=== PATIENT | male | born 1975 | race Caucasian/White ===

== ENCOUNTER 2016-09-16 08:24 | Inpatient (IN) | payer OTHER ==
[~2016-09-16] VITALS: Ht 177.8 cm; Wt 80.2 kg
[~2016-09-16 08:24] MED LIST: CIPR-9 PO; NAPR220T95 PO
[2016-09-16 08:34] VITALS: BP 118/75; PULSE 85; RESP 16; TEMP 98.1; O2SAT 100
[2016-09-16] MEDS ORDERED: SODIUM CHLOR 0.9% 1000 ML INJ 1,000 ML IV ONE ×2 (08:41→14:30)
[2016-09-16 09:00] VITALS: O2SAT 99
--- NOTE | 2016-09-16 09:16 | PD ---
HPI Chief Complaint: Pain: Acute or Chronic Time Seen by Provider: 08:40 Travel History International Travel<30 days: No Contact w/Intl Traveler<30days: No Traveled to known affect area: No History of Present Illness HPI 41-year-old male who presents with low back pain and feeling of fever with chills since last night. He states that initially he has not been using IV drugs but when I said it was important even if he is only used once he states that a couple of days or so ago he used because of the pain. He confirms that he had surgery at [facility] in his back recently. He denies any trauma. He denies other concurrent complaints. Quality pain is sharp. Severity is severe per patient. Pain is worse with movement. He denies other modifying factors. He denies other concurrent complaints other than occasional diarrhea. PFSH Past Medical History Hx Anticoagulant Therapy: No Arthritis: No Asthma: No Blood Disorders: No Anxiety: Yes Depression: No Heart Rhythm Problems: No Cancer: No Cardiovascular Problems: No High Cholesterol: No Chemotherapy: No Chest Pain: No Congestive Heart Failure: No COPD: No Cerebrovascular Accident: No Diabetes: No Diminished Hearing: No Endocrine: No Genitourinary: No Headaches: No Hypertension: No Immune Disorder: No Musculoskeletal: No Neurologic: No Psychiatric: No Reproductive: No Respiratory: No Immunizations Current: Yes Migraines: No Myocardial Infarction: No Radiation Therapy: No Seizures: No Sickle Cell Disease: No Sleep Apnea: No Thyroid Disease: No Past Surgical History Abdominal Surgery: No AICD: No Arteriovenous Shunt: No Cardiac Surgery: No Ear Surgery: No Endocrine Surgery: No Eye Surgery: No Genitourinary Surgery: No Insulin Pump: No Joint Replacement: No Oral Surgery: No Pacemaker: No Thoracic Surgery: Yes (CHEST TUBE RIGHT LUNG 1995) Other Surgery: Yes (LUNG COLLAPSED) Social History Alcohol Use: No (PT DENIES) Tobacco Use: Yes (/2 PPD) Substance Use: Yes (IV DRUG USE) Allergies-Medications (Allergen,Severity, Reaction): Coded Allergies: Penicillin (Verified Allergy, Mild, UNKNOWN, 09/16/16) Reported Meds & Prescriptions Reported Meds & Active Scripts Active No Active Prescriptions or Reported Medications Review of Systems Except as stated in HPI: all other systems reviewed are Neg Physical Exam Narrative GENERAL: Well-nourished, well-developed patient. SKIN: Warm and dry. track ye noted to left arm without abscess HEAD: Normocephalic and atraumatic. EYES: No injection or drainage. ENT: No nasal drainage noted. NECK: Supple, trachea midline. CARDIOVASCULAR: Regular rate and rhythm RESPIRATORY: No increased effort. No accessory muscle use. GASTROINTESTINAL: Abdomen soft, non-tender, nondistended. BACK: Tender over lumbar area near her surgical scar without overt signs of infection noted to skin and scar is well healing from June NEUROLOGICAL: Awake and alert. Motor and sensory grossly within normal limits. Normal speech. Data Data Last Documented VS Vital Signs Date Time Temp Pulse Resp B/P Pulse Ox O2 Delivery O2 Flow Rate FiO2 09/16/16 13:53 98.1 59 14 116/62 99 Room Air Orders Electrocardiogram (09/16/16 08:41) Complete Blood Count With Diff (09/16/16 08:41) Comprehensive Metabolic Panel (09/16/16 08:41) Prothrombin Time / Inr (Pt) (09/16/16 08:41) Act Partial Throm Time (Ptt) (09/16/16 08:41) Lactic Acid Sepsis Protocol (09/16/16 08:41) Phosphorus (Po4) (09/16/16 08:41) Urinalysis - C+S If Indicated (09/16/16 08:41) Blood Culture (09/16/16 08:41) Chest, Single Ap (09/16/16 08:41) Ecg Monitoring (09/16/16 08:41) Iv Access Insert/Monitor (09/16/16 08:41) Oximetry (09/16/16 08:41) Sodium Chlor 0.9% 1000 Ml Inj (Ns 1000 M (09/16/16 08:41) Mri L Spine W&W/O Contrast (09/16/16 ) Ketorolac Inj (Toradol Inj) (09/16/16 09:45) Alprazolam (Xanax) (09/16/16 10:45) Morphine Inj (Morphine Inj) (09/16/16 11:45) Mri T Spine W/O Contrast (09/16/16 ) Gadodiamide Pf Inj (Omniscan Pf Inj) (09/16/16 13:25) Vancomycin Inj (Vancomycin Inj) (09/16/16 13:28) Aztreonam Inj (Azactam Inj) (09/16/16 13:28) Admit Order (Ed Use Only) (09/16/16 14:14) Labs Laboratory Tests Test 09/16/16 09/16/16 09:10 09:15 White Blood Count 7.9 TH/MM3 Red Blood Count 4.02 MIL/MM3 Hemoglobin 10.8 GM/DL Hematocrit 33.5 % Mean Corpuscular Volume 83.4 FL Mean Corpuscular Hemoglobin 27.0 PG Mean Corpuscular Hemoglobin 32.3 % Concent Red Cell Distribution Width 15.1 % Platelet Count 399 TH/MM3 Mean Platelet Volume 7.9 FL Neutrophils (%) (Auto) 69.0 % Lymphocytes (%) (Auto) 18.4 % Monocytes (%) (Auto) 11.3 % Eosinophils (%) (Auto) 1.0 % Basophils (%) (Auto) 0.3 % Neutrophils # (Auto) 5.4 TH/MM3 Lymphocytes # (Auto) 1.5 TH/MM3 Monocytes # (Auto) 0.9 TH/MM3 Eosinophils # (Auto) 0.1 TH/MM3 Basophils # (Auto) 0.0 TH/MM3 CBC Comment DIFF FINAL Differential Comment Prothrombin Time 12.0 SEC Prothromb Time International 1.1 RATIO Ratio Activated Partial 34.5 SEC Thromboplast Time Sodium Level 138 MEQ/L Potassium Level 3.9 MEQ/L Chloride Level 103 MEQ/L Carbon Dioxide Level 28.7 MEQ/L Anion Gap 6 MEQ/L Blood Urea Nitrogen 11 MG/DL Creatinine 0.78 MG/DL Estimat Glomerular Filtration 109 ML/MIN Rate Random Glucose 103 MG/DL Calcium Level 9.1 MG/DL Phosphorus Level 2.1 MG/DL Total Bilirubin 0.2 MG/DL Aspartate Amino Transf 18 U/L (AST/SGOT) Alanine Aminotransferase 17 U/L (ALT/SGPT) Alkaline Phosphatase 91 U/L Total Protein 8.4 GM/DL Albumin 2.6 GM/DL Lactic Acid Level 0.8 mmol/L MDM Medical Decision Making Medical Screen Exam Complete: Yes Emergency Medical Condition: Yes Medical Record Reviewed: Yes (past history confirm, recent or note reviewed) Interpretation(s) EKG shows NSR, no ST elevation or depression, and no arrhythmias. No significant T-wave inversions. V2 limited with wandering baseline CBC & BMP Diagram 09/16/16 09:10 Last 24 hours Impressions Chest X-Ray 09/16/16 0841 Signed Impressions: Service Date/Time: September 09:25 - CONCLUSION: No acute cardiopulmonary abnormality is identified. Fabian Arthur MD Thoracic Spine MRI 09/16/16 0000 Signed Impressions: Service Date/Time: September 11:22 - CONCLUSION: The exam is limited secondary to motion artifact which limits the interpretation. Small central protrusion at T7-T8 without stenosis. Mike Haile MD Lumbar Spine MRI 09/16/16 0000 Signed Impressions: Service Date/Time: September 11:22 - CONCLUSION: 1. Continued extensive inflammatory change at L4-L5 surrounding the thecal sac as well as posteriorly characteristic of infection without abscess. The inflammatory process significantly compromises the exiting left L4 nerve root. The findings are similar to the prior exam. Mike Haile MD Differential Diagnosis Epidural abscess, UTI, right sided endocarditis, pneumonia.... Narrative Course Will check blood work, UA, chest x-ray, MRI spine and discuss with his neurosurgeon MRI shows inflammation characteristic of infection without abscess. We'll admit to the hospital for ID consult and antibiotic therapy. Neurosurgeon updated patient and patient agrees to admission. Physician Communication Physician Communication dr luis states to check MRI entire spine and if negative to admit to medicine for further infectious disease workup. If positive call him back dr luis updated about mri states can stay in [place] as not surgical with antibiotics and ID consult, agrees to vancomycin and aztreonam to start which were given dr wilson agrees to admit Diagnosis Primary Impression: Back pain Qualified Code: M54.5 - Acute midline low back pain without sciatica Additional Impression: IVDU (intravenous drug user) Admitting Information Admitting Physician Requests: Admit Scripts No Active Prescriptions or Reported Meds Sonya Cardoza MD Sep 16, 2016 09:16
[2016-09-16 09:27] LABS: AUTOMATED NEUTROPHIL # 5.4 TH/MM3 (1.8-7.7); BASOPHIL % 0.3 % (0.0-2.0); EOSINOPHIL # 0.1 TH/MM3 (0-0.4); HEMATOCRIT 33.5 % (39.0-51.0); HEMO FLAGS DIFF FINAL; LYMPH % 18.4 % (9.0-44.0); LYMPHOCYTE # 1.5 TH/MM3 (1.0-4.8); MEAN CELL VOLUME 83.4 FL (80.0-100.0); MEAN CORPUSCULAR HGB CONC 32.3 % (32.0-36.0); MONO % 11.3 % (0.0-8.0); PLATELET COUNT 399 TH/MM3 (150-450); RED BLOOD COUNT 4.02 MIL/MM3 (4.50-5.90); RED CELL DISTRIBUTION WIDTH 15.1 % (11.6-17.2); WHITE BLOOD COUNT 7.9 TH/MM3 (4.0-11.0)
[2016-09-16] MEDS ORDERED: KETOROLAC TROMETHAMINE 30 MG/ML (IVP) VIAL IV PUSH ONE (09:45)
[2016-09-16 09:57] LABS: APTT (PATIENT) 34.5 SEC (24.3-30.1); INTERNATIONAL NORMALIZED RATIO 1.1 RATIO
--- NOTE | 2016-09-16 09:57 | RADHPO ---
EXAM DATE/TIME: 09/16/2016 09:25 [facility] COMPARISON: No previous studies available for comparison. INDICATIONS : Back pain & fever. MEDICAL HISTORY : None. SURGICAL HISTORY : Lumbar laminectomy. Right chest tube. ENCOUNTER: Initial ACUITY: 1 day PAIN SCORE: 10/10 LOCATION: chest FINDINGS: 2 AP views of the chest demonstrate a normal-sized cardiac silhouette. No effusion, consolidation, or pneumothorax is identified. There is a staple line in the right lung apex. The bones and soft tissue s demonstrate no acute finding. CONCLUSION: No acute cardiopulmonary abnormality is identified. Fabian Arthur MD on September 16, 2016 at 9:54 Board Certified Radiologist. This report was verified electronically.
[2016-09-16 09:58] LABS: ANION GAP 6 MEQ/L (5-15); BICARBONATE 28.7 MEQ/L (21.0-32.0); CHLORIDE 103 MEQ/L (98-107); POTASSIUM 3.9 MEQ/L (3.5-5.1); SODIUM (NA) 138 MEQ/L (136-145)
[2016-09-16 10:00] LABS: GLOMERULAR FILTRATION RATE 109 ML/MIN (>89)
[2016-09-16 10:01] LABS: ALT (GPT) 17 U/L (12-78); TOTAL BILIRUBIN ADULT 0.2 MG/DL (0.2-1.0)
[2016-09-16 10:02] LABS: ALKALINE PHOSPHATASE 91 U/L (45-117)
[2016-09-16 10:05] LABS: AST (GOT) 18 U/L (15-37); BLOOD UREA NITROGEN 11 MG/DL (7-18)
[2016-09-16] MEDS ORDERED: ALPRAZolam 0.5 MG TAB PO ONE (10:45)
[2016-09-16] MEDS ORDERED: MORPHINE SULFATE 4 MG/ML INJ IV PUSH ONE (11:45)
--- NOTE | 2016-09-16 13:05 | RADHPO ---
EXAM DATE/TIME: 09/16/2016 11:22 [facility] COMPARISON: MRI LUMBAR SPINE W & W/O CONTRAST, August 16, 2016, 11:14. INDICATIONS : Abscess. Severe low back pain. CONTRAST: 14 cc Omniscan (gadodiamide) IV MEDICAL HISTORY : Prior spine abcess. SURGICAL HISTORY : Discectomy, lumbar. Evacuation of abcess. ENCOUNTER: Subsequent ACUITY: 3 months PAIN SCORE: 8/10 LOCATION: low back. TECHNIQUE: Multiplanar multisequence MRI of the lumbar spine was performed with and without contrast. FINDINGS: Sagittal images demonstrate normal vertebral body alignment and curvature. There is marrow edema invo lving the L4 and L5 vertebral body similar to the prior study with prominent enhancement of the disc space as well as enhancement in the paraspinal soft tissues posteriorly characteristic of infection. Comment 4 The conus terminates normally. Axial images were performed from T12-L1 through L5-S1. T12-L1: No significant abnormalities identified. L1-L2: No significant abnormalities identified. L2-L3: There is mild diffuse annular bulge of the disc. The neural foramina are clear bilaterally. There is no significant spinal canal stenosis. L3-L4: There is mild annular bulge of the disc. There is mild facet arthritis and ligamentum flavum hypertro phy bilaterally. The neural foramina are clear bilaterally. L4-L5: There continues to be abnormal epidural soft tissue mass surrounding the thecal sac slightly asymmetr ic to left and, to the exiting left L4 nerve root similar to the prior study. There is moderate neura l foraminal narrowing on the left. Laminectomy defect is present on the left. The findings are simila r to the prior exam. L5-S1: No significant abnormalities identified. CONCLUSION: 1. Continued extensive inflammatory change at L4-L5 surrounding the thecal sac as well as posteriorly characteristic of infection without abscess. The inflammatory process significantly compromises the exiting left L4 nerve root. The findings are similar to the prior exam. Mike Haile MD on September 16, 2016 at 12:59 Board Certified Radiologist. This report was verified electronically.
--- NOTE | 2016-09-16 13:14 | RADHPO ---
EXAM DATE/TIME: 09/16/2016 11:22 [facility] COMPARISON: No previous studies available for comparison. INDICATIONS : Pain. MEDICAL HISTORY : Lumbar abcess. SURGICAL HISTORY : Discectomy, lumbar. Evacuation of abcess lumbar spine. ENCOUNTER: Subsequent ACUITY: 3 months PAIN SCORE: 8/10 LOCATION: back TECHNIQUE: Multiplanar multisequence MRI of the thoracic spine was performed. FINDINGS: Sagittal images demonstrate normal vertebral body alignment and curvature. No focal area of marrow re placement are identified. The cord itself is normal in caliber and signal intensity. The conus termin ates normally. Axial images were performed from T1-T2 through T12-L1. T1-T2: No significant abnormalities identified. T2-T3: No significant abnormalities identified. T3-T4: No significant abnormalities identified. T4-T5: No significant abnormalities identified. T5-T6: No significant abnormalities identified. T6-T7: No significant abnormalities identified. T7-T8: A small central protrusion is present impinging on the thecal sac but not significantly defor tracey the cord. There is no significant spinal canal stenosis. T8-T9: No significant abnormalities identified. T9-T10: No significant abnormalities identified. T10-T11: No significant abnormalities identified. T11-T12: No significant abnormalities identified. T12-L1: No significant abnormalities identified. CONCLUSION: The exam is limited secondary to motion artifact which limits the interpretation . Small central protrusion at T7-T8 without stenosis. Mike Haile MD on September 16, 2016 at 13:10 Board Certified Radiologist. This report was verified electronically.
[2016-09-16] MEDS ORDERED: GADODIAMIDE PF 287 MG/ML 5 ML VIAL (for RAD MRI) IV ONE (13:25)
[2016-09-16] MEDS ORDERED: VANCOMYCIN INJ 1,000 MG in SODIUM CHLOR 0.9% 250 ML INJ 250 ML IV STA (13:28)
[2016-09-16] MEDS ORDERED: AZTREONAM INJ 2,000 MG in SODIUM CHLORIDE 0.9% INJ 100 ML IV STA (13:28)
[2016-09-16 13:53] VITALS: BP 116/62; PULSE 59; RESP 14; TEMP 98.1; O2SAT 99
[2016-09-16] MEDS ORDERED: BISACODYL 10 MG SUPP PR PRN (14:15)
[2016-09-16] MEDS ORDERED: Vancomycin Consult Pharmacy 1 EA OTHER SCH (14:15)
[2016-09-16] MEDS ORDERED: ONDANSETRON HCL 4 MG/2 ML VIAL IVP PRN (14:15)
[2016-09-16] MEDS ORDERED: MAGNESIUM HYDROXIDE SUSP 30 ML CUP PO PRN (14:15)
[2016-09-16] MEDS ORDERED: NALOXONE HCL 0.4 MG/ML AMP IV PRN (14:15)
[2016-09-16] MEDS: SODIUM CHLOR 0.9% 1000 ML INJ 1,000 ML IV SCH (15:49)
[2016-09-16] MEDS: ENOXAPARIN SODIUM 40 MG/0.4 ML SYRINGE SQ SCH (15:52)
[2016-09-16] MEDS ORDERED: KETOROLAC TROMETHAMINE 30 MG/ML (IVP) VIAL IVP PRN (16:00)
[2016-09-16 16:20] VITALS: BP 145/77; PULSE 67; RESP 16; TEMP 98.8; O2SAT 98
--- NOTE | 2016-09-16 16:26 | HHI.HP ---
[facility] No Primary Care Physician Admission Diagnosis IVDA, back pain Diagnoses: (1) Back pain Diagnosis: Principal (2) Hip pain Diagnosis: Principal (3) IVDU (intravenous drug user) Diagnosis: Principal Chief Complaint: back and hip pain Travel History International Travel<30 Days: No Contact w/Intl Traveler <30 Da: No Traveled to Known Affected Are: No History of Present Illness 41-year-old male with long-term hospitalization for epidural abscess in June of this year with surgery by Dr. Alcantar discharged with po antibiotics on 08-04-16 returns with complaint of severe back pain and right hip pain. 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 He states he came to the ED a few weeks ago but states he was "dismissed". Records indicate that he came to the ED on August 16 with back pain and a repeat MRI was performed which had shown improvement of the fluid collection and the patient had no leukocytosis or fever at that time. He returned on September 06 with complaint of fevers and myalgias but according to ED physician's note patient attributed back pain to work and stated it did not feel like his prior epidural abscess. Patient states he has had pain the whole time since being discharged, but he was compliant with his antibiotics. He he states he did follow up with Dr. Santillan. He states he can't walk and is limping "horribly". He states he can't take care of himself. He states he lost his job because of the pain. He does state the back pain is not as bad as the first time he was hospitalized. He admits to fevers and chills stating his record was shivering last night. He admits to getting a pulling sensation of the left thigh sometimes but denies any numbness or tingling in the legs, bladder or bowel incontinence. She denies any chest pain, shortness of breath, abdominal pain, vomiting. States he got nauseous once due to the pain. He last injected Dilaudid on Tuesday of this week. Denies use of any other illicit drugs. Patient denies ever having any HIV testing performed. Review of Systems Constitutional: COMPLAINS OF: Fever, Chills Respiratory: DENIES: Shortness of breath Cardiovascular: DENIES: Chest pain Gastrointestinal: COMPLAINS OF: Nausea, DENIES: Abdominal pain, Vomiting Genitourinary: DENIES: Urinary incontinence Musculoskeletal: COMPLAINS OF: Joint pain, Back pain Neurologic: DENIES: Paresthesias Other INTEGUMENTARY: Insect bites ROS x 10 negative unless otherwise stated above Past Family Social History Past Medical History Epidural abscess Pneumothorax Past Surgical History 06/09/16: L4-5 laminectomy, debridement of abscess, microsurgical resection of the disk, foraminotomy Chest tube placement right lung 1995 Reported Medications No Active Prescriptions or Reported Medications Allergies: Coded Allergies: Penicillin (Verified Allergy, Mild, UNKNOWN, 09/16/16) Family History No significant family history per patient. Social History IVDU, Dilaudid. Patient admits to smoking cigarettes. Denies alcohol use. Physical Exam Vital Signs Vital Signs Date Time Temp Pulse Resp B/P Pulse Ox O2 Delivery O2 Flow Rate FiO2 09/16/16 16:20 98.8 67 16 145/77 98 09/16/16 13:53 98.1 59 14 116/62 99 Room Air 09/16/16 09:00 99 Room Air 09/16/16 08:34 98.1 85 16 118/75 100 Physical Exam GENERAL: This is a well-nourished, well-developed patient, in no apparent distress. SKIN: Several ~2-3 mm sized scabbed lesions over extensor surface of R elbow. Same lesions appear over tibial surfaces of both legs. No involvement of chest, waistline, volar aspects of the wrists, or webspaces of the hands. No surrounding erythema or edema. Black grease on both hands. HEAD: Atraumatic. Normocephalic. EYES: No scleral icterus. No injection or drainage. CARDIOVASCULAR: Regular rate and rhythm without murmurs. RESPIRATORY: Clear to auscultation. Breath sounds equal bilaterally. No wheezes , rales, or rhonchi. GASTROINTESTINAL: Abdomen soft, non-tender, nondistended. MUSCULOSKELETAL/BACK: No reproducible spinal tenderness. No lower extremity edema bilaterally. NEUROLOGICAL: Awake and alert. Motor grossly within normal limits. Normal speech. Laboratory Laboratory Tests Test 09/16/16 09/16/16 09:10 09:15 White Blood Count 7.9 Red Blood Count 4.02 Hemoglobin 10.8 Hematocrit 33.5 Mean Corpuscular Volume 83.4 Mean Corpuscular Hemoglobin 27.0 Mean Corpuscular Hemoglobin 32.3 Concent Red Cell Distribution Width 15.1 Platelet Count 399 Mean Platelet Volume 7.9 Neutrophils (%) (Auto) 69.0 Lymphocytes (%) (Auto) 18.4 Monocytes (%) (Auto) 11.3 Eosinophils (%) (Auto) 1.0 Basophils (%) (Auto) 0.3 Neutrophils # (Auto) 5.4 Lymphocytes # (Auto) 1.5 Monocytes # (Auto) 0.9 Eosinophils # (Auto) 0.1 Basophils # (Auto) 0.0 CBC Comment DIFF FINAL Differential Comment Prothrombin Time 12.0 Prothromb Time International 1.1 Ratio Activated Partial 34.5 Thromboplast Time Sodium Level 138 Potassium Level 3.9 Chloride Level 103 Carbon Dioxide Level 28.7 Anion Gap 6 Blood Urea Nitrogen 11 Creatinine 0.78 Estimat Glomerular Filtration 109 Rate Random Glucose 103 Calcium Level 9.1 Phosphorus Level 2.1 Total Bilirubin 0.2 Aspartate Amino Transf 18 (AST/SGOT) Alanine Aminotransferase 17 (ALT/SGPT) Alkaline Phosphatase 91 Total Protein 8.4 Albumin 2.6 Lactic Acid Level 0.8 Date/Time Procedure Status Source Growth 09/16/16 09:15 Aerobic Blood Culture Received Blood Peripheral Pending 09/16/16 09:15 Anaerobic Blood Culture Received Blood Peripheral Pending Result Diagram: 09/16/16 0910 09/16/16 0910 Imaging Last Impressions Chest X-Ray 09/16/16 0841 Signed Impressions: Service Date/Time: September 09:25 - CONCLUSION: No acute cardiopulmonary abnormality is identified. Fabian Arthur MD Thoracic Spine MRI 09/16/16 0000 Signed Impressions: Service Date/Time: September 11:22 - CONCLUSION: The exam is limited secondary to motion artifact which limits the interpretation. Small central protrusion at T7-T8 without stenosis. Mike Haile MD Lumbar Spine MRI 09/16/16 0000 Signed Impressions: Service Date/Time: Thursday, September 16, 2016 11:22 - CONCLUSION: 1. Continued extensive inflammatory change at L4-L5 surrounding the thecal sac as well as posteriorly characteristic of infection without abscess. The inflammatory process significantly compromises the exiting left L4 nerve root. The findings are similar to the prior exam. Mike Haile MD Assessment and Plan Assessment and Plan 41-year-old male with: Back pain, right hip pain: Recent history of epidural abscess hospitalized in June and discharged early August of this year. Repeat MRI of the lumbar spine shows extensive inflammatory changes L4-L5 surrounding the thecal sac as well as posteriorly indicating infection, but no abscess. The inflammation significantly compromises exiting left L4 nerve root. Radiologist indicates the findings are similar to prior exam which was performed on 08/16/16. At that time there was only an 8 millimeter fluid collection which remained and the changes at L4-L5 with extension to the epidural space and paraspinal soft tissues consistent with discitis had no significant change from MRI on . Indeterminate whether there is actually new infection or just persistent inflammation. White blood cell count is normal at 7.9. Afebrile. Heart rate normal. -Patient was given dose of Aztreonam and Vancomycin in the ED. -Continue vancomycin with pharmacy consult. BC positive for staph aureus in June. -New BC x 2 pending -ESR 62 on 08/02. Repeat ESR level. -Tylenol, Toradol for pain as directed -Zofran prn nausea -Consult infectious disease -Physical therapy IVDU: Dilaudid use. -HIV testing -Vistaril for anxiety GI prophylaxis: Protonix 40 po daily. DVT prevention: Lovenox Written by Vashti Jose PA-C acting as scribe for Dr. Ascencio on 09/16/16 at ~ 1620. The documentation accurately reflects the work and decisions performed face-to- face by ca Dr. Ascencio on 09/16/16 at 1620. Discussed Condition With ED physician, patient Physician Certification 2 Midnight Certification Type: Admission for Inpatient Services Order for Inpatient Services The services are ordered in accordance with Medicare regulations or non- Medicare payer requirements, as applicable. In the case of services not specified as inpatient-only, they are appropriately provided as inpatient services in accordance with the 2-midnight benchmark. Estimated LOS (days): 2 days is the estimated time the patient will need to remain in the hospital, assuming treatment plan goals are met and no additional complications. Post-Hospital Plan: Home Problem Qualifiers (1) Back pain: Qualified Code: M54.5 - Acute midline low back pain without sciatica (2) Hip pain: Qualified Code: M25.551 - Pain of right hip joint Vashti Jose Sep 16, 2016 4:26 pm Miguel Ascencio DO Sep 16, 2016 6:40 pm
[2016-09-16] MEDS: KETOROLAC TROMETHAMINE 30 MG/ML (IVP) VIAL IVP PRN ×2 (16:48→22:38)
[2016-09-16] MEDS ORDERED: DOCUSATE SODIUM 100 MG CAP PO PRN (17:30)
[2016-09-16] MEDS ORDERED: ALUMINUM/MAGNESIUM/SIMETH 30 ML CUP PO PRN (17:30)
[2016-09-16] MEDS: PANTOPRAZOLE SOD 40 MG DELAYED RELEASE TAB PO SCH (17:51)
--- NOTE | 2016-09-16 18:53 | PD.CONS ---
History of Present Illness Service Infectious disease Consult Requested By Dr Ascencio Reason for Consult L spine infection Primary Care Physician No Primary Care Physician Diagnoses: (1) Discitis of lumbar region (2) Back pain History of Present Illness Patient known to ID service- patient has a h/o IVDA - was in hospital over 6 weeks with a MSSA bacteremia and en epidural abscess- was discharged on PO Cipro which patient says he was taking However he had worsening backpain and so has mutiple ER visits and recently he has had some fever with chills and so admitted. Patient does admit to recent IVDU. Review of Systems Constitutional: COMPLAINS OF: Diaphoretic episodes, Fever Endocrine: DENIES: Polydipsia, Polyuria Eyes: DENIES: Blurred vision, Diplopia, Eye inflammation Ears, nose, mouth, throat: DENIES: Hearing loss, Nasal discharge Respiratory: DENIES: Cough, Wheezing, Shortness of breath Cardiovascular: DENIES: Chest pain, Palpitations Gastrointestinal: DENIES: Abdominal pain, Diarrhea, Vomiting Genitourinary: DENIES: Urinary frequency, Urinary incontinence Musculoskeletal: COMPLAINS OF: Back pain, DENIES: Joint pain Hematologic/lymphatic: DENIES: Lymphadenopathy Neurologic: DENIES: Headache, Paresthesias Psychiatric: DENIES: Anxiety, Confusion Past Family Social History Allergies: Coded Allergies: Penicillin (Verified Allergy, Mild, UNKNOWN, 09/16/16) Past Medical History Epidural abscess Pneumothorax Past Surgical History 06/09/16: L4-5 laminectomy, debridement of abscess, microsurgical resection of the disk, foraminotomy Chest tube placement right lung 1995 Reported Medications No Active Prescriptions or Reported Medications Allergies: Coded Allergies: Penicillin (Verified Allergy, Mild, UNKNOWN, 09/16/16) Family History No significant family history per patient. Social History IVDU, Dilaudid. Patient admits to smoking cigarettes. Denies alcohol use. Physical Exam Vital Signs Vital Signs Date Time Temp Pulse Resp B/P Pulse Ox O2 Delivery O2 Flow Rate FiO2 09/16/16 16:20 98.8 67 16 145/77 98 09/16/16 13:53 98.1 59 14 116/62 99 Room Air 09/16/16 09:00 99 Room Air 09/16/16 08:34 98.1 85 16 118/75 100 Physical Exam GENERAL: This is a acutely ill patient c/o backpain SKIN: No rashes, ecchymoses or lesions. Cool and dry. HEAD: Atraumatic. Normocephalic. No temporal or scalp tenderness. EYES: Pupils equal round and reactive. Extraocular motions intact. No scleral icterus. No injection or drainage. ENT: Nose without bleeding, purulent drainage or septal hematoma. Throat without erythema, tonsillar hypertrophy or exudate. Uvula midline. Airway patent. NECK: Trachea midline. No JVD or lymphadenopathy. Supple, nontender, no meningeal signs. CARDIOVASCULAR: Regular rate and rhythm without murmurs, gallops, or rubs. RESPIRATORY: Clear to auscultation. Breath sounds equal bilaterally. No wheezes , rales, or rhonchi. GASTROINTESTINAL: Abdomen soft, non-tender, nondistended. No hepato-splenomegaly , or palpable masses. No guarding. MUSCULOSKELETAL: Extremities without clubbing, cyanosis, or edema. No joint tenderness, effusion, or edema noted. No calf tenderness. Negative Homans sign bilaterally. NEUROLOGICAL: Awake and alert. Cranial nerves II through XII intact. Motor and sensory grossly within normal limits. Five out of 5 muscle strength in all muscle groups. Normal speech. Laboratory Laboratory Tests Test 09/16/16 09/16/16 09:10 09:15 White Blood Count 7.9 Red Blood Count 4.02 Hemoglobin 10.8 Hematocrit 33.5 Mean Corpuscular Volume 83.4 Mean Corpuscular Hemoglobin 27.0 Mean Corpuscular Hemoglobin 32.3 Concent Red Cell Distribution Width 15.1 Platelet Count 399 Mean Platelet Volume 7.9 Neutrophils (%) (Auto) 69.0 Lymphocytes (%) (Auto) 18.4 Monocytes (%) (Auto) 11.3 Eosinophils (%) (Auto) 1.0 Basophils (%) (Auto) 0.3 Neutrophils # (Auto) 5.4 Lymphocytes # (Auto) 1.5 Monocytes # (Auto) 0.9 Eosinophils # (Auto) 0.1 Basophils # (Auto) 0.0 CBC Comment DIFF FINAL Differential Comment Prothrombin Time 12.0 Prothromb Time International 1.1 Ratio Activated Partial 34.5 Thromboplast Time Sodium Level 138 Potassium Level 3.9 Chloride Level 103 Carbon Dioxide Level 28.7 Anion Gap 6 Blood Urea Nitrogen 11 Creatinine 0.78 Estimat Glomerular Filtration 109 Rate Random Glucose 103 Calcium Level 9.1 Phosphorus Level 2.1 Total Bilirubin 0.2 Aspartate Amino Transf 18 (AST/SGOT) Alanine Aminotransferase 17 (ALT/SGPT) Alkaline Phosphatase 91 Total Protein 8.4 Albumin 2.6 Erythrocyte Sedimentation Rate 101 Lactic Acid Level 0.8 Date/Time Procedure Status Source Growth 09/16/16 09:15 Aerobic Blood Culture Received Blood Peripheral Pending 09/16/16 09:15 Anaerobic Blood Culture Received Blood Peripheral Pending Result Diagram: 09/16/16 0910 09/16/16 0910 Assessment and Plan Problem List: (1) Discitis of lumbar region Status: Acute Plan: Check Blood cultures Check CRP and Sed rate Check HIV test Continue IV Vancomycin Add IV Cefazolin (2) Back pain Status: Acute (3) IVDU (intravenous drug user) Status: Acute Problem Qualifiers (1) Back pain: Qualified Code: M54.5 - Acute midline low back pain without sciatica Moon Mitchell MD Sep 16, 2016 18:53
[2016-09-16 19:50] VITALS: PULSE 65
[2016-09-16 20:00] VITALS: BP 133/80; PULSE 72; RESP 20; TEMP 98.6; O2SAT 99
[2016-09-16] MEDS: ceFAZolin 2 GM PREMIX 50 ML IV SCH (20:54)
[2016-09-16] MEDS: SODIUM CHLORIDE 0.9% FLUSH 5 ML FLUSH FLUSH SCH (20:54)
[2016-09-16] MEDS: VANCOMYCIN INJ 1,500 MG in SODIUM CHLORID 0.9% 500 ML INJ 500 ML IV SCH (23:59)
[2016-09-17] VITALS: BP 130/70; PULSE 68; RESP 20; TEMP 98.4; O2SAT 98
[2016-09-17 04:00] VITALS: BP 138/82; PULSE 72; RESP 20; TEMP 98.6; O2SAT 99
[2016-09-17] MEDS: ceFAZolin 2 GM PREMIX 50 ML IV SCH ×3 (04:48→19:39)
[2016-09-17] MEDS: KETOROLAC TROMETHAMINE 30 MG/ML (IVP) VIAL IVP PRN ×3 (04:48→16:21)
[2016-09-17] MEDS: SODIUM CHLOR 0.9% 1000 ML INJ 1,000 ML IV SCH ×3 (04:48→19:41)
[2016-09-17 05:01] LABS: BLOOD, URINE TRACE (NEG); GLUCOSE,URINE NEG (NEG); KETONE, URINE NEG (NEG); NITRITE,URINE NEG (NEG)
[2016-09-17 05:03] LABS: URINE COLOR YELLOW (YELLW/STRAW)
[2016-09-17 05:05] LABS: COMMENT (UR) CULT NOT INDICATED; CULTURE IF INDICATED CULT NOT INDICATED; RBC, URINE 0-3 /hpf (0-3); SQUAMOUS EPITHELIAL CELL URINE 0-5 /hpf (0-5); WBC, URINE 0-2 /hpf (0-5)
[2016-09-17 05:35] LABS: AUTOMATED NEUTROPHIL # 6.1 TH/MM3 (1.8-7.7); BASOPHIL % 0.4 % (0.0-2.0); EOSINOPHIL # 0.1 TH/MM3 (0-0.4); EOSINOPHIL % 1.5 % (0.0-4.0); HEMATOCRIT 29.8 % (39.0-51.0); HEMO FLAGS DIFF FINAL; LYMPH % 16.2 % (9.0-44.0); LYMPHOCYTE # 1.4 TH/MM3 (1.0-4.8); MEAN CELL VOLUME 83.5 FL (80.0-100.0); MEAN CORPUSCULAR HEMOGLOBIN 27.5 PG (27.0-34.0); MEAN CORPUSCULAR HGB CONC 32.9 % (32.0-36.0); MONO % 10.1 % (0.0-8.0); NEUT % 71.8 % (16.0-70.0); PLATELET COUNT 374 TH/MM3 (150-450); RED BLOOD COUNT 3.57 MIL/MM3 (4.50-5.90); RED CELL DISTRIBUTION WIDTH 14.9 % (11.6-17.2); WHITE BLOOD COUNT 8.4 TH/MM3 (4.0-11.0)
[2016-09-17 05:53] LABS: BICARBONATE 25.9 MEQ/L (21.0-32.0)
[2016-09-17 08:00] VITALS: BP 120/72; PULSE 63; PULSE 68; RESP 18; TEMP 97.4; O2SAT 100
--- NOTE | 2016-09-17 08:37 | HHI.IDPN ---
Subjective Subjective Remarks ID DR. MITCHELL PT AWAKE NO FEVER C/O BACK PAIN Antibiotics ANCEF VANCOMYCIN (Erin Conley) Remarks Reviewed (Moon Mitchell MD) Allergies: Coded Allergies: Penicillin (Verified Allergy, Mild, UNKNOWN, 09/16/16) Review of Systems Constitutional Constitutional: Weakness (Erin Conley) Psychiatric Psychiatric: Depression (Erin Conley) Objective . Vital Signs Date Time Temp Pulse Resp B/P Pulse Ox O2 Delivery O2 Flow Rate FiO2 09/17/16 04:00 98.6 72 20 138/82 99 09/17/16 00:00 98.4 68 20 130/70 98 09/16/16 20:00 98.6 72 20 133/80 99 09/16/16 19:50 65 09/16/16 16:20 98.8 67 16 145/77 98 09/16/16 13:53 98.1 59 14 116/62 99 Room Air 09/16/16 09:00 99 Room Air 09/16/16 08:34 98.1 85 16 118/75 100 09/16/16 09/16/16 09/17/16 15:00 23:00 07:00 Intake Total 1666 ml Output Total 250 ml Balance 1416 ml Intake Oral 80 ml IV Total 1586 ml Output Urine Total 250 ml # Bowel Movements 1 . Laboratory Tests Test 09/16/16 09/16/16 09/17/16 09:10 09:15 04:56 White Blood Count 7.9 TH/MM3 8.4 TH/MM3 Red Blood Count 4.02 MIL/MM3 3.57 MIL/MM3 Hemoglobin 10.8 GM/DL 9.8 GM/DL Hematocrit 33.5 % 29.8 % Mean Corpuscular Volume 83.4 FL 83.5 FL Mean Corpuscular Hemoglobin 27.0 PG 27.5 PG Mean Corpuscular Hemoglobin 32.3 % 32.9 % Concent Red Cell Distribution Width 15.1 % 14.9 % Platelet Count 399 TH/MM3 374 TH/MM3 Mean Platelet Volume 7.9 FL 8.5 FL Neutrophils (%) (Auto) 69.0 % 71.8 % Lymphocytes (%) (Auto) 18.4 % 16.2 % Monocytes (%) (Auto) 11.3 % 10.1 % Eosinophils (%) (Auto) 1.0 % 1.5 % Basophils (%) (Auto) 0.3 % 0.4 % Neutrophils # (Auto) 5.4 TH/MM3 6.1 TH/MM3 Lymphocytes # (Auto) 1.5 TH/MM3 1.4 TH/MM3 Monocytes # (Auto) 0.9 TH/MM3 0.9 TH/MM3 Eosinophils # (Auto) 0.1 TH/MM3 0.1 TH/MM3 Basophils # (Auto) 0.0 TH/MM3 0.0 TH/MM3 CBC Comment DIFF FINAL DIFF FINAL Differential Comment Erythrocyte Sedimentation Rate 101 mm/hr Laboratory Tests Test 09/16/16 09/16/16 09/17/16 09:10 09:15 04:56 Sodium Level 138 MEQ/L 142 MEQ/L Potassium Level 3.9 MEQ/L 4.0 MEQ/L Chloride Level 103 MEQ/L 108 MEQ/L Carbon Dioxide Level 28.7 MEQ/L 25.9 MEQ/L Anion Gap 6 MEQ/L 8 MEQ/L Blood Urea Nitrogen 11 MG/DL 11 MG/DL Creatinine 0.78 MG/DL 0.65 MG/DL Estimat Glomerular Filtration 109 ML/MIN 135 ML/MIN Rate Random Glucose 103 MG/DL 112 MG/DL Calcium Level 9.1 MG/DL 8.1 MG/DL Phosphorus Level 2.1 MG/DL Total Bilirubin 0.2 MG/DL Aspartate Amino Transf 18 U/L (AST/SGOT) Alanine Aminotransferase 17 U/L (ALT/SGPT) Alkaline Phosphatase 91 U/L Total Protein 8.4 GM/DL Albumin 2.6 GM/DL C-Reactive Protein 12.90 MG/DL Lactic Acid Level 0.8 mmol/L Microbiology Date/Time Procedure Status Source Growth 09/16/16 09:10 Aerobic Blood Culture Received Blood Peripheral Pending 09/16/16 09:10 Anaerobic Blood Culture Received Blood Peripheral Pending 09/16/16 09:15 Aerobic Blood Culture Received Blood Peripheral Pending 09/16/16 09:15 Anaerobic Blood Culture Received Blood Peripheral Pending Imaging REVIEWED Physical Exam GENERAL: DISHELVED AWAKE NAD HEENT; PERRL CHEST: DIMINISHED CLEAR CARDIAC: S1 S2 RRR ABD: SOFT / + BS EXT: NO EDEMA BACK: NO WOUNDS/ TENDER/ NO EDEMA (Erin Conley) Physical Exam Reviewed (Moon Mitchell MD) Assessment & Plan Diagnosis: (1) Methicillin susceptible Staphylococcus aureus septicemia (2) Discitis of lumbar region (3) Back pain Remarks FOLLOW CULTURES PENDING CONTINUE ANCEF/VANCO FOLLOW TROUGH (Erin Conley) Diagnosis: (1) Methicillin susceptible Staphylococcus aureus septicemia Plan: Follow cultures Continue IV Vancomycin and Cefazolin (2) Discitis of lumbar region (3) Back pain (Moon Mitchell MD) Problem Qualifiers (1) Back pain: Qualified Code: M54.5 - Acute midline low back pain without sciatica Erin Conley Sep 17, 2016 08:37 Moon Mitchell MD Sep 17, 2016 20:30
[2016-09-17] MEDS: SODIUM CHLORIDE 0.9% FLUSH 5 ML FLUSH FLUSH SCH ×2 (09:00→19:42)
[2016-09-17] MEDS: PANTOPRAZOLE SOD 40 MG DELAYED RELEASE TAB PO SCH (09:59)
[2016-09-17 12:00] VITALS: BP 124/74; PULSE 67; RESP 18; TEMP 97.4; O2SAT 100
[2016-09-17] MEDS: VANCOMYCIN INJ 1,500 MG in SODIUM CHLORID 0.9% 500 ML INJ 500 ML IV SCH (12:19)
[2016-09-17] MEDS: ENOXAPARIN SODIUM 40 MG/0.4 ML SYRINGE SQ SCH (14:26)
[2016-09-17] MEDS: oxyCODONE/ACETAMINOPHEN 7.5 MG/325 MG TAB PO PRN ×2 (14:26→21:22)
[2016-09-17 16:00] VITALS: BP 121/79; PULSE 72; RESP 18; TEMP 99; O2SAT 100
--- NOTE | 2016-09-17 17:34 | EKG ---
Date Performed: 09/16/2016 Time Performed: 09:00:58 PTAGE: 41 years EKG: Sinus rhythm Septal T wave changes are nonspecific Normal ECG NO PREVIOUS TRACING DOCTOR: Matt Taylor Interpretating Date/Time 09/17/2016 17:33:17
--- NOTE | 2016-09-17 17:42 | HHI.PR ---
Subjective Remarks Follow up for discitis of lumbar region, IVDU. Mr. Delong is doing well. He complains of pain in the lower back. Denies any fever, chills. Requests pain medications. Objective Vitals Vital Signs Date Time Temp Pulse Resp B/P Pulse Ox O2 Delivery O2 Flow Rate FiO2 09/17/16 12:00 97.4 67 18 124/74 100 09/17/16 08:00 63 09/17/16 08:00 97.4 68 18 120/72 100 09/17/16 04:00 98.6 72 20 138/82 99 09/17/16 00:00 98.4 68 20 130/70 98 09/16/16 20:00 98.6 72 20 133/80 99 09/16/16 19:50 65 I/O 09/16/16 09/16/16 09/16/16 09/17/16 09/17/16 09/17/16 06:59 14:59 22:59 06:59 14:59 22:59 Intake Total 1666 ml 950 ml Output Total 250 ml Balance 1416 ml 950 ml Intake Oral 80 ml 950 ml IV Total 1586 ml Output Urine Total 250 ml # Voids 3 # Bowel Movements 1 Result Diagram: 09/17/16 0456 09/17/16 0456 Imaging Last Impressions Chest X-Ray 09/16/16 0841 Signed Impressions: Service Date/Time: September 09:25 - CONCLUSION: No acute cardiopulmonary abnormality is identified. Fabian Arthur MD Thoracic Spine MRI 09/16/16 0000 Signed Impressions: Service Date/Time: September 11:22 - CONCLUSION: The exam is limited secondary to motion artifact which limits the interpretation. Small central protrusion at T7-T8 without stenosis. Mike Haile MD Lumbar Spine MRI 09/16/16 0000 Signed Impressions: Service Date/Time: September 11:22 - CONCLUSION: 1. Continued extensive inflammatory change at L4-L5 surrounding the thecal sac as well as posteriorly characteristic of infection without abscess. The inflammatory process significantly compromises the exiting left L4 nerve root. The findings are similar to the prior exam. Mike Haile MD Objective Remarks GENERAL: AOX3, NAD. SKIN: Warm and dry. HEAD: Normocephalic. EYES: No scleral icterus. No injection or drainage. NECK: Supple, trachea midline. No JVD or lymphadenopathy. CARDIOVASCULAR: Regular rate and rhythm without murmurs, gallops, or rubs. RESPIRATORY: Breath sounds equal bilaterally. No accessory muscle use. GASTROINTESTINAL: Abdomen soft, non-tender, nondistended. MUSCULOSKELETAL: No cyanosis, or edema. BACK: Nontender without obvious deformity. No CVA tenderness. Procedures None. A/P Problem List: (1) Discitis of lumbar region ICD Code: M46.46 Status: Acute (2) IVDU (intravenous drug user) ICD Code: F19.90 Status: Acute Assessment and Plan Ms. Delong is a pleasant 41 year old with a recent history of epidural abscess discharged in early Aug 2016 returned to the hospital due to increasing amount of lower back pain. Imaging studies reveal extensive inflammatory changes in L4- L5 area, infectious process but no abscess. Neurosurgery was contacted and since there is no abscess to drain, medical management was recommended. ID has been following patient. - Back pain, right hip pain - likely due to lumbar region discitis. - Lumbar region discitis. - Continue Cefazolin 2g Q8hrs and Vancomycin per pharmacy. - ESR elevated to 101 compared to previous admission. - CRP 12.9. - Acetaminophen for pain 1-4 and Percocet 7.5-325mg Q6hrs for pain 5-10. - IVDU including recent use. - HIV negative. Full code. Lovenox. Protonix. Miguel Ascencio DO Sep 17, 2016 17:42
[2016-09-17 20:00] VITALS: BP 113/64; PULSE 69; RESP 16; TEMP 96; O2SAT 99
[2016-09-18] VITALS: BP 117/75; PULSE 60; RESP 20; TEMP 96.5; O2SAT 98
[2016-09-18] MEDS: VANCOMYCIN INJ 1,500 MG in SODIUM CHLORID 0.9% 500 ML INJ 500 ML IV SCH ×2 (00:56→13:16)
[2016-09-18] MEDS: KETOROLAC TROMETHAMINE 30 MG/ML (IVP) VIAL IVP PRN ×4 (01:00→23:04)
[2016-09-18] MEDS: ceFAZolin 2 GM PREMIX 50 ML IV SCH ×3 (05:56→20:13)
[2016-09-18] MEDS: oxyCODONE/ACETAMINOPHEN 7.5 MG/325 MG TAB PO PRN ×3 (05:57→20:12)
[2016-09-18 08:47] VITALS: BP 134/75; PULSE 63; RESP 20; TEMP 97.4; O2SAT 100
[2016-09-18] MEDS: PANTOPRAZOLE SOD 40 MG DELAYED RELEASE TAB PO SCH (09:21)
[2016-09-18] MEDS: SODIUM CHLORIDE 0.9% FLUSH 5 ML FLUSH FLUSH SCH ×2 (09:21→20:12)
[2016-09-18] MEDS ORDERED: PHARMACY ORDERED LAB XX ONE (11:45)
[2016-09-18 12:16] VITALS: BP 144/79; PULSE 64; RESP 20; TEMP 97.9; O2SAT 100
[2016-09-18] MEDS: ENOXAPARIN SODIUM 40 MG/0.4 ML SYRINGE SQ SCH (15:19)
--- NOTE | 2016-09-18 15:23 | HHI.PR ---
Subjective Remarks Follow up for discitis. Patient is doing well. He has pain when he ambulates. At rest, his pain is well controlled. Denies any fever, chills. Objective Vitals Vital Signs Date Time Temp Pulse Resp B/P Pulse Ox O2 Delivery O2 Flow Rate FiO2 09/18/16 12:16 97.9 64 20 144/79 100 09/18/16 08:47 97.4 63 20 134/75 100 09/18/16 00:00 96.5 60 20 117/75 98 09/17/16 20:00 96.0 69 16 113/64 99 09/17/16 16:00 99.0 72 18 121/79 100 I/O 09/17/16 09/17/16 09/17/16 09/18/16 09/18/16 09/18/16 07:00 15:00 23:00 07:00 15:00 23:00 Intake Total 1666 ml 950 ml Output Total 250 ml 150 ml 520 ml Balance 1416 ml 950 ml -150 ml -520 ml Intake Oral 80 ml 950 ml IV Total 1586 ml Output Urine Total 250 ml 150 ml 520 ml # Voids 3 2 # Bowel Movements 1 Result Diagram: 09/17/16 0456 09/17/16 0456 Imaging Last Impressions Chest X-Ray 09/16/16 0841 Signed Impressions: Service Date/Time: September 09:25 - CONCLUSION: No acute cardiopulmonary abnormality is identified. Fabian Arthur MD Thoracic Spine MRI 09/16/16 0000 Signed Impressions: Service Date/Time: September 11:22 - CONCLUSION: The exam is limited secondary to motion artifact which limits the interpretation. Small central protrusion at T7-T8 without stenosis. Mike Haile MD Lumbar Spine MRI 09/16/16 0000 Signed Impressions: Service Date/Time: September 11:22 - CONCLUSION: 1. Continued extensive inflammatory change at L4-L5 surrounding the thecal sac as well as posteriorly characteristic of infection without abscess. The inflammatory process significantly compromises the exiting left L4 nerve root. The findings are similar to the prior exam. Mike Haile MD Objective Remarks GENERAL: AOX3, NAD. SKIN: Warm and dry. HEAD: Normocephalic. EYES: No scleral icterus. No injection or drainage. NECK: Supple, trachea midline. No JVD or lymphadenopathy. CARDIOVASCULAR: Regular rate and rhythm without murmurs, gallops, or rubs. RESPIRATORY: Breath sounds equal bilaterally. No accessory muscle use. GASTROINTESTINAL: Abdomen soft, non-tender, nondistended. MUSCULOSKELETAL: No cyanosis, or edema. BACK: Nontender without obvious deformity. No CVA tenderness. Procedures None. A/P Problem List: (1) Discitis of lumbar region ICD Code: M46.46 Status: Acute (2) IVDU (intravenous drug user) ICD Code: F19.90 Status: Acute Assessment and Plan Ms. Delong is a pleasant 41 year old with a recent history of epidural abscess discharged in early Aug 2016 returned to the hospital due to increasing amount of lower back pain. Imaging studies reveal extensive inflammatory changes in L4- L5 area, infectious process but no abscess. Neurosurgery was contacted and since there is no abscess to drain, medical management was recommended. ID has been following patient. - Back pain, right hip pain - likely due to lumbar region discitis. - Lumbar region discitis. - Continue Cefazolin 2g Q8hrs and Vancomycin per pharmacy. - ESR elevated to 101 compared to previous admission. - CRP 12.9. - Acetaminophen for pain 1-4 and Percocet 7.5-325mg Q6hrs for pain 5-10. - IVDU including recent use. - HIV negative. Full code. Lovenox. Protonix. 09/18/2016: No change in management. Continue supportive care, abx, pain medications. Increase ambulation. Miguel Ascencio DO Sep 18, 2016 3:23 pm
[2016-09-18 16:15] VITALS: BP 148/85; PULSE 62; RESP 18; TEMP 97.5; O2SAT 99
[2016-09-18 20:00] VITALS: BP 136/87; PULSE 58; RESP 18; TEMP 97.7; O2SAT 99
[2016-09-18] MEDS: SODIUM CHLORIDE 0.9% FLUSH 5 ML FLUSH FLUSH PRN (23:05)
[2016-09-19] VITALS: BP 130/66; PULSE 55; RESP 18; TEMP 98; O2SAT 98
[2016-09-19] MEDS: VANCOMYCIN INJ 1,500 MG in SODIUM CHLORID 0.9% 500 ML INJ 500 ML IV SCH ×2 (00:57→13:35)
[2016-09-19] MEDS: SODIUM CHLORIDE 0.9% FLUSH 5 ML FLUSH FLUSH PRN ×2 (04:22→05:47)
[2016-09-19] MEDS: ceFAZolin 2 GM PREMIX 50 ML IV SCH ×3 (04:22→19:40)
[2016-09-19] MEDS: KETOROLAC TROMETHAMINE 30 MG/ML (IVP) VIAL IVP PRN ×3 (05:47→18:31)
[2016-09-19] MEDS: oxyCODONE/ACETAMINOPHEN 7.5 MG/325 MG TAB PO PRN ×3 (06:48→19:39)
[2016-09-19 08:00] VITALS: BP 141/85; PULSE 65; RESP 18; TEMP 97.1; O2SAT 99
[2016-09-19] MEDS: SODIUM CHLORIDE 0.9% FLUSH 5 ML FLUSH FLUSH SCH ×2 (08:40→19:39)
[2016-09-19] MEDS: PANTOPRAZOLE SOD 40 MG DELAYED RELEASE TAB PO SCH (08:41)
--- NOTE | 2016-09-19 10:10 | HHI.PR ---
Subjective Remarks Follow up for Discitis, IVDU. Mr. Malhotra is doing well. Ambulating with his walker. Denies any fever chills. Tolerating diet well. He complains of pain when he walks. Objective Vitals Vital Signs Date Time Temp Pulse Resp B/P Pulse Ox O2 Delivery O2 Flow Rate FiO2 09/19/16 08:00 97.1 65 18 141/85 99 09/19/16 00:00 98.0 55 18 130/66 98 09/18/16 20:00 97.7 58 18 136/87 99 09/18/16 16:15 97.5 62 18 148/85 99 09/18/16 12:16 97.9 64 20 144/79 100 I/O 09/18/16 09/18/16 09/18/16 09/19/16 09/19/16 09/19/16 07:00 15:00 23:00 07:00 15:00 23:00 Intake Total 1598 ml 632 ml Output Total 150 ml 520 ml 500 ml 375 ml Balance -150 ml -520 ml 1098 ml 257 ml IV Total 1598 ml 632 ml Output Urine Total 150 ml 520 ml 500 ml 375 ml # Voids 2 Result Diagram: 09/17/16 0456 09/19/16 0615 Imaging Last Impressions Chest X-Ray 09/16/16 0841 Signed Impressions: Service Date/Time: September 09:25 - CONCLUSION: No acute cardiopulmonary abnormality is identified. Fabian Arthur MD Thoracic Spine MRI 09/16/16 0000 Signed Impressions: Service Date/Time: September 11:22 - CONCLUSION: The exam is limited secondary to motion artifact which limits the interpretation. Small central protrusion at T7-T8 without stenosis. Mike Haile MD Lumbar Spine MRI 09/16/16 0000 Signed Impressions: Service Date/Time: September 11:22 - CONCLUSION: 1. Continued extensive inflammatory change at L4-L5 surrounding the thecal sac as well as posteriorly characteristic of infection without abscess. The inflammatory process significantly compromises the exiting left L4 nerve root. The findings are similar to the prior exam. Mike Haile MD Objective Remarks GENERAL: AOX3, NAD. SKIN: Warm and dry. HEAD: Normocephalic. EYES: No scleral icterus. No injection or drainage. NECK: Supple, trachea midline. No JVD or lymphadenopathy. CARDIOVASCULAR: Regular rate and rhythm without murmurs, gallops, or rubs. RESPIRATORY: Breath sounds equal bilaterally. No accessory muscle use. GASTROINTESTINAL: Abdomen soft, non-tender, nondistended. MUSCULOSKELETAL: No cyanosis, or edema. BACK: Nontender without obvious deformity. No CVA tenderness. Procedures None. A/P Problem List: (1) Discitis of lumbar region ICD Code: M46.46 Status: Acute (2) IVDU (intravenous drug user) ICD Code: F19.90 Status: Acute Assessment and Plan Ms. Delong is a pleasant 41 year old with a recent history of epidural abscess discharged in early Aug 2016 returned to the hospital due to increasing amount of lower back pain. Imaging studies reveal extensive inflammatory changes in L4- L5 area, infectious process but no abscess. Neurosurgery was contacted and since there is no abscess to drain, medical management was recommended. ID has been following patient. - Back pain, right hip pain - likely due to lumbar region discitis. - Lumbar region discitis. - Continue Cefazolin 2g Q8hrs and Vancomycin per pharmacy. - ESR elevated to 101 compared to previous admission. - CRP 12.9. - Acetaminophen for pain 1-4 and Percocet 7.5-325mg Q6hrs for pain 5-10. - Will repeat CBC, BMP, ESR, CRP on 09/23/2016. - IVDU including recent use. - HIV negative. Full code. Lovenox. Protonix. 09/19/2016: No change in management. Continue supportive care, abx, pain medications. Miguel Ascencio DO Sep 19, 2016 10:10 am
[2016-09-19 12:00] VITALS: BP 132/77; PULSE 54; RESP 19; TEMP 97.2; O2SAT 100
[2016-09-19] MEDS: ENOXAPARIN SODIUM 40 MG/0.4 ML SYRINGE SQ SCH (13:36)
[2016-09-19 16:00] VITALS: BP 133/81; PULSE 63; RESP 18; TEMP 98.6; O2SAT 100
[2016-09-19 20:00] VITALS: BP 130/74; PULSE 59; RESP 16; TEMP 97.7; O2SAT 100
[2016-09-20] VITALS: BP 127/81; PULSE 56; RESP 18; TEMP 97.5; O2SAT 100
[2016-09-20] MEDS: SODIUM CHLORIDE 0.9% FLUSH 5 ML FLUSH FLUSH PRN (01:01)
[2016-09-20] MEDS: VANCOMYCIN INJ 1,500 MG in SODIUM CHLORID 0.9% 500 ML INJ 500 ML IV SCH ×2 (01:01→13:00)
[2016-09-20] MEDS: KETOROLAC TROMETHAMINE 30 MG/ML (IVP) VIAL IVP PRN ×2 (01:40→10:41)
[2016-09-20] MEDS: ceFAZolin 2 GM PREMIX 50 ML IV SCH ×3 (03:34→19:53)
[2016-09-20 08:00] VITALS: BP 143/84; PULSE 50; RESP 20; TEMP 97.7; O2SAT 100
--- NOTE | 2016-09-20 08:42 | HHI.PR ---
Subjective Remarks Follow up for discitis in a patient with a history of IVDU. Mr. Delong is doing well. He has persistent lower back pain on ambulation with walker. Denies any chest pain, fever, chills. Long abx course anticipated. Objective Vitals Vital Signs Date Time Temp Pulse Resp B/P Pulse Ox O2 Delivery O2 Flow Rate FiO2 09/20/16 00:00 97.5 56 18 127/81 100 09/19/16 20:00 97.7 59 16 130/74 100 09/19/16 16:00 98.6 63 18 133/81 100 09/19/16 12:00 97.2 54 19 132/77 100 I/O 09/19/16 09/19/16 09/19/16 09/20/16 09/20/16 09/20/16 07:00 15:00 23:00 07:00 15:00 23:00 Intake Total 632 ml 2307 ml 1293 ml Output Total 375 ml 575 ml 450 ml Balance 257 ml 1732 ml 843 ml Intake Oral 1000 ml 620 ml IV Total 632 ml 1307 ml 673 ml Output Urine Total 375 ml 575 ml 450 ml # Voids 5 # Bowel Movements 1 0 Result Diagram: 09/17/16 0456 09/19/16 0615 Imaging Last Impressions Chest X-Ray 09/20/16 0000 Signed Impressions: Service Date/Time: Tuesday, September 20, 2016 14:50 - CONCLUSION: PICC line in good position. Serge Parmar Jr., MD Thoracic Spine MRI 09/16/16 0000 Signed Impressions: Service Date/Time: September 11:22 - CONCLUSION: The exam is limited secondary to motion artifact which limits the interpretation. Small central protrusion at T7-T8 without stenosis. Mike Haile MD Lumbar Spine MRI 09/16/16 0000 Signed Impressions: Service Date/Time: September 11:22 - CONCLUSION: 1. Continued extensive inflammatory change at L4-L5 surrounding the thecal sac as well as posteriorly characteristic of infection without abscess. The inflammatory process significantly compromises the exiting left L4 nerve root. The findings are similar to the prior exam. Mike Haile MD Objective Remarks GENERAL: AOX3, NAD. SKIN: Warm and dry. HEAD: Normocephalic. EYES: No scleral icterus. No injection or drainage. NECK: Supple, trachea midline. No JVD or lymphadenopathy. CARDIOVASCULAR: Regular rate and rhythm without murmurs, gallops, or rubs. RESPIRATORY: Breath sounds equal bilaterally. No accessory muscle use. GASTROINTESTINAL: Abdomen soft, non-tender, nondistended. MUSCULOSKELETAL: No cyanosis, or edema. BACK: Nontender without obvious deformity. No CVA tenderness. Procedures None. A/P Problem List: (1) Discitis of lumbar region ICD Code: M46.46 Status: Acute (2) IVDU (intravenous drug user) ICD Code: F19.90 Status: Acute Assessment and Plan Ms. Delong is a pleasant 41 year old with a recent history of epidural abscess discharged in early Aug 2016 returned to the hospital due to increasing amount of lower back pain. Imaging studies reveal extensive inflammatory changes in L4- L5 area, infectious process but no abscess. Neurosurgery was contacted and since there is no abscess to drain, medical management was recommended. ID has been following patient. - Back pain, right hip pain - likely due to lumbar region discitis. - Lumbar region discitis. - Continue Cefazolin 2g Q8hrs and Vancomycin per pharmacy. - ESR elevated to 101 compared to previous admission. - CRP 12.9. - Acetaminophen for pain 1-4 and Percocet 7.5-325mg Q6hrs for pain 5-10. - Will repeat CBC, BMP, ESR, CRP on 09/23/2016. - Vascular access team consult for PICC line placement. Patient will likely need long term care phlebotomist abx. ID following. - IVDU including recent use. - HIV negative. - Counselled extensively on admission. Full code. Lovenox. Protonix. Miguel Ascencio DO Sep 20, 2016 08:41
[2016-09-20] MEDS: SODIUM CHLORIDE 0.9% FLUSH 5 ML FLUSH FLUSH SCH ×2 (08:54→19:58)
[2016-09-20] MEDS: PANTOPRAZOLE SOD 40 MG DELAYED RELEASE TAB PO SCH (08:54)
[2016-09-20] MEDS: oxyCODONE/ACETAMINOPHEN 7.5 MG/325 MG TAB PO PRN ×3 (08:55→20:56)
--- NOTE | 2016-09-20 13:55 | HHI.IDPN ---
Subjective Subjective Remarks C/o backpain - mid area Pain worse when he walks No fever Antibiotics ANCEF VANCOMYCIN Lines Peripheral IV line Past Medical History H/o IVDU Epidural abscess with MSSA Allergies: Coded Allergies: Penicillin (Verified Allergy, Mild, UNKNOWN, 09/16/16) Review of Systems Constitutional Constitutional Remarks No fever, chills Objective . Vital Signs Date Time Temp Pulse Resp B/P Pulse Ox O2 Delivery O2 Flow Rate FiO2 09/20/16 08:00 97.7 50 20 143/84 100 09/20/16 00:00 97.5 56 18 127/81 100 09/19/16 20:00 97.7 59 16 130/74 100 09/19/16 16:00 98.6 63 18 133/81 100 09/19/16 09/19/16 09/20/16 15:00 23:00 07:00 Intake Total 2307 ml 1293 ml Output Total 575 ml 450 ml Balance 1732 ml 843 ml Intake Oral 1000 ml 620 ml IV Total 1307 ml 673 ml Output Urine Total 575 ml 450 ml # Voids 5 # Bowel Movements 1 0 . Laboratory Tests Test 09/19/16 06:15 Creatinine 0.65 MG/DL Estimat Glomerular Filtration 135 ML/MIN Rate Imaging REVIEWED Physical Exam GENERAL: This is a chronically ill patient, c/o backpain HEAD: Atraumatic. Normocephalic. No temporal or scalp tenderness. EYES: Pupils equal round and reactive. Extraocular motions intact. No scleral icterus. No injection or drainage. ENT: Nose without bleeding, purulent drainage or septal hematoma. Throat without erythema, tonsillar hypertrophy or exudate. Uvula midline. Airway patent. NECK: Trachea midline. No JVD or lymphadenopathy. Supple, nontender, no meningeal signs. CARDIOVASCULAR: Regular rate and rhythm without murmurs, gallops, or rubs. RESPIRATORY: Clear to auscultation. Breath sounds equal bilaterally. No wheezes , rales, or rhonchi. GASTROINTESTINAL: Abdomen soft, non-tender, nondistended. No hepato-splenomegaly , or palpable masses. No guarding. MUSCULOSKELETAL: Extremities without clubbing, cyanosis, or edema. No joint tenderness, effusion, or edema noted. No calf tenderness. Negative Homans sign bilaterally. NEUROLOGICAL: Awake and alert. Cranial nerves II through XII intact. Motor and sensory grossly within normal limits. Five out of 5 muscle strength in all muscle groups. Normal speech. Assessment & Plan Diagnosis: (1) Discitis of lumbar region Plan: Follow cultures- blood cultures so far negative Continue IV Vancomycin and Cefazolin Monitor Sed rate and CRP (2) Back pain Problem Qualifiers (1) Back pain: Qualified Code: M54.5 - Acute midline low back pain without sciatica Moon Mitchell MD Sep 20, 2016 13:55
[2016-09-20] MEDS: ENOXAPARIN SODIUM 40 MG/0.4 ML SYRINGE SQ SCH (15:00)
--- NOTE | 2016-09-20 15:04 | RADHPO ---
EXAM DATE/TIME: 09/20/2016 14:50 [facility] COMPARISON: CHEST SINGLE AP, September 16, 2016, 9:25. INDICATIONS : PICC line placement MEDICAL HISTORY : None. SURGICAL HISTORY : None. ENCOUNTER: Initial ACUITY: 1 day PAIN SCORE: 110 LOCATION: Bilateral chest FINDINGS: A single view of the chest demonstrates the lungs to be symmetrically aerated without evidence of mas s, infiltrate or effusion. The cardiomediastinal contours are unremarkable. Osseous structures are intact. A right-sided PICC line is seen with the tip in the SVC approaching the right atrium. CONCLUSION: PICC line in good position. Serge Pramar Jr., MD Board Certified Radiologist. This report was verified electronically.
[2016-09-20] MEDS: KETOROLAC TROMETHAMINE 10 MG TAB PO PRN (18:02)
[2016-09-20 20:00] VITALS: BP 140/83; PULSE 56; RESP 20; TEMP 97.3; O2SAT 100
[2016-09-21] MEDS: KETOROLAC TROMETHAMINE 10 MG TAB PO PRN ×3 (00:18→19:51)
[2016-09-21] MEDS: VANCOMYCIN INJ 1,500 MG in SODIUM CHLORID 0.9% 500 ML INJ 500 ML IV SCH ×2 (00:18→12:53)
[2016-09-21] MEDS: ceFAZolin 2 GM PREMIX 50 ML IV SCH ×3 (04:22→20:10)
[2016-09-21] MEDS: oxyCODONE/ACETAMINOPHEN 7.5 MG/325 MG TAB PO PRN ×4 (05:22→23:37)
[2016-09-21 08:00] VITALS: BP 129/85; PULSE 58; RESP 18; TEMP 96.8; O2SAT 99
[2016-09-21] MEDS: PANTOPRAZOLE SOD 40 MG DELAYED RELEASE TAB PO SCH (08:43)
[2016-09-21] MEDS: SODIUM CHLORIDE 0.9% FLUSH 5 ML FLUSH FLUSH SCH ×2 (09:00→23:37)
--- NOTE | 2016-09-21 15:24 | HHI.PR ---
Subjective Remarks Patient seen and examined today. Patient remains afebrile, no leukocytosis. Patient's only complaint is back pain. Objective Vitals Vital Signs Date Time Temp Pulse Resp B/P Pulse Ox O2 Delivery O2 Flow Rate FiO2 09/21/16 14:18 18 09/21/16 08:00 96.8 58 18 129/85 99 09/20/16 20:00 97.3 56 20 140/83 100 I/O 09/20/16 09/20/16 09/20/16 09/21/16 09/21/16 09/21/16 07:00 15:00 23:00 07:00 15:00 23:00 Intake Total 1293 ml 480 ml 240 ml Output Total 450 ml Balance 843 ml 480 ml 240 ml Intake Oral 620 ml 480 ml 240 ml IV Total 673 ml Output Urine Total 450 ml # Voids 1 2 # Bowel Movements 0 0 0 Result Diagram: 09/17/16 0456 09/21/16 0630 Objective Remarks GENERAL: Well-developed, well-nourished, in no acute distress. alert and orientated HEENT: Head is normocephalic without any lesions or masses noted. Facial features are symmetric. Eyes: Pupils equal round reactive to light. Extraocular muscles are intact. Conjunctivae were clear. NECK: Supple without any masses. Trachea midline no deviation. No JVD, CARDIAC: Regular rhythm, regular rate. S1/S2 are heard. No murmurs gallops or rubs. LUNGS: Clear to auscultation bilaterally. No wheeze, rhonchi or rales. No use of accessory muscles on inspiration or expiration. ABDOMEN: Soft, nontender. Nondistended. Bowel sounds heard in all 4 quadrants. No organomegaly or masses. Negative rebound, negative guarding EXTREMITIES: No edema, pulses are equal bilaterally. No cyanosis or clubbing NEUROLOGY: Mood and affect appear appropriate. Cranial nerves II through XII grossly intact. Moving all extremities, speech is clear Procedures None. Urinary Catheter: No Vascular Central Line Catheter: No A/P Assessment and Plan Lumbar discitis, recurrent Infectious disease consulted who is monitoring patient. Await further recommendations from infectious disease MRI does indicate continued extensive inflammatory change at L4-L5 surrounding thecal sac as well posteriorly characteristic of infection without abscess Patient continued on vancomycin IV, cefazolin IV without any end date thus far Vascular access team was consulted for PICC line placement Continue monitor sedimentation rate, C-reactive protein Back pain, chronic: Could be exacerbated by lumbar discitis Continue pain control Toradol when necessary pain Percocet 7.5 every 6 hours when necessary pain 510 IV drug user with recent use HIV negative Patient counseled on discontinuation DVT prevention Lovenox Discharge Planning Discharge planning depends on recommendations from infectious disease, patient requires inpatient IV antibiotics until completion or patient can be on by mouth medications and can be treated outpatient Hernando Truong Sep 21, 2016 15:24
[2016-09-21] MEDS: ENOXAPARIN SODIUM 40 MG/0.4 ML SYRINGE SQ SCH (16:27)
[2016-09-21 20:30] VITALS: BP 144/84; PULSE 62; RESP 18; TEMP 99.3; O2SAT 99
[2016-09-22] MEDS: VANCOMYCIN INJ 1,500 MG in SODIUM CHLORID 0.9% 500 ML INJ 500 ML IV SCH ×2 (01:16→12:18)
[2016-09-22] MEDS: KETOROLAC TROMETHAMINE 10 MG TAB PO PRN ×3 (03:56→19:44)
[2016-09-22] MEDS: ceFAZolin 2 GM PREMIX 50 ML IV SCH ×3 (03:57→19:44)
[2016-09-22 08:00] VITALS: BP 140/80; PULSE 54; RESP 20; TEMP 96.6; O2SAT 100
[2016-09-22] MEDS: SODIUM CHLORIDE 0.9% FLUSH 5 ML FLUSH FLUSH SCH ×2 (09:00→21:00)
[2016-09-22] MEDS: oxyCODONE/ACETAMINOPHEN 7.5 MG/325 MG TAB PO PRN ×3 (09:20→22:22)
[2016-09-22] MEDS: PANTOPRAZOLE SOD 40 MG DELAYED RELEASE TAB PO SCH (09:20)
--- NOTE | 2016-09-22 12:16 | HHI.PR ---
Subjective Remarks Patient seen and examined today. Patient denies any new complaints. Patient still with the same complaints of back pain. States that the pain is so bad that he cannot walk. Objective Vitals Vital Signs Date Time Temp Pulse Resp B/P Pulse Ox O2 Delivery O2 Flow Rate FiO2 09/22/16 10:20 14 09/22/16 08:00 96.6 54 20 140/80 100 09/22/16 04:56 16 09/21/16 20:30 99.3 62 18 144/84 99 I/O 09/21/16 09/21/16 09/21/16 09/22/16 09/22/16 09/22/16 07:00 15:00 23:00 07:00 15:00 23:00 Intake Total 240 ml 650 ml Output Total 1200 ml 400 ml Balance 240 ml -550 ml -400 ml Intake Oral 240 ml 650 ml Output Urine Total 1200 ml 400 ml # Voids 2 2 1 # Bowel Movements 0 Result Diagram: 09/21/16 0630 Objective Remarks GENERAL: Well-developed, well-nourished, in no acute distress. alert and orientated HEENT: Head is normocephalic without any lesions or masses noted. Facial features are symmetric. Eyes: Pupils equal round reactive to light. Extraocular muscles are intact. Conjunctivae were clear. NECK: Supple without any masses. Trachea midline no deviation. No JVD, CARDIAC: Regular rhythm, regular rate. S1/S2 are heard. No murmurs gallops or rubs. LUNGS: Clear to auscultation bilaterally. No wheeze, rhonchi or rales. No use of accessory muscles on inspiration or expiration. ABDOMEN: Soft, nontender. Nondistended. Bowel sounds heard in all 4 quadrants. No organomegaly or masses. Negative rebound, negative guarding EXTREMITIES: No edema, pulses are equal bilaterally. No cyanosis or clubbing NEUROLOGY: Mood and affect appear appropriate. Cranial nerves II through XII grossly intact. Moving all extremities, speech is clear Procedures None. Urinary Catheter: No Vascular Central Line Catheter: Yes Assessment to: Continue Line: PICC A/P Assessment and Plan Lumbar discitis, recurrent Infectious disease consulted who is monitoring patient. Await further recommendations from infectious disease MRI does indicate continued extensive inflammatory change at L4-L5 surrounding thecal sac as well posteriorly characteristic of infection without abscess Patient continued on vancomycin IV, cefazolin IV without any end date thus far Vascular access team was consulted for PICC line placement Continue monitor sedimentation rate, C-reactive protein Back pain, chronic: Could be exacerbated by lumbar discitis Continue pain control Toradol when necessary pain Percocet 7.5 every 6 hours when necessary pain 510 IV drug user with recent use HIV negative Patient counseled on discontinuation DVT prevention Lovenox Discharge Planning Discharge planning depends on recommendations from infectious disease, patient requires inpatient IV antibiotics until completion or patient can be on by mouth medications and can be treated outpatient Hernando Truong Sep 22, 2016 12:16
[2016-09-22] MEDS: ENOXAPARIN SODIUM 40 MG/0.4 ML SYRINGE SQ SCH ×2 (13:22→13:27)
[2016-09-22 19:15] VITALS: BP 125/79; PULSE 63; RESP 18; TEMP 97.6; O2SAT 99
[2016-09-22] MEDS: ONDANSETRON HCL 4 MG/2 ML VIAL IV PRN (20:52)
[2016-09-23] MEDS: VANCOMYCIN INJ 1,500 MG in SODIUM CHLORID 0.9% 500 ML INJ 500 ML IV SCH ×2 (01:48→12:47)
[2016-09-23] MEDS: KETOROLAC TROMETHAMINE 10 MG TAB PO PRN ×4 (03:24→23:00)
[2016-09-23] MEDS: ceFAZolin 2 GM PREMIX 50 ML IV SCH ×3 (04:42→20:59)
[2016-09-23 06:22] LABS: BASOPHIL % 0.4 % (0.0-2.0); EOSINOPHIL # 0.7 TH/MM3 (0-0.4); EOSINOPHIL % 7.7 % (0.0-4.0); HEMATOCRIT 26.2 % (39.0-51.0); HEMO FLAGS DIFF FINAL; LYMPH % 24.8 % (9.0-44.0); LYMPHOCYTE # 2.1 TH/MM3 (1.0-4.8); MEAN CORPUSCULAR HEMOGLOBIN 27.3 PG (27.0-34.0); NEUT % 58.1 % (16.0-70.0); PLATELET COUNT 363 TH/MM3 (150-450); RED BLOOD COUNT 3.15 MIL/MM3 (4.50-5.90); RED CELL DISTRIBUTION WIDTH 15.6 % (11.6-17.2); WHITE BLOOD COUNT 8.6 TH/MM3 (4.0-11.0)
[2016-09-23 06:29] LABS: POTASSIUM 3.6 MEQ/L (3.5-5.1)
[2016-09-23 06:32] LABS: BICARBONATE 29.9 MEQ/L (21.0-32.0)
[2016-09-23 07:07] LABS: WESTERGREN SEDIMENTATION RATE 81 mm/hr (0-15)
[2016-09-23] MEDS: PANTOPRAZOLE SOD 40 MG DELAYED RELEASE TAB PO SCH (07:47)
[2016-09-23] MEDS: oxyCODONE/ACETAMINOPHEN 7.5 MG/325 MG TAB PO PRN ×3 (07:48→21:00)
[2016-09-23] MEDS: SODIUM CHLORIDE 0.9% FLUSH 5 ML FLUSH FLUSH SCH (07:48)
[2016-09-23 08:00] VITALS: BP 128/77; PULSE 59; RESP 18; TEMP 98; O2SAT 99
--- NOTE | 2016-09-23 09:02 | HHI.PR ---
Subjective Remarks Patient sees examined today. Patient states that he still having significant amount of pain. Medications are wearing off before pain comes back. I counseled patient extensively on anti-inflammatories versus pain medication. Notified him that follow-up laboratory studies indicate medical improvement of his inflammation/infection. Objective Vitals Vital Signs Date Time Temp Pulse Resp B/P Pulse Ox O2 Delivery O2 Flow Rate FiO2 09/23/16 08:48 18 09/22/16 19:15 97.6 63 18 125/79 99 09/22/16 13:10 12 I/O 09/22/16 09/22/16 09/22/16 09/23/16 09/23/16 09/23/16 06:59 14:59 22:59 06:59 14:59 22:59 Intake Total 960 ml 360 ml 1327 ml Output Total 400 ml Balance -400 ml 960 ml 360 ml 1327 ml Intake Oral 960 ml 360 ml 720 ml IV Total 607 ml Output Urine Total 400 ml # Voids 1 5 2 2 # Bowel Movements 1 Result Diagram: 09/23/1660409/23/16604 Objective Remarks GENERAL: Well-developed, well-nourished, in no acute distress. alert and orientated HEENT: Head is normocephalic without any lesions or masses noted. Facial features are symmetric. Eyes: Pupils equal round reactive to light. Extraocular muscles are intact. Conjunctivae were clear. NECK: Supple without any masses. Trachea midline no deviation. No JVD, CARDIAC: Regular rhythm, regular rate. S1/S2 are heard. No murmurs gallops or rubs. LUNGS: Clear to auscultation bilaterally. No wheeze, rhonchi or rales. No use of accessory muscles on inspiration or expiration. ABDOMEN: Soft, nontender. Nondistended. Bowel sounds heard in all 4 quadrants. No organomegaly or masses. Negative rebound, negative guarding EXTREMITIES: No edema, pulses are equal bilaterally. No cyanosis or clubbing NEUROLOGY: Mood and affect appear appropriate. Cranial nerves II through XII grossly intact. Moving all extremities, speech is clear Procedures None. Urinary Catheter: No Vascular Central Line Catheter: Yes Assessment to: Continue Line: PICC A/P Assessment and Plan Lumbar discitis, recurrent Infectious disease consulted who is monitoring patient. Await further recommendations from infectious disease MRI does indicate continued extensive inflammatory change at L4-L5 surrounding thecal sac as well posteriorly characteristic of infection without abscess Patient continued on vancomycin IV, cefazolin IV without any end date thus far Vascular access team was consulted for PICC line placement Sedimentation rate improving nicely, C-reactive protein significant improvement Back pain, chronic: Could be exacerbated by lumbar discitis Continue pain control Toradol when necessary pain Percocet 7.5 every 6 hours when necessary pain 510 IV drug user with recent use HIV negative Patient counseled on discontinuation DVT prevention Lovenox Discharge Planning Discharge planning depends on recommendations from infectious disease, patient requires inpatient IV antibiotics until completion or patient can be on by mouth medications and can be treated outpatient Hernando Truong Sep 23, 2016 09:02
[2016-09-23] MEDS: ENOXAPARIN SODIUM 40 MG/0.4 ML SYRINGE SQ SCH (14:53)
[2016-09-23 19:15] VITALS: BP 125/66; PULSE 64; RESP 18; TEMP 97.1; O2SAT 98
[2016-09-23] MEDS: ONDANSETRON HCL 4 MG/2 ML VIAL IV PRN (23:00)
[2016-09-24] MEDS: VANCOMYCIN INJ 1,500 MG in SODIUM CHLORID 0.9% 500 ML INJ 500 ML IV SCH ×2 (02:42→13:26)
[2016-09-24] MEDS: SODIUM CHLORIDE 0.9% FLUSH 5 ML FLUSH FLUSH SCH ×3 (02:42→21:00)
[2016-09-24] MEDS: ceFAZolin 2 GM PREMIX 50 ML IV SCH ×3 (03:51→20:12)
[2016-09-24] MEDS: oxyCODONE/ACETAMINOPHEN 7.5 MG/325 MG TAB PO PRN ×3 (03:51→16:36)
[2016-09-24 08:00] VITALS: BP 134/84; PULSE 53; RESP 18; TEMP 96.5; O2SAT 96
[2016-09-24] MEDS: PANTOPRAZOLE SOD 40 MG DELAYED RELEASE TAB PO SCH (08:00)
[2016-09-24] MEDS: KETOROLAC TROMETHAMINE 10 MG TAB PO PRN ×2 (09:08→17:29)
[2016-09-24] MEDS: GABAPENTIN 100 MG CAP PO SCH ×3 (12:35→20:43)
--- NOTE | 2016-09-24 14:43 | HHI.PR ---
Subjective Remarks Patient seen and examined today. Patient states he started developing a new pain yesterday with a deep searing pain in his right but I asked going into his leg. He states that it feels like his femur is hurting. I discussed with him that most likely that is neuropathic pain. He describes the pain is following L5/S1 dermatome Objective Vitals Vital Signs Date Time Temp Pulse Resp B/P Pulse Ox O2 Delivery O2 Flow Rate FiO2 09/24/16 09:01 18 09/24/16 08:00 96.5 53 18 134/84 96 09/23/16 19:15 97.1 64 18 125/66 98 09/23/16 17:23 18 I/O 09/23/16 09/23/16 09/23/16 09/24/16 09/24/16 09/24/16 07:00 15:00 23:00 07:00 15:00 23:00 Intake Total 1327 ml 960 ml 720 ml 1320 ml Balance 1327 ml 960 ml 720 ml 1320 ml Intake Oral 720 ml 960 ml 720 ml 1320 ml IV Total 607 ml # Voids 2 5 2 6 Result Diagram: 09/23/1660409/23/16604 Objective Remarks GENERAL: Well-developed, well-nourished, in no acute distress. alert and orientated HEENT: Head is normocephalic without any lesions or masses noted. Facial features are symmetric. Eyes: Pupils equal round reactive to light. Extraocular muscles are intact. Conjunctivae were clear. NECK: Supple without any masses. Trachea midline no deviation. No JVD, CARDIAC: Regular rhythm, regular rate. S1/S2 are heard. No murmurs gallops or rubs. LUNGS: Clear to auscultation bilaterally. No wheeze, rhonchi or rales. No use of accessory muscles on inspiration or expiration. ABDOMEN: Soft, nontender. Nondistended. Bowel sounds heard in all 4 quadrants. No organomegaly or masses. Negative rebound, negative guarding EXTREMITIES: No edema, pulses are equal bilaterally. No cyanosis or clubbing NEUROLOGY: Mood and affect appear appropriate. Cranial nerves II through XII grossly intact. Moving all extremities, speech is clear Procedures None. Urinary Catheter: No Vascular Central Line Catheter: No Line: PICC A/P Assessment and Plan Lumbar discitis, recurrent Infectious disease consulted who is monitoring patient. Await further recommendations from infectious disease MRI does indicate continued extensive inflammatory change at L4-L5 surrounding thecal sac as well posteriorly characteristic of infection without abscess Patient continued on vancomycin IV, cefazolin IV without any end date thus far Vascular access team was consulted for PICC line placement Sedimentation rate improving nicely, C-reactive protein significant improvement Back pain, chronic: Could be exacerbated by lumbar discitis Continue pain control Toradol when necessary pain Percocet 7.5 every 6 hours when necessary pain 510 Start Neurontin 100 mg 3 times daily IV drug user with recent use HIV negative Patient counseled on discontinuation DVT prevention Lovenox Discharge Planning Discharge planning depends on recommendations from infectious disease, patient requires inpatient IV antibiotics until completion or patient can be on by mouth medications and can be treated outpatient Hernando Truong Sep 24, 2016 14:43
[2016-09-24] MEDS: ENOXAPARIN SODIUM 40 MG/0.4 ML SYRINGE SQ SCH (15:08)
[2016-09-24] MEDS: LIDOCAINE HCL 5% PATCH TD SCH (18:30)
[2016-09-24 20:00] VITALS: BP 122/71; PULSE 66; RESP 20; TEMP 96.1; O2SAT 97
[2016-09-24] MEDS: REMOVE OLD PATCH TD SCH (21:00)
[2016-09-25] MEDS: oxyCODONE/ACETAMINOPHEN 7.5 MG/325 MG TAB PO PRN ×4 (00:57→19:57)
[2016-09-25] MEDS: VANCOMYCIN INJ 1,500 MG in SODIUM CHLORID 0.9% 500 ML INJ 500 ML IV SCH ×2 (00:58→12:40)
[2016-09-25] MEDS: KETOROLAC TROMETHAMINE 10 MG TAB PO PRN ×2 (01:10→10:18)
[2016-09-25] MEDS: GABAPENTIN 100 MG CAP PO SCH ×4 (01:14→16:43)
[2016-09-25] MEDS: ceFAZolin 2 GM PREMIX 50 ML IV SCH ×3 (03:59→19:59)
[2016-09-25] MEDS: REMOVE OLD PATCH TD SCH ×2 (06:45→21:00)
[2016-09-25 08:00] VITALS: BP 139/89; PULSE 59; RESP 16; TEMP 98.2; O2SAT 96
[2016-09-25] MEDS: PANTOPRAZOLE SOD 40 MG DELAYED RELEASE TAB PO SCH (08:48)
[2016-09-25] MEDS: SODIUM CHLORIDE 0.9% FLUSH 5 ML FLUSH FLUSH SCH ×2 (09:00→21:00)
--- NOTE | 2016-09-25 10:08 | HHI.PR ---
Subjective Remarks Patient seen and examined today. Patient states that that pain is radiating down his right leg has resolved with the use of Neurontin. Objective Vitals Vital Signs Date Time Temp Pulse Resp B/P Pulse Ox O2 Delivery O2 Flow Rate FiO2 09/25/16 08:00 98.2 59 16 139/89 96 09/25/16 02:05 16 09/25/16 01:57 16 09/24/16 20:00 96.1 66 20 122/71 97 I/O 09/24/16 09/24/16 09/24/16 09/25/16 09/25/16 09/25/16 07:00 15:00 23:00 07:00 15:00 23:00 Intake Total 720 ml 1320 ml 1170 ml 240 ml Output Total 600 ml Balance 720 ml 1320 ml 1170 ml -360 ml Intake Oral 720 ml 1320 ml 160 ml 240 ml IV Total 1010 ml Output Urine Total 600 ml # Voids 2 6 1 # Bowel Movements 0 Result Diagram: 09/23/16 0605 09/25/16 0540 Objective Remarks GENERAL: Well-developed, well-nourished, in no acute distress. alert and orientated HEENT: Head is normocephalic without any lesions or masses noted. Facial features are symmetric. Eyes: Pupils equal round reactive to light. Extraocular muscles are intact. Conjunctivae were clear. NECK: Supple without any masses. Trachea midline no deviation. No JVD, CARDIAC: Regular rhythm, regular rate. S1/S2 are heard. No murmurs gallops or rubs. LUNGS: Clear to auscultation bilaterally. No wheeze, rhonchi or rales. No use of accessory muscles on inspiration or expiration. ABDOMEN: Soft, nontender. Nondistended. Bowel sounds heard in all 4 quadrants. No organomegaly or masses. Negative rebound, negative guarding EXTREMITIES: No edema, pulses are equal bilaterally. No cyanosis or clubbing NEUROLOGY: Mood and affect appear appropriate. Cranial nerves II through XII grossly intact. Moving all extremities, speech is clear Procedures None. Urinary Catheter: No Vascular Central Line Catheter: No Line: PICC A/P Assessment and Plan Lumbar discitis, recurrent Infectious disease consulted who is monitoring patient. Await further recommendations from infectious disease MRI does indicate continued extensive inflammatory change at L4-L5 surrounding thecal sac as well posteriorly characteristic of infection without abscess Patient continued on vancomycin IV, cefazolin IV without any end date thus far Vascular access team was consulted for PICC line placement Sedimentation rate improving nicely, C-reactive protein significant improvement Back pain, chronic: Could be exacerbated by lumbar discitis Continue pain control Toradol when necessary pain Percocet 7.5 every 6 hours when necessary pain 510 Neurontin 100 mg 3 times daily IV drug user with recent use HIV negative Patient counseled on discontinuation DVT prevention Lovenox Discharge Planning Discharge planning depends on recommendations from infectious disease, patient requires inpatient IV antibiotics until completion or patient can be on by mouth medications and can be treated outpatient 09/23/16 1012 PATIENT WITH NEED FOR IV ANTIBIOTIC TX. ID NOTE HAS NOT GIVEN DURATION OF IV ANTIBIOTIC NEED OR IF CAN BE CONVERTED TO PO AT SOME POINT. PATIENT IS IVDU. AND THIS CAUSES A CONCERN TO D/C WITH PICC IN PLACE. WILL FOLLOW UP FOR TIME LINE OF NEEDED MEDS AND PO SWITCH KAIT MARIE LPN/CM/CHARGE Hernando Truong Sep 25, 2016 10:08
[2016-09-25] MEDS: LIDOCAINE HCL 5% PATCH TD SCH (10:18)
[2016-09-25] MEDS ORDERED: PHARMACY ORDERED LAB XX ONE (12:45)
[2016-09-25] MEDS: IBUPROFEN 800 MG TAB PO SCH ×2 (14:06→21:40)
[2016-09-25] MEDS: ENOXAPARIN SODIUM 40 MG/0.4 ML SYRINGE SQ SCH (15:11)
[2016-09-25 19:15] VITALS: BP 140/78; PULSE 65; RESP 18; TEMP 96; O2SAT 95
[2016-09-25] MEDS ORDERED: CYCLOBENZAPRINE HCL 10 MG TAB PO ONE (21:15)
[2016-09-26] MEDS: VANCOMYCIN INJ 1,500 MG in SODIUM CHLORID 0.9% 500 ML INJ 500 ML IV SCH ×2 (01:20→12:31)
[2016-09-26] MEDS: oxyCODONE/ACETAMINOPHEN 7.5 MG/325 MG TAB PO PRN ×4 (02:01→21:14)
[2016-09-26] MEDS: ceFAZolin 2 GM PREMIX 50 ML IV SCH ×3 (04:05→19:59)
[2016-09-26] MEDS: IBUPROFEN 800 MG TAB PO SCH ×3 (05:32→21:47)
[2016-09-26 08:00] VITALS: BP 126/72; PULSE 58; RESP 20; TEMP 96.7; O2SAT 99
[2016-09-26] MEDS: LIDOCAINE HCL 5% PATCH TD SCH (08:56)
[2016-09-26] MEDS: PANTOPRAZOLE SOD 40 MG DELAYED RELEASE TAB PO SCH (08:57)
[2016-09-26] MEDS: GABAPENTIN 100 MG CAP PO SCH ×3 (08:57→17:20)
[2016-09-26] MEDS: SODIUM CHLORIDE 0.9% FLUSH 5 ML FLUSH FLUSH SCH ×2 (08:58→21:00)
--- NOTE | 2016-09-26 09:33 | HHI.PR ---
Subjective Remarks Patient lying in bed complaining of back pain. Patient states that he came on again last night where he cannot ambulate. I notify the patient the other day that nowadays developing radicular symptoms down his right leg, as well now with the back pain so severe that he can ambulate we'll need to repeat MRI for further evaluation. Objective Vitals Vital Signs Date Time Temp Pulse Resp B/P Pulse Ox O2 Delivery O2 Flow Rate FiO2 09/26/16 08:47 18 09/26/16 08:00 96.7 58 20 126/72 99 09/26/16 03:11 16 09/25/16 19:15 96.0 65 18 140/78 95 I/O 09/25/16 09/25/16 09/25/16 09/26/16 09/26/16 09/26/16 07:00 15:00 23:00 07:00 15:00 23:00 Intake Total 240 ml 600 ml 260 ml Output Total 600 ml 400 ml 500 ml Balance -360 ml 200 ml -240 ml Intake Oral 240 ml 600 ml 260 ml Output Urine Total 600 ml 400 ml 500 ml # Voids 2 # Bowel Movements 0 1 1 0 Result Diagram: 09/23/16 0605 09/25/16 0540 Objective Remarks GENERAL: Well-developed, well-nourished, in no acute distress. alert and orientated HEENT: Head is normocephalic without any lesions or masses noted. Facial features are symmetric. Eyes: Pupils equal round reactive to light. Extraocular muscles are intact. Conjunctivae were clear. NECK: Supple without any masses. Trachea midline no deviation. No JVD, CARDIAC: Regular rhythm, regular rate. S1/S2 are heard. No murmurs gallops or rubs. LUNGS: Clear to auscultation bilaterally. No wheeze, rhonchi or rales. No use of accessory muscles on inspiration or expiration. ABDOMEN: Soft, nontender. Nondistended. Bowel sounds heard in all 4 quadrants. No organomegaly or masses. Negative rebound, negative guarding EXTREMITIES: No edema, pulses are equal bilaterally. No cyanosis or clubbing NEUROLOGY: Mood and affect appear appropriate. Cranial nerves II through XII grossly intact. Moving all extremities, speech is clear Procedures None. Urinary Catheter: No Vascular Central Line Catheter: No Line: PICC A/P Assessment and Plan Lumbar discitis, recurrent Infectious disease consulted who is monitoring patient. Await further recommendations from infectious disease MRI does indicate continued extensive inflammatory change at L4-L5 surrounding thecal sac as well posteriorly characteristic of infection without abscess Patient continued on vancomycin IV, cefazolin IV without any end date thus far Vascular access team was consulted for PICC line placement Sedimentation rate improving nicely, C-reactive protein significant improvement Repeat MRI of the lumbar spine due to patient have been worsened back pain, worsening ambulation, radicular symptoms Back pain, chronic: Could be exacerbated by lumbar discitis Continue pain control Toradol when necessary pain Percocet 7.5 every 6 hours when necessary pain 510 Neurontin 100 mg 3 times daily IV drug user with recent use HIV negative Patient counseled on discontinuation DVT prevention Lovenox Discharge Planning Discharge planning depends on recommendations from infectious disease, patient requires inpatient IV antibiotics until completion or patient can be on by mouth medications and can be treated outpatient 09/23/16 1012 PATIENT WITH NEED FOR IV ANTIBIOTIC TX. ID NOTE HAS NOT GIVEN DURATION OF IV ANTIBIOTIC NEED OR IF CAN BE CONVERTED TO PO AT SOME POINT. PATIENT IS IVDU. AND THIS CAUSES A CONCERN TO D/C WITH PICC IN PLACE. WILL FOLLOW UP FOR TIME LINE OF NEEDED MEDS AND PO SWITCH KAIT MARIE [employer] T[employer] TENDER/CM/CHARGE Hernando Truong Sep 26, 2016 09:33
[2016-09-26] MEDS: ACETAMINOPHEN 325 MG TAB PO PRN (12:30)
[2016-09-26] MEDS: ENOXAPARIN SODIUM 40 MG/0.4 ML SYRINGE SQ SCH (15:00)
[2016-09-26 20:00] VITALS: BP 134/75; PULSE 63; RESP 20; TEMP 98.3; O2SAT 97
[2016-09-26] MEDS: REMOVE OLD PATCH TD SCH (21:00)
[2016-09-26] MEDS: ONDANSETRON HCL 4 MG/2 ML VIAL IV PRN (22:31)
[2016-09-27] MEDS: VANCOMYCIN INJ 1,500 MG in SODIUM CHLORID 0.9% 500 ML INJ 500 ML IV SCH ×2 (01:29→14:09)
[2016-09-27] MEDS: oxyCODONE/ACETAMINOPHEN 7.5 MG/325 MG TAB PO PRN ×5 (04:00→23:00)
[2016-09-27] MEDS: ceFAZolin 2 GM PREMIX 50 ML IV SCH ×3 (04:06→19:32)
[2016-09-27] MEDS: IBUPROFEN 800 MG TAB PO SCH ×3 (05:31→21:54)
[2016-09-27 08:00] VITALS: BP 147/88; PULSE 58; RESP 16; TEMP 97.7; O2SAT 98
[2016-09-27] MEDS: PANTOPRAZOLE SOD 40 MG DELAYED RELEASE TAB PO SCH (08:09)
[2016-09-27] MEDS: LIDOCAINE HCL 5% PATCH TD SCH (08:09)
[2016-09-27] MEDS: GABAPENTIN 100 MG CAP PO SCH ×2 (08:09→13:33)
[2016-09-27] MEDS: SODIUM CHLORIDE 0.9% FLUSH 5 ML FLUSH FLUSH SCH ×2 (08:12→19:33)
[2016-09-27] MEDS ORDERED: LORazepam 2 MG/ML VIAL IV PUSH ONE (11:30)
[2016-09-27 12:00] VITALS: BP 157/88; PULSE 74; RESP 18; TEMP 98.3; O2SAT 97
[2016-09-27] MEDS ORDERED: GADODIAMIDE PF 287 MG/ML 20 ML VIAL (for RAD MRI) IV ONE (13:37)
--- NOTE | 2016-09-27 13:52 | RADHPO ---
EXAM DATE/TIME: 09/27/2016 13:00 [facility] COMPARISON: No previous studies available for comparison. INDICATIONS : Abscess. Back and right hip pain. CONTRAST: 16 cc Omniscan (gadodiamide) IV MEDICAL HISTORY : None. SURGICAL HISTORY : Fusion, lumbar. ENCOUNTER: Subsequent ACUITY: 1 week PAIN SCORE: 8/10 LOCATION: back TECHNIQUE: Multiplanar multisequence MRI of the lumbar spine was performed with and without contrast. FINDINGS: The most caudal appearing lumbar vertebra is numbered as L5. VERTEBRAE: Homogeneous signal, with the exception of edema within L4 and L5 vertebral bodies slightly less promi nent on current study.. Normal alignment. CONUS: Normal level and configuration. POST CONTRAST: There is enhancement at L4-5 level again noted. T12-L1: The thecal sac has a normal diameter. No evidence of disc bulge or protrusion. The neural foramina are patent bilaterally. L1-L2: The thecal sac has a normal diameter. No evidence of disc bulge or protrusion. The neural foramina are patent bilaterally. L2-L3: The thecal sac has a normal diameter. No evidence of disc bulge or protrusion. The neural foramina are patent bilaterally. L3-L4: Mild annular disc bulge abuts the ventral thecal sac. No evidence of disc bulge or protrusion. Mild facet arthropathy and ligamentum flavum hypertrophy. The neural foramina are patent bilaterally. L4-L5: Abnormal soft tissue epidural prominence and enhancement as seen on previous study. This extends into the the left L4 nerve root unchanged. Moderate neuroforaminal narrowing on the left. Laminectomy def ect on the left. L5-S1: The thecal sac has a normal diameter. No evidence of disc bulge or protrusion. The neural foramina are patent bilaterally. CONCLUSION: 1. Continued soft tissue prominence/inflammatory change at L4-5 level extending into the region of th e L4 nerve root on the left. Left-sided defect. The overall appearance has not significantly changed. Gage Rodriguez MD on September 27, 2016 at 13:45 Board Certified Radiologist. This report was verified electronically.
[2016-09-27] MEDS: ENOXAPARIN SODIUM 40 MG/0.4 ML SYRINGE SQ SCH (14:12)
--- NOTE | 2016-09-27 14:48 | HHI.PR ---
Subjective Remarks Patient seen and examined today with Dr. Brown, patient states that his back pain is significantly worse today. Patient has had 3 days of worsening pain, radicular symptoms. Initially started on Neurontin 100 mg 3 times daily with improvement of his radicular pain. However yesterday started complaining of new and acute back pain. Did order MRI however that was not performed yesterday. We'll have performed today. Further plans depending on those results. As indicated by nursing staff that the patient is up and walking to the nursing station to notify them that he is falling in the room. However he states that that he cannot get out of bed or walk. Objective Vitals Vital Signs Date Time Temp Pulse Resp B/P Pulse Ox O2 Delivery O2 Flow Rate FiO2 09/27/16 12:00 98.3 74 18 157/88 97 09/27/16 08:00 97.7 58 16 147/88 98 09/27/16 05:00 16 09/26/16 22:47 16 09/26/16 20:00 98.3 63 20 134/75 97 I/O 09/26/16 09/26/16 09/26/16 09/27/16 09/27/16 09/27/16 07:00 15:00 23:00 07:00 15:00 23:00 Intake Total 690 ml 480 ml 120 ml Output Total 1400 ml Balance 690 ml 480 ml -1280 ml Intake Oral 690 ml 480 ml 120 ml Output Urine Total 1400 ml # Voids 2 4 2 2 # Bowel Movements 0 0 Result Diagram: 09/23/16 0605 09/27/16 0435 Objective Remarks GENERAL: Well-developed, well-nourished, in no acute distress. alert and orientated HEENT: Head is normocephalic without any lesions or masses noted. Facial features are symmetric. Eyes: Pupils equal round reactive to light. Extraocular muscles are intact. Conjunctivae were clear. NECK: Supple without any masses. Trachea midline no deviation. No JVD, CARDIAC: Regular rhythm, regular rate. S1/S2 are heard. No murmurs gallops or rubs. LUNGS: Clear to auscultation bilaterally. No wheeze, rhonchi or rales. No use of accessory muscles on inspiration or expiration. ABDOMEN: Soft, nontender. Nondistended. Bowel sounds heard in all 4 quadrants. No organomegaly or masses. Negative rebound, negative guarding EXTREMITIES: No edema, pulses are equal bilaterally. No cyanosis or clubbing NEUROLOGY: Mood and affect appear appropriate. Cranial nerves II through XII grossly intact. Moving all extremities, speech is clear Procedures None. Urinary Catheter: No Vascular Central Line Catheter: No Line: PICC A/P Assessment and Plan Lumbar discitis, recurrent Infectious disease consulted who is monitoring patient. Await further recommendations from infectious disease MRI does indicate continued extensive inflammatory change at L4-L5 surrounding thecal sac as well posteriorly characteristic of infection without abscess Patient continued on vancomycin IV, cefazolin IV without any end date thus far Vascular access team was consulted for PICC line placement Sedimentation rate improving nicely, C-reactive protein significant improvement Repeat MRI of the lumbar spine indicating continued soft tissue prominence/ inflammatory change at L4-L5 extending into the region of the L4 nerve root on the left. The overall appearance is not significantly changed Back pain, chronic: Could be exacerbated by lumbar discitis Continue pain control Toradol when necessary pain Percocet 7.5 every 6 hours when necessary pain 510 Neurontin 300 mg 3 times daily IV drug user with recent use HIV negative Patient counseled on discontinuation DVT prevention Lovenox Written by Hernando Truong PA-C, acting as scribe for Dr. Brown on at 1030. The documentation accurately reflects the work and decisions performed face-to- face by Dr. Brown on 09/27/16 at 1030. Discharge Planning Discharge planning depends on recommendations from infectious disease, patient requires inpatient IV antibiotics until completion or patient can be on by mouth medications and can be treated outpatient 09/23/16 1012 PATIENT WITH NEED FOR IV ANTIBIOTIC TX. ID NOTE HAS NOT GIVEN DURATION OF IV ANTIBIOTIC NEED OR IF CAN BE CONVERTED TO PO AT SOME POINT. PATIENT IS IVDU. AND THIS CAUSES A CONCERN TO D/C WITH PICC IN PLACE. WILL FOLLOW UP FOR TIME LINE OF NEEDED MEDS AND PO SWITCH KAIT CYNTHIA WRAPPER HAND/CM/CHARGE Hernando Truong Sep 27, 2016 14:48
[2016-09-27] MEDS: GABAPENTIN 300 MG CAP PO SCH (17:05)
[2016-09-27] MEDS: ACETAMINOPHEN 325 MG TAB PO PRN (19:35)
[2016-09-27 20:00] VITALS: BP 144/79; PULSE 67; RESP 20; TEMP 97.8; O2SAT 96
[2016-09-27] MEDS: REMOVE OLD PATCH TD SCH (21:00)
[2016-09-27] MEDS: SODIUM CHLORIDE 0.9% FLUSH 5 ML FLUSH FLUSH PRN (21:08)
[2016-09-28] VITALS: BP 136/80; PULSE 67; RESP 20; TEMP 98.7; O2SAT 97
[2016-09-28] MEDS: VANCOMYCIN INJ 1,500 MG in SODIUM CHLORID 0.9% 500 ML INJ 500 ML IV SCH ×2 (01:17→13:46)
[2016-09-28] MEDS: SODIUM CHLORIDE 0.9% FLUSH 5 ML FLUSH FLUSH PRN ×4 (01:17→20:23)
[2016-09-28] MEDS: ceFAZolin 2 GM PREMIX 50 ML IV SCH ×3 (03:45→20:21)
[2016-09-28] MEDS: oxyCODONE/ACETAMINOPHEN 7.5 MG/325 MG TAB PO PRN ×4 (05:00→22:52)
[2016-09-28] MEDS: IBUPROFEN 800 MG TAB PO SCH ×3 (05:33→22:51)
[2016-09-28 08:00] VITALS: BP 133/77; PULSE 61; RESP 16; TEMP 98.1; O2SAT 97
[2016-09-28] MEDS: LIDOCAINE HCL 5% PATCH TD SCH (08:57)
[2016-09-28] MEDS: SODIUM CHLORIDE 0.9% FLUSH 5 ML FLUSH FLUSH SCH ×2 (08:58→20:21)
[2016-09-28] MEDS: GABAPENTIN 300 MG CAP PO SCH ×3 (08:58→17:03)
[2016-09-28] MEDS: PANTOPRAZOLE SOD 40 MG DELAYED RELEASE TAB PO SCH (08:58)
--- NOTE | 2016-09-28 10:35 | HHI.PR ---
Subjective Remarks Follow-up for lumbar discitis. Patient again complains of continued back pain. Denies relief with lidocaine patches. He states the pain is not bad now, but it will get to an 8/10 at night and last for hours. Requests breakthrough medication. According to progress note from yesterday, patient had been complaining of significant pain and walked up to nurses station to notify them that he had fallen in his room. Objective Vitals Vital Signs Date Time Temp Pulse Resp B/P Pulse Ox O2 Delivery O2 Flow Rate FiO2 09/28/16 08:00 98.1 61 16 133/77 97 09/28/16 00:00 98.7 67 20 136/80 97 09/27/16 20:00 97.8 67 20 144/79 96 09/27/16 12:00 98.3 74 18 157/88 97 I/O 09/27/16 09/27/16 09/27/16 09/28/16 09/28/16 09/28/16 06:59 14:59 22:59 06:59 14:59 22:59 Intake Total 360 ml 1020 ml 688 ml Output Total 1800 ml 700 ml 1580 ml Balance -1440 ml 320 ml -892 ml Intake Oral 360 ml 350 ml IV Total 670 ml 688 ml Output Urine Total 1800 ml 700 ml 1580 ml # Voids 2 2 # Bowel Movements 1 Result Diagram: 09/27/16 0435 Imaging Last Impressions Lumbar Spine MRI 09/27/16 0000 Signed Impressions: Service Date/Time: Tuesday, September 27, 2016 13:00 - CONCLUSION: 1. Continued soft tissue prominence/inflammatory change at L4-5 level extending into the region of the L4 nerve root on the left. Left-sided defect. The overall appearance has not significantly changed. Gage Rodriguez MD Chest X-Ray 09/20/16 0000 Signed Impressions: Service Date/Time: Tuesday, September 20, 2016 14:50 - CONCLUSION: PICC line in good position. Serge Parmar Jr., MD Thoracic Spine MRI 09/16/16 0000 Signed Impressions: Service Date/Time: September 11:22 - CONCLUSION: The exam is limited secondary to motion artifact which limits the interpretation. Small central protrusion at T7-T8 without stenosis. Mike Haile MD Objective Remarks GENERAL: Well-nourished, well-developed male lying on his left side. CARDIOVASCULAR: Regular rate and rhythm. RESPIRATORY: No accessory muscle use. Clear to auscultation. Breath sounds equal bilaterally. GASTROINTESTINAL: Abdomen soft, non-tender, nondistended. NEUROLOGICAL: Awake and alert. Normal speech. PSYCHIATRIC: Appropriate mood and affect; insight and judgment normal. Procedures None. Urinary Catheter: No Vascular Central Line Catheter: Yes Assessment to: Continue Line: PICC Side: Right A/P Problem List: (1) Discitis of lumbar region ICD Code: M46.46 Status: Acute (2) IVDU (intravenous drug user) ICD Code: F19.90 Status: Acute Assessment and Plan Lumbar discitis, recurrent Infectious disease consulted who is monitoring patient. Await further recommendations from infectious disease MRI does indicate continued extensive inflammatory change at L4-L5 surrounding thecal sac as well posteriorly characteristic of infection without abscess Patient continued on vancomycin IV, cefazolin IV without any end date thus far. Blood cultures NGTD. Vascular access team was consulted for PICC line placement Sedimentation rate improving; C-reactive protein with significant improvement Due to continued pain, repeat MRI of the lumbar spine was performed on 09/27 indicating continued soft tissue prominence/inflammatory change at L4-L5 extending into the region of the L4 nerve root on the left. Overall appearance is not significantly changed per radiologist. Back pain, chronic: Could be exacerbated by lumbar discitis. Continues to complain of pain. Continue pain control S/p treatment with Toradol Percocet 7.5 every 6 hours prn pain 510 Neurontin 300 mg 3 times daily Lidocaine patch daily Will add Ofirmev 650 mg IV q 8 hours prn breakthrough pain. LFTs normal. IV drug user with recent use HIV negative Patient counseled on discontinuation DVT prevention Lovenox RN called me at 1525 informing me the patient is on "all fours" in pain and cannot receive IV Tylenol as he is currently receiving vancomycin. Patient will be given an additional one time Percocet 5/325 dose now as his next dose is not due until 1700 hrs. RN instructed patient can receive IV Tylenol once antibiotics have finished. Discharge Planning No end date on antibiotics thus far. Vashti Jose Sep 28, 2016 10:35
[2016-09-28] MEDS ORDERED: ACETAMINOPHEN 1000 MG/100 ML VIAL IV PRN (10:45)
[2016-09-28] MEDS ORDERED: oxyCODONE/ACETAMINOPHEN 5 MG/325 MG TAB PO ONE (15:30)
[2016-09-28] MEDS: ENOXAPARIN SODIUM 40 MG/0.4 ML SYRINGE SQ SCH (15:45)
[2016-09-28 20:00] VITALS: BP 143/77; PULSE 67; RESP 20; TEMP 98.8; O2SAT 97
[2016-09-28] MEDS: REMOVE OLD PATCH TD SCH (20:21)
[2016-09-29] MEDS: VANCOMYCIN INJ 1,500 MG in SODIUM CHLORID 0.9% 500 ML INJ 500 ML IV SCH ×2 (00:41→12:52)
[2016-09-29] MEDS: SODIUM CHLORIDE 0.9% FLUSH 5 ML FLUSH FLUSH PRN ×2 (00:41→04:02)
[2016-09-29] MEDS: ceFAZolin 2 GM PREMIX 50 ML IV SCH ×3 (04:02→20:24)
[2016-09-29] MEDS: IBUPROFEN 800 MG TAB PO SCH ×3 (05:04→22:20)
[2016-09-29] MEDS: oxyCODONE/ACETAMINOPHEN 7.5 MG/325 MG TAB PO PRN ×4 (05:04→23:33)
[2016-09-29 08:00] VITALS: BP 134/80; PULSE 82; RESP 18; TEMP 98.1; O2SAT 97
[2016-09-29] MEDS: PANTOPRAZOLE SOD 40 MG DELAYED RELEASE TAB PO SCH (09:09)
[2016-09-29] MEDS: LIDOCAINE HCL 5% PATCH TD SCH (09:10)
[2016-09-29] MEDS: GABAPENTIN 300 MG CAP PO SCH ×3 (09:10→17:01)
[2016-09-29] MEDS: SODIUM CHLORIDE 0.9% FLUSH 5 ML FLUSH FLUSH SCH ×2 (09:11→20:25)
--- NOTE | 2016-09-29 11:52 | HHI.PR ---
Subjective Remarks Follow-up for back pain, discitis. Patient again complains of pain over the right side of his back. Denies relief with Ofirmev injection; states ibuprofen works better. He gets pain in the right leg. He admits to intermittent numbness and tingling but states that it comes with the pain. He denies any bladder or bowel incontinence. Objective Vitals Vital Signs Date Time Temp Pulse Resp B/P Pulse Ox O2 Delivery O2 Flow Rate FiO2 09/29/16 08:00 98.1 82 18 134/80 97 09/28/16 20:00 98.8 67 20 143/77 97 09/28/16 11:55 18 I/O 09/28/16 09/28/16 09/28/16 09/29/16 09/29/16 09/29/16 07:00 15:00 23:00 07:00 15:00 23:00 Intake Total 688 ml 960 ml 1030 ml 750 ml Output Total 1580 ml 1300 ml 675 ml 1175 ml 300 ml Balance -892 ml -340 ml 355 ml -425 ml -300 ml Intake Oral 960 ml 480 ml 120 ml IV Total 688 ml 550 ml 630 ml Output Urine Total 1580 ml 1300 ml 675 ml 1175 ml 300 ml # Voids 2 3 # Bowel Movements 1 0 0 Result Diagram: 09/29/16 0640 Imaging Last Impressions Lumbar Spine MRI 09/27/16 0000 Signed Impressions: Service Date/Time: Tuesday, September 27, 2016 13:00 - CONCLUSION: 1. Continued soft tissue prominence/inflammatory change at L4-5 level extending into the region of the L4 nerve root on the left. Left-sided defect. The overall appearance has not significantly changed. Gage Rodriguez MD Chest X-Ray 09/20/16 0000 Signed Impressions: Service Date/Time: Tuesday, September 20, 2016 14:50 - CONCLUSION: PICC line in good position. Serge Parmar Jr., MD Thoracic Spine MRI 09/16/16 0000 Signed Impressions: Service Date/Time: September 11:22 - CONCLUSION: The exam is limited secondary to motion artifact which limits the interpretation. Small central protrusion at T7-T8 without stenosis. Mike Haile MD Objective Remarks GENERAL: Well-nourished, well-developed male in no apparent distress. CARDIOVASCULAR: Regular rate and rhythm. RESPIRATORY: RR normal. MUSCULOSKELETAL: 2+ DP pulses bilaterally. NEUROLOGICAL: Awake and alert. 4+/5 strength in the right lower extremity likely limited due to pain. 5/5 strength in the left lower extremity. Normal speech. PSYCHIATRIC: Appropriate mood and affect; insight and judgment normal. Procedures None. Urinary Catheter: No Vascular Central Line Catheter: Yes Assessment to: Continue Line: PICC Side: Right Reason for Continuation antibiotics retirement A/P Problem List: (1) Discitis of lumbar region ICD Code: M46.46 Status: Acute (2) IVDU (intravenous drug user) ICD Code: F19.90 Status: Acute Assessment and Plan Lumbar discitis, recurrent Infectious disease consulted who is monitoring patient. Await further recommendations from infectious disease MRI does indicate continued extensive inflammatory change at L4-L5 surrounding thecal sac as well posteriorly characteristic of infection without abscess Patient continued on vancomycin IV, cefazolin IV without any end date thus far. Blood cultures NGTD. Vascular access team was consulted for PICC line placement Sedimentation rate improving; C-reactive protein with significant improvement Due to continued pain, repeat MRI of the lumbar spine was performed on 09/27 indicating continued soft tissue prominence/inflammatory change at L4-L5 extending into the region of the L4 nerve root on the left. Overall appearance is not significantly changed per radiologist. Back pain, chronic: Could be exacerbated by lumbar discitis. Worsening pain over the past few days. No red flag symptoms. Continue pain control S/p treatment with Toradol Percocet 7.5 every 6 hours prn pain 510 Neurontin 300 mg 3 times daily Lidocaine patch daily D/c [facility] Patient requests heat. K Thermia ordered. IV drug user with recent use HIV negative Patient counseled on discontinuation DVT prevention Lovenox RN called me at ~1600 hours informing me the patient is on "all fours" writhing in pain, now complaining of a musculoskeletal twisting sensation over the left chest. A different RN called me with same description of patient in pain (but not in chest) around the same time yesterday. Additional dose of Percocet was ordered yesterday. I will order patient one time dose of Norflex 60 mg IV. No additional narcotics will be ordered. Discharge Planning No end date on antibiotics thus far. Vashti Jose Sep 29, 2016 11:52
[2016-09-29] MEDS ORDERED: VANCOMYCIN TROUGH XX ONE (12:45)
[2016-09-29] MEDS ORDERED: ACETAMINOPHEN 325 MG TAB PO PRN (13:00)
[2016-09-29] MEDS: ENOXAPARIN SODIUM 40 MG/0.4 ML SYRINGE SQ SCH (14:59)
[2016-09-29] MEDS ORDERED: ORPHENADRINE INJ 60 MG/2 ML AMP IV ONE (16:00)
[2016-09-29 20:00] VITALS: BP 134/74; PULSE 59; RESP 18; TEMP 98.5; O2SAT 96
[2016-09-29] MEDS: REMOVE OLD PATCH TD SCH (20:25)
[2016-09-30] MEDS: VANCOMYCIN INJ 1,500 MG in SODIUM CHLORID 0.9% 500 ML INJ 500 ML IV SCH ×2 (01:02→14:00)
[2016-09-30] MEDS: SODIUM CHLORIDE 0.9% FLUSH 5 ML FLUSH FLUSH PRN ×2 (01:02→03:42)
[2016-09-30] MEDS: ceFAZolin 2 GM PREMIX 50 ML IV SCH ×3 (03:42→20:08)
[2016-09-30 05:07] LABS: AUTOMATED NEUTROPHIL # 3.5 TH/MM3 (1.8-7.7); BASOPHIL # 0.1 TH/MM3 (0-0.2); BASOPHIL % 0.8 % (0.0-2.0); EOSINOPHIL # 0.5 TH/MM3 (0-0.4); EOSINOPHIL % 7.6 % (0.0-4.0); HEMATOCRIT 28.6 % (39.0-51.0); HEMO FLAGS DIFF FINAL; LYMPH % 27.5 % (9.0-44.0); LYMPHOCYTE # 1.7 TH/MM3 (1.0-4.8); MEAN CELL VOLUME 83.6 FL (80.0-100.0); MEAN CORPUSCULAR HEMOGLOBIN 26.8 PG (27.0-34.0); MONO % 8.7 % (0.0-8.0); NEUT % 55.4 % (16.0-70.0); PLATELET COUNT 334 TH/MM3 (150-450); RED BLOOD COUNT 3.42 MIL/MM3 (4.50-5.90); RED CELL DISTRIBUTION WIDTH 16.7 % (11.6-17.2); WHITE BLOOD COUNT 6.3 TH/MM3 (4.0-11.0)
[2016-09-30 05:20] LABS: POTASSIUM 4.2 MEQ/L (3.5-5.1)
[2016-09-30 05:24] LABS: BICARBONATE 31.1 MEQ/L (21.0-32.0)
[2016-09-30] MEDS: IBUPROFEN 800 MG TAB PO SCH ×3 (05:45→21:48)
[2016-09-30] MEDS: oxyCODONE/ACETAMINOPHEN 7.5 MG/325 MG TAB PO PRN ×3 (05:45→18:10)
[2016-09-30 05:46] LABS: WESTERGREN SEDIMENTATION RATE 83 mm/hr (0-15)
[2016-09-30 08:00] VITALS: BP 140/91; PULSE 53; RESP 20; TEMP 97.9; O2SAT 97
[2016-09-30] MEDS: SODIUM CHLORIDE 0.9% FLUSH 5 ML FLUSH FLUSH SCH ×2 (08:25→21:48)
[2016-09-30] MEDS: PANTOPRAZOLE SOD 40 MG DELAYED RELEASE TAB PO SCH (08:26)
[2016-09-30] MEDS: GABAPENTIN 300 MG CAP PO SCH ×3 (08:26→17:10)
[2016-09-30] MEDS: LIDOCAINE HCL 5% PATCH TD SCH (08:27)
--- NOTE | 2016-09-30 11:19 | HHI.PR ---
Subjective Remarks Follow-up for discitis, back pain. Patient continues to have pain in the back. He currently rates it a 7/10 in his back and buttocks, worse with movement. Patient was given Norflex IV yesterday, but he denies relief with this. Objective Vitals Vital Signs Date Time Temp Pulse Resp B/P Pulse Ox O2 Delivery O2 Flow Rate FiO2 09/30/16 08:00 97.9 53 20 140/91 97 09/30/16 06:45 18 09/30/16 06:45 18 09/29/16 20:00 98.5 59 18 134/74 96 I/O 09/29/16 09/29/16 09/29/16 09/30/16 09/30/16 09/30/16 06:59 14:59 22:59 06:59 14:59 22:59 Intake Total 750 ml 360 ml 480 ml 781 ml Output Total 1175 ml 750 ml 400 ml 950 ml Balance -425 ml -390 ml 80 ml -169 ml Intake Oral 120 ml 360 ml 480 ml IV Total 630 ml 781 ml Output Urine Total 1175 ml 750 ml 400 ml 950 ml # Voids 3 1 2 # Bowel Movements 0 Result Diagram: 09/30/16 0447 09/30/16 0447 Imaging Last Impressions Lumbar Spine MRI 09/27/16 0000 Signed Impressions: Service Date/Time: Tuesday, September 27, 2016 13:00 - CONCLUSION: 1. Continued soft tissue prominence/inflammatory change at L4-5 level extending into the region of the L4 nerve root on the left. Left-sided defect. The overall appearance has not significantly changed. Gage Rodriguez MD Chest X-Ray 09/20/16 0000 Signed Impressions: Service Date/Time: Tuesday, September 20, 2016 14:50 - CONCLUSION: PICC line in good position. Serge Parmar Jr., MD Thoracic Spine MRI 09/16/16 0000 Signed Impressions: Service Date/Time: September 11:22 - CONCLUSION: The exam is limited secondary to motion artifact which limits the interpretation. Small central protrusion at T7-T8 without stenosis. Mike Haile MD Objective Remarks GENERAL: Well-nourished, well-developed male in no apparent distress lying on his R side with knees bent. SKIN: Lidocaine patch over the R lumbar region. CARDIOVASCULAR: Regular rate and rhythm. RESPIRATORY: RR normal. CTAB. NEUROLOGICAL: Awake and alert. Normal speech. PSYCHIATRIC: Depressed mood and affect; insight and judgment normal. Procedures None. Urinary Catheter: No Vascular Central Line Catheter: Yes Assessment to: Continue Line: PICC Side: Right A/P Problem List: (1) Discitis of lumbar region ICD Code: M46.46 Status: Acute (2) IVDU (intravenous drug user) ICD Code: F19.90 Status: Acute Assessment and Plan Lumbar discitis, recurrent Infectious disease consulted who is monitoring patient. Await further recommendations from infectious disease MRI does indicate continued extensive inflammatory change at L4-L5 surrounding thecal sac as well posteriorly characteristic of infection without abscess Patient continued on vancomycin IV, cefazolin IV. Blood cultures NGTD. Vascular access team was consulted for PICC line placement Due to continued pain, repeat MRI of the lumbar spine was performed on 09/27 indicating continued soft tissue prominence/inflammatory change at L4-L5 extending into the region of the L4 nerve root on the left. Overall appearance is not significantly changed per radiologist. New labs today reviewed. White blood cell count is normal at 6.3. ESR is stable at 83 (81 on 09/23). CRP is 3.5 mildly elevated from 2.3 on 09/23 but in general very much improved from initial 12.9. Patient remains afebrile. I do believe patient is having legitimate pain, but there is not an objective reason as to why patient's back pain is worsening recently. ID reconsulted due to continued pain. There is no stop date on antibiotics thus far. Back pain, chronic: Exacerbated by lumbar discitis. Worsened recently. No red flag symptoms. Continue pain control S/p treatment with Toradol Percocet 7.5 every 6 hours prn pain 510 Neurontin 300 mg 3 times daily Lidocaine patch daily Ofirmev discontinued, no relief Norflex no relief Patient requested heat so K Thermia was ordered on 09/29. Avoid Dilaudid use due to IVDA. IV drug user with recent use HIV negative Patient counseled on discontinuation DVT prevention Lovenox Patient discussed with Dr. Brown, attending. Discharge Planning No end date on antibiotics thus far. Attending Statement Patient seen and examined. Agree with above. Patient still reporting significant pain in the right low back, hip, leg. Heating pad helping. Reconsult infectious disease. Vashti Jose Sep 30, 2016 11:19 Hernando Brown MD Sep 30, 2016 16:53
[2016-09-30] MEDS: ENOXAPARIN SODIUM 40 MG/0.4 ML SYRINGE SQ SCH (15:39)
[2016-09-30 20:00] VITALS: BP 138/78; PULSE 64; RESP 18; TEMP 98.3; O2SAT 100
[2016-09-30] MEDS: REMOVE OLD PATCH TD SCH (21:00)
[2016-10-01] MEDS: VANCOMYCIN INJ 1,500 MG in SODIUM CHLORID 0.9% 500 ML INJ 500 ML IV SCH ×2 (00:17→13:03)
[2016-10-01] MEDS: oxyCODONE/ACETAMINOPHEN 7.5 MG/325 MG TAB PO PRN ×4 (00:17→18:06)
[2016-10-01] MEDS: ceFAZolin 2 GM PREMIX 50 ML IV SCH ×3 (03:26→20:09)
[2016-10-01] MEDS: IBUPROFEN 800 MG TAB PO SCH ×3 (05:49→22:03)
[2016-10-01 08:00] VITALS: BP 137/77; PULSE 60; RESP 18; TEMP 98.4; O2SAT 99
[2016-10-01] MEDS: PANTOPRAZOLE SOD 40 MG DELAYED RELEASE TAB PO SCH (08:40)
[2016-10-01] MEDS: GABAPENTIN 300 MG CAP PO SCH ×4 (08:40→20:10)
[2016-10-01] MEDS: LIDOCAINE HCL 5% PATCH TD SCH (08:43)
[2016-10-01] MEDS: SODIUM CHLORIDE 0.9% FLUSH 5 ML FLUSH FLUSH SCH ×2 (09:00→21:00)
[2016-10-01] MEDS: ENOXAPARIN SODIUM 40 MG/0.4 ML SYRINGE SQ SCH (14:23)
--- NOTE | 2016-10-01 16:31 | HHI.IDPN ---
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 Vital Signs Date Time Temp Pulse Resp B/P Pulse Ox O2 Delivery O2 Flow Rate FiO2 10/01/16 14:14 16 10/01/16 13:10 16 10/01/16 08:00 98.4 60 18 137/77 99 09/30/16 20:00 98.3 64 18 138/78 100 09/30/16 09/30/16 10/01/16 15:00 23:00 07:00 Intake Total 690 ml 600 ml 1460 ml Output Total 850 ml 1200 ml Balance 690 ml -250 ml 260 ml Intake Oral 690 ml 600 ml 860 ml IV Total 600 ml Output Urine Total 850 ml 1200 ml # Voids 3 1 2 # Bowel Movements 0 0 . Laboratory Tests Test 09/30/16 04:47 White Blood Count 6.3 TH/MM3 Red Blood Count 3.42 MIL/MM3 Hemoglobin 9.1 GM/DL Hematocrit 28.6 % Mean Corpuscular Volume 83.6 FL Mean Corpuscular Hemoglobin 26.8 PG Mean Corpuscular Hemoglobin 32.0 % Concent Red Cell Distribution Width 16.7 % Platelet Count 334 TH/MM3 Mean Platelet Volume 7.8 FL Neutrophils (%) (Auto) 55.4 % Lymphocytes (%) (Auto) 27.5 % Monocytes (%) (Auto) 8.7 % Eosinophils (%) (Auto) 7.6 % Basophils (%) (Auto) 0.8 % Neutrophils # (Auto) 3.5 TH/MM3 Lymphocytes # (Auto) 1.7 TH/MM3 Monocytes # (Auto) 0.5 TH/MM3 Eosinophils # (Auto) 0.5 TH/MM3 Basophils # (Auto) 0.1 TH/MM3 CBC Comment DIFF FINAL Differential Comment Erythrocyte Sedimentation Rate 83 mm/hr Laboratory Tests Test 09/30/16 04:47 Sodium Level 142 MEQ/L Potassium Level 4.2 MEQ/L Chloride Level 105 MEQ/L Carbon Dioxide Level 31.1 MEQ/L Anion Gap 6 MEQ/L Blood Urea Nitrogen 11 MG/DL Creatinine 0.81 MG/DL Estimat Glomerular Filtration 105 ML/MIN Rate Random Glucose 80 MG/DL Calcium Level 8.4 MG/DL C-Reactive Protein 3.50 MG/DL Imaging Last Impressions Lumbar Spine MRI 09/27/16 0000 Signed Impressions: Service Date/Time: Tuesday, September 27, 2016 13:00 - CONCLUSION: 1. Continued soft tissue prominence/inflammatory change at L4-5 level extending into the region of the L4 nerve root on the left. Left-sided defect. The overall appearance has not significantly changed. Gage Rodriguez MD Chest X-Ray 09/20/16 0000 Signed Impressions: Service Date/Time: Tuesday, September 20, 2016 14:50 - CONCLUSION: PICC line in good position. Serge Parmar Jr., MD Thoracic Spine MRI 09/16/16 0000 Signed Impressions: Service Date/Time: September 11:22 - CONCLUSION: The exam is limited secondary to motion artifact which limits the interpretation. Small central protrusion at T7-T8 without stenosis. Mike Haile MD Physical Exam GENERAL: This is a chronically ill patient, NAD HEAD: Atraumatic. Normocephalic. No temporal or scalp tenderness. EYES: Pupils equal round and reactive. Extraocular motions intact. No scleral icterus. No injection or drainage. ENT:Oral mucosae without erythema, or exudate. Poor dentition . No thrush NECK: Trachea midline. No JVD or lymphadenopathy. Supple, nontender, no meningeal signs. CARDIOVASCULAR: Regular rate and rhythm without murmurs, gallops, or rubs. RESPIRATORY: Clear to auscultation. Breath sounds equal bilaterally. No wheezes , rales, or rhonchi. GASTROINTESTINAL: Abdomen soft, non-tender, nondistended. No hepato-splenomegaly , or palpable masses. No guarding. MUSCULOSKELETAL: Extremities without clubbing, cyanosis, or edema. No joint tenderness, effusion, or edema noted. No calf tenderness. Negative Homans sign bilaterally. NEUROLOGICAL: Awake and alert. Cranial nerves II through XII intact. Motor and sensory grossly within normal limits. Five out of 5 muscle strength in all muscle groups. Normal speech. BACK: well healed surgical scar + mild tender to palpation lower back and R buttock area Assessment & Plan Remarks (1) Discitis of lumbar region Plan: Follow cultures- blood cultures so far negative on IV Vancomycin and Cefazolin since 09/16 - abx were started emprirically - h/o MSSA diskitis 3 mos ago sp surgery and abx - per cllx did not have MRSA Monitor Sed rate and CRP (2) Back pain, chronic cont current IV abx If no improvement and /or persistently high ESR will need repeat bx for clx will need to dw Dr Sweet once she is back in [facility] Munira Goldsmith MD Oct 01, 2016 16:31
--- NOTE | 2016-10-01 18:09 | HHI.PR ---
Subjective Remarks Follow-up for discitis, back pain. Patient states his pain is mildly improved from yesterday. He denies any fevers or chills. He requests gabapentin dose at night stating that his last dose is at 6 PM and states he does not get it again until 9:00 in the morning; states it does provide relief. Objective Vitals Vital Signs Date Time Temp Pulse Resp B/P Pulse Ox O2 Delivery O2 Flow Rate FiO2 10/01/16 14:14 16 10/01/16 13:10 16 10/01/16 08:00 98.4 60 18 137/77 99 09/30/16 20:00 98.3 64 18 138/78 100 I/O 09/30/16 09/30/16 09/30/16 10/01/16 10/01/16 10/01/16 07:00 15:00 23:00 07:00 15:00 23:00 Intake Total 781 ml 690 ml 600 ml 1460 ml Output Total 950 ml 850 ml 1200 ml 1500 ml Balance -169 ml 690 ml -250 ml 260 ml -1500 ml Intake Oral 690 ml 600 ml 860 ml IV Total 781 ml 600 ml Output Urine Total 950 ml 850 ml 1200 ml 1500 ml # Voids 2 3 1 2 # Bowel Movements 0 0 Result Diagram: 09/30/16 0447 09/30/16 0447 Imaging Last Impressions Lumbar Spine MRI 09/27/16 0000 Signed Impressions: Service Date/Time: Tuesday, September 27, 2016 13:00 - CONCLUSION: 1. Continued soft tissue prominence/inflammatory change at L4-5 level extending into the region of the L4 nerve root on the left. Left-sided defect. The overall appearance has not significantly changed. Gage Rodriguez MD Chest X-Ray 09/20/16 0000 Signed Impressions: Service Date/Time: Tuesday, September 20, 2016 14:50 - CONCLUSION: PICC line in good position. Serge Parmar Jr., MD Thoracic Spine MRI 09/16/16 0000 Signed Impressions: Service Date/Time: September 11:22 - CONCLUSION: The exam is limited secondary to motion artifact which limits the interpretation. Small central protrusion at T7-T8 without stenosis. Mike Haile MD Objective Remarks GENERAL: Well-nourished, well-developed male in no apparent distress lying supine. CARDIOVASCULAR: Regular rate and rhythm. RESPIRATORY: RR normal. CTAB. GASTROINTESTINAL: Abdomen soft, nontender, nondistended. MUSCULOSKELETAL: Patient experiences pain when he actively lifts his legs. He was witnessed to be ambulating with a walker down the garcia slightly stooped forward but appears stable and does not appear in significant pain. NEUROLOGICAL: Awake and alert. Normal speech. Procedures None. Urinary Catheter: No Vascular Central Line Catheter: Yes Assessment to: Continue Line: PICC Side: Right A/P Problem List: (1) Discitis of lumbar region ICD Code: M46.46 Status: Acute (2) IVDU (intravenous drug user) ICD Code: F19.90 Status: Acute Assessment and Plan Lumbar discitis, recurrent Infectious disease consulted who is monitoring patient. Await further recommendations from infectious disease MRI does indicate continued extensive inflammatory change at L4-L5 surrounding thecal sac as well posteriorly characteristic of infection without abscess Patient continued on vancomycin IV, cefazolin IV. Blood cultures NGTD. Vascular access team was consulted for PICC line placement Due to continued pain, repeat MRI of the lumbar spine was performed on 09/27 indicating continued soft tissue prominence/inflammatory change at L4-L5 extending into the region of the L4 nerve root on the left. Overall appearance is not significantly changed per radiologist. WBC remains normal. Patient remains afebrile. ESR is stable at 83 (81 on 09/23) . CRP is 3.5 mildly elevated from 2.3 on 09/23 but in general very much improved from initial 12.9. ID was reconsulted, note appreciated. ID advises monitoring sedimentation rate and CRP and if no improvement and/or persistently high ESR will need repeat biopsy for culture. Dr. Goldsmith will discuss with Dr. Mitchell when she is back in [facility]. Back pain, chronic: Exacerbated by lumbar discitis. Worsened recently. No red flag symptoms. Continue pain control S/p treatment with Toradol Percocet 7.5 every 6 hours prn pain 510 Gabapentin 300 mg 3 times daily. Will increase to 300 mg qid for better coverage. Lidocaine patch daily Ofirmev discontinued, no relief Norflex no relief Patient requested heat so K Thermia was ordered on 09/29. Avoid Dilaudid use due to IVDA. IV drug user with recent use HIV negative Patient counseled on discontinuation DVT prevention Lovenox Patient discussed with Dr. Stoverink, attending. Discharge Planning No end date on antibiotics thus far. Attending Statement Patient states that his pain is somewhat better today. Still having nerve pain. Adjust gabapentin. Vashti Jose Oct 01, 2016 18:09 Hernando Brown MD Oct 02, 2016 07:02
[2016-10-01 20:21] VITALS: BP 135/77; PULSE 66; RESP 16; TEMP 97.4; O2SAT 99
[2016-10-01] MEDS: REMOVE OLD PATCH TD SCH (21:00)
[2016-10-02] MEDS: oxyCODONE/ACETAMINOPHEN 7.5 MG/325 MG TAB PO PRN ×4 (00:12→18:12)
[2016-10-02] MEDS: VANCOMYCIN INJ 1,500 MG in SODIUM CHLORID 0.9% 500 ML INJ 500 ML IV SCH ×2 (00:13→12:30)
[2016-10-02] MEDS: ceFAZolin 2 GM PREMIX 50 ML IV SCH ×3 (04:04→20:03)
[2016-10-02] MEDS: IBUPROFEN 800 MG TAB PO SCH ×3 (05:57→22:24)
[2016-10-02 08:00] VITALS: BP 140/79; PULSE 55; RESP 20; TEMP 98.7; O2SAT 96
[2016-10-02] MEDS: GABAPENTIN 300 MG CAP PO SCH ×4 (08:26→20:03)
[2016-10-02] MEDS: PANTOPRAZOLE SOD 40 MG DELAYED RELEASE TAB PO SCH (08:27)
[2016-10-02] MEDS: LIDOCAINE HCL 5% PATCH TD SCH (08:27)
[2016-10-02] MEDS: SODIUM CHLORIDE 0.9% FLUSH 5 ML FLUSH FLUSH SCH ×2 (09:00→21:00)
[2016-10-02] MEDS: ENOXAPARIN SODIUM 40 MG/0.4 ML SYRINGE SQ SCH (14:51)
--- NOTE | 2016-10-02 16:15 | HHI.PR ---
Subjective Remarks Follow-up for discitis, back pain. Patient states he cannot sleep at night. States Vistaril does not work. He states he was receiving Restoril at the other (main) hospital. His gabapentin was increased yesterday so he could have a nighttime dose. He he does not indicate that the pain is keeping him awake. He states he could not sleep during the day today either. Objective Vitals Vital Signs Date Time Temp Pulse Resp B/P Pulse Ox O2 Delivery O2 Flow Rate FiO2 10/02/16 15:00 16 10/02/16 12:56 16 10/02/16 08:00 98.7 55 20 140/79 96 10/01/16 20:21 97.4 66 16 135/77 99 I/O 10/01/16 10/01/16 10/01/16 10/02/16 10/02/16 10/02/16 07:00 15:00 23:00 07:00 15:00 23:00 Intake Total 1460 ml 150 ml 700 ml 720 ml Output Total 1200 ml 1500 ml 400 ml 120 ml 1400 ml Balance 260 ml -1500 ml -250 ml 580 ml -680 ml Intake Oral 860 ml 150 ml 100 ml 720 ml IV Total 600 ml 600 ml Output Urine Total 1200 ml 1500 ml 400 ml 120 ml 1400 ml # Voids 2 # Bowel Movements 0 Result Diagram: 09/30/167 09/30/16446 Imaging Last Impressions Lumbar Spine MRI 09/27/16 0000 Signed Impressions: Service Date/Time: Tuesday, September 27, 2016 13:00 - CONCLUSION: 1. Continued soft tissue prominence/inflammatory change at L4-5 level extending into the region of the L4 nerve root on the left. Left-sided defect. The overall appearance has not significantly changed. Gage Rodriguez MD Chest X-Ray 09/20/16 0000 Signed Impressions: Service Date/Time: Tuesday, September 20, 2016 14:50 - CONCLUSION: PICC line in good position. Serge Parmar Jr., MD Thoracic Spine MRI 09/16/16 0000 Signed Impressions: Service Date/Time: September 11:22 - CONCLUSION: The exam is limited secondary to motion artifact which limits the interpretation. Small central protrusion at T7-T8 without stenosis. Mike Haile MD Objective Remarks GENERAL: Well-nourished, well-developed male in no apparent distress. CARDIOVASCULAR: Regular rate and rhythm. RESPIRATORY: RR normal. CTAB. GASTROINTESTINAL: Abdomen soft, nontender, nondistended. NEUROLOGICAL: Awake and alert. Normal speech. Procedures None. Urinary Catheter: No Vascular Central Line Catheter: Yes Assessment to: Continue Line: PICC Side: Right A/P Problem List: (1) Discitis of lumbar region ICD Code: M46.46 Status: Acute (2) IVDU (intravenous drug user) ICD Code: F19.90 Status: Acute Assessment and Plan Lumbar discitis, recurrent Infectious disease consulted who is monitoring patient. Await further recommendations from infectious disease MRI does indicate continued extensive inflammatory change at L4-L5 surrounding thecal sac as well posteriorly characteristic of infection without abscess Patient continued on vancomycin IV, cefazolin IV. Blood cultures NGTD. Vascular access team was consulted for PICC line placement Due to continued pain, repeat MRI of the lumbar spine was performed on 09/27 indicating continued soft tissue prominence/inflammatory change at L4-L5 extending into the region of the L4 nerve root on the left. Overall appearance is not significantly changed per radiologist. WBC remains normal. Patient remains afebrile. ESR is stable at 83 (81 on 09/23) . CRP is 3.5 mildly elevated from 2.3 on 09/23 but in general very much improved from initial 12.9. ID was reconsulted, note appreciated. Advises monitoring sedimentation rate and CRP and if no improvement and/or persistently high ESR will need repeat biopsy for culture. Dr. Goldsmith will discuss with Dr. Mitchell when she is back in town. Back pain, chronic: Exacerbated by lumbar discitis. Worsened recently. No red flag symptoms. Continue pain control S/p treatment with Toradol Percocet 7.5 every 6 hours prn pain 510 Gabapentin 300 mg 4 times daily. Lidocaine patch daily Ofirmev discontinued, no relief Norflex no relief Patient requested heat so K Thermia was ordered on 09/29. Avoid Dilaudid use due to IVDA. 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 -I will not be starting the patient on benzodiazepines as he is already on gabapentin, percocet, and Vistaril. Will try melatonin for now. DVT prevention Lovenox Discharge Planning No end date on antibiotics thus far. Vashti Jose Oct 02, 2016 16:15
[2016-10-02] MEDS ORDERED: MELATONIN 5 MG TAB PO PRN (17:00)
[2016-10-02 20:00] VITALS: BP 128/70; PULSE 62; RESP 18; TEMP 97.7; O2SAT 98
[2016-10-02] MEDS: REMOVE OLD PATCH TD SCH (21:00)
[2016-10-03] MEDS: oxyCODONE/ACETAMINOPHEN 7.5 MG/325 MG TAB PO PRN ×4 (00:43→18:35)
[2016-10-03] MEDS: VANCOMYCIN INJ 1,500 MG in SODIUM CHLORID 0.9% 500 ML INJ 500 ML IV SCH ×2 (00:44→12:32)
[2016-10-03] MEDS: ceFAZolin 2 GM PREMIX 50 ML IV SCH ×3 (03:31→19:59)
[2016-10-03] MEDS: IBUPROFEN 800 MG TAB PO SCH ×3 (05:50→21:30)
[2016-10-03 08:00] VITALS: BP 142/91; PULSE 59; RESP 18; TEMP 98.2; O2SAT 97
[2016-10-03] MEDS: GABAPENTIN 300 MG CAP PO SCH ×4 (08:56→20:00)
[2016-10-03] MEDS: PANTOPRAZOLE SOD 40 MG DELAYED RELEASE TAB PO SCH (08:56)
[2016-10-03] MEDS: LIDOCAINE HCL 5% PATCH TD SCH (09:00)
[2016-10-03] MEDS: SODIUM CHLORIDE 0.9% FLUSH 5 ML FLUSH FLUSH SCH ×2 (09:00→20:00)
--- NOTE | 2016-10-03 11:24 | HHI.PR ---
Subjective Remarks Follow-up for discitis, back pain. Patient states he still can't sleep at night and states he never received melatonin last night. Objective Vitals Vital Signs Date Time Temp Pulse Resp B/P Pulse Ox O2 Delivery O2 Flow Rate FiO2 10/03/16 08:00 98.2 59 18 142/91 97 10/03/16 06:50 16 10/03/16 01:43 16 10/02/16 20:00 97.7 62 18 128/70 98 I/O 10/02/16 10/02/16 10/02/16 10/03/16 10/03/16 10/03/16 07:00 15:00 23:00 07:00 15:00 23:00 Intake Total 700 ml 720 ml 900 ml Output Total 120 ml 1400 ml 200 ml Balance 580 ml -680 ml 900 ml -200 ml Intake Oral 100 ml 720 ml 400 ml IV Total 600 ml 500 ml Output Urine Total 120 ml 1400 ml 200 ml # Voids 3 Result Diagram: 09/30/16 0447 10/03/16 0515 Objective Remarks GENERAL: Well-nourished, well-developed male in no apparent distress lying on his left side. SKIN: Surgical scar over the lumbar spine. No surrounding erythema. CARDIOVASCULAR: Regular rate and rhythm. RESPIRATORY: RR normal. CTAB. BACK: No reproducible tenderness over the lumbar spine, right paraspinal muscles , or right sciatic region. Patient states the pain is "inside". NEUROLOGICAL: Awake and alert. Normal speech. Procedures None. Urinary Catheter: No Vascular Central Line Catheter: Yes Assessment to: Continue Line: PICC Side: Right A/P Problem List: (1) Discitis of lumbar region ICD Code: M46.46 Status: Acute (2) IVDU (intravenous drug user) ICD Code: F19.90 Status: Acute Assessment and Plan Lumbar discitis, recurrent Infectious disease consulted who is monitoring patient. Await further recommendations from infectious disease MRI does indicate continued extensive inflammatory change at L4-L5 surrounding thecal sac as well posteriorly characteristic of infection without abscess Patient continued on vancomycin IV, cefazolin IV. Blood cultures NGTD. Vascular access team was consulted for PICC line placement Due to continued pain, repeat MRI of the lumbar spine was performed on 09/27 indicating continued soft tissue prominence/inflammatory change at L4-L5 extending into the region of the L4 nerve root on the left. Overall appearance is not significantly changed per radiologist. WBC remains normal. Patient remains afebrile. ESR is stable at 83 (81 on 09/23) . CRP is 3.5 mildly elevated from 2.3 on 09/23 but in general very much improved from initial 12.9. ID was reconsulted, note appreciated. Advises monitoring sedimentation rate and CRP and if no improvement and/or persistently high ESR will need repeat biopsy for culture. Dr. Goldsmith will discuss with Dr. Mitchell when she is back in town. Back pain, chronic: Exacerbated by lumbar discitis. Worsened recently. No red flag symptoms. Continue pain control S/p treatment with Toradol Percocet 7.5 every 6 hours prn pain 5-10 Gabapentin 300 mg 4 times daily. Lidocaine patch daily Patient requested heat so K Thermia was ordered on 09/29. Ofirmev discontinued, no relief Norflex no relief Avoid Dilaudid use due to IVDA. 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 -I will not be starting the patient on benzodiazepines as he is already on gabapentin, percocet, and Vistaril. Patient never received prn melatonin last night. Will schedule melatonin. DVT prevention Lovenox Discharge Planning No end date on antibiotics thus far. Vashti Jose Oct 03, 2016 11:24
[2016-10-03] MEDS: ENOXAPARIN SODIUM 40 MG/0.4 ML SYRINGE SQ SCH (13:12)
[2016-10-03] MEDS: MELATONIN 5 MG TAB PO SCH (19:59)
[2016-10-03 20:00] VITALS: BP 142/83; PULSE 66; RESP 16; TEMP 97; O2SAT 98
[2016-10-03] MEDS: REMOVE OLD PATCH TD SCH (20:01)
[2016-10-04] MEDS: VANCOMYCIN INJ 1,500 MG in SODIUM CHLORID 0.9% 500 ML INJ 500 ML IV SCH ×2 (00:45→12:51)
[2016-10-04] MEDS: SODIUM CHLORIDE 0.9% FLUSH 5 ML FLUSH FLUSH PRN ×2 (00:45→04:21)
[2016-10-04] MEDS: oxyCODONE/ACETAMINOPHEN 7.5 MG/325 MG TAB PO PRN ×4 (00:46→19:44)
[2016-10-04] MEDS: ceFAZolin 2 GM PREMIX 50 ML IV SCH ×3 (04:21→19:29)
[2016-10-04] MEDS: IBUPROFEN 800 MG TAB PO SCH ×3 (06:13→21:29)
[2016-10-04 08:00] VITALS: BP 129/82; PULSE 60; RESP 16; TEMP 98.5; O2SAT 97
--- NOTE | 2016-10-04 08:40 | HHI.PR ---
Subjective Remarks Follow-up for discitis, back pain, insomnia. Patient received melatonin last night, but is not sure if it worked. He did sleep this morning. Objective Vitals Vital Signs Date Time Temp Pulse Resp B/P Pulse Ox O2 Delivery O2 Flow Rate FiO2 10/04/16 08:00 98.5 60 16 129/82 97 10/04/16 07:33 12 10/04/16 07:33 12 10/03/16 20:00 97.0 66 16 142/83 98 I/O 10/03/16 10/03/16 10/03/16 10/04/16 10/04/16 10/04/16 07:00 15:00 23:00 07:00 15:00 23:00 Intake Total 798 ml 698 ml Output Total 200 ml 200 ml 1400 ml Balance -200 ml 598 ml -702 ml Intake Oral 720 ml IV Total 78 ml 698 ml Output Urine Total 200 ml 200 ml 1400 ml # Voids 3 3 3 # Bowel Movements 0 Result Diagram: 09/30/16 0447 10/03/16 0515 Objective Remarks GENERAL: Well-nourished, well-developed male in no apparent distress lying supine. Does not appear in pain. CARDIOVASCULAR: Regular rate and rhythm. RESPIRATORY: RR normal. CTAB. GASTROINTESTINAL: Abdomen soft, non-tender, non-distended. NEUROLOGICAL: Awake and alert. Normal speech. Procedures None. Urinary Catheter: No Vascular Central Line Catheter: Yes Assessment to: Continue Line: PICC Side: Right Reason for Continuation [facility] antibiotics A/P Problem List: (1) Discitis of lumbar region ICD Code: M46.46 Status: Acute (2) IVDU (intravenous drug user) ICD Code: F19.90 Status: Acute Assessment and Plan Lumbar discitis, recurrent Infectious disease consulted who is monitoring patient. Await further recommendations from infectious disease MRI does indicate continued extensive inflammatory change at L4-L5 surrounding thecal sac as well posteriorly characteristic of infection without abscess Patient continued on vancomycin IV, cefazolin IV. Blood cultures NGTD. Vascular access team was consulted for PICC line placement Due to continued pain, repeat MRI of the lumbar spine was performed on 09/27 indicating continued soft tissue prominence/inflammatory change at L4-L5 extending into the region of the L4 nerve root on the left. Overall appearance is not significantly changed per radiologist. WBC remains normal. Patient remains afebrile. ESR is stable at 83 (81 on 09/23) . CRP is 3.5 mildly elevated from 2.3 on 09/23 but in general very much improved from initial 12.9. ID was reconsulted, note appreciated. Advises monitoring sedimentation rate and CRP and if no improvement and/or persistently high ESR will need repeat biopsy for culture. Dr. Goldsmith will discuss with Dr. Mitchell when she is back in town. Back pain, chronic: Exacerbated by lumbar discitis. Worsened recently. No red flag symptoms. Continue pain control S/p treatment with Toradol Percocet 7.5 every 6 hours prn pain 5-10 Gabapentin 300 mg 4 times daily. Lidocaine patch daily Patient requested heat so K Thermia was ordered on 09/29. Ofirmev discontinued, no relief Norflex no relief Avoid Dilaudid use due to IVDA. 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 -I will not be starting the patient on benzodiazepines as he is already on gabapentin, percocet, and Vistaril and has h/o drug abuse. First dose of melatonin last night. Will monitor for improvement. DVT prevention Lovenox Discharge Planning No end date on antibiotics thus far. Vashti Jose Oct 04, 2016 08:40
[2016-10-04] MEDS: LIDOCAINE HCL 5% PATCH TD SCH (09:38)
[2016-10-04] MEDS: PANTOPRAZOLE SOD 40 MG DELAYED RELEASE TAB PO SCH (09:38)
[2016-10-04] MEDS: GABAPENTIN 300 MG CAP PO SCH ×4 (09:38→20:49)
[2016-10-04] MEDS: SODIUM CHLORIDE 0.9% FLUSH 5 ML FLUSH FLUSH SCH ×2 (12:09→19:29)
[2016-10-04] MEDS: ENOXAPARIN SODIUM 40 MG/0.4 ML SYRINGE SQ SCH (15:38)
[2016-10-04 20:00] VITALS: BP 143/83; PULSE 61; RESP 18; TEMP 96; O2SAT 98
[2016-10-04] MEDS: MELATONIN 5 MG TAB PO SCH (20:49)
[2016-10-04] MEDS: REMOVE OLD PATCH TD SCH (21:00)
[2016-10-05] MEDS: SODIUM CHLORIDE 0.9% FLUSH 5 ML FLUSH FLUSH PRN ×2 (00:48→03:36)
[2016-10-05] MEDS: VANCOMYCIN INJ 1,500 MG in SODIUM CHLORID 0.9% 500 ML INJ 500 ML IV SCH ×2 (00:48→13:01)
[2016-10-05] MEDS: ceFAZolin 2 GM PREMIX 50 ML IV SCH ×3 (03:36→20:57)
[2016-10-05] MEDS: oxyCODONE/ACETAMINOPHEN 7.5 MG/325 MG TAB PO PRN ×4 (04:57→23:15)
[2016-10-05] MEDS: IBUPROFEN 800 MG TAB PO SCH ×3 (06:04→22:09)
[2016-10-05 08:00] VITALS: BP 135/77; PULSE 61; RESP 16; TEMP 96.5; O2SAT 98
--- NOTE | 2016-10-05 08:46 | HHI.PR ---
Subjective Remarks Patient seen and examined today. Patient states that he did get up one morning. States that he still having persistent pain in his back. Objective Vitals Vital Signs Date Time Temp Pulse Resp B/P Pulse Ox O2 Delivery O2 Flow Rate FiO2 10/05/16 08:00 96.5 61 16 135/77 98 10/05/16 07:04 16 10/04/16 20:00 96.0 61 18 143/83 98 10/04/16 13:49 14 I/O 10/04/16 10/04/16 10/04/16 10/05/16 10/05/16 10/05/16 07:00 15:00 23:00 07:00 15:00 23:00 Intake Total 698 ml 480 ml 133 ml 628 ml Output Total 1400 ml 400 ml 1300 ml 1300 ml Balance -702 ml 80 ml -1167 ml -672 ml Intake Oral 480 ml IV Total 698 ml 133 ml 628 ml Output Urine Total 1400 ml 400 ml 1300 ml 1300 ml # Voids 3 4 3 # Bowel Movements 1 Result Diagram: 10/05/16 0500 Objective Remarks GENERAL: Well-developed, well-nourished, in no acute distress. alert and orientated HEENT: Head is normocephalic without any lesions or masses noted. Facial features are symmetric. Eyes: Extraocular muscles are intact. Conjunctivae were clear. NECK: Trachea midline no deviation. No JVD, CARDIAC: Regular rhythm, regular rate. S1/S2 are heard. No murmurs gallops or rubs. LUNGS: Clear to auscultation bilaterally. No wheeze, rhonchi or rales. No use of accessory muscles on inspiration or expiration. ABDOMEN: Soft, nontender. Nondistended. Bowel sounds heard in all 4 quadrants. No organomegaly or masses. Negative rebound, negative guarding EXTREMITIES: No edema, pulses are equal bilaterally. No cyanosis or clubbing NEUROLOGY: Mood and affect appear appropriate. Cranial nerves II through XII grossly intact. Moving all extremities, speech is clear Procedures None. Urinary Catheter: No Vascular Central Line Catheter: No Line: PICC Side: Right A/P Assessment and Plan Lumbar discitis, recurrent Infectious disease consulted who is monitoring patient. Await antibiotic recommendations from infectious disease. Infectious disease indicate that his sedimentation rate and C-reactive protein do not improve, may need to have biopsy performed MRI does indicate continued extensive inflammatory change at L4-L5 surrounding thecal sac as well posteriorly characteristic of infection without abscess Patient continued on vancomycin IV, cefazolin IV without any end date thus far Continue monitor sedimentation rate and C-reactive protein Repeat MRI of the lumbar spine indicating continued soft tissue prominence/ inflammatory change at L4-L5 extending into the region of the L4 nerve root on the left. The overall appearance is not significantly changed Back pain, chronic: Could be exacerbated by lumbar discitis Continue pain control Percocet 7.5 every 6 hours when necessary pain 510 Neurontin 300 mg 4 times daily Lidoderm patch daily K thermia as needed IV Tylenol and Norflex without any relief, and these were discontinued Avoid Dilaudid due to IV drug use IV drug user with recent use HIV negative Patient counseled on discontinuation DVT prevention Lovenox Discharge Planning Discharge planning depends on recommendations from infectious disease, patient requires inpatient IV antibiotics until completion or patient can be on by mouth medications and can be treated outpatient 10/04/16 1443 CONT TO FOLLOW FOR ID DIRECTION WITH ANTIBIOTIC NEEDS, PATIENT IVDU. NEED TO BE ON PO FOR D/C WILL RETURN TO PREVIOUS LIVING ARRANGEMENTS [facility] LPN/CM/CHARGE Hernando Truong Oct 05, 2016 08:46
[2016-10-05] MEDS: GABAPENTIN 300 MG CAP PO SCH ×4 (08:55→20:57)
[2016-10-05] MEDS: PANTOPRAZOLE SOD 40 MG DELAYED RELEASE TAB PO SCH (08:55)
[2016-10-05] MEDS: SODIUM CHLORIDE 0.9% FLUSH 5 ML FLUSH FLUSH SCH ×2 (08:55→21:00)
[2016-10-05] MEDS: LIDOCAINE HCL 5% PATCH TD SCH (08:56)
[2016-10-05] MEDS: ENOXAPARIN SODIUM 40 MG/0.4 ML SYRINGE SQ SCH (14:44)
[2016-10-05 20:00] VITALS: BP 128/77; PULSE 63; RESP 18; TEMP 98.5; O2SAT 99
[2016-10-05] MEDS: MELATONIN 5 MG TAB PO SCH (20:57)
[2016-10-05] MEDS: REMOVE OLD PATCH TD SCH (21:00)
[2016-10-06] MEDS: VANCOMYCIN INJ 1,500 MG in SODIUM CHLORID 0.9% 500 ML INJ 500 ML IV SCH ×2 (01:29→12:21)
[2016-10-06] MEDS: ceFAZolin 2 GM PREMIX 50 ML IV SCH ×3 (03:45→20:16)
[2016-10-06] MEDS: IBUPROFEN 800 MG TAB PO SCH ×3 (06:01→20:26)
[2016-10-06 08:00] VITALS: BP 152/89; PULSE 59; RESP 18; TEMP 97.2; O2SAT 98
[2016-10-06] MEDS: PANTOPRAZOLE SOD 40 MG DELAYED RELEASE TAB PO SCH (08:15)
[2016-10-06] MEDS: GABAPENTIN 300 MG CAP PO SCH ×4 (08:16→20:18)
[2016-10-06] MEDS: oxyCODONE/ACETAMINOPHEN 7.5 MG/325 MG TAB PO PRN ×3 (08:16→20:19)
[2016-10-06] MEDS: LIDOCAINE HCL 5% PATCH TD SCH (08:17)
[2016-10-06] MEDS: SODIUM CHLORIDE 0.9% FLUSH 5 ML FLUSH FLUSH SCH ×2 (08:17→20:16)
--- NOTE | 2016-10-06 10:00 | HHI.PR ---
Subjective Remarks Patient seen and examined today. Patient still complaining of back pain without any improvement. He states that very difficult to walk. Objective Vitals Vital Signs Date Time Temp Pulse Resp B/P Pulse Ox O2 Delivery O2 Flow Rate FiO2 10/06/16 09:16 18 10/06/16 08:00 97.2 59 18 152/89 98 10/06/16 07:01 16 10/05/16 20:00 98.5 63 18 128/77 99 I/O 10/05/16 10/05/16 10/05/16 10/06/16 10/06/16 10/06/16 07:00 15:00 23:00 07:00 15:00 23:00 Intake Total 628 ml 1200 ml 480 ml 360 ml Output Total 1300 ml 1800 ml 1000 ml 1000 ml Balance -672 ml -600 ml -520 ml -640 ml Intake Oral 1200 ml 480 ml 360 ml IV Total 628 ml Output Urine Total 1300 ml 1800 ml 1000 ml 1000 ml # Voids 3 # Bowel Movements 1 1 0 Result Diagram: 10/05/16 0500 Objective Remarks GENERAL: Well-developed, well-nourished, in no acute distress. alert and orientated HEENT: Head is normocephalic without any lesions or masses noted. Facial features are symmetric. Eyes: Extraocular muscles are intact. Conjunctivae were clear. NECK: Trachea midline no deviation. No JVD, CARDIAC: Regular rhythm, regular rate. S1/S2 are heard. No murmurs gallops or rubs. LUNGS: Clear to auscultation bilaterally. No wheeze, rhonchi or rales. No use of accessory muscles on inspiration or expiration. ABDOMEN: Soft, nontender. Nondistended. Bowel sounds heard in all 4 quadrants. No organomegaly or masses. Negative rebound, negative guarding EXTREMITIES: No edema, pulses are equal bilaterally. No cyanosis or clubbing NEUROLOGY: Mood and affect appear appropriate. Cranial nerves II through XII grossly intact. Moving all extremities, speech is clear Procedures None. Urinary Catheter: No Vascular Central Line Catheter: Yes Assessment to: Continue Line: PICC Side: Right A/P Assessment and Plan Lumbar discitis, recurrent Infectious disease consulted who is monitoring patient. Await antibiotic recommendations from infectious disease. Infectious disease indicate that his sedimentation rate and C-reactive protein do not improve, may need to have biopsy performed MRI does indicate continued extensive inflammatory change at L4-L5 surrounding thecal sac as well posteriorly characteristic of infection without abscess Patient continued on vancomycin IV, cefazolin IV without any end date thus far Continue monitor sedimentation rate and C-reactive protein Repeat MRI of the lumbar spine indicating continued soft tissue prominence/ inflammatory change at L4-L5 extending into the region of the L4 nerve root on the left. The overall appearance is not significantly changed Back pain, chronic: Could be exacerbated by lumbar discitis Continue pain control Percocet 7.5 every 6 hours when necessary pain 510 Neurontin 300 mg 4 times daily Lidoderm patch daily K thermia as needed IV Tylenol and Norflex without any relief, and these were discontinued Avoid Dilaudid due to IV drug use IV drug user with recent use HIV negative Patient counseled on discontinuation DVT prevention Lovenox Discharge Planning Discharge planning depends on recommendations from infectious disease, patient requires inpatient IV antibiotics until completion or patient can be on by mouth medications and can be treated outpatient 10/04/16 1443 CONT TO FOLLOW FOR ID DIRECTION WITH ANTIBIOTIC NEEDS, PATIENT IVDU. NEED TO BE ON PO FOR D/C WILL RETURN TO PREVIOUS LIVING ARRANGEMENTS [facility] MARIE LPN/CM/CHARGE Hernando Truong Oct 06, 2016 10:00
[2016-10-06] MEDS: ENOXAPARIN SODIUM 40 MG/0.4 ML SYRINGE SQ SCH (14:15)
--- NOTE | 2016-10-06 18:31 | HHI.IDPN ---
Subjective Subjective Remarks Pt known to me from previous admission in June M with IVDA L spine epidural abscess, MSSA sp L4-5 laminectomy, abscess debridement HIgh grade MSSA bacteremia, BLAYNE negative readmitted after completing rn long term care IV abx; was taking Cipro at home presented with pain Patient says last 2-3 days his back has felt better and able to walk better and walk straight. No more sciatica like nerve pain Antibiotics ANCEF VANCOMYCIN Lines Peripheral IV line Past Medical History H/o IVDU Epidural abscess with MSSA Allergies: Coded Allergies: Penicillin (Verified Allergy, Mild, UNKNOWN, 09/16/16) Review of Systems Constitutional Constitutional Remarks No fever, chills Objective . Vital Signs Date Time Temp Pulse Resp B/P Pulse Ox O2 Delivery O2 Flow Rate FiO2 10/06/16 15:16 18 10/06/16 15:16 18 10/06/16 08:00 97.2 59 18 152/89 98 10/05/16 20:00 98.5 63 18 128/77 99 10/05/16 10/05/16 10/06/16 15:00 23:00 07:00 Intake Total 1200 ml 480 ml 360 ml Output Total 1800 ml 1000 ml 1000 ml Balance -600 ml -520 ml -640 ml Intake Oral 1200 ml 480 ml 360 ml Output Urine Total 1800 ml 1000 ml 1000 ml # Bowel Movements 1 1 0 . Laboratory Tests Test 10/05/16 05:00 Creatinine 0.80 MG/DL Estimat Glomerular Filtration 106 ML/MIN Rate Imaging Last Impressions Lumbar Spine MRI 09/27/16 0000 Signed Impressions: Service Date/Time: Tuesday, September 27, 2016 13:00 - CONCLUSION: 1. Continued soft tissue prominence/inflammatory change at L4-5 level extending into the region of the L4 nerve root on the left. Left-sided defect. The overall appearance has not significantly changed. Gage Rodriguez MD Chest X-Ray 09/20/16 0000 Signed Impressions: Service Date/Time: Tuesday, September 20, 2016 14:50 - CONCLUSION: PICC line in good position. Serge Parmar Jr., MD Thoracic Spine MRI 09/16/16 0000 Signed Impressions: Service Date/Time: September 11:22 - CONCLUSION: The exam is limited secondary to motion artifact which limits the interpretation. Small central protrusion at T7-T8 without stenosis. Mike Haile MD Physical Exam GENERAL: This is a chronically ill patient, NAD HEAD: Atraumatic. Normocephalic. No temporal or scalp tenderness. EYES: Pupils equal round and reactive. Extraocular motions intact. No scleral icterus. No injection or drainage. ENT:Oral mucosae without erythema, or exudate. Poor dentition . No thrush NECK: Trachea midline. No JVD or lymphadenopathy. Supple, nontender, no meningeal signs. CARDIOVASCULAR: Regular rate and rhythm without murmurs, gallops, or rubs. RESPIRATORY: Clear to auscultation. Breath sounds equal bilaterally. No wheezes , rales, or rhonchi. GASTROINTESTINAL: Abdomen soft, non-tender, nondistended. No hepato-splenomegaly , or palpable masses. No guarding. MUSCULOSKELETAL: Extremities without clubbing, cyanosis, or edema. No joint tenderness, effusion, or edema noted. No calf tenderness. Negative Homans sign bilaterally. NEUROLOGICAL: Awake and alert. Cranial nerves II through XII intact. Motor and sensory grossly within normal limits. Five out of 5 muscle strength in all muscle groups. Normal speech. BACK: well healed surgical scar + mild tender to palpation lower back and R buttock area Fullness on Rt side in lower back Assessment & Plan Diagnosis: (1) Discitis of lumbar region Plan: Continue IV Vancomycin and Cefazolin Monitor Sed rate and CRP Patient is clinically improving Will check Sed rate and CRP tomorrow. Anticipate another 2 weeks of IV antibiotics (2) Back pain Problem Qualifiers (1) Back pain: Qualified Code: M54.5 - Acute midline low back pain without sciatica Moon Mitchell MD Oct 06, 2016 18:31
[2016-10-06 20:00] VITALS: BP 140/81; PULSE 65; RESP 16; TEMP 98.1; O2SAT 100
[2016-10-06] MEDS: MELATONIN 5 MG TAB PO SCH (20:18)
[2016-10-06] MEDS: REMOVE OLD PATCH TD SCH (20:20)
[2016-10-07] MEDS: VANCOMYCIN INJ 1,500 MG in SODIUM CHLORID 0.9% 500 ML INJ 500 ML IV SCH ×2 (01:29→13:00)
[2016-10-07] MEDS: oxyCODONE/ACETAMINOPHEN 7.5 MG/325 MG TAB PO PRN ×4 (02:11→22:06)
[2016-10-07] MEDS: ceFAZolin 2 GM PREMIX 50 ML IV SCH ×3 (03:46→21:07)
[2016-10-07] MEDS: IBUPROFEN 800 MG TAB PO SCH ×3 (04:31→21:06)
[2016-10-07] MEDS: SODIUM CHLORIDE 0.9% FLUSH 5 ML FLUSH FLUSH SCH ×2 (07:48→21:05)
[2016-10-07] MEDS: GABAPENTIN 300 MG CAP PO SCH ×4 (07:49→21:02)
[2016-10-07] MEDS: PANTOPRAZOLE SOD 40 MG DELAYED RELEASE TAB PO SCH (07:49)
[2016-10-07] MEDS: LIDOCAINE HCL 5% PATCH TD SCH (07:50)
[2016-10-07 08:00] VITALS: BP 136/76; PULSE 59; RESP 18; TEMP 97.9; O2SAT 98
[2016-10-07] MEDS ORDERED: PHARMACY ORDERED LAB XX ONE (08:30)
--- NOTE | 2016-10-07 10:12 | HHI.PR ---
Subjective Remarks Patient seen and examined today. Patient denies any new complaints. No change in clinical status. Patient states that his back pain is improving Objective Vitals Vital Signs Date Time Temp Pulse Resp B/P Pulse Ox O2 Delivery O2 Flow Rate FiO2 10/07/16 08:00 97.9 59 18 136/76 98 10/06/16 20:00 98.1 65 16 140/81 100 10/06/16 15:16 18 10/06/16 15:16 18 I/O 10/06/16 10/06/16 10/06/16 10/07/16 10/07/16 10/07/16 07:00 15:00 23:00 07:00 15:00 23:00 Intake Total 360 ml 480 ml 640 ml 785 ml Output Total 1000 ml 1200 ml 900 ml Balance -640 ml -720 ml 640 ml -115 ml Intake Oral 360 ml 480 ml 640 ml 160 ml IV Total 625 ml Output Urine Total 1000 ml 1200 ml 900 ml # Voids 2 0 # Bowel Movements 0 0 0 0 Result Diagram: 10/07/16 0410 Objective Remarks GENERAL: Well-developed, well-nourished, in no acute distress. alert and orientated HEENT: Head is normocephalic without any lesions or masses noted. Facial features are symmetric. Eyes: Extraocular muscles are intact. Conjunctivae were clear. NECK: Trachea midline no deviation. No JVD, CARDIAC: Regular rhythm, regular rate. S1/S2 are heard. No murmurs gallops or rubs. LUNGS: Clear to auscultation bilaterally. No wheeze, rhonchi or rales. No use of accessory muscles on inspiration or expiration. ABDOMEN: Soft, nontender. Nondistended. Bowel sounds heard in all 4 quadrants. No organomegaly or masses. Negative rebound, negative guarding EXTREMITIES: No edema, pulses are equal bilaterally. No cyanosis or clubbing NEUROLOGY: Mood and affect appear appropriate. Cranial nerves II through XII grossly intact. Moving all extremities, speech is clear Procedures None. Urinary Catheter: No Vascular Central Line Catheter: No Line: PICC Side: Right A/P Assessment and Plan Lumbar discitis, recurrent Infectious disease consulted who is monitoring patient. Recommending antibiotics for at least 2 more weeks. Infectious disease indicate that his sedimentation rate and C-reactive protein do not improve, may need to have biopsy performed MRI does indicate continued extensive inflammatory change at L4-L5 surrounding thecal sac as well posteriorly characteristic of infection without abscess Patient continued on vancomycin IV, cefazolin IV without any end date thus far Continue monitor sedimentation rate and C-reactive protein which are improving Repeat MRI of the lumbar spine indicating continued soft tissue prominence/ inflammatory change at L4-L5 extending into the region of the L4 nerve root on the left. The overall appearance is not significantly changed Back pain, chronic: Could be exacerbated by lumbar discitis Continue pain control Percocet 7.5 every 6 hours when necessary pain 510 Neurontin 300 mg 4 times daily Lidoderm patch daily K thermia as needed IV Tylenol and Norflex without any relief, and these were discontinued Avoid Dilaudid due to IV drug use IV drug user with recent use HIV negative Patient counseled on discontinuation DVT prevention Lovenox Discharge Planning Discharge planning depends on recommendations from infectious disease, patient requires inpatient IV antibiotics until completion or patient can be on by mouth medications and can be treated outpatient 10/04/16 1443 CONT TO FOLLOW FOR ID DIRECTION WITH ANTIBIOTIC NEEDS, PATIENT IVDU. NEED TO BE ON PO FOR D/C WILL RETURN TO PREVIOUS LIVING ARRANGEMENTS KAIT MARIE LPN/CM/CHARGE Hernando Truong Oct 07, 2016 10:12
[2016-10-07] MEDS: ENOXAPARIN SODIUM 40 MG/0.4 ML SYRINGE SQ SCH (15:32)
[2016-10-07 20:00] VITALS: BP 128/74; PULSE 68; RESP 18; TEMP 98; O2SAT 98
[2016-10-07] MEDS: REMOVE OLD PATCH TD SCH (21:00)
[2016-10-07] MEDS: MELATONIN 5 MG TAB PO SCH (21:03)
[2016-10-08] MEDS: VANCOMYCIN INJ 1,500 MG in SODIUM CHLORID 0.9% 500 ML INJ 500 ML IV SCH ×2 (01:01→13:26)
[2016-10-08] MEDS: SODIUM CHLORIDE 0.9% FLUSH 5 ML FLUSH FLUSH PRN ×2 (01:03→03:16)
[2016-10-08] MEDS: ceFAZolin 2 GM PREMIX 50 ML IV SCH ×3 (03:16→19:59)
[2016-10-08] MEDS: oxyCODONE/ACETAMINOPHEN 7.5 MG/325 MG TAB PO PRN ×4 (04:27→23:38)
[2016-10-08] MEDS: IBUPROFEN 800 MG TAB PO SCH ×3 (05:53→22:21)
[2016-10-08 07:15] VITALS: BP 131/70; PULSE 62; RESP 20; TEMP 96.5; O2SAT 97
[2016-10-08] MEDS: PANTOPRAZOLE SOD 40 MG DELAYED RELEASE TAB PO SCH (08:38)
[2016-10-08] MEDS: GABAPENTIN 300 MG CAP PO SCH ×4 (08:38→19:59)
[2016-10-08] MEDS: LIDOCAINE HCL 5% PATCH TD SCH (08:39)
[2016-10-08] MEDS: SODIUM CHLORIDE 0.9% FLUSH 5 ML FLUSH FLUSH SCH ×2 (08:39→20:00)
--- NOTE | 2016-10-08 09:40 | HHI.PR ---
Subjective Remarks Patient seen and examined today. Patient denies any new complaints. No change in clinical status. Objective Vitals Vital Signs Date Time Temp Pulse Resp B/P Pulse Ox O2 Delivery O2 Flow Rate FiO2 10/07/16 20:00 98.0 68 18 128/74 98 I/O 10/07/16 10/07/16 10/07/16 10/08/16 10/08/16 10/08/16 07:00 15:00 23:00 07:00 15:00 23:00 Intake Total 785 ml 625 ml 920 ml 1030 ml Output Total 900 ml 975 ml 450 ml 750 ml Balance -115 ml -350 ml 470 ml 280 ml Intake Oral 160 ml 625 ml 840 ml 420 ml IV Total 625 ml 80 ml 610 ml Output Urine Total 900 ml 975 ml 450 ml 750 ml # Voids 0 3 2 # Bowel Movements 0 0 0 Result Diagram: 10/07/16 0410 Objective Remarks GENERAL: Well-developed, well-nourished, in no acute distress. alert and orientated HEENT: Head is normocephalic without any lesions or masses noted. Facial features are symmetric. Eyes: Extraocular muscles are intact. Conjunctivae were clear. NECK: Trachea midline no deviation. No JVD, CARDIAC: Regular rhythm, regular rate. S1/S2 are heard. No murmurs gallops or rubs. LUNGS: Clear to auscultation bilaterally. No wheeze, rhonchi or rales. No use of accessory muscles on inspiration or expiration. ABDOMEN: Soft, nontender. Nondistended. Bowel sounds heard in all 4 quadrants. No organomegaly or masses. Negative rebound, negative guarding EXTREMITIES: No edema, pulses are equal bilaterally. No cyanosis or clubbing NEUROLOGY: Mood and affect appear appropriate. Cranial nerves II through XII grossly intact. Moving all extremities, speech is clear Procedures None. Urinary Catheter: No Vascular Central Line Catheter: No Line: PICC Side: Right A/P Assessment and Plan Lumbar discitis, recurrent Infectious disease consulted who is monitoring patient. Recommending antibiotics for at least 2 more weeks. Infectious disease indicate that his sedimentation rate and C-reactive protein do not improve, may need to have biopsy performed MRI does indicate continued extensive inflammatory change at L4-L5 surrounding thecal sac as well posteriorly characteristic of infection without abscess Patient continued on vancomycin IV, cefazolin IV without any end date thus far Continue monitor sedimentation rate and C-reactive protein which are improving Repeat MRI of the lumbar spine indicating continued soft tissue prominence/ inflammatory change at L4-L5 extending into the region of the L4 nerve root on the left. The overall appearance is not significantly changed Back pain, chronic: Could be exacerbated by lumbar discitis Continue pain control Percocet 7.5 every 6 hours when necessary pain 510 Neurontin 300 mg 4 times daily Lidoderm patch daily K thermia as needed IV Tylenol and Norflex without any relief, and these were discontinued Avoid Dilaudid due to IV drug use IV drug user with recent use HIV negative Patient counseled on discontinuation DVT prevention Lovenox Discharge Planning Discharge planning depends on recommendations from infectious disease, patient requires inpatient IV antibiotics until completion or patient can be on by mouth medications and can be treated outpatient 10/04/16 1443 CONT TO FOLLOW FOR ID DIRECTION WITH ANTIBIOTIC NEEDS, PATIENT IVDU. NEED TO BE ON PO FOR D/C WILL RETURN TO PREVIOUS LIVING ARRANGEMENTS KA[facility] MARIE LPN/CM/CHARGE Hernando Truong Oct 08, 2016 09:40
[2016-10-08] MEDS: ENOXAPARIN SODIUM 40 MG/0.4 ML SYRINGE SQ SCH (15:00)
[2016-10-08 19:15] VITALS: BP 126/72; PULSE 61; RESP 18; TEMP 97.9; O2SAT 99
[2016-10-08] MEDS: MELATONIN 5 MG TAB PO SCH (19:59)
[2016-10-08] MEDS: REMOVE OLD PATCH TD SCH (21:00)
[2016-10-09] MEDS: VANCOMYCIN INJ 1,500 MG in SODIUM CHLORID 0.9% 500 ML INJ 500 ML IV SCH ×2 (01:18→13:01)
[2016-10-09] MEDS: ceFAZolin 2 GM PREMIX 50 ML IV SCH ×3 (03:49→20:14)
[2016-10-09] MEDS: IBUPROFEN 800 MG TAB PO SCH ×3 (05:53→22:12)
[2016-10-09] MEDS: oxyCODONE/ACETAMINOPHEN 7.5 MG/325 MG TAB PO PRN ×3 (06:08→17:55)
[2016-10-09 08:00] VITALS: BP 126/74; PULSE 70; RESP 17; TEMP 98.8; O2SAT 99
[2016-10-09] MEDS: PANTOPRAZOLE SOD 40 MG DELAYED RELEASE TAB PO SCH (08:25)
[2016-10-09] MEDS: GABAPENTIN 300 MG CAP PO SCH ×4 (08:25→20:13)
[2016-10-09] MEDS: LIDOCAINE HCL 5% PATCH TD SCH ×2 (08:26→08:43)
--- NOTE | 2016-10-09 08:33 | HHI.PR ---
Subjective Remarks Patient seen and examined today. Patient denies any new complaints. Patient states that he is doing better. He is able to stand up straight now. He is walking more. Pain is better controlled Objective Vitals Vital Signs Date Time Temp Pulse Resp B/P Pulse Ox O2 Delivery O2 Flow Rate FiO2 10/09/16 07:08 16 10/09/16 07:08 16 10/08/16 19:15 97.9 61 18 126/72 99 I/O 10/08/16 10/08/16 10/08/16 10/09/16 10/09/16 10/09/16 07:00 15:00 23:00 07:00 15:00 23:00 Intake Total 1030 ml 390 ml 1690 ml Output Total 750 ml 1100 ml 2000 ml Balance 280 ml -710 ml -310 ml Intake Oral 420 ml 90 ml 490 ml IV Total 610 ml 300 ml 1200 ml Output Urine Total 750 ml 1100 ml 2000 ml # Voids 2 # Bowel Movements 0 1 Result Diagram: 10/09/16 0615 Objective Remarks GENERAL: Well-developed, well-nourished, in no acute distress. alert and orientated HEENT: Head is normocephalic without any lesions or masses noted. Facial features are symmetric. Eyes: Extraocular muscles are intact. Conjunctivae were clear. NECK: Trachea midline no deviation. No JVD, CARDIAC: Regular rhythm, regular rate. S1/S2 are heard. No murmurs gallops or rubs. LUNGS: Clear to auscultation bilaterally. No wheeze, rhonchi or rales. No use of accessory muscles on inspiration or expiration. ABDOMEN: Soft, nontender. Nondistended. Bowel sounds heard in all 4 quadrants. No organomegaly or masses. Negative rebound, negative guarding EXTREMITIES: No edema, pulses are equal bilaterally. No cyanosis or clubbing NEUROLOGY: Mood and affect appear appropriate. Cranial nerves II through XII grossly intact. Moving all extremities, speech is clear Procedures None. Urinary Catheter: No Vascular Central Line Catheter: Yes Assessment to: Continue Line: PICC Side: Right A/P Assessment and Plan Lumbar discitis, recurrent Infectious disease consulted who is monitoring patient. Recommending antibiotics for at least 2 more weeks. Infectious disease indicate that his sedimentation rate and C-reactive protein do not improve, may need to have biopsy performed MRI does indicate continued extensive inflammatory change at L4-L5 surrounding thecal sac as well posteriorly characteristic of infection without abscess Patient continued on vancomycin IV, cefazolin IV without any end date thus far Continue monitor sedimentation rate and C-reactive protein which are improving Repeat MRI of the lumbar spine indicating continued soft tissue prominence/ inflammatory change at L4-L5 extending into the region of the L4 nerve root on the left. The overall appearance is not significantly changed Back pain, chronic: Could be exacerbated by lumbar discitis Continue pain control Percocet 7.5 every 6 hours when necessary pain 510 Neurontin 300 mg 4 times daily Lidoderm patch daily K thermia as needed IV Tylenol and Norflex without any relief, and these were discontinued Avoid Dilaudid due to IV drug use IV drug user with recent use HIV negative Patient counseled on discontinuation DVT prevention Lovenox Discharge Planning Discharge planning depends on recommendations from infectious disease, patient requires inpatient IV antibiotics until completion or patient can be on by mouth medications and can be treated outpatient 10/04/16 1443 CONT TO FOLLOW FOR ID DIRECTION WITH ANTIBIOTIC NEEDS, PATIENT IVDU. NEED TO BE ON PO FOR D/C WILL RETURN TO PREVIOUS LIVING ARRANGEMENTS KA[facility] MARIE LPN/CM/CHARGE Hernando Truong Oct 09, 2016 08:33
[2016-10-09] MEDS: SODIUM CHLORIDE 0.9% FLUSH 5 ML FLUSH FLUSH SCH ×2 (11:57→15:14)
[2016-10-09] MEDS ORDERED: PHARMACY ORDERED LAB XX ONE (12:45)
[2016-10-09] MEDS: ENOXAPARIN SODIUM 40 MG/0.4 ML SYRINGE SQ SCH (14:13)
[2016-10-09] MEDS: MELATONIN 5 MG TAB PO SCH (20:13)
[2016-10-09] MEDS: REMOVE OLD PATCH TD SCH (20:26)
[2016-10-09 21:16] VITALS: BP 115/72; PULSE 64; RESP 20; TEMP 97.2; O2SAT 100
[2016-10-10] MEDS: oxyCODONE/ACETAMINOPHEN 7.5 MG/325 MG TAB PO PRN ×3 (03:43→17:13)
[2016-10-10] MEDS: ceFAZolin 2 GM PREMIX 50 ML IV SCH ×3 (03:44→20:07)
[2016-10-10] MEDS: VANCOMYCIN INJ 1,500 MG in SODIUM CHLORID 0.9% 500 ML INJ 500 ML IV SCH (03:47)
[2016-10-10] MEDS: IBUPROFEN 800 MG TAB PO SCH ×3 (06:17→22:00)
[2016-10-10 08:00] VITALS: BP 127/64; PULSE 60; RESP 18; TEMP 97.9; O2SAT 100
[2016-10-10] MEDS: LIDOCAINE HCL 5% PATCH TD SCH (09:00)
[2016-10-10] MEDS: PANTOPRAZOLE SOD 40 MG DELAYED RELEASE TAB PO SCH (09:50)
[2016-10-10] MEDS: GABAPENTIN 300 MG CAP PO SCH ×4 (09:50→20:07)
--- NOTE | 2016-10-10 10:14 | HHI.PR ---
Subjective Remarks Patient seen and examined today. Patient denies any new complaints. No change in clinical status. Objective Vitals Vital Signs Date Time Temp Pulse Resp B/P Pulse Ox O2 Delivery O2 Flow Rate FiO2 10/10/16 08:00 97.9 60 18 127/64 100 10/10/16 07:17 16 10/10/16 04:43 16 10/09/16 21:16 97.2 64 20 115/72 100 I/O 10/09/16 10/09/16 10/09/16 10/10/16 10/10/16 10/10/16 07:00 15:00 23:00 07:00 15:00 23:00 Intake Total 1690 ml 615 ml 779 ml Output Total 2000 ml 1300 ml 600 ml 380 ml Balance -310 ml -685 ml 179 ml -380 ml Intake Oral 490 ml 615 ml 200 ml IV Total 1200 ml 579 ml Output Urine Total 2000 ml 1300 ml 600 ml 380 ml # Bowel Movements 0 Result Diagram: 10/09/16 0615 Objective Remarks GENERAL: Well-developed, well-nourished, in no acute distress. alert and orientated HEENT: Head is normocephalic without any lesions or masses noted. Facial features are symmetric. Eyes: Extraocular muscles are intact. Conjunctivae were clear. NECK: Trachea midline no deviation. No JVD, CARDIAC: Regular rhythm, regular rate. S1/S2 are heard. No murmurs gallops or rubs. LUNGS: Clear to auscultation bilaterally. No wheeze, rhonchi or rales. No use of accessory muscles on inspiration or expiration. ABDOMEN: Soft, nontender. Nondistended. Bowel sounds heard in all 4 quadrants. No organomegaly or masses. Negative rebound, negative guarding EXTREMITIES: No edema, pulses are equal bilaterally. No cyanosis or clubbing NEUROLOGY: Mood and affect appear appropriate. Cranial nerves II through XII grossly intact. Moving all extremities, speech is clear Procedures None. Urinary Catheter: No Vascular Central Line Catheter: No Line: PICC Side: Right A/P Assessment and Plan Lumbar discitis, recurrent Infectious disease consulted who is monitoring patient. Recommending antibiotics for at least 2 more weeks 10/20/16. Infectious disease indicate that his sedimentation rate and C-reactive protein do not improve, may need to have biopsy performed MRI does indicate continued extensive inflammatory change at L4-L5 surrounding thecal sac as well posteriorly characteristic of infection without abscess Patient continued on vancomycin IV, cefazolin IV without any end date thus far Continue monitor sedimentation rate and C-reactive protein which are improving Repeat MRI of the lumbar spine indicating continued soft tissue prominence/ inflammatory change at L4-L5 extending into the region of the L4 nerve root on the left. The overall appearance is not significantly changed Back pain, chronic: Could be exacerbated by lumbar discitis Continue pain control Percocet 7.5 every 6 hours when necessary pain 510 Neurontin 300 mg 4 times daily Lidoderm patch daily K thermia as needed IV Tylenol and Norflex without any relief, and these were discontinued Avoid Dilaudid due to IV drug use IV drug user with recent use HIV negative Patient counseled on discontinuation DVT prevention Lovenox Discharge Planning Discharge planning depends on recommendations from infectious disease, patient requires 2 more weeks of inpatient IV antibiotics 10/04/16 1443 CONT TO FOLLOW FOR ID DIRECTION WITH ANTIBIOTIC NEEDS, PATIENT IVDU. NEED TO BE ON PO FOR D/C WILL RETURN TO PREVIOUS LIVING ARRANGEMENTS KA[facility] MARIE LPN/CM/CHARGE Hernando Truong Oct 10, 2016 10:14
[2016-10-10] MEDS: VANCOMYCIN INJ 1,250 MG in SODIUM CHLOR 0.9% 250 ML INJ 250 ML IV SCH ×2 (13:05→22:45)
[2016-10-10] MEDS: SODIUM CHLORIDE 0.9% FLUSH 5 ML FLUSH FLUSH SCH ×2 (13:06→21:00)
[2016-10-10] MEDS: ENOXAPARIN SODIUM 40 MG/0.4 ML SYRINGE SQ SCH (14:11)
[2016-10-10 20:00] VITALS: BP 132/82; PULSE 71; RESP 18; TEMP 97; O2SAT 98
[2016-10-10] MEDS: MELATONIN 5 MG TAB PO SCH (20:07)
[2016-10-10] MEDS: REMOVE OLD PATCH TD SCH (21:00)
[2016-10-11] MEDS: oxyCODONE/ACETAMINOPHEN 7.5 MG/325 MG TAB PO PRN ×4 (01:34→20:11)
[2016-10-11] MEDS: ceFAZolin 2 GM PREMIX 50 ML IV SCH ×3 (04:12→20:09)
[2016-10-11] MEDS: VANCOMYCIN INJ 1,250 MG in SODIUM CHLOR 0.9% 250 ML INJ 250 ML IV SCH ×3 (05:25→21:38)
[2016-10-11] MEDS: IBUPROFEN 800 MG TAB PO SCH ×3 (05:26→21:39)
[2016-10-11 08:00] VITALS: BP 120/75; PULSE 56; RESP 16; TEMP 97.5; O2SAT 99
[2016-10-11] MEDS: SODIUM CHLORIDE 0.9% FLUSH 5 ML FLUSH FLUSH SCH ×2 (08:04→20:12)
[2016-10-11] MEDS: GABAPENTIN 300 MG CAP PO SCH ×4 (08:04→20:10)
[2016-10-11] MEDS: PANTOPRAZOLE SOD 40 MG DELAYED RELEASE TAB PO SCH (08:04)
[2016-10-11] MEDS: LIDOCAINE HCL 5% PATCH TD SCH (08:05)
--- NOTE | 2016-10-11 11:52 | HHI.PR ---
Subjective Remarks Patient seen and examined today. Patient denies any new complaints. No change clinical status. Objective Vitals Vital Signs Date Time Temp Pulse Resp B/P Pulse Ox O2 Delivery O2 Flow Rate FiO2 10/11/16 08:00 97.5 56 16 120/75 99 10/11/16 06:26 16 10/11/16 02:34 14 10/10/16 20:00 97.0 71 18 132/82 98 I/O 10/10/16 10/10/16 10/10/16 10/11/16 10/11/16 10/11/16 07:00 15:00 23:00 07:00 15:00 23:00 Intake Total 1020 ml 510 ml Output Total 380 ml 1450 ml 500 ml 400 ml Balance -380 ml -430 ml 10 ml -400 ml Intake Oral 720 ml 160 ml IV Total 300 ml 350 ml Output Urine Total 380 ml 1450 ml 500 ml 400 ml # Bowel Movements 0 Result Diagram: 10/11/16 0520 Objective Remarks GENERAL: Well-developed, well-nourished, in no acute distress. alert and orientated HEENT: Head is normocephalic without any lesions or masses noted. Facial features are symmetric. Eyes: Extraocular muscles are intact. Conjunctivae were clear. NECK: Trachea midline no deviation. No JVD, CARDIAC: Regular rhythm, regular rate. S1/S2 are heard. No murmurs gallops or rubs. LUNGS: Clear to auscultation bilaterally. No wheeze, rhonchi or rales. No use of accessory muscles on inspiration or expiration. ABDOMEN: Soft, nontender. Nondistended. Bowel sounds heard in all 4 quadrants. No organomegaly or masses. Negative rebound, negative guarding EXTREMITIES: No edema, pulses are equal bilaterally. No cyanosis or clubbing NEUROLOGY: Mood and affect appear appropriate. Cranial nerves II through XII grossly intact. Moving all extremities, speech is clear Procedures None. Urinary Catheter: No Vascular Central Line Catheter: No Line: PICC Side: Right A/P Assessment and Plan Lumbar discitis, recurrent Infectious disease consulted who is monitoring patient. Recommending antibiotics for at least 2 more weeks 10/20/16. Infectious disease indicate that his sedimentation rate and C-reactive protein do not improve, may need to have biopsy performed MRI does indicate continued extensive inflammatory change at L4-L5 surrounding thecal sac as well posteriorly characteristic of infection without abscess Patient continued on vancomycin IV, cefazolin IV without any end date thus far Continue monitor sedimentation rate and C-reactive protein which are improving Repeat MRI of the lumbar spine indicating continued soft tissue prominence/ inflammatory change at L4-L5 extending into the region of the L4 nerve root on the left. The overall appearance is not significantly changed Back pain, chronic: Could be exacerbated by lumbar discitis Continue pain control Percocet 7.5 every 6 hours when necessary pain 510 Neurontin 300 mg 4 times daily Lidoderm patch daily K thermia as needed IV Tylenol and Norflex without any relief, and these were discontinued Avoid Dilaudid due to IV drug use IV drug user with recent use HIV negative Patient counseled on discontinuation DVT prevention Lovenox Discharge Planning Discharge planning depends on recommendations from infectious disease, patient requires 2 more weeks of inpatient IV antibiotics 10/04/16 1443 CONT TO FOLLOW FOR ID DIRECTION WITH ANTIBIOTIC NEEDS, PATIENT IVDU. NEED TO BE ON PO FOR D/C WILL RETURN TO PREVIOUS LIVING ARRANGEMENTS KA[facility] MARIE LPN/CM/CHARGE Hernando Truong Oct 11, 2016 11:52
[2016-10-11] MEDS: ENOXAPARIN SODIUM 40 MG/0.4 ML SYRINGE SQ SCH (14:11)
[2016-10-11 20:00] VITALS: BP 117/75; PULSE 61; RESP 16; TEMP 95.9; O2SAT 99
[2016-10-11] MEDS: MELATONIN 5 MG TAB PO SCH (20:12)
[2016-10-11] MEDS: REMOVE OLD PATCH TD SCH (20:13)
[2016-10-11] MEDS ORDERED: PHARMACY ORDERED LAB XX ONE (20:45)
[2016-10-12] MEDS: ceFAZolin 2 GM PREMIX 50 ML IV SCH ×3 (04:15→20:59)
[2016-10-12] MEDS: oxyCODONE/ACETAMINOPHEN 7.5 MG/325 MG TAB PO PRN ×4 (04:20→23:33)
[2016-10-12] MEDS: VANCOMYCIN INJ 1,250 MG in SODIUM CHLOR 0.9% 250 ML INJ 250 ML IV SCH ×3 (05:02→21:06)
[2016-10-12] MEDS: IBUPROFEN 800 MG TAB PO SCH ×3 (05:03→21:05)
[2016-10-12 08:46] VITALS: BP 130/74; PULSE 55; RESP 19; TEMP 97.8; O2SAT 98
[2016-10-12] MEDS: LIDOCAINE HCL 5% PATCH TD SCH (09:00)
--- NOTE | 2016-10-12 09:07 | HHI.PR ---
Subjective Remarks Patient states that he had some sciatic pain on the right side when he was standing up earlier, but it is now improved. Objective Vitals Vital Signs Date Time Temp Pulse Resp B/P Pulse Ox O2 Delivery O2 Flow Rate FiO2 10/12/16 08:46 97.8 55 19 130/74 98 10/11/16 20:00 95.9 61 16 117/75 99 I/O 10/11/16 10/11/16 10/11/16 10/12/16 10/12/16 10/12/16 07:00 15:00 23:00 07:00 15:00 23:00 Intake Total 960 ml 680 ml 480 ml Output Total 400 ml 1350 ml 1050 ml 1300 ml Balance -400 ml -390 ml -370 ml -820 ml Intake Oral 960 ml 480 ml 480 ml IV Total 200 ml Output Urine Total 400 ml 1350 ml 1050 ml 1300 ml # Bowel Movements 1 0 Result Diagram: 10/11/16 0520 Objective Remarks GENERAL: Well-nourished, well-developed male in no apparent distress lying supine. Does not appear in pain. CARDIOVASCULAR: Regular rate and rhythm. RESPIRATORY: RR normal. CTAB. GASTROINTESTINAL: Abdomen soft, non-tender, non-distended. NEUROLOGICAL: Awake and alert. Normal speech. Procedures None. Urinary Catheter: No Vascular Central Line Catheter: Yes Assessment to: Continue Line: PICC Side: Right A/P Problem List: (1) Discitis of lumbar region ICD Code: M46.46 Status: Acute (2) IVDU (intravenous drug user) ICD Code: F19.90 Status: Acute Assessment and Plan Lumbar discitis, recurrent Infectious disease consulted who is monitoring patient. Await further recommendations from infectious disease MRI does indicate continued extensive inflammatory change at L4-L5 surrounding thecal sac as well posteriorly characteristic of infection without abscess Patient continued on vancomycin IV, cefazolin IV via PICC. Blood cultures NGTD. Due to continued pain, repeat MRI of the lumbar spine was performed on 09/27 indicating continued soft tissue prominence/inflammatory change at L4-L5 extending into the region of the L4 nerve root on the left. Overall appearance is not significantly changed per radiologist. WBC remains normal. Patient remains afebrile. ESR and CRP 10/07/16 improved from prior. ID was reconsulted, notes appreciated. Advises monitoring sedimentation rate and CRP (next labs 10/14/16) and if no improvement and/or persistently high ESR will need repeat biopsy for culture. Tentative end date 10/20/16 per ID. Back pain, chronic: Exacerbated by lumbar discitis. Worsened recently. No red flag symptoms. Continue pain control S/p treatment with Toradol Percocet 7.5 every 6 hours prn pain 5-10 Gabapentin 300 mg 4 times daily. Lidocaine patch daily K Thermia as needed. Ofirmev and Norflex were discontinued as they provided no relief Avoid Dilaudid use due to IVDA. 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 -I will not be starting the patient on benzodiazepines as he is already on gabapentin, percocet, and Vistaril and has h/o drug abuse. Continue melatonin. DVT prevention Lovenox Discharge Planning Tentative stop date for antibiotics on 10/20, but will need clearance from infectious disease. Vashti Jose Oct 12, 2016 09:07
[2016-10-12] MEDS: GABAPENTIN 300 MG CAP PO SCH ×4 (09:12→20:58)
[2016-10-12] MEDS: PANTOPRAZOLE SOD 40 MG DELAYED RELEASE TAB PO SCH (09:13)
[2016-10-12] MEDS: SODIUM CHLORIDE 0.9% FLUSH 5 ML FLUSH FLUSH SCH ×2 (12:36→21:00)
[2016-10-12] MEDS: ENOXAPARIN SODIUM 40 MG/0.4 ML SYRINGE SQ SCH (14:38)
[2016-10-12 20:00] VITALS: BP 134/78; PULSE 65; RESP 18; TEMP 98.1; O2SAT 98
[2016-10-12] MEDS: MELATONIN 5 MG TAB PO SCH (20:58)
[2016-10-12] MEDS: REMOVE OLD PATCH TD SCH (21:00)
[2016-10-13] MEDS: ceFAZolin 2 GM PREMIX 50 ML IV SCH ×3 (04:24→21:25)
[2016-10-13] MEDS: VANCOMYCIN INJ 1,250 MG in SODIUM CHLOR 0.9% 250 ML INJ 250 ML IV SCH ×3 (05:38→21:24)
[2016-10-13] MEDS: IBUPROFEN 800 MG TAB PO SCH ×3 (05:39→21:25)
[2016-10-13] MEDS: oxyCODONE/ACETAMINOPHEN 7.5 MG/325 MG TAB PO PRN ×3 (06:16→18:16)
[2016-10-13 08:00] VITALS: BP 123/76; PULSE 60; RESP 17; TEMP 97.8; O2SAT 99
[2016-10-13] MEDS: SODIUM CHLORIDE 0.9% FLUSH 5 ML FLUSH FLUSH SCH ×2 (09:00→21:25)
[2016-10-13] MEDS: LIDOCAINE HCL 5% PATCH TD SCH (09:00)
[2016-10-13] MEDS: GABAPENTIN 300 MG CAP PO SCH ×4 (09:27→21:25)
[2016-10-13] MEDS: PANTOPRAZOLE SOD 40 MG DELAYED RELEASE TAB PO SCH (09:27)
[2016-10-13] MEDS: ENOXAPARIN SODIUM 40 MG/0.4 ML SYRINGE SQ SCH (14:03)
--- NOTE | 2016-10-13 14:21 | HHI.PR ---
Objective Vitals Vital Signs Date Time Temp Pulse Resp B/P Pulse Ox O2 Delivery O2 Flow Rate FiO2 10/13/16 13:12 14 10/13/16 08:00 97.8 60 17 123/76 99 10/13/16 06:39 16 10/12/16 20:00 98.1 65 18 134/78 98 I/O 10/12/16 10/12/16 10/12/16 10/13/16 10/13/16 10/13/16 07:00 15:00 23:00 07:00 15:00 23:00 Intake Total 1040 ml 332 ml 880 ml 850 ml Output Total 1300 ml 800 ml Balance -260 ml 332 ml 880 ml 850 ml -800 ml Intake Oral 480 ml 680 ml 200 ml IV Total 560 ml 332 ml 200 ml 650 ml Output Urine Total 1300 ml 800 ml # Voids 3 1 # Bowel Movements 0 0 0 Result Diagram: 10/13/16 0549 Objective Remarks GENERAL: This is a well-nourished, well-developed patient, in no apparent distress. CARDIOVASCULAR: Regular rate and rhythm without murmurs, gallops, or rubs. RESPIRATORY: Clear to auscultation. Breath sounds equal bilaterally. No wheezes , rales, or rhonchi. GASTROINTESTINAL: Abdomen soft, non-tender, nondistended. Normal active bowel sounds MUSCULOSKELETAL: Extremities without clubbing, cyanosis, or edema. NEURO: Alert & Oriented x4 to person, place, time, situation. Moves all ext x4 Procedures None. Line: PICC Side: Right A/P Problem List: (1) Discitis of lumbar region ICD Code: M46.46 Status: Acute Plan: Lumbar discitis, recurrent tentative end date 10/20/16 per ID, vancomycin and cefazolin. Sary Rees MD Oct 13, 2016 14:21
[2016-10-13 20:00] VITALS: BP 120/70; PULSE 66; RESP 20; TEMP 96.5; O2SAT 99
[2016-10-13] MEDS: REMOVE OLD PATCH TD SCH (21:00)
[2016-10-13] MEDS: MELATONIN 5 MG TAB PO SCH (21:25)
[2016-10-14] MEDS: oxyCODONE/ACETAMINOPHEN 7.5 MG/325 MG TAB PO PRN ×4 (00:12→18:05)
[2016-10-14] MEDS: VANCOMYCIN INJ 1,250 MG in SODIUM CHLOR 0.9% 250 ML INJ 250 ML IV SCH ×3 (04:04→22:34)
[2016-10-14] MEDS: ceFAZolin 2 GM PREMIX 50 ML IV SCH ×3 (04:04→20:46)
[2016-10-14] MEDS: IBUPROFEN 800 MG TAB PO SCH ×3 (05:46→22:35)
[2016-10-14 08:00] VITALS: BP 138/88; PULSE 73; RESP 18; TEMP 97.6; O2SAT 99
--- NOTE | 2016-10-14 08:59 | HHI.PR ---
Subjective Remarks Follow-up for discitis, back pain. No acute complaints. Objective Vitals Vital Signs Date Time Temp Pulse Resp B/P Pulse Ox O2 Delivery O2 Flow Rate FiO2 10/13/16 20:00 96.5 66 20 120/70 99 10/13/16 15:03 16 10/13/16 13:12 14 I/O 10/13/16 10/13/16 10/13/16 10/14/16 10/14/16 10/14/16 07:00 15:00 23:00 07:00 15:00 23:00 Intake Total 850 ml 340 ml 1159 ml Output Total 1450 ml 600 ml Balance 850 ml -1110 ml 559 ml Intake Oral 200 ml 840 ml IV Total 650 ml 340 ml 319 ml Output Urine Total 1450 ml 600 ml # Voids 1 # Bowel Movements 0 1 0 Result Diagram: 10/13/16 0549 Objective Remarks GENERAL: Well-nourished, well-developed male in no apparent distress lying supine. Does not appear in pain. SKIN: Sores over legs. No surrounding erythema. CARDIOVASCULAR: Regular rate and rhythm. RESPIRATORY: RR normal. CTAB. GASTROINTESTINAL: Abdomen soft, non-tender, non-distended. NEUROLOGICAL: Awake and alert. Normal speech. Procedures None. Urinary Catheter: No Vascular Central Line Catheter: Yes Assessment to: Continue Line: PICC Side: Right A/P Problem List: (1) Discitis of lumbar region ICD Code: M46.46 Status: Acute Assessment and Plan Lumbar discitis, recurrent Infectious disease consulted who is monitoring patient. Await further recommendations from infectious disease MRI does indicate continued extensive inflammatory change at L4-L5 surrounding thecal sac as well posteriorly characteristic of infection without abscess Patient continued on vancomycin IV, cefazolin IV via PICC. Blood cultures NGTD. Due to continued pain, repeat MRI of the lumbar spine was performed on 09/27 indicating continued soft tissue prominence/inflammatory change at L4-L5 extending into the region of the L4 nerve root on the left. Overall appearance is not significantly changed per radiologist. WBC remains normal. Patient remains afebrile. ESR and CRP 10/07/16 improved from prior. ID was reconsulted, notes appreciated. Advises monitoring sedimentation rate and CRP and if no improvement and/or persistently high ESR will need repeat biopsy for culture. ESR and CRP improved today at 47 and 0.87 respectively. Next labs ordered for 10/21/16. -Tentative abx end date 10/20/16 per ID. Back pain, chronic: Exacerbated by lumbar discitis. Worsened recently. No red flag symptoms. Continue pain control S/p treatment with Toradol Percocet 7.5 every 6 hours prn pain 5-10 Gabapentin 300 mg 4 times daily. Lidocaine patch daily K Thermia as needed. Ofirmev and Norflex were discontinued as they provided no relief Avoid Dilaudid use due to IVDA. 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 -I will not be starting the patient on benzodiazepines as he is already on gabapentin, percocet, and Vistaril and has h/o drug abuse. Continue melatonin. DVT prevention Lovenox Discharge Planning Tentative stop date for antibiotics on 10/20, but will need clearance from infectious disease. Vashti Jose Oct 14, 2016 08:59
[2016-10-14] MEDS: LIDOCAINE HCL 5% PATCH TD SCH (09:00)
[2016-10-14] MEDS: PANTOPRAZOLE SOD 40 MG DELAYED RELEASE TAB PO SCH (09:26)
[2016-10-14] MEDS: GABAPENTIN 300 MG CAP PO SCH ×4 (09:26→20:47)
[2016-10-14] MEDS: SODIUM CHLORIDE 0.9% FLUSH 5 ML FLUSH FLUSH SCH ×2 (12:55→18:04)
[2016-10-14] MEDS: ENOXAPARIN SODIUM 40 MG/0.4 ML SYRINGE SQ SCH (16:08)
[2016-10-14 20:00] VITALS: BP 117/70; PULSE 53; RESP 18; TEMP 98.6; O2SAT 99
[2016-10-14] MEDS: MELATONIN 5 MG TAB PO SCH (20:47)
[2016-10-14] MEDS: SODIUM CHLORIDE 0.9% FLUSH 5 ML FLUSH FLUSH PRN (20:48)
[2016-10-14] MEDS: REMOVE OLD PATCH TD SCH (21:00)
[2016-10-15] MEDS: ceFAZolin 2 GM PREMIX 50 ML IV SCH ×3 (03:52→20:30)
[2016-10-15] MEDS: VANCOMYCIN INJ 1,250 MG in SODIUM CHLOR 0.9% 250 ML INJ 250 ML IV SCH ×3 (05:13→21:38)
[2016-10-15] MEDS: IBUPROFEN 800 MG TAB PO SCH ×3 (05:14→20:31)
[2016-10-15] MEDS: oxyCODONE/ACETAMINOPHEN 7.5 MG/325 MG TAB PO PRN ×3 (05:21→18:22)
[2016-10-15 08:00] VITALS: BP 130/79; PULSE 59; RESP 16; TEMP 98; O2SAT 99
[2016-10-15] MEDS: LIDOCAINE HCL 5% PATCH TD SCH (09:00)
[2016-10-15] MEDS: PANTOPRAZOLE SOD 40 MG DELAYED RELEASE TAB PO SCH (09:18)
[2016-10-15] MEDS: GABAPENTIN 300 MG CAP PO SCH ×4 (09:19→20:31)
--- NOTE | 2016-10-15 12:13 | HHI.PR ---
Subjective Remarks Follow-up for discitis, back pain. No acute complaints. Objective Vitals Vital Signs Date Time Temp Pulse Resp B/P Pulse Ox O2 Delivery O2 Flow Rate FiO2 10/15/16 08:00 98.0 59 16 130/79 99 10/14/16 20:00 98.6 53 18 117/70 99 10/14/16 17:07 16 10/14/16 13:08 18 I/O 10/14/16 10/14/16 10/14/16 10/15/16 10/15/16 10/15/16 07:00 15:00 23:00 07:00 15:00 23:00 Intake Total 1159 ml 1200 ml 550 ml 540 ml Output Total 600 ml 900 ml 600 ml 550 ml Balance 559 ml 300 ml -50 ml -10 ml Intake Oral 840 ml 1200 ml 240 ml IV Total 319 ml 550 ml 300 ml Output Urine Total 600 ml 900 ml 600 ml 550 ml # Voids 3 # Bowel Movements 0 0 0 Result Diagram: 10/15/16 0510 Objective Remarks GENERAL: Well-nourished, well-developed male in no apparent distress. Does not appear in pain. CARDIOVASCULAR: Regular rate and rhythm. RESPIRATORY: RR normal. CTAB. GASTROINTESTINAL: Abdomen soft, non-tender, non-distended. NEUROLOGICAL: Awake and alert. Normal speech. Procedures None. Urinary Catheter: No Vascular Central Line Catheter: Yes Assessment to: Continue Line: PICC Side: Right A/P Problem List: (1) Discitis of lumbar region ICD Code: M46.46 Status: Acute Assessment and Plan Lumbar discitis, recurrent Infectious disease consulted who is monitoring patient. Await further recommendations from infectious disease MRI does indicate continued extensive inflammatory change at L4-L5 surrounding thecal sac as well posteriorly characteristic of infection without abscess Patient continued on vancomycin IV, cefazolin IV via PICC. Blood cultures NGTD. Due to continued pain, repeat MRI of the lumbar spine was performed on 09/27 indicating continued soft tissue prominence/inflammatory change at L4-L5 extending into the region of the L4 nerve root on the left. Overall appearance is not significantly changed per radiologist. WBC remains normal. Patient remains afebrile. ESR and CRP 10/07/16 improved from prior. ID was reconsulted, notes appreciated. Advises monitoring sedimentation rate and CRP and if no improvement and/or persistently high ESR will need repeat biopsy for culture. ESR and CRP improved on 10/14/16 at 47 and 0.87 respectively. Next labs ordered for 10/21/16. -Tentative abx end date 10/20/16 per ID. Back pain, chronic: Exacerbated by lumbar discitis. Worsened recently. No red flag symptoms. Continue pain control S/p treatment with Toradol Percocet 7.5 every 6 hours prn pain 5-10 Gabapentin 300 mg 4 times daily. Lidocaine patch daily K Thermia as needed. Ofirmev and Norflex were discontinued as they provided no relief Avoid Dilaudid use due to IVDA. 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 -I will not be starting the patient on benzodiazepines as he is already on gabapentin, percocet, and Vistaril and has h/o drug abuse. Continue melatonin. DVT prevention Lovenox Discharge Planning Tentative stop date for antibiotics on 10/20, but will need clearance from infectious disease. Vashti Jose Oct 15, 2016 12:13
[2016-10-15] MEDS: SODIUM CHLORIDE 0.9% FLUSH 5 ML FLUSH FLUSH SCH ×2 (12:30→21:00)
[2016-10-15] MEDS: ENOXAPARIN SODIUM 40 MG/0.4 ML SYRINGE SQ SCH (14:19)
[2016-10-15 20:00] VITALS: BP 130/79; PULSE 63; RESP 18; TEMP 96.6; O2SAT 99
[2016-10-15] MEDS: MELATONIN 5 MG TAB PO SCH (20:30)
[2016-10-15] MEDS: REMOVE OLD PATCH TD SCH (21:00)
[2016-10-16] MEDS: ceFAZolin 2 GM PREMIX 50 ML IV SCH ×3 (03:30→20:00)
[2016-10-16] MEDS: oxyCODONE/ACETAMINOPHEN 7.5 MG/325 MG TAB PO PRN ×2 (03:40→09:50)
[2016-10-16 05:14] LABS: HEMATOCRIT 32.7 % (39.0-51.0); MEAN CELL VOLUME 82.1 FL (80.0-100.0); MEAN CORPUSCULAR HGB CONC 32.9 % (32.0-36.0); PLATELET COUNT 293 TH/MM3 (150-450); RED BLOOD COUNT 3.99 MIL/MM3 (4.50-5.90); RED CELL DISTRIBUTION WIDTH 16.2 % (11.6-17.2); WHITE BLOOD COUNT 2.8 TH/MM3 (4.0-11.0)
[2016-10-16 05:16] LABS: HEMO FLAGS AUTO DIFF
[2016-10-16 05:29] LABS: CHLORIDE 104 MEQ/L (98-107); POTASSIUM 4.1 MEQ/L (3.5-5.1); SODIUM (NA) 140 MEQ/L (136-145)
[2016-10-16] MEDS: VANCOMYCIN INJ 1,250 MG in SODIUM CHLOR 0.9% 250 ML INJ 250 ML IV SCH ×3 (05:32→20:40)
[2016-10-16 05:33] LABS: ANION GAP 6 MEQ/L (5-15); BICARBONATE 29.9 MEQ/L (21.0-32.0); BLOOD UREA NITROGEN 17 MG/DL (7-18)
[2016-10-16 05:36] LABS: ALT (GPT) 22 U/L (12-78); AST (GOT) 27 U/L (15-37); GLOMERULAR FILTRATION RATE 103 ML/MIN (>89)
[2016-10-16] MEDS: IBUPROFEN 800 MG TAB PO SCH ×3 (05:36→21:21)
[2016-10-16 05:38] LABS: TOTAL BILIRUBIN ADULT 0.2 MG/DL (0.2-1.0)
[2016-10-16 05:39] LABS: ALKALINE PHOSPHATASE 94 U/L (45-117)
[2016-10-16 05:42] LABS: BANDS 6 % (0-6); EOSINOPHILS 13 % (0-4); METAMYELOCYTES 1 % (0-1); MYELOCYTES 6 % (0-0); NEUTROPHIL # MANUAL DIFF 0.8 TH/MM3 (1.8-7.7); POLYS (SEG NEUTROPHILS) 14 % (16-70); WBC DIFF SAMPLE 100
[2016-10-16 05:44] LABS: PLATELET ESTIMATE SMEAR NORMAL (NORMAL); PLATELET MORPHOLOGY NORMAL (NORMAL); SCAN/DIFF FINAL DIFF MANUAL
[2016-10-16 06:29] LABS: WESTERGREN SEDIMENTATION RATE 45 mm/hr (0-15)
[2016-10-16 08:00] VITALS: BP 129/86; PULSE 56; RESP 19; TEMP 97.1; O2SAT 99
[2016-10-16] MEDS: GABAPENTIN 300 MG CAP PO SCH ×4 (08:22→20:41)
[2016-10-16] MEDS: PANTOPRAZOLE SOD 40 MG DELAYED RELEASE TAB PO SCH (08:22)
[2016-10-16] MEDS: SODIUM CHLORIDE 0.9% FLUSH 5 ML FLUSH FLUSH SCH ×2 (08:29→20:40)
[2016-10-16] MEDS: LIDOCAINE HCL 5% PATCH TD SCH (08:30)
--- NOTE | 2016-10-16 09:56 | HHI.PR ---
Subjective Remarks Follow-up for discitis, back pain. Complains of some back pain this morning. Objective Vitals Vital Signs Date Time Temp Pulse Resp B/P Pulse Ox O2 Delivery O2 Flow Rate FiO2 10/16/16 08:00 97.1 56 19 129/86 99 10/16/16 06:36 16 10/16/16 04:40 16 10/15/16 20:00 96.6 63 18 130/79 99 I/O 10/15/16 10/15/16 10/15/16 10/16/16 10/16/16 10/16/16 07:00 15:00 23:00 07:00 15:00 23:00 Intake Total 540 ml 480 ml 460 ml 1320 ml Output Total 550 ml 900 ml 600 ml 1000 ml Balance -10 ml -420 ml -140 ml 320 ml Intake Oral 240 ml 480 ml 460 ml 720 ml IV Total 300 ml 600 ml Output Urine Total 550 ml 900 ml 600 ml 1000 ml # Bowel Movements 0 0 0 0 Result Diagram: 10/16/16 0500 10/16/16 0500 Objective Remarks GENERAL: Well-nourished, well-developed male in no apparent distress. CARDIOVASCULAR: Regular rate and rhythm. RESPIRATORY: RR normal. CTAB. GASTROINTESTINAL: Abdomen soft, non-tender, non-distended. NEUROLOGICAL: Awake and alert. Normal speech. Procedures None. Urinary Catheter: No Vascular Central Line Catheter: Yes Assessment to: Continue Line: PICC Side: Right A/P Problem List: (1) Discitis of lumbar region ICD Code: M46.46 Status: Acute Assessment and Plan Lumbar discitis, recurrent Infectious disease consulted who is monitoring patient. Await further recommendations from infectious disease MRI does indicate continued extensive inflammatory change at L4-L5 surrounding thecal sac as well posteriorly characteristic of infection without abscess Patient continued on vancomycin IV, cefazolin IV via PICC. Blood cultures NGTD. Due to continued pain, repeat MRI of the lumbar spine was performed on 09/27 indicating continued soft tissue prominence/inflammatory change at L4-L5 extending into the region of the L4 nerve root on the left. Overall appearance is not significantly changed per radiologist. WBC remains normal. Patient remains afebrile. ESR and CRP 10/07/16 improved from prior. ID was reconsulted, notes appreciated. Advises monitoring sedimentation rate and CRP and if no improvement and/or persistently high ESR will need repeat biopsy for culture. ESR and CRP improved on 10/14/16 at 47 and 0.87 respectively. Next labs are 10/20/16. -Tentative abx end date 10/20/16 per ID. Back pain, chronic: Exacerbated by lumbar discitis. Continue pain control S/p treatment with Toradol Percocet 7.5 every 6 hours prn pain 5-10; will start to aggressively wean as patient may be discharged soon. Change to Percocet 5 q 6 hours. Gabapentin 300 mg 4 times daily. Lidocaine patch daily K Thermia as needed. Ofirmev and Norflex were discontinued as they provided no relief Avoid Dilaudid use due to IVDA. 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 -Avoid benzodiazepines as he is already on gabapentin, percocet, and Vistaril and has h/o drug abuse. Continue melatonin. DVT prevention Lovenox Discharge Planning Tentative stop date for antibiotics on 10/20, but will need clearance from infectious disease. Vashti Jose Oct 16, 2016 09:56
[2016-10-16] MEDS: ENOXAPARIN SODIUM 40 MG/0.4 ML SYRINGE SQ SCH (15:56)
[2016-10-16] MEDS: oxyCODONE/ACETAMINOPHEN 5 MG/325 MG TAB PO PRN ×2 (15:59→21:50)
[2016-10-16] MEDS: MELATONIN 5 MG TAB PO SCH (20:41)
[2016-10-16] MEDS: REMOVE OLD PATCH TD SCH (21:00)
[2016-10-16 21:13] VITALS: BP 131/72; PULSE 66; RESP 18; TEMP 97.6; O2SAT 96
[2016-10-17] MEDS: oxyCODONE/ACETAMINOPHEN 5 MG/325 MG TAB PO PRN ×3 (04:25→16:26)
[2016-10-17] MEDS: ceFAZolin 2 GM PREMIX 50 ML IV SCH ×3 (04:25→20:05)
[2016-10-17] MEDS: IBUPROFEN 800 MG TAB PO SCH ×3 (05:10→21:25)
[2016-10-17] MEDS: VANCOMYCIN INJ 1,250 MG in SODIUM CHLOR 0.9% 250 ML INJ 250 ML IV SCH ×3 (05:11→21:26)
[2016-10-17 08:00] VITALS: BP 129/78; PULSE 65; RESP 20; TEMP 97; O2SAT 98
[2016-10-17] MEDS: SODIUM CHLORIDE 0.9% FLUSH 5 ML FLUSH FLUSH SCH ×2 (08:01→21:00)
[2016-10-17] MEDS: LIDOCAINE HCL 5% PATCH TD SCH (09:00)
[2016-10-17] MEDS: GABAPENTIN 300 MG CAP PO SCH ×4 (09:30→20:05)
[2016-10-17] MEDS: PANTOPRAZOLE SOD 40 MG DELAYED RELEASE TAB PO SCH (09:30)
[2016-10-17] MEDS: ENOXAPARIN SODIUM 40 MG/0.4 ML SYRINGE SQ SCH (14:01)
--- NOTE | 2016-10-17 17:18 | HHI.PR ---
Subjective Remarks Patient seen in follow-up for discitis. Doing well Objective Vitals Vital Signs Date Time Temp Pulse Resp B/P Pulse Ox O2 Delivery O2 Flow Rate FiO2 10/17/16 15:01 18 10/17/16 11:20 18 10/17/16 08:00 97.0 65 20 129/78 98 10/16/16 21:13 97.6 66 18 131/72 96 I/O 10/16/16 10/16/16 10/16/16 10/17/16 10/17/16 10/17/16 07:00 15:00 23:00 07:00 15:00 23:00 Intake Total 1320 ml 800 ml 160 ml Output Total 1000 ml 650 ml 950 ml 650 ml Balance 320 ml 150 ml -790 ml -650 ml Intake Oral 720 ml 800 ml 160 ml IV Total 600 ml Output Urine Total 1000 ml 650 ml 950 ml 650 ml # Voids 1 # Bowel Movements 0 Result Diagram: 10/16/16 0500 10/17/16 0955 Objective Remarks GENERAL: This is a well-nourished, well-developed patient, in no apparent distress. CARDIOVASCULAR: Regular rate and rhythm without murmurs, gallops, or rubs. RESPIRATORY: Clear to auscultation. Breath sounds equal bilaterally. No wheezes , rales, or rhonchi. GASTROINTESTINAL: Abdomen soft, non-tender, nondistended. Normal active bowel sounds MUSCULOSKELETAL: Extremities without clubbing, cyanosis, or edema. NEURO: Alert & Oriented x4 to person, place, time, situation. Moves all ext x4 Procedures None. Line: PICC Side: Right A/P Problem List: (1) Discitis of lumbar region ICD Code: M46.46 Status: Acute Plan: Hospital day #31. Patient will continue IV vancomycin through 10/20. Possibly discharge pending ID clearance Sary Rees MD Oct 17, 2016 17:18
[2016-10-17] MEDS: MELATONIN 5 MG TAB PO SCH (20:05)
[2016-10-17] MEDS: REMOVE OLD PATCH TD SCH (21:00)
[2016-10-17 21:20] VITALS: BP 141/82; PULSE 58; RESP 18; TEMP 96.8; O2SAT 100
[2016-10-18] MEDS: ceFAZolin 2 GM PREMIX 50 ML IV SCH ×3 (03:33→21:05)
[2016-10-18] MEDS: VANCOMYCIN INJ 1,250 MG in SODIUM CHLOR 0.9% 250 ML INJ 250 ML IV SCH ×3 (03:34→21:05)
[2016-10-18] MEDS: oxyCODONE/ACETAMINOPHEN 5 MG/325 MG TAB PO PRN ×3 (04:15→18:41)
[2016-10-18] MEDS: IBUPROFEN 800 MG TAB PO SCH ×3 (06:16→21:06)
[2016-10-18 08:00] VITALS: BP 142/82; PULSE 62; RESP 20; TEMP 95.6; O2SAT 99
[2016-10-18] MEDS: LIDOCAINE HCL 5% PATCH TD SCH (09:00)
[2016-10-18] MEDS: SODIUM CHLORIDE 0.9% FLUSH 5 ML FLUSH FLUSH SCH ×2 (09:00→21:05)
[2016-10-18] MEDS: GABAPENTIN 300 MG CAP PO SCH ×4 (09:10→21:05)
[2016-10-18] MEDS: PANTOPRAZOLE SOD 40 MG DELAYED RELEASE TAB PO SCH (09:10)
--- NOTE | 2016-10-18 10:07 | HHI.PR ---
Subjective Remarks Follow-up for discitis, back pain. Patient states he has been having back pain , and has trouble walking because of it. Objective Vitals Vital Signs Date Time Temp Pulse Resp B/P Pulse Ox O2 Delivery O2 Flow Rate FiO2 10/18/16 08:00 95.6 62 20 142/82 99 10/18/16 07:16 16 10/18/16 05:15 16 10/17/16 21:20 96.8 58 18 141/82 100 I/O 10/17/16 10/17/16 10/17/16 10/18/16 10/18/16 10/18/16 07:00 15:00 23:00 07:00 15:00 23:00 Intake Total 760 ml Output Total 650 ml 2200 ml 1000 ml Balance -650 ml -1440 ml -1000 ml Intake Oral 100 ml IV Total 660 ml Output Urine Total 650 ml 2200 ml 1000 ml Result Diagram: 10/16/16 0500 10/18/16 0620 Objective Remarks GENERAL: Well-nourished, well-developed male in no apparent distress. CARDIOVASCULAR: Regular rate and rhythm. RESPIRATORY: RR normal. CTAB. GASTROINTESTINAL: Abdomen soft, non-tender, non-distended. MUSCULOSKELETAL: Patient experiences pain when he turns on his right side for lung exam. Cannot sit up for exam. NEUROLOGICAL: Awake and alert. Normal speech. Procedures None. Urinary Catheter: No Vascular Central Line Catheter: Yes Assessment to: Continue Line: PICC Side: Right A/P Problem List: (1) Discitis of lumbar region ICD Code: M46.46 Status: Acute Assessment and Plan Lumbar discitis, recurrent Infectious disease consulted who is monitoring patient. Await further recommendations from infectious disease MRI does indicate continued extensive inflammatory change at L4-L5 surrounding thecal sac as well posteriorly characteristic of infection without abscess Patient continued on vancomycin IV, cefazolin IV via PICC. Blood cultures NGTD. Due to continued pain, repeat MRI of the lumbar spine was performed on 09/27 indicating continued soft tissue prominence/inflammatory change at L4-L5 extending into the region of the L4 nerve root on the left. Overall appearance is not significantly changed per radiologist. WBC remains normal. Patient remains afebrile. ESR and CRP 10/07/16 improved from prior. ID was reconsulted, notes appreciated. Advises monitoring sedimentation rate and CRP and if no improvement and/or persistently high ESR will need repeat biopsy for culture. ESR and CRP improved on 10/14/16 at 47 and 0.87 respectively. Next labs are scheduled for 10/20/16. -Tentative abx end date 10/20/16 per ID. Back pain, chronic: Exacerbated by lumbar discitis. Continue pain control S/p treatment with Toradol Percocet 5 mg every 6 hours prn pain 5-10; need to wean as patient may be discharged soon. Last adjusted on 10/16. Change today to Percocet 5 mg q 8 hours. Gabapentin 300 mg 4 times daily. Lidocaine patch daily K Thermia as needed. Ofirmev and Norflex were discontinued as they provided no relief Avoid Dilaudid use due to IVDA. 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 -Avoid benzodiazepines as he is already on gabapentin, percocet, and Vistaril and has h/o drug abuse. Continue melatonin. DVT prevention Lovenox Discharge Planning Tentative stop date for antibiotics on 10/20, but will need clearance from infectious disease. Vashti Jose Oct 18, 2016 10:07
[2016-10-18] MEDS: ENOXAPARIN SODIUM 40 MG/0.4 ML SYRINGE SQ SCH (14:29)
[2016-10-18 20:00] VITALS: BP 129/88; PULSE 67; RESP 20; TEMP 98.9; O2SAT 98
[2016-10-18] MEDS: REMOVE OLD PATCH TD SCH (21:00)
[2016-10-18] MEDS: MELATONIN 5 MG TAB PO SCH (21:04)
[2016-10-19] MEDS: ceFAZolin 2 GM PREMIX 50 ML IV SCH ×3 (04:00→20:06)
[2016-10-19] MEDS: VANCOMYCIN INJ 1,250 MG in SODIUM CHLOR 0.9% 250 ML INJ 250 ML IV SCH ×3 (05:18→20:47)
[2016-10-19] MEDS: IBUPROFEN 800 MG TAB PO SCH ×3 (05:18→20:47)
[2016-10-19] MEDS: oxyCODONE/ACETAMINOPHEN 5 MG/325 MG TAB PO PRN ×3 (05:19→22:28)
[2016-10-19 08:00] VITALS: BP 127/78; PULSE 55; RESP 18; TEMP 95.5; O2SAT 100
[2016-10-19] MEDS: SODIUM CHLORIDE 0.9% FLUSH 5 ML FLUSH FLUSH SCH ×2 (09:00→20:06)
[2016-10-19] MEDS: LIDOCAINE HCL 5% PATCH TD SCH (09:14)
[2016-10-19] MEDS: PANTOPRAZOLE SOD 40 MG DELAYED RELEASE TAB PO SCH (09:14)
[2016-10-19] MEDS: GABAPENTIN 300 MG CAP PO SCH ×4 (09:14→20:07)
--- NOTE | 2016-10-19 10:16 | HHI.PR ---
Subjective Remarks Patient seen and examined today. Patient denies any new complaints. Still stating that some difficulty ambulating due to back pain. Objective Vitals Vital Signs Date Time Temp Pulse Resp B/P Pulse Ox O2 Delivery O2 Flow Rate FiO2 10/19/16 08:00 95.5 55 18 127/78 100 10/18/16 20:00 98.9 67 20 129/88 98 10/18/16 15:29 18 10/18/16 11:56 16 I/O 10/18/16 10/18/16 10/18/16 10/19/16 10/19/16 10/19/16 07:00 15:00 23:00 07:00 15:00 23:00 Intake Total 900 ml 1098 ml 200 ml Output Total 1000 ml 900 ml 1225 ml Balance -100 ml 198 ml -1025 ml Intake Oral 900 ml 480 ml 200 ml IV Total 618 ml Output Urine Total 1000 ml 900 ml 1225 ml Result Diagram: 10/16/16 0500 10/19/16 0800 Objective Remarks GENERAL: Well-developed, well-nourished, in no acute distress. alert and orientated HEENT: Head is normocephalic without any lesions or masses noted. Facial features are symmetric. Eyes: Extraocular muscles are intact. Conjunctivae were clear. NECK: Trachea midline no deviation. No JVD, CARDIAC: Regular rhythm, regular rate. S1/S2 are heard. No murmurs gallops or rubs. LUNGS: Clear to auscultation bilaterally. No wheeze, rhonchi or rales. No use of accessory muscles on inspiration or expiration. ABDOMEN: Soft, nontender. Nondistended. Bowel sounds heard in all 4 quadrants. No organomegaly or masses. Negative rebound, negative guarding EXTREMITIES: No edema, pulses are equal bilaterally. No cyanosis or clubbing NEUROLOGY: Mood and affect appear appropriate. Cranial nerves II through XII grossly intact. Moving all extremities, speech is clear Procedures None. Urinary Catheter: No Vascular Central Line Catheter: Yes Assessment to: Continue Line: PICC Side: Right A/P Assessment and Plan Lumbar discitis, recurrent Infectious disease consulted who is monitoring patient. Recommending antibiotics for at least 2 more weeks 10/20/16. Infectious disease indicate that his sedimentation rate and C-reactive protein do not improve, may need to have biopsy performed MRI does indicate continued extensive inflammatory change at L4-L5 surrounding thecal sac as well posteriorly characteristic of infection without abscess Patient continued on vancomycin IV, cefazolin IV without any end date thus far Continue monitor sedimentation rate and C-reactive protein which are improving Repeat MRI of the lumbar spine indicating continued soft tissue prominence/ inflammatory change at L4-L5 extending into the region of the L4 nerve root on the left. The overall appearance is not significantly changed Back pain, chronic: Could be exacerbated by lumbar discitis Continue pain control Percocet 5 every 8 hours when necessary pain 510, changed on 10/19/16 Neurontin 300 mg 4 times daily Lidoderm patch daily K thermia as needed IV Tylenol and Norflex without any relief, and these were discontinued Avoid Dilaudid due to IV drug use IV drug user with recent use HIV negative Patient counseled on discontinuation DVT prevention Lovenox Discharge Planning Discharge planning depends on recommendations from infectious disease, patient requires 2 more weeks of inpatient IV antibiotics 10/15/16 1412 CONT TO FOLLOW FOR FINAL ANTIBIOTIX TX END DATE AND ID CLEARENCE TENATIVELY 10/10/16 OR 10/21/16 KAIT MARIE LPN/[facility] Tim[facility] Oct 19, 2016 10:16
[2016-10-19] MEDS: ENOXAPARIN SODIUM 40 MG/0.4 ML SYRINGE SQ SCH (14:47)
[2016-10-19 20:00] VITALS: BP 118/74; PULSE 65; RESP 16; TEMP 98.1; O2SAT 99
[2016-10-19] MEDS: MELATONIN 5 MG TAB PO SCH (20:07)
[2016-10-19] MEDS: REMOVE OLD PATCH TD SCH (20:48)
[2016-10-20] MEDS: ceFAZolin 2 GM PREMIX 50 ML IV SCH ×2 (04:10→12:00)
[2016-10-20] MEDS: VANCOMYCIN INJ 1,250 MG in SODIUM CHLOR 0.9% 250 ML INJ 250 ML IV SCH ×2 (05:05→13:00)
[2016-10-20] MEDS: IBUPROFEN 800 MG TAB PO SCH ×2 (05:06→14:19)
[2016-10-20 05:23] LABS: AUTOMATED NEUTROPHIL # 0.8 TH/MM3 (1.8-7.7); BASOPHIL % 0.8 % (0.0-2.0); EOSINOPHIL # 0.4 TH/MM3 (0-0.4); HEMATOCRIT 33.6 % (39.0-51.0); LYMPH % 47.2 % (9.0-44.0); LYMPHOCYTE # 1.7 TH/MM3 (1.0-4.8); MEAN CELL VOLUME 83.1 FL (80.0-100.0); MEAN CORPUSCULAR HEMOGLOBIN 26.3 PG (27.0-34.0); MEAN CORPUSCULAR HGB CONC 31.6 % (32.0-36.0); MONO % 19.9 % (0.0-8.0); NEUT % 21.1 % (16.0-70.0); PLATELET COUNT 297 TH/MM3 (150-450); RED BLOOD COUNT 4.05 MIL/MM3 (4.50-5.90); RED CELL DISTRIBUTION WIDTH 16.3 % (11.6-17.2); WHITE BLOOD COUNT 3.6 TH/MM3 (4.0-11.0)
[2016-10-20 05:24] LABS: HEMO FLAGS AUTO DIFF
[2016-10-20 07:25] LABS: SCAN/DIFF AUTO DIFF CONFIRMED
[2016-10-20 08:00] VITALS: BP 135/84; PULSE 79; RESP 18; TEMP 96.4; O2SAT 99
[2016-10-20] MEDS ORDERED: CIPR-9 PO (08:48)
[2016-10-20] MEDS ORDERED: NEUR300C PO (08:48)
[2016-10-20] MEDS ORDERED: CEPH-460 PO (08:48)
[2016-10-20] MEDS ORDERED: WALKER WHEELS/F1 MIS (08:49)
--- NOTE | 2016-10-20 08:49 | HHI.DCPOC ---
Discharge Care Plan Diagnosis: (1) Discitis of lumbar region Goals to Promote Your Health * To prevent worsening of your condition and complications * To maintain your health at the optimal level Directions to Meet Your Goals Take your medications as prescribed Follow your dietary instruction Follow activity as directed Keep your appointments as scheduled Take your immunizations and boosters as scheduled If your symptoms worsen call your PCP, if no PCP go to Urgent Care Center or Emergency Room Smoking is Dangerous to Your Health. Avoid second hand smoke Call the 24-hour hour crisis hotline for domestic abuse at [facility] Oct 20, 2016 08:49
--- NOTE | 2016-10-20 08:56 | HHI.DS ---
Discharge Summary Admission Date Sep 16, 2016 at 14:16 Discharge Date: Oct 20, 2016 Admitting Diagnosis IVDA, back pain (1) Discitis of lumbar region ICD Code: M46.46 Procedures None. Brief History - From Admission 41-year-old male with long-term hospitalization for epidural abscess in June of this year with surgery by Dr. Alcantar discharged with po antibiotics on 08-04-16 returns with complaint of severe back pain and right hip pain. 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 He states he came to the ED a few weeks ago but states he was "dismissed". Records indicate that he came to the ED on August 16 with back pain and a repeat MRI was performed which had shown improvement of the fluid collection and the patient had no leukocytosis or fever at that time. He returned on September 06 with complaint of fevers and myalgias but according to ED physician's note patient attributed back pain to work and stated it did not feel like his prior epidural abscess. Patient states he has had pain the whole time since being discharged, but he was compliant with his antibiotics. He he states he did follow up with Dr. Santillan. He states he can't walk and is limping "horribly". He states he can't take care of himself. He states he lost his job because of the pain. He does state the back pain is not as bad as the first time he was hospitalized. He admits to fevers and chills stating his record was shivering last night. He admits to getting a pulling sensation of the left thigh sometimes but denies any numbness or tingling in the legs, bladder or bowel incontinence. She denies any chest pain, shortness of breath, abdominal pain, vomiting. States he got nauseous once due to the pain. He last injected Dilaudid on Tuesday of this week. Denies use of any other illicit drugs. Patient denies ever having any HIV testing performed. CBC/BMP: 10/20/16 0500 10/19/16 0800 Significant Findings Laboratory Tests Test 10/20/16 05:00 White Blood Count 3.6 TH/MM3 (4.0-11.0) Red Blood Count 4.05 MIL/MM3 (4.50-5.90) Hemoglobin 10.6 GM/DL (13.0-17.0) Hematocrit 33.6 % (39.0-51.0) Mean Corpuscular Hemoglobin 26.3 PG (27.0-34.0) Mean Corpuscular Hemoglobin 31.6 % Concent (32.0-36.0) Lymphocytes (%) (Auto) 47.2 % (9.0-44.0) Monocytes (%) (Auto) 19.9 % (0.0-8.0) Eosinophils (%) (Auto) 11.0 % (0.0-4.0) Neutrophils # (Auto) 0.8 TH/MM3 (1.8-7.7) Erythrocyte Sedimentation Rate 30 mm/hr (0-15) Imaging Last Impressions Lumbar Spine MRI 09/27/16 0000 Signed Impressions: Service Date/Time: Tuesday, September 27, 2016 13:00 - CONCLUSION: 1. Continued soft tissue prominence/inflammatory change at L4-5 level extending into the region of the L4 nerve root on the left. Left-sided defect. The overall appearance has not significantly changed. Gage Rodriguez MD Chest X-Ray 09/20/16 0000 Signed Impressions: Service Date/Time: Tuesday, September 20, 2016 14:50 - CONCLUSION: PICC line in good position. Serge Parmar Jr., MD Thoracic Spine MRI 09/16/16 0000 Signed Impressions: Service Date/Time: September 11:22 - CONCLUSION: The exam is limited secondary to motion artifact which limits the interpretation. Small central protrusion at T7-T8 without stenosis. Mike Haile MD PE at Discharge GENERAL: Well-nourished, well-developed male in no apparent distress. CARDIOVASCULAR: Regular rate and rhythm. RESPIRATORY: RR normal. CTAB. GASTROINTESTINAL: Abdomen soft, non-tender, non-distended. MUSCULOSKELETAL: Patient experiences pain when he turns on his right side for lung exam. Cannot sit up for exam. NEUROLOGICAL: Awake and alert. Normal speech. Hospital Course 41-year-old male who is well-known to the hospital because of previous admission for epidural abscess. Patient returned to the hospital because of persistent and worsening back pain. Patient had MRI done emergency department which did show extensive inflammatory change around L4-L5. Surrounding thecal sac with characteristics of infection without abscess. Inflammatory process and likely compromise exiting left L4 nerve root. Patient was admitted the hospital, infectious disease was consulted. Patient was started on vancomycin, cefazolin for antibiotics. Infectious disease recommended patient remained on antibiotics for at least 2 weeks. Patient did have cultures performed which all remain negative. Sedimentation rate and C- reactive protein were followed on a weekly basis with continue to improve. During the patient's stay he did complain of back pain persistently. He was on narcotic pain medication which has been weaned down. He did have neuropathic pain down the right lower extremity in which Neurontin was started and he did have significant improvement after the use of medication. Ectatic medications for use sparingly due to the patient's history of IV drug use. Patient has history of prior to his previous epidural abscess as well as he continue to use when he was discharged from the hospital. Patient clinically stable this time. Discussed case with infectious disease who indicated that patient may be discharged home with Cipro, Keflex for one month. Prescriptions will be arranged. Physical therapy managed patient to stay in the hospital and recommending outpatient PT if can be arranged. Frontwheel walker. Case management consulted for discharge planning. Pt Condition on Discharge: Stable Discharge Disposition: Discharge Home Discharge Time: > 30 minutes Discharge Instructions DIET: Follow Instructions for: As Tolerated, No Restrictions Activities you can perform: Weight Bearing as Bartolo Activities to Avoid: Driving for 24 hrs Follow up Referrals: Infectious Disease - [address] Mitchell PCP Follow-up - 1 Week New Medications: Cephalexin (Keflex) 500 Mg Cap 500 MG PO Q8H Infection Days 30 Ref 0 CAP Ciprofloxacin (Cipro) 500 Mg Tab 500 MG PO BID Infection Days 30 Ref 0 TAB Walker with Front Wheels (Walker with Front Wheels) 1 Mis Mis 1 EA .ROUTE DIRECTED #1 Ref 0 EA Gabapentin (Neurontin) 300 Mg Cap 300 MG PO QID Pain Management Days 30 CAP Additional Information Written by Hernando Truong PA-C, acting as scribe for Dr. Molina on 10/20/16 at Time. The documentation accurately reflects the work and decisions performed face-to- face by Dr. Molina on 10/20/16 at [Time]. Hernando Truong Oct 20, 2016 08:56
[2016-10-20] MEDS: LIDOCAINE HCL 5% PATCH TD SCH (09:00)
[2016-10-20] MEDS: SODIUM CHLORIDE 0.9% FLUSH 5 ML FLUSH FLUSH SCH (09:00)
[2016-10-20] MEDS: PANTOPRAZOLE SOD 40 MG DELAYED RELEASE TAB PO SCH (09:02)
[2016-10-20] MEDS: GABAPENTIN 300 MG CAP PO SCH ×2 (09:02→13:00)
[2016-10-20] MEDS: oxyCODONE/ACETAMINOPHEN 5 MG/325 MG TAB PO PRN (09:02)
[2016-10-20 10:02] VITALS: RESP 16
[2016-10-20] MEDS: ENOXAPARIN SODIUM 40 MG/0.4 ML SYRINGE SQ SCH (15:00)
== END 2016-10-20 15:30 | disposition home or self-care (01) | DRG 552 ==
LOC: PHED 08:24 → PHEDA 14:16 → PH3B 15:04 → PH5A 09-20 12:00
PROVIDERS: ADMIT Family Medicine; ATTEND Family Medicine
PROC: 02HV33Z Insertion of Infusion Device into Superior Vena Cava, Percutaneous Approach (ICD-10-PCS; principal; 2016-09-20)
DX: M46.46 Discitis, unspecified, lumbar region (principal); G89.29 Other chronic pain; F19.90 Other psychoactive substance use, unspecified, uncomplicated; F41.9 Anxiety disorder, unspecified; F17.210 Nicotine dependence, cigarettes, uncomplicated; G47.00 Insomnia, unspecified; Z79.2 Long term (current) use of antibiotics
CPT/HCPCS: 36569; 71010; 72146; 72158; 76937; 80048; 80053; 80202; 81001; 82565; 83605; 84100; 85007; 85025; 85027; 85610; 85652; 85730; 86140; 86703; 87040; 93005; 96361; 96365; 96375; A9579; J0131; J0690; J1642; J1650; J1885; J2060; J2270; J2360; J2405; J3370; J7030; J7040; J7050

== ENCOUNTER 2016-10-31 19:44 | Inpatient (IN) | payer OTHER ==
[~2016-10-31] VITALS: Ht 177.8 cm; Wt 82.0 kg
[~2016-10-31 19:44] MED LIST changes: +CEPH-460 PO; -NAPR220T95 PO; +NEUR300C PO; +WALKER WHEELS/F1 MIS
[2016-10-31 19:47] VITALS: BP 121/77; PULSE 92; RESP 22; TEMP 97.8; O2SAT 100
[2016-10-31 20:15] VITALS: BP 160/75; PULSE 82; RESP 18; TEMP 98; O2SAT 98
[2016-10-31 20:16] VITALS: BP 160/75; PULSE 82; RESP 18; TEMP 98; O2SAT 98
[2016-10-31] MEDS ORDERED: NAPR220T95 PO (20:25)
[2016-10-31] MEDS ORDERED: KETOROLAC TROMETHAMINE 30 MG/ML (IVP) VIAL IV PUSH ONE (20:45)
[2016-10-31] MEDS ORDERED: VANCOMYCIN INJ 1,000 MG in SODIUM CHLOR 0.9% 250 ML INJ 250 ML IV ONE (20:45)
--- NOTE | 2016-10-31 20:56 | PD ---
HPI Chief Complaint: Back/ Neck Pain or Injury Time Seen by Provider: 20:33 Travel History International Travel<30 days: No Contact w/Intl Traveler<30days: No Traveled to known affect area: No History of Present Illness HPI 41-year-old male presents to the emergency department by private transportation for complaint of progressively worsening low back pain radiating to the left lower extremities 4 days. Patient states that he has had no bladder or bowel dysfunction. Patient reports that he's had fever. Patient states that he denies any IV drug use. Patient states that he has been taking antibiotic as prescribed. Patient was initially seen June 2016 with back pain and history of IV drug use and identified to have an epidural abscess. Patient at that time underwent surgical intervention with debridement and discectomy by Dr. Alcantar and had extensive hospitalization for management of bacteremia and epidural abscess. Patient was discharged from the hospital in August and returned September 2016 with recurrent symptoms and again was evaluated and noted to have ongoing inflammation in the lumbar region without evidence of obvious abscess but managed for discitis. Patient was just discharged again from the hospital October 20, 2016. Patient was discharged prescription for Cipro and Keflex for 1 month duration. Patient states she's been taking his antibiotic as prescribed. Patient reports 5 days ago while living in his car his dogs began to fight with one another so he managed to separate them and did not recall specific injury at the time for the next 8 started noticing some soreness to the lower back which has progressively worsened to now 10 over 10 in intensity. Patient has noted some weakness in the lower extremities and notes that when he stands he has increased pain causing him to sit back down denies any new paresthesias and states he has no issues with movement of his feet only standing to weight-bear such that now he cannot ambulate independently secondary to survey or back pain. Patient denies other concerns or complaints. During hospitalizations patient has been followed by infectious disease and was scheduled to have 2 week post discharge follow-up with Dr. Mitchell his infectious disease specialist and was encouraged to follow-up this primary care physician Dr. cobos@1 week which he did not do was given a frontal walker to assist with his ambulation and did have consultation by neurosurgery during his second hospitalization. [facility] Past Medical History Narrative Medical Anxiety, chronic low back pain IV drug abuse, epidural abscess, discitis, abscess debridement, microdiscectomy, L4-L5 laminectomy, foraminotomy, 1996 tube thoracostomy for pneumothorax; positive tobacco use denies current IV drug use; nursing notes reviewed Hx Anticoagulant Therapy: No Arthritis: No Asthma: No Blood Disorders: No Anxiety: Yes Depression: No Heart Rhythm Problems: No Cancer: No Cardiovascular Problems: No High Cholesterol: No Chemotherapy: No Chest Pain: No Congestive Heart Failure: No COPD: No Cerebrovascular Accident: No Diabetes: No Diminished Hearing: No Endocrine: No Genitourinary: No Headaches: No Hypertension: No Immune Disorder: No Musculoskeletal: Yes (CHRONIC LOWER BACK PAIN) Neurologic: No Psychiatric: No Reproductive: No Respiratory: No Immunizations Current: Yes Migraines: No Myocardial Infarction: No Radiation Therapy: No Seizures: No Sickle Cell Disease: No Sleep Apnea: No Thyroid Disease: No Influenza Vaccination: No Past Surgical History Abdominal Surgery: No AICD: No Arteriovenous Shunt: No Cardiac Surgery: No Ear Surgery: No Endocrine Surgery: No Eye Surgery: No Genitourinary Surgery: No Insulin Pump: No Joint Replacement: No Oral Surgery: No Pacemaker: No Thoracic Surgery: Yes (CHEST TUBE RIGHT LUNG 1995) Other Surgery: Yes (LUNG COLLAPSED) Social History Alcohol Use: No (PT DENIES) Tobacco Use: Yes (10/04 PPD) Substance Use: Yes (IV DRUG USE) Allergies-Medications (Allergen,Severity, Reaction): Coded Allergies: Penicillin (Verified Allergy, Mild, UNKNOWN, 09/16/16) Reported Meds & Prescriptions Reported Meds & Active Scripts Active Walker with Front Wheels (Device) 1 Mis Mis 1 Ea .ROUTE DIRECTED Keflex (Cephalexin) 500 Mg Cap 500 Mg PO Q8H 30 Days Cipro (Ciprofloxacin HCl) 500 Mg Tab 500 Mg PO BID 30 Days Neurontin (Gabapentin) 300 Mg Cap 300 Mg PO QID 30 Days Reported Aleve (Naproxen Sodium) 220 Mg Tab 440 Mg PO BID PRN Review of Systems Except as stated in HPI: all other systems reviewed are Neg General / Constitutional: Positive: Fever (T: 101F yesterday), Chills ( subjective) Eyes: No: Visual changes HENT: No: Headaches, Neck Pain Cardiovascular: No: Chest Pain or Discomfort Respiratory: No: Shortness of Breath Gastrointestinal: No: Nausea, Vomiting, Diarrhea, Abdominal Pain Genitourinary: No: Decreased Urinary Output, Hesitancy, Incontinence Musculoskeletal: Positive: Myalgias, Arthralgias, Limited ROM (low back), Pain (lumbar bilateral lower extremities) Skin: No Rash Neurologic: Positive: Weakness (bilateral lower extremities), No: Paresthesia , Incontinence Psychiatric: Positive: Anxiety, Substance Abuse (h/o "none since recent hospital discahrge") Hematologic/Lymphatic: No: Lymph Node Enlargement Physical Exam Narrative GENERAL: Well developed well-nourished male in no acute respiratory distress SKIN: Warm and dry. HEAD: Atraumatic. Normocephalic. EYES: Pupils equal and round. No scleral icterus. No injection or drainage. ENT: No nasal bleeding or discharge. Mucous membranes pink and moist. NECK: Trachea midline. No JVD. CARDIOVASCULAR: Regular rate and rhythm. RESPIRATORY: No accessory muscle use. Clear to auscultation. Breath sounds equal bilaterally. GASTROINTESTINAL: Abdomen soft, non-tender, nondistended. Hepatic and splenic margins not palpable. No suprapubic distention or tenderness. Rectal exam: normal sphincter tone. MUSCULOSKELETAL: Extremities without clubbing, cyanosis, or edema. No obvious deformities. Nontender to direct palpation along the thoracic and lumbar spine , well healed postoperative scar at the L4 5 level no redness no induration no fluctuance no tenderness. BLE no SLR DTR's 2++ BUE and BLE patellar and right achilles w 1+ left achilles; no clonus; B dorsalis pedi pulses 2++=; B plantar and dorsiflexion 5/5. NEUROLOGICAL: Awake and alert. No obvious cranial nerve deficits. Motor grossly within normal limits. Five out of 5 muscle strength in the arms and legs. BLE sensory exam grossly intact. Normal speech. PSYCHIATRIC: Appropriate mood and affect; insight and judgment normal. Data Data Last Documented VS Orders Complete Blood Count With Diff (10/31/16 20:34) Comprehensive Metabolic Panel (10/31/16 20:34) Lactic Acid Sepsis Protocol (10/31/16 20:34) Blood Culture (10/31/16 20:34) Westergren Sedimentation Rate (10/31/16 20:34) Urinalysis - C+S If Indicated (10/31/16 20:34) Drug Screen, Random Urine (10/31/16 20:34) Act Partial Throm Time (Ptt) (10/31/16 20:34) Prothrombin Time / Inr (Pt) (10/31/16 20:34) Mri L Spine W&W/O Contrast (10/31/16 ) Mri T Spine W/O Contrast (10/31/16 ) Ketorolac Inj (Toradol Inj) (10/31/16 20:45) Vancomycin Inj (Vancomycin Inj) (10/31/16 20:45) Chest, Single Ap (10/31/16 ) Morphine Inj (Morphine Inj) (10/31/16 21:15) Ondansetron Inj (Zofran Inj) (10/31/16 21:15) Aztreonam Inj (Azactam Inj) (10/31/16 21:15) Gadodiamide Pf Inj (Omniscan Pf Inj) (10/31/16 22:51) Admit Order (Ed Use Only) (11/01/16 ) ^ Saline Lock (11/01/16 00:16) Resp Oxygen Bhaskar C Titrat 1-4 L (11/01/16 ) ^ Notify Dr: Other (11/01/16 00:16) Sodium Chloride 0.9% Flush (Ns Flush) (11/01/16 09:00) Sodium Chloride 0.9% Flush (Ns Flush) (11/01/16 00:30) Consult Neurosurgery (11/01/16 00:16) Labs MDM Medical Decision Making Medical Screen Exam Complete: Yes Emergency Medical Condition: Yes Medical Record Reviewed: Yes Interpretation(s) UDS: Positive for Opiates and amphetamines UA: Positive for protein and ketones upper limit of normal specific gravity 1.030 Sedimentation rate: Elevated at 42 Lactic acid: 0.9, not elevated CBC is automated differential: White cell count 11,400 with 78.7% neutrophils by automated differential; hemoglobin hematocrit levels elevated CMP: Values in normal range except for BUN of 24; nonspecific elevation of total protein 9 Coagulation studies: values within normal range CBC & BMP Diagram 10/31/16 21:00 Last Impressions Thoracic Spine MRI 10/31/16 0000 Signed Impressions: Service Date/Time: Monday, October 31, 2016 22:32 - CONCLUSION: No acute abnormality demonstrated of the thoracic spine. Mild disc centered degenerative changes are again noted at several mid to lower thoracic levels. Fabian Faustin MD Lumbar Spine MRI 10/31/16 0000 Signed Impressions: Service Date/Time: Monday, October 31, 2016 22:32 - CONCLUSION: 1. Persistent and modestly worsening osteomyelitis of L4, L5 and focally of the S1 vertebral bodies. There is worsening endplate destruction of L4 and L5. 2. Increased fluid collection within the central part of the residual L4/L5 disc and with scattered fluid collections anterior and lateral to the disc compatible with abscesses. 3. There is persistent epidural enhancement without abscess in the epidural space at L4/L5, actually improved in the interim. Fabian Faustin MD Chest X-Ray 10/31/16 0000 Signed Impressions: Service Date/Time: Monday, October 31, 2016 20:59 - CONCLUSION: The lungs are clear. Serge Squires MD Differential Diagnosis Recurrent epidural abscess, discitis, HNP, sciatica, septicemia, uti; also to consider cauda equina syndrome Narrative Course Patient placed on monitor IV access obtained blood cultures and lactic acid and sedimentation rate specimens collected patient administered presumptively vancomycin 1 g IV piggyback history and insists that he piggyback along with normal saline 1 L Toradol 30 mg IV and patient informed that he will not receive narcotic pain medication until he is able to produce a urine specimen. Patient states she's had no difficulty with urination. Patient states that he does not feel he can urinate at this time it is unable to provide us a urine specimen. Patient states that he needs fluid hydration as he feels dehydrated. Patient agreeable to catheter urine specimen collected so he can have pain medication but states unless he can stand up or has hydration he cannot urinate. Urinary catheter specimen was collected total UOP 250 ml @ 22:05 patient has left for MR studies At 11:35 PM chest x-ray reveals no acute process MRI of the thoracic spine reveals no acute abnormality; MRI of the lumbar spine results remain pending patient aware of imaging results and need for transfer to [facility] Critical Care Narrative Aggregate critical care time was 40 minutes. Time to perform other separately billable procedures was not included in the critical care time. My time did not include minutes spent treating any other patients simultaneously or on activities that did not directly contribute to the patient's treatment. The services I provided to this patient were to treat and/or prevent clinically significant deterioration that could result in: Cord compression with sequelae, paralysis; sepsis; I provided critical care services requiring my management, as noted below: Chart data review, documentation time, medication orders and management, vital sign assessments/reviewing monitor data, ordering and reviewing lab tests, ordering and interpreting/reviewing x-rays and diagnostic studies, care of the patient and discussion of the patient with the admitting physicians. Sepsis Criteria SIRS Criteria (2 or more): Heart rate over 90 Sepsis Criteria (SIRS+source): Infect source susp/known Physician Communication Physician Communication case discussed with Dr Alcantar ---admit to [facility] service to [facility] with consult to Dr Alcantar; call placed to [facility] service for admission, Admit to [facility] service to [facility] per Dr Carlin aware case discussed with Dr Alcantar and patient's ID specialist has been Dr Mitchell Diagnosis Primary Impression: Osteomyelitis of lumbar vertebra Additional Impression: Back pain Qualified Code: M54.5 - Acute midline low back pain, with sciatica presence unspecified Admitting Information Admitting Physician Requests: Admit Bhavana Pozo MD Oct 31, 2016 20:56 Urine Bilirubin NEG Urine Leukocyte Esterase NEG Urine RBC 0-3 /hpf Urine Squamous Epithelial 0-5 /hpf Cells Urine Mucus OCC /lpf Microscopic Urinalysis Comment CULT NOT INDICATED Urine Opiates Screen POS Urine Barbiturates Screen NEG Urine Amphetamines Screen POS Urine Benzodiazepines Screen NEG Urine Cocaine Screen NEG Urine Cannabinoids Screen NEG MDM Medical Decision Making Medical Screen Exam Complete: Yes Medical Record Reviewed: Yes Interpretation(s) UDS: Positive for Opiates and amphetamines UA: Positive for protein and ketones upper limit of normal specific gravity 1.030 Sedimentation rate: Elevated at 42 Lactic acid: 0.9, not elevated CBC is automated differential: White cell count 11,400 with 78.7% neutrophils by automated differential; hemoglobin hematocrit levels elevated CMP: Values in normal range except for BUN of 24; nonspecific elevation of total protein 9 Coagulation studies: values within normal range CBC & BMP Diagram 10/31/16 21:00 Last Impressions Thoracic Spine MRI 10/31/16 0000 Signed Impressions: Service Date/Time: Monday, October 31, 2016 22:32 - CONCLUSION: No acute abnormality demonstrated of the thoracic spine. Mild disc centered degenerative changes are again noted at several mid to lower thoracic levels. Fabian Faustin MD Lumbar Spine MRI 10/31/16 0000 Signed Impressions: Service Date/Time: Monday, October 31, 2016 22:32 - CONCLUSION: 1. Persistent and modestly worsening osteomyelitis of L4, L5 and focally of the S1 vertebral bodies. There is worsening endplate destruction of L4 and L5. 2. Increased fluid collection within the central part of the residual L4/L5 disc and with scattered fluid collections anterior and lateral to the disc compatible with abscesses. 3. There is persistent epidural enhancement without abscess in the epidural space at L4/L5, actually improved in the interim. Fabian Faustin MD Chest X-Ray 10/31/16 0000 Signed Impressions: Service Date/Time: Monday, October 31, 2016 20:59 - CONCLUSION: The lungs are clear. Serge Squires MD Differential Diagnosis Recurrent epidural abscess, discitis, HNP, sciatica, septicemia, uti; also to consider cauda equina syndrome Narrative Course Patient placed on monitor IV access obtained blood cultures and lactic acid and sedimentation rate specimens collected patient administered presumptively vancomycin 1 g IV piggyback history and insists that he piggyback along with normal saline 1 L Toradol 30 mg IV and patient informed that he will not receive narcotic pain medication until he is able to produce a urine specimen. Patient states she's had no difficulty with urination. Patient states that he does not feel he can urinate at this time it is unable to provide us a urine specimen. Patient states that he needs fluid hydration as he feels dehydrated. Patient agreeable to catheter urine specimen collected so he can have pain medication but states unless he can stand up or has hydration he cannot urinate. Urinary catheter specimen was collected total UOP 250 ml @ 22:05 patient has left for MR studies At 11:35 PM chest x-ray reveals no acute process MRI of the thoracic spine reveals no acute abnormality; MRI of the lumbar spine results remain pending patient aware of imaging results and need for transfer to [facility] Sepsis Criteria SIRS Criteria (2 or more): Heart rate over 90 Sepsis Criteria (SIRS+source): Infect source susp/known Physician Communication Physician Communication case discussed with Dr Alcantar ---admit to [facility] service to [facility] with consult to Dr Alcantar; call placed to [facility] service for admission, Admit to [facility] service to [facility] per Dr Carlin aware case discussed with Dr Alcantar and patient's ID specialist has been Dr Mitchell Diagnosis Primary Impression: Osteomyelitis of lumbar vertebra Additional Impression: Back pain Qualified Code: M54.5 - Acute midline low back pain, with sciatica presence unspecified Admitting Information Admitting Physician Requests: Admit Bhavana Pozo MD Oct 31, 2016 20:56
[2016-10-31] MEDS ORDERED: AZTREONAM INJ 2,000 MG in SODIUM CHLORIDE 0.9% INJ 100 ML IV ONE (21:15)
[2016-10-31] MEDS ORDERED: MORPHINE SULFATE 4 MG/ML INJ IV PUSH ONE (21:15)
[2016-10-31] MEDS ORDERED: ONDANSETRON HCL 4 MG/2 ML VIAL IV PUSH ONE (21:15)
[2016-10-31 21:18] LABS: AUTOMATED NEUTROPHIL # 8.9 TH/MM3 (1.8-7.7); BASOPHIL # 0.1 TH/MM3 (0-0.2); BASOPHIL % 0.5 % (0.0-2.0); EOSINOPHIL # 0.2 TH/MM3 (0-0.4); EOSINOPHIL % 1.6 % (0.0-4.0); HEMATOCRIT 38.4 % (39.0-51.0); HEMO FLAGS DIFF FINAL; LYMPH % 10.3 % (9.0-44.0); LYMPHOCYTE # 1.2 TH/MM3 (1.0-4.8); MEAN CELL VOLUME 82.2 FL (80.0-100.0); MEAN CORPUSCULAR HEMOGLOBIN 26.8 PG (27.0-34.0); MEAN CORPUSCULAR HGB CONC 32.5 % (32.0-36.0); MONO % 8.9 % (0.0-8.0); NEUT % 78.7 % (16.0-70.0); PLATELET COUNT 279 TH/MM3 (150-450); RED BLOOD COUNT 4.67 MIL/MM3 (4.50-5.90); RED CELL DISTRIBUTION WIDTH 17.1 % (11.6-17.2); WHITE BLOOD COUNT 11.4 TH/MM3 (4.0-11.0)
[2016-10-31 21:28] LABS: CHLORIDE 103 MEQ/L (98-107); POTASSIUM 3.5 MEQ/L (3.5-5.1); SODIUM (NA) 138 MEQ/L (136-145)
--- NOTE | 2016-10-31 21:30 | RADHPO ---
EXAM DATE/TIME: 10/31/2016 20:59 [facility] COMPARISON: CHEST SINGLE AP, September 20, 2016, 14:50. INDICATIONS : Back pain MEDICAL HISTORY : SURGICAL HISTORY : None. ENCOUNTER: Initial ACUITY: 3 days PAIN SCORE: 7/10 LOCATION: Bilateral back pain FINDINGS: A single view of the chest demonstrates the lungs to be symmetrically aerated without evidence of mas s, infiltrate or effusion. The cardiomediastinal contours are unremarkable. Osseous structures are intact. CONCLUSION: The lungs are clear. Serge Squires MD on October 31, 2016 at 21:29 Board Certified Radiologist. This report was verified electronically.
[2016-10-31 21:32] LABS: ANION GAP 9 MEQ/L (5-15); BLOOD UREA NITROGEN 24 MG/DL (7-18)
[2016-10-31 21:33] LABS: BLOOD, URINE TRACE (NEG); GLUCOSE,URINE NEG (NEG); NITRITE,URINE NEG (NEG); PH, URINE 5.5 (5.0-8.5)
[2016-10-31 21:34] LABS: APTT (PATIENT) 28.9 SEC (24.3-30.1); PROTHROMBIN TIME - PATIENT 11.3 SEC (9.8-11.6)
[2016-10-31 21:35] LABS: ALT (GPT) 25 U/L (12-78); AST (GOT) 24 U/L (15-37); GLOMERULAR FILTRATION RATE 128 ML/MIN (>89)
[2016-10-31 21:37] LABS: TOTAL BILIRUBIN ADULT 0.6 MG/DL (0.2-1.0)
[2016-10-31 21:38] LABS: ALKALINE PHOSPHATASE 90 U/L (45-117)
[2016-10-31 21:43] LABS: AMPHETAMINE, URINE POS (NEG); BARBITURATES, URINE NEG (NEG); COCAINE, URINE NEG (NEG)
[2016-10-31 22:00] LABS: KETONE, URINE 80 OR GREATER mg/dL (NEG); METHOD OF COLLECTION CATH; URINE COLOR YELLOW (YELLW/STRAW)
[2016-10-31 22:01] LABS: MUCUS URINE OCC /lpf (OCC); RBC, URINE 0-3 /hpf (0-3); SQUAMOUS EPITHELIAL CELL URINE 0-5 /hpf (0-5)
[2016-10-31 22:02] LABS: COMMENT (UR) CULT NOT INDICATED; CULTURE IF INDICATED CULT NOT INDICATED
[2016-10-31] MEDS ORDERED: GADODIAMIDE PF 287 MG/ML 5 ML VIAL (for RAD MRI) IV ONE (22:51)
--- NOTE | 2016-10-31 23:06 | RADHPO ---
EXAM DATE/TIME: 10/31/2016 22:32 [facility] COMPARISON: MRI THORACIC SPINE W/O CONTRAST, September 16, 2016, 11:22. INDICATIONS : Pain. MEDICAL HISTORY : Lumbar abscess. SURGICAL HISTORY : Lumbar laminectomy. ENCOUNTER: [facility] ACUITY: 4-6 days PAIN SCORE: 4/10 LOCATION: [facility] TECHNIQUE: Multiplanar multisequence MRI of the thoracic spine was performed. FINDINGS: Thoracic spine alignment is normal. Vertebral bodies have normal height. Very mild disc space narrowi ng seen at T7/T8, T8/T9, T10/T11 and T11/T12. A tiny posterior disc protrusion again seen at T7/T8. T here is neural foraminal or spinal stenosis at any level. Mild, reactive appearing endplate marrow ed chandan again seen anterior, inferior corner of T11 unchanged. No evidence of abscess or osteomyelitis of the thoracic spine. CONCLUSION: No acute abnormality demonstrated of the thoracic spine. Mild disc centered degenerative changes are again noted at several mid to lower thoracic levels. Fabian Faustin MD on October 31, 2016 at 23:03 Board Certified Radiologist. This report was verified electronically.
[2016-10-31 23:20] VITALS: BP 126/67; PULSE 84; RESP 18; O2SAT 99
--- NOTE | 2016-10-31 23:32 | RADHPO ---
EXAM DATE/TIME: 10/31/2016 22:32 [facility] COMPARISON: No previous studies available for comparison. INDICATIONS : Abscess. Low back pain. CONTRAST: 15 cc Omniscan (gadodiamide) IV MEDICAL HISTORY : Lumbar abcess. SURGICAL HISTORY : Lumbar laminectomy. ENCOUNTER: [facility] ACUITY: 4-6 days PAIN SCORE: 4/10 LOCATION: [facility] TECHNIQUE: Multiplanar multisequence MRI of the lumbar spine was performed with and without contrast. FINDINGS: There is signal changes of the L4 and L5 vertebral bodies typical of osteomyelitis in the proper clin ical setting. Heterogeneous enhancement is seen of the L4/L5 disc and with worsening erosions of the vertebral body endplates, especially the inferior endplate of L4 and the anterior/superior corner of L5. Otherwise, the vertebral bodies enhance compatible with viable bone. The signal changes involve t he upper third of the S1 vertebral body, modestly worse in the interim. There appears to be central liquefaction of the L4/L5 disc. There are small pockets of rim enhancing fluid around the disc margin, mainly anteriorly and laterally. These measure up to 12 mm in size. Oth erwise, there is enhancing perivertebral soft tissue, mainly anteriorly, and partly surrounding the d istal aorta and common iliac arteries from L3-S1. There is enhancing tissue in the left paracentral e pidural space posterior to L4 but without an associated fluid collection. Some of this extends into t he bilateral L4/L5 foramina but also without an associated fluid collection. The extent and bulkiness of the epidural enhancement has decreased. CONCLUSION: 1. Persistent and modestly worsening osteomyelitis of L4, L5 and focally of the S1 vertebral bodies. There is worsening endplate destruction of L4 and L5. 2. Increased fluid collection within the central part of the residual L4/L5 disc and with scattered f luid collections anterior and lateral to the disc compatible with abscesses. 3. There is persistent epidural enhancement without abscess in the epidural space at L4/L5, actually improved in the interim. Fabian Faustin MD on October 31, 2016 at 23:18 Board Certified Radiologist. This report was verified electronically.
[2016-11-01] VITALS (9 sets, daily range): BP systolic 119–134; BP diastolic 57–68; PULSE 69–97; RESP 16–20; TEMP 97.6–101.1; O2SAT 96–100
[2016-11-01] MEDS ORDERED: SODIUM CHLORIDE 0.9% FLUSH 5 ML FLUSH IVF PRN (00:30)
[2016-11-01] MEDS ORDERED: BISACODYL 10 MG SUPP PR PRN (01:15)
[2016-11-01] MEDS ORDERED: Vancomycin Consult Pharmacy 1 EA OTHER SCH (01:15)
[2016-11-01] MEDS: SODIUM CHLOR 0.9% 1000 ML INJ 1,000 ML IV SCH ×3 (01:42→22:49)
[2016-11-01] MEDS: MORPHINE SULFATE 4 MG/ML INJ IV PRN ×4 (01:52→15:56)
[2016-11-01] MEDS ORDERED: SODIUM CHLORIDE 0.9% FLUSH 5 ML FLUSH IVF SCH (09:00)
[2016-11-01] MEDS: SODIUM CHLORIDE 0.9% FLUSH 5 ML FLUSH FLUSH SCH ×2 (09:00→21:00)
[2016-11-01] MEDS: AZTREONAM INJ 2,000 MG in SODIUM CHLORIDE 0.9% INJ 100 ML IV SCH ×2 (09:34→15:57)
[2016-11-01 10:36] LABS: AUTOMATED NEUTROPHIL # 7.1 TH/MM3 (1.8-7.7); BASOPHIL % 0.2 % (0.0-2.0); EOSINOPHIL # 0.2 TH/MM3 (0-0.4); EOSINOPHIL % 1.8 % (0.0-4.0); HEMATOCRIT 32.4 % (39.0-51.0); HEMO FLAGS DIFF FINAL; LYMPH % 12.5 % (9.0-44.0); LYMPHOCYTE # 1.2 TH/MM3 (1.0-4.8); MEAN CORPUSCULAR HEMOGLOBIN 27.3 PG (27.0-34.0); MEAN CORPUSCULAR HGB CONC 33.8 % (32.0-36.0); MONO % 10.9 % (0.0-8.0); NEUT % 74.6 % (16.0-70.0); PLATELET COUNT 206 TH/MM3 (150-450); RED CELL DISTRIBUTION WIDTH 17.8 % (11.6-17.2); WHITE BLOOD COUNT 9.5 TH/MM3 (4.0-11.0)
--- NOTE | 2016-11-01 10:57 | PD.CONS ---
(Adam Alcantar MD) HPI Consult Requested By Primary Care Physician Erick Santillan DO (Adam Alcantar MD) Service NRS Consult Requested By Dr. Bhavana Pozo Reason for Consult lumbar discitis and osteomyelitis History of Present Illness Mr. Delong is a 41 year old male who was seen previously in June 2016 for lumbar epidural abscess with intractable lumbar pain. He underwent a L4 5 laminectomy for evacuation of epidural abscess on 06/09/16. His cultures were positive for staph aureus. He has admitted history of IV drug use. He was treated with IV Ancef until 08/04/16 as well as Cipro 500 mg bid for 46 weeks. Mr. Delong returned to the ED yesterday due to recurrent intractable lumbar pain. He reports has been getting progressively worse and has been severe the past 4 days to the point where he had difficulty walking due to his back pain. He denies any recent IV drug use since his hospitalization. An MRI Lumbar spine has been obtained. (Oralia Ballard) Review of Systems Eyes: DENIES: Diplopia Respiratory: DENIES: Cough, Hemoptysis Cardiovascular: DENIES: Chest pain Genitourinary: DENIES: Urinary incontinence Musculoskeletal: COMPLAINS OF: Back pain Neurologic: COMPLAINS OF: Abnormal gait (due to back pain), DENIES: Localized weakness, Paresthesias, Speech Problems (Oralia Ballard) Past Family Social History Allergies: Coded Allergies: Penicillin (Verified Allergy, Mild, UNKNOWN, 09/16/16) Past Medical History Epidural abscess, discitis Sepsis Anxiety Hx of pneumothorax Past Surgical History L4-L5 laminectomy for evac of epidural abscess thoracostomy for pneumothorax 1995 Reported Medications reviewed in EMR Active Ordered Medications Current Medications Medications (Trade) Dose Ordered Sig/Maria Esther Route PRN Reason Start Time Stop Time Status Last Admin Dose Admin Pharmacy Profile Note 0 ml @ 0 mls/hr UNSCH OTHER 11/01/16 01:15 Aztreonam 2000 mg/ Sodium Chloride 100 ml @ 200 mls/hr Q8H IV 11/01/16 08:00 11/01/16 09:34 Sodium Chloride (NS 1000 ml Inj) 1,000 ml @ 100 mls/hr Q10H IV 11/01/16 01:05 11/01/16 01:42 IV Flush (NS Flush) 2 ml UNSCH PRN FLUSH FLUSH AFTER USING IV ACCESS 11/01/16 01:15 IV Flush (NS Flush) 2 ml BID FLUSH 11/01/16 09:00 Ondansetron HCl (Zofran Inj) 4 mg Q6H PRN IVP NAUSEA OR VOMITING 11/01/16 01:15 Bisacodyl (Dulcolax Supp) 10 mg DAILY PRN MA CONSTIPATION 11/01/16 01:15 Acetaminophen (Tylenol) 650 mg Q6H PRN PO FEVER/PAIN 1-2 11/01/16 01:15 Acetaminophen/ Hydrocodone Bitart (Whitman 5-325 Mg) 1 tab Q4H PRN PO PAIN SCALE 3 TO 5 11/01/16 01:15 Morphine Sulfate 2 mg 2 mg Q3H PRN IV Pain 6-10 11/01/16 01:15 11/01/16 09:34 Vancomycin HCl/ Sodium Chloride (Vancomycin Inj/ NS 250 ml Inj) 262.5 ml @ 262.5 mls/ hr Q12H IV 11/01/16 10:00 Miscellaneous Information SPECIFIC LAB TO BE DIONNE... ONCE ONCE XX 11/02/16 09:45 11/02/16 09:46 Family History noncontributory Social History 1/2 ppd tobacco use, history of IV drug use, denies etoh abuse (Oralia Ballard) Physical Exam Vital Signs Vital Signs Date Time Temp Pulse Resp B/P Pulse Ox O2 Delivery O2 Flow Rate FiO2 11/01/16 09:39 18 11/01/16 08:00 97.6 69 18 119/60 96 11/01/16 04:22 98.4 78 17 129/62 98 11/01/16 02:20 100 21 11/01/16 02:20 80 16 124/63 100 Room Air 11/01/16 01:48 75 16 134/68 100 Room Air 11/01/16 01:00 74 16 11/01/16 00:10 78 16 127/58 100 Room Air 10/31/16 23:20 84 18 126/67 99 Room Air 10/31/16 22:30 16 10/31/16 22:00 16 10/31/16 20:18 82 18 10/31/16 20:16 98.0 82 18 160/75 98 Room Air 10/31/16 20:15 98.0 82 18 160/75 98 Room Air 10/31/16 19:47 97.8 92 22 121/77 100 Laboratory Laboratory Tests Test 10/31/16 10/31/16 11/01/16 21:00 21:20 10:11 White Blood Count 11.4 9.5 Red Blood Count 4.67 4.00 Hemoglobin 12.5 10.9 Hematocrit 38.4 32.4 Mean Corpuscular Volume 82.2 81.0 Mean Corpuscular Hemoglobin 26.8 27.3 Mean Corpuscular Hemoglobin 32.5 33.8 Concent Red Cell Distribution Width 17.1 17.8 Platelet Count 279 206 Mean Platelet Volume 8.4 8.2 Neutrophils (%) (Auto) 78.7 74.6 Lymphocytes (%) (Auto) 10.3 12.5 Monocytes (%) (Auto) 8.9 10.9 Eosinophils (%) (Auto) 1.6 1.8 Basophils (%) (Auto) 0.5 0.2 Neutrophils # (Auto) 8.9 7.1 Lymphocytes # (Auto) 1.2 1.2 Monocytes # (Auto) 1.0 1.0 Eosinophils # (Auto) 0.2 0.2 Basophils # (Auto) 0.1 0.0 CBC Comment DIFF FINAL DIFF FINAL Differential Comment Erythrocyte Sedimentation Rate 42 Prothrombin Time 11.3 Prothromb Time International 1.0 Ratio Activated Partial 28.9 Thromboplast Time Sodium Level 138 Potassium Level 3.5 Chloride Level 103 Carbon Dioxide Level 26.0 Anion Gap 9 Blood Urea Nitrogen 24 Creatinine 0.68 Estimat Glomerular Filtration 128 Rate Random Glucose 96 Lactic Acid Level 0.9 Calcium Level 9.4 Total Bilirubin 0.6 Aspartate Amino Transf 24 (AST/SGOT) Alanine Aminotransferase 25 (ALT/SGPT) Alkaline Phosphatase 90 Total Protein 9.0 Albumin 3.9 Urine Collection Type CATH Urine Color YELLOW Urine Turbidity SLIGHT Urine pH 5.5 Urine Specific [place] 1.030 Urine Protein 30 Urine Glucose (UA) NEG Urine Ketones 80 OR GREATER Urine Occult Blood TRACE Urine Nitrite NEG Urine Bilirubin NEG Urine Leukocyte Esterase NEG Urine RBC 0-3 Urine Squamous Epithelial 0-5 Cells Urine Mucus OCC Microscopic Urinalysis Comment CULT NOT INDICATED Urine Opiates Screen POS Urine Barbiturates Screen NEG Urine Amphetamines Screen POS Urine Benzodiazepines Screen NEG Urine Cocaine Screen NEG Urine Cannabinoids Screen NEG Date/Time Procedure Status Source Growth 10/31/16 21:06 Aerobic Blood Culture Received Blood Peripheral Pending 10/31/16 21:06 Anaerobic Blood Culture Received Blood Peripheral Pending (Adam Alcantar MD) Physical Exam Mr. Delong is alert, awake and oriented to time, place and person. Speech is fluent. Higher cognitive functions are normal. Cranial nerve examination demonstrates the pupils to be equal, round, and reactive to light. Extra-ocular movements are intact. Facial motor are normal and symmetrical. Gross hearing is intact, bilaterally. Sternocleidomastoid and trapezius muscles have normal and symmetrical strength. Other cranial nerves are grossly intact. Neck is soft and supple. 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 In the lower extremities, strength is 5/5 in both iliopsoas, quadriceps, hamstrings, plantar flexion, dorsiflexion, and extensor hallicus longus. Sensory examination is intact to light touch in both the upper and lower extremities, symmetrically. Deep tendon reflexes are 2+ and symmetrical in the biceps, triceps, and brachioradialis, bilaterally, in the upper extremities. In the lower extremities, the patellar and Achilles are 2+, bilaterally. There is a bilateral plantar flexion response. Hoffmanns sign is negative. There is no clonus or other abnormal reflexes noted. Cerebellar examination is intact to [id number] test (Oralia Ballard) Result Diagram: 11/01/16 1011 10/31/16 2100 Imaging Last Impressions Thoracic Spine MRI 10/31/16 0000 Signed Impressions: Service Date/Time: Monday, October 31, 2016 22:32 - CONCLUSION: No acute abnormality demonstrated of the thoracic spine. Mild disc centered degenerative changes are again noted at several mid to lower thoracic levels. Fabian Faustin MD Lumbar Spine MRI 10/31/16 0000 Signed Impressions: Service Date/Time: Monday, October 31, 2016 22:32 - CONCLUSION: 1. Persistent and modestly worsening osteomyelitis of L4, L5 and focally of the S1 vertebral bodies. There is worsening endplate destruction of L4 and L5. 2. Increased fluid collection within the central part of the residual L4/L5 disc and with scattered fluid collections anterior and lateral to the disc compatible with abscesses. 3. There is persistent epidural enhancement without abscess in the epidural space at L4/L5, actually improved in the interim. Fabian Faustin MD Chest X-Ray 10/31/16 0000 Signed Impressions: Service Date/Time: Monday, October 31, 2016 20:59 - CONCLUSION: The lungs are clear. Serge Squires MD (Oralia Ballard) Attending Statement I reviewed his clinical and radiological findings. He does not have a focal motor deficit. His MRI which suggests persistent infection with osteomyelitis and discitis. There is no epidural abscess causing severe stenosis. I recommend admission and to continue with antibiotics. Consult infectious disease. Non operative treatment. I recommend to repeatr cultures via a CT-guided aspiration of the disk space. The details, indications, alternatives, risks, and potential complications were discussed with the patient. The alternatives of treatmnent have been discussed as well. He wants nonoperative treatment Repeat blood cultures Respiratory. Nasal cannula as needed to maintain saturations greater than equal to 92%. pulmonary toilette, nasotracheal suction, and breathing treatments with nebulizers. PT evaluation Nutrition. Oral diet Renal. monitor closely urine output, BUN and creatinine Endocrine. Monitor serial Acu checks and SSI as needed in detail ID consult infectious disease Protonix for stress ulcer prophylaxis [place] hose and SCD's for DVT prophylaxis Discussed with the patient (Adam Alcantar MD) Adam Alcantar MD Nov 01, 2016 10:57 Oralia Ballard Nov 01, 2016 11:27
[2016-11-01 11:03] LABS: ALT (GPT) 19 U/L (12-78); ANION GAP 9 MEQ/L (5-15); AST (GOT) 14 U/L (15-37); BICARBONATE 25.2 MEQ/L (21.0-32.0); BLOOD UREA NITROGEN 16 MG/DL (7-18); CHLORIDE 104 MEQ/L (98-107); GLOMERULAR FILTRATION RATE 140 ML/MIN (>89); POTASSIUM 3.4 MEQ/L (3.5-5.1); SODIUM (NA) 138 MEQ/L (136-145)
[2016-11-01 11:05] LABS: ALKALINE PHOSPHATASE 68 U/L (45-117); TOTAL BILIRUBIN ADULT 0.5 MG/DL (0.2-1.0)
[2016-11-01] MEDS: VANCOMYCIN INJ 1,250 MG in SODIUM CHLOR 0.9% 250 ML INJ 250 ML IV SCH ×2 (11:35→22:48)
--- NOTE | 2016-11-01 17:32 | HHI.HP ---
cc: Dr. Santillan [facility] Service [facility] Primary Care Physician Erick Santillan, Admission Diagnosis lumbar osteomyelitis; L4/5 abscess; substance abuse Diagnoses: Chief Complaint: low back pain Travel History International Travel<30 Days: No Contact w/Intl Traveler <30 Da: No Traveled to Known Affected Are: No History of Present Illness 41-year-old male with history of IVDU, epidural abscess June 2016, anxiety , tobacco use, homelessness, presents with a four-day history of worsening back pain. The patient was hospitalized June [id number] for epidural abscess/discitis and bacteremia, underwent I&D and discectomy with Dr. Alcantar, and completed course of IV abx. Hospitalized again September 2016 through for discitis but no abscess, discharged on Cipro/Keflex 1 month. Patient reports he has been taking his antibiotics as prescribed however 5 days ago he started to notice worsening low back pain that radiates into bilateral buttocks/ legs, worse on the left side, rated 10/10. He is able to stand and bear weight with a walker, however has difficulty ambulating. Also having intermittent fevers. He denies any saddle anesthesia, bladder/bowel incontinence however does have some urinary retention and has difficulty initiating urination. He feels the lateral legs are weaker than usual, denies any numbness. Today the pain was unbearable so he drove himself to the hospital. He plans to follow-up as outpatient Dr. Mitchell infectious disease, and is set up with his PCP Dr. Santillan. The patient is homeless, living out of his truck in [place]. Review of Systems Constitutional: COMPLAINS OF: Fever, DENIES: Diaphoretic episodes, Chills, Dizziness Endocrine: DENIES: Polydipsia, Polyuria, Polyphagia Eyes: DENIES: Eye pain, Vision loss, Double Vision Ears, nose, mouth, throat: DENIES: Throat pain, Running Nose, Odynophagia Respiratory: DENIES: Cough, Wheezing, Shortness of breath Cardiovascular: DENIES: Chest pain, Syncope, Dyspnea on Exertion Gastrointestinal: DENIES: Abdominal pain, Constipation, Diarrhea, Nausea, Vomiting Genitourinary: DENIES: Urinary frequency, Urinary incontinence, Urgency, Dysuria Musculoskeletal: COMPLAINS OF: Back pain, DENIES: Joint pain, Neck pain Integumentary: DENIES: Pruritus, Rash Hematologic/lymphatic: DENIES: Bruising, Lymphadenopathy Immunologic/allergic: DENIES: Eczema, Urticaria Neurologic: COMPLAINS OF: Abnormal gait, Poor Balance, DENIES: Headache, Localized weakness, Paresthesias Psychiatric: DENIES: Anxiety, Depression Past Family Social History Past Medical History epidural abscess and discitis Jun 2016 anxiety chronic low back pain pneumothorax Past Surgical History L4-5 laminectomy for evac of epidural abscess thoracostomy for pneumothorax 1995 Reported Medications Active Walker with Front Wheels (Device) 1 Mis Mis 1 Ea .ROUTE DIRECTED Keflex (Cephalexin) 500 Mg Cap 500 Mg PO Q8H 30 Days Cipro (Ciprofloxacin HCl) 500 Mg Tab 500 Mg PO BID 30 Days Neurontin (Gabapentin) 300 Mg Cap 300 Mg PO QID 30 Days Reported Aleve (Naproxen Sodium) 220 Mg Tab 440 Mg PO BID PRN Allergies: Coded Allergies: Penicillin (Verified Allergy, Mild, UNKNOWN, 09/16/16) Active Ordered Medications Current Medications Medications (Trade) Dose Ordered Sig/Maria Esther Route Start Time Stop Time Status Last Admin Pharmacy Profile Note 0 ml @ 0 mls/hr UNSCH OTHER 11/01/16 01:15 Aztreonam 2000 mg/ Sodium Chloride 100 ml @ 200 mls/hr Q8H IV 11/01/16 08:00 11/01/16 15:57 (NS 1000 ml Inj) 1,000 ml @ 100 mls/hr Q10H IV 11/01/16 01:05 11/01/16 11:35 (NS Flush) 2 ml UNSCH PRN FLUSH 11/01/16 01:15 (NS Flush) 2 ml BID FLUSH 11/01/16 09:00 (Zofran Inj) 4 mg Q6H PRN IVP 11/01/16 01:15 (Dulcolax Supp) 10 mg DAILY PRN ND 11/01/16 01:15 (Tylenol) 650 mg Q6H PRN PO 11/01/16 01:15 (Eunice 5-325 Mg) 1 tab Q4H PRN PO 11/01/16 01:15 Morphine Sulfate 2 mg 2 mg Q3H PRN IV 11/01/16 01:15 11/01/16 15:56 (Vancomycin Inj/ NS 250 ml Inj) 262.5 ml @ 262.5 mls/ hr Q12H IV 11/01/16 10:00 11/01/16 11:35 Miscellaneous Information SPECIFIC LAB TO BE . ONCE ONCE XX 11/02/16 09:45 11/02/16 09:46 Family History Mother with non-Hodgkin's lymphoma Father with lung cancer Social History Smokes tobacco half PPD off and on for many years Denies any alcohol use History of IV drug use, reports last use was in September 2016 Physical Exam Vital Signs Vital Signs Date Time Temp Pulse Resp B/P Pulse Ox O2 Delivery O2 Flow Rate FiO2 11/01/16 16:01 18 11/01/16 15:53 99.2 86 16 122/65 100 11/01/16 13:45 97 21 11/01/16 12:00 99.1 80 18 119/58 98 11/01/16 08:00 97.6 69 18 119/60 96 11/01/16 04:22 98.4 78 17 129/62 98 11/01/16 02:20 100 21 11/01/16 02:20 80 16 124/63 100 Room Air 11/01/16 01:48 75 16 134/68 100 Room Air 11/01/16 01:00 74 16 11/01/16 00:10 78 16 127/58 100 Room Air 10/31/16 23:20 84 18 126/67 99 Room Air 10/31/16 22:30 16 10/31/16 22:00 16 10/31/16 20:18 82 18 10/31/16 20:16 98.0 82 18 160/75 98 Room Air 10/31/16 20:15 98.0 82 18 160/75 98 Room Air 10/31/16 19:47 97.8 92 22 121/77 100 Physical Exam GENERAL: Well-nourished, well-developed middle-aged male patient in [facility]. SKIN: Warm and dry. No rash. Multiple healing scabs throughout hands and bilateral lower extremities. HEAD: Normocephalic. Atraumatic. EYES: Pupils equal and round. No scleral icterus. No injection or drainage. ENT: No nasal bleeding or discharge. Mucous membranes pink and moist. NECK: Supple. Trachea midline. CARDIOVASCULAR: Regular rate and rhythm. S1, S2 noted. No murmur appreciated. RESPIRATORY: No accessory muscle use. Clear to auscultation. Breath sounds equal bilaterally. GASTROINTESTINAL: Abdomen soft, non-tender, nondistended. Normoactive bowel sounds x4. MUSCULOSKELETAL: No obvious deformities. Extremities without clubbing, cyanosis , or edema. Diffuse lumbar tenderness to palpation, and low back pain elicited with range of motion of bilateral lower extremities. NEUROLOGICAL: Awake and alert. No obvious cranial nerve deficits. Motor grossly within normal limits. 5/5 muscle strength in bilateral upper extremities , 3/5 strength in bilateral lower extremities. Normal speech. PSYCHIATRIC: Appropriate mood and affect; insight and judgment normal. Laboratory Laboratory Tests Test 10/31/16 10/31/16 11/01/16 21:00 21:20 10:11 White Blood Count 11.4 9.5 Red Blood Count 4.67 4.00 Hemoglobin 12.5 10.9 Hematocrit 38.4 32.4 Mean Corpuscular Volume 82.2 81.0 Mean Corpuscular Hemoglobin 26.8 27.3 Mean Corpuscular Hemoglobin 32.5 33.8 Concent Red Cell Distribution Width 17.1 17.8 Platelet Count 279 206 Mean Platelet Volume 8.4 8.2 Neutrophils (%) (Auto) 78.7 74.6 Lymphocytes (%) (Auto) 10.3 12.5 Monocytes (%) (Auto) 8.9 10.9 Eosinophils (%) (Auto) 1.6 1.8 Basophils (%) (Auto) 0.5 0.2 Neutrophils # (Auto) 8.9 7.1 Lymphocytes # (Auto) 1.2 1.2 Monocytes # (Auto) 1.0 1.0 Eosinophils # (Auto) 0.2 0.2 Basophils # (Auto) 0.1 0.0 CBC Comment DIFF FINAL DIFF FINAL Differential Comment Erythrocyte Sedimentation Rate 42 Prothrombin Time 11.3 Prothromb Time International 1.0 Ratio Activated Partial 28.9 Thromboplast Time Sodium Level 138 138 Potassium Level 3.5 3.4 Chloride Level 103 104 Carbon Dioxide Level 26.0 25.2 Anion Gap 9 9 Blood Urea Nitrogen 24 16 Creatinine 0.68 0.63 Estimat Glomerular Filtration 128 140 Rate Random Glucose 96 146 Lactic Acid Level 0.9 Calcium Level 9.4 8.4 Total Bilirubin 0.6 0.5 Aspartate Amino Transf 24 14 (AST/SGOT) Alanine Aminotransferase 25 19 (ALT/SGPT) Alkaline Phosphatase 90 68 Total Protein 9.0 7.0 Albumin 3.9 3.1 Urine Collection Type CATH Urine Color YELLOW Urine Turbidity SLIGHT Urine pH 5.5 Urine Specific [place] 1.030 Urine Protein 30 Urine Glucose (UA) NEG Urine Ketones 80 OR GREATER Urine Occult Blood TRACE Urine Nitrite NEG Urine Bilirubin NEG Urine Leukocyte Esterase NEG Urine RBC 0-3 Urine Squamous Epithelial 0-5 Cells Urine Mucus OCC Microscopic Urinalysis Comment CULT NOT INDICATED Urine Opiates Screen POS Urine Barbiturates Screen NEG Urine Amphetamines Screen POS Urine Benzodiazepines Screen NEG Urine Cocaine Screen NEG Urine Cannabinoids Screen NEG Date/Time Procedure Status Source Growth 10/31/16 21:06 Aerobic Blood Culture - Preliminary Resulted Blood Peripheral NO GROWTH IN 1 DAY 10/31/16 21:06 Anaerobic Blood Culture - Preliminary Resulted Blood Peripheral NO GROWTH IN 1 DAY Result Diagram: 11/01/16 1011 11/01/16 1011 Imaging Last Impressions Thoracic Spine MRI 10/31/16 0000 Signed Impressions: Service Date/Time: Monday, October 31, 2016 22:32 - CONCLUSION: No acute abnormality demonstrated of the thoracic spine. Mild disc centered degenerative changes are again noted at several mid to lower thoracic levels. Fabian Faustin MD Lumbar Spine MRI 10/31/16 0000 Signed Impressions: Service Date/Time: Monday, October 31, 2016 22:32 - CONCLUSION: 1. Persistent and modestly worsening osteomyelitis of L4, L5 and focally of the S1 vertebral bodies. There is worsening endplate destruction of L4 and L5. 2. Increased fluid collection within the central part of the residual L4/L5 disc and with scattered fluid collections anterior and lateral to the disc compatible with abscesses. 3. There is persistent epidural enhancement without abscess in the epidural space at L4/L5, actually improved in the interim. Fabian Faustin MD Chest X-Ray 10/31/16 0000 Signed Impressions: Service Date/Time: Monday, October 31, 2016 20:59 - CONCLUSION: The lungs are clear. Serge Squires MD Assessment and Plan Problem List: (1) Osteomyelitis of lumbar vertebra ICD Code: M46.26 Status: Acute Assessment and Plan 41-year-old male with history of IVDU, epidural abscess June 2016, anxiety , tobacco use, homelessness, presents with a four-day history of worsening back pain. Patient with history of hospitalization [id number] for epidural abscess/discitis/bacteremia, underwent I&D and discectomy with Dr. Alcantar. Another hospitalization Sep 2016 - 10/20/16 for discitis, no abscess, discharged on po Cipro/Keflex [id number]. Presents with worsening low back pain x4-5 days. 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 -WBC 11.4K with slight left shift, afebrile, ESR mildly elevated at 42 -Blood cultures collected, NGTD -Continue with IV Vanco, IV Azactam -Consult infectious disease, discussed with Dr. Senior -Consult neurosurgery Dr. Alcantar -Pain control with Eunice prn, IV morphine prn breakthrough pain Tobacco Use: counseled on cessation. Declined nicotine patch. Polysubstance Abuse/IVDU: patient denies using any drugs since Sep 2016 however UDS +opiates and amphetamines. Counseled again on cessation. Homeless: patient lives out of his truck. Case management consult. DVT Prophylaxis: teds/SCDs, hold off on chemical prophylaxis until evaluated by NS Written by Soo Barber, acting as scribe for Dr. Neri on 11/01/16 at 18: 00. Code Status Full Discussed Condition With Patient Physician Certification 2 Midnight Certification Type: Admission for Inpatient Services Order for Inpatient Services The services are ordered in accordance with Medicare regulations or non- Medicare payer requirements, as applicable. In the case of services not specified as inpatient-only, they are appropriately provided as inpatient services in accordance with the 2-midnight benchmark. Estimated LOS (days): 7 days is the estimated time the patient will need to remain in the hospital, assuming treatment plan goals are met and no additional complications. Post-Hospital Plan: Not yet determined Medical Decision Making MDM Remarks The documentation accurately reflects the work performed [id number] by me on at 18:00. Soo Barber PA-C 30, 2017 17:32 Bernard Tinsley MD Nov 02, 2016 19:35
[2016-11-02] VITALS (7 sets, daily range): BP systolic 111–118; BP diastolic 56–66; PULSE 70–89; RESP 18–20; TEMP 97.1–101.6; O2SAT 96–99
[2016-11-02] MEDS: AZTREONAM INJ 2,000 MG in SODIUM CHLORIDE 0.9% INJ 100 ML IV SCH ×4 (00:35→23:39)
[2016-11-02] MEDS: ACETAMINOPHEN 325 MG TAB PO PRN (00:38)
[2016-11-02] MEDS: ACETAMINOPHEN/HYDROcodone 325 MG/5 MG TAB PO PRN (00:38)
--- NOTE | 2016-11-02 07:46 | MB ---
cc: BRENNAN RUSSELL MD DATE OF CONSULTATION 11/01/2016 REQUESTING PHYSICIAN MD Tesfaye REASON Lumbar osteomyelitis. HISTORY OF PRESENT ILLNESS This is a 41-year-old white male who presented to the emergency department because of back pain. The patient complained of progressively worsening back pain over the past four days. He states that the pain was worse than a 10/10 and it came on suddenly. He has a history of recent lumbar osteomyelitis and diskitis with epidural abscess and he was treated with six weeks of IV antibiotics in June. The culture came back with MSSA from wound and blood and he received IV cephazolin until 08/04. The patient presented to the hospital again in September and was evaluated by infectious disease physician. He was again given two weeks of IV antibiotics. Prior to that presentation, he was supposed to be taking ciprofloxacin. He was evaluated and treated again with two weeks of antibiotics and then he was discharged on October 20. He presented again this time because of the new, acute onset of severe back pain. The patient notes that he has been sleeping in his car for the past two weeks. He denies chills and he denies fevers. His white blood cell count yesterday was 11.4. Sedimentation rate is 42. Blood cultures were repeated and the result shows no growth in 1 day. Thoracic MRI shows no acute abnormality at the thoracic spine level. Lumbar MRI shows persistent and modestly worsening of osteomyelitis of L4, L5 and focally of S1 vertebral bodies and there is worsened endplate destruction of L4 and L5 and there is also increased fluid collection within the central part of the residual L4/L5 disk compatible with abscesses. The patient was seen by Neurosurgery. There is not yet a disposition for neurosurgical plan of action. He states that whenever he moves he gets very bad pain in the lower back. He has been started back on IV antibiotics. This consultation is requested for infection management. The patient states that the pain sometimes radiates down his legs. He denies urinary incontinence. He has no loss of bowel function. PAST MEDICAL HISTORY 1. Epidural abscess and diskitis of the lumbar spine beginning June 2016. 2. Bacteremia due to MSSA. 3. L4-L5 laminectomy for evacuation of epidural abscess. 4. Chronic low back pain. 5. Thoracotomy for pneumothorax in 1995. 6. Anxiety disorder. ALLERGIES PENICILLIN. MEDICATIONS 1. Vancomycin. 2. Aztreonam. 3. Morphine sulfate p.r.n. 4. Dulcolax. SOCIAL HISTORY The patient is a former IV drug user. He denies IV drug use in 2 months. He smokes half-a-pack of cigarettes a day. No alcohol use. FAMILY HISTORY Noncontributory. REVIEW OF SYSTEMS Negative except for severe back pain and occasional dizziness which he says is brought on by the back pain. Otherwise, 10-point review is negative. PHYSICAL EXAMINATION GENERAL: This is a slender male who is in no acute distress. He is awake and alert and oriented. VITAL SIGNS: Temperature 99.2, BP 122/65, respirations 16, heart rate 86. HEENT: The head is atraumatic. Extraocular movements grossly intact. Pupils reactive to light. No icterus. Nose has an excoriated lesion at the tip and redness around the tip of the nose. Oropharynx - no visible lesions. NECK: Supple. No swelling. No adenopathy. LUNGS: Clear. Decreased breath sounds. HEART: Regular rate and rhythm. No audible murmurs or rubs or gallops. ABDOMEN: Bowel sounds present, flat, soft. No tenderness appreciated. BACK: Tenderness of the lower back. RECTAL: Not performed. EXTREMITIES: No clubbing, cyanosis or edema. Multiple punctate, erythematous, dried lesions at the hands and scattered over the right tibia and there is one on the left tibia. No splinter hemorrhages visible. No clubbing or cyanosis or edema. SKIN: No diffuse rash. NEURO: Unable to fully assess because of pain but the patient is weak in the lower extremities. PSYCH: The patient is calm and cooperative. LABORATORY DATA Last WBC 9.5, platelets 206, hemoglobin 10.9, 74% neutrophils, 10% monocytes. Sedimentation rate 42. Creatinine 0.63, BUN 16, sodium 138. IMPRESSION 1. Osteomyelitis of the lumbar spine at L4-L5 region with endplate destruction. 2. Lumbar abscesses suggested by the MRI of the lumbar spine. 3. History of IV drug use (the patient denies use of IV drugs over the past 2 months). 4. History of lumbar epidural abscess along with diskitis and history of laminectomy at L4-L5 with debridement of abscess in June of 2016 due to MSSA. RECOMMENDATIONS 1. Continue vancomycin. 2. Continue aztreonam. 3. Monitor the blood cultures. 4. Await disposition of Neurosurgery. The patient may require additional surgery. Thank you this consultation. The patient's progress will be monitored and further recommendations will be given upon followup. Brennan Russell MD FD/CHRISTOPHER /6:11 PM /7:29 AM
[2016-11-02] MEDS: SODIUM CHLOR 0.9% 1000 ML INJ 1,000 ML IV SCH ×2 (09:35→17:58)
[2016-11-02] MEDS: MORPHINE SULFATE 4 MG/ML INJ IV PRN ×4 (09:36→23:40)
[2016-11-02] MEDS: SODIUM CHLORIDE 0.9% FLUSH 5 ML FLUSH FLUSH SCH ×2 (09:37→23:39)
[2016-11-02] MEDS ORDERED: PHARMACY ORDERED LAB XX ONE (09:45)
[2016-11-02 11:42] LABS: AUTOMATED NEUTROPHIL # 6.1 TH/MM3 (1.8-7.7); BASOPHIL % 0.3 % (0.0-2.0); EOSINOPHIL # 0.1 TH/MM3 (0-0.4); EOSINOPHIL % 1.4 % (0.0-4.0); HEMATOCRIT 31.6 % (39.0-51.0); HEMO FLAGS DIFF FINAL; LYMPH % 16.9 % (9.0-44.0); LYMPHOCYTE # 1.4 TH/MM3 (1.0-4.8); MEAN CELL VOLUME 82.3 FL (80.0-100.0); MEAN CORPUSCULAR HEMOGLOBIN 26.9 PG (27.0-34.0); MEAN CORPUSCULAR HGB CONC 32.7 % (32.0-36.0); MONO % 10.8 % (0.0-8.0); NEUT % 70.6 % (16.0-70.0); PLATELET COUNT 203 TH/MM3 (150-450); RED BLOOD COUNT 3.84 MIL/MM3 (4.50-5.90); RED CELL DISTRIBUTION WIDTH 17.9 % (11.6-17.2); WHITE BLOOD COUNT 8.6 TH/MM3 (4.0-11.0)
[2016-11-02 12:14] LABS: ALT (GPT) 13 U/L (12-78); ANION GAP 6 MEQ/L (5-15); AST (GOT) 8 U/L (15-37); BICARBONATE 27.3 MEQ/L (21.0-32.0); BLOOD UREA NITROGEN 9 MG/DL (7-18); CHLORIDE 107 MEQ/L (98-107); GLOMERULAR FILTRATION RATE 124 ML/MIN (>89); POTASSIUM 3.3 MEQ/L (3.5-5.1); SODIUM (NA) 140 MEQ/L (136-145)
[2016-11-02 12:15] LABS: ALKALINE PHOSPHATASE 58 U/L (45-117); TOTAL BILIRUBIN ADULT 0.4 MG/DL (0.2-1.0)
[2016-11-02] MEDS: VANCOMYCIN INJ 1,250 MG in SODIUM CHLOR 0.9% 250 ML INJ 250 ML IV SCH ×2 (13:42→17:57)
--- NOTE | 2016-11-02 18:11 | HHI.IDPN ---
Note Infectious Disease Note Patient complains of back pain. Says he feels hot. Notes he can hardly move because of the pain. Had Temp last night. PAST MEDICAL HISTORY 1. Epidural abscess and diskitis of the lumbar spine beginning June 2016. Retreated early Oct, 2016. 2. Bacteremia due to MSSA. 3. L4-L5 laminectomy for evacuation of epidural abscess. 4. Chronic low back pain. 5. Thoracotomy for pneumothorax in 1995. 6. Anxiety disorder. ALLERGIES PENICILLIN. ANTIBIOTICS: 1. Vancomycin. 2. Aztreonam. SOCIAL HISTORY The patient is a former IV drug user. He denies IV drug use in 2 months. He smokes half-a-pack of cigarettes a day. No alcohol use. OBJ: Vital Signs Date Time Temp Pulse Resp B/P Pulse Ox O2 Delivery O2 Flow Rate FiO2 11/02/16 16:00 97.8 70 18 118/66 96 11/02/16 13:50 18 11/02/16 12:00 97.1 78 18 112/63 99 11/02/16 08:00 97.3 76 19 117/63 98 11/02/16 06:20 98.4 70 20 112/60 98 11/02/16 00:00 101.6 89 20 111/60 98 11/01/16 21:00 101.1 97 20 123/57 98 11/01/16 11/01/16 11/02/16 15:00 23:00 07:00 Intake Total 1830 ml Output Total 300 ml Balance 1830 ml -300 ml IV Total 1830 ml Output Urine Total 300 ml # Bowel Movements 0 Laboratory Tests Test 10/31/16 11/01/16 11/02/16 21:00 10:11 11:20 White Blood Count 11.4 TH/MM3 9.5 TH/MM3 8.6 TH/MM3 Red Blood Count 4.67 MIL/MM3 4.00 MIL/MM3 3.84 MIL/MM3 Hemoglobin 12.5 GM/DL 10.9 GM/DL 10.3 GM/DL Hematocrit 38.4 % 32.4 % 31.6 % Mean Corpuscular Volume 82.2 FL 81.0 FL 82.3 FL Mean Corpuscular Hemoglobin 26.8 PG 27.3 PG 26.9 PG Mean Corpuscular Hemoglobin 32.5 % 33.8 % 32.7 % Concent Red Cell Distribution Width 17.1 % 17.8 % 17.9 % Platelet Count 279 TH/MM3 206 TH/MM3 203 TH/MM3 Mean Platelet Volume 8.4 FL 8.2 FL 8.3 FL Neutrophils (%) (Auto) 78.7 % 74.6 % 70.6 % Lymphocytes (%) (Auto) 10.3 % 12.5 % 16.9 % Monocytes (%) (Auto) 8.9 % 10.9 % 10.8 % Eosinophils (%) (Auto) 1.6 % 1.8 % 1.4 % Basophils (%) (Auto) 0.5 % 0.2 % 0.3 % Neutrophils # (Auto) 8.9 TH/MM3 7.1 TH/MM3 6.1 TH/MM3 Lymphocytes # (Auto) 1.2 TH/MM3 1.2 TH/MM3 1.4 TH/MM3 Monocytes # (Auto) 1.0 TH/MM3 1.0 TH/MM3 0.9 TH/MM3 Eosinophils # (Auto) 0.2 TH/MM3 0.2 TH/MM3 0.1 TH/MM3 Basophils # (Auto) 0.1 TH/MM3 0.0 TH/MM3 0.0 TH/MM3 CBC Comment DIFF FINAL DIFF FINAL DIFF FINAL Differential Comment Erythrocyte Sedimentation Rate 42 mm/hr Laboratory Tests Test 10/31/16 11/01/16 11/02/16 21:00 10:11 11:20 Sodium Level 138 MEQ/L 138 MEQ/L 140 MEQ/L Potassium Level 3.5 MEQ/L 3.4 MEQ/L 3.3 MEQ/L Chloride Level 103 MEQ/L 104 MEQ/L 107 MEQ/L Carbon Dioxide Level 26.0 MEQ/L 25.2 MEQ/L 27.3 MEQ/L Anion Gap 9 MEQ/L 9 MEQ/L 6 MEQ/L Blood Urea Nitrogen 24 MG/DL 16 MG/DL 9 MG/DL Creatinine 0.68 MG/DL 0.63 MG/DL 0.70 MG/DL Estimat Glomerular Filtration 128 ML/MIN 140 ML/MIN 124 ML/MIN Rate Random Glucose 96 MG/DL 146 MG/DL 200 MG/DL Lactic Acid Level 0.9 mmol/L Calcium Level 9.4 MG/DL 8.4 MG/DL 8.1 MG/DL Total Bilirubin 0.6 MG/DL 0.5 MG/DL 0.4 MG/DL Aspartate Amino Transf 24 U/L 14 U/L 8 U/L (AST/SGOT) Alanine Aminotransferase 25 U/L 19 U/L 13 U/L (ALT/SGPT) Alkaline Phosphatase 90 U/L 68 U/L 58 U/L Total Protein 9.0 GM/DL 7.0 GM/DL 6.3 GM/DL Albumin 3.9 GM/DL 3.1 GM/DL 2.5 GM/DL Microbiology Date/Time Procedure Status Source Growth 10/31/16 21:00 Aerobic Blood Culture - Preliminary Resulted Blood Peripheral NO GROWTH IN 2 DAYS 10/31/16 21:00 Anaerobic Blood Culture - Preliminary Resulted Blood Peripheral NO GROWTH IN 2 DAYS 10/31/16 21:06 Aerobic Blood Culture - Preliminary Resulted Blood Peripheral NO GROWTH IN 2 DAYS 10/31/16 21:06 Anaerobic Blood Culture - Preliminary Resulted Blood Peripheral NO GROWTH IN 2 DAYS PHYSICAL EXAMINATION GENERAL: No acute distress. He is awake and alert and oriented. Experienced pain when he moved in bed. HEENT: No icterus. Nose has an excoriated lesion at the tip and redness around the tip of the nose. Oropharynx - no visible lesions. NECK: Supple. No swelling. No adenopathy. LUNGS: Decreased breath sounds. HEART: Regular rate and rhythm. No audible murmurs or rubs or gallops. ABDOMEN: Bowel sounds present, flat, soft. No tenderness appreciated. BACK: Tenderness of the lower back. No areas of induration or swelling or redness. EXTREMITIES: No clubbing, cyanosis or edema. Excoriated dried lesions at the hands and scattered over the right tibia and there is one on the left tibia. No clubbing or cyanosis or edema. SKIN: No diffuse rash. NEURO: Unable to fully assess because of pain but the patient is weak in the lower extremities. PSYCH: The patient is calm and cooperative. IMPRESSION 1. Osteomyelitis of the lumbar spine at L4-L5 region with endplate destruction. Elevated sed rate, Fever. 2. Lumbar abscesses suggested by the MRI of the lumbar spine. RECOMMENDATIONS 1. Continue vancomycin. 2. Continue aztreonam. 3. Monitor the blood cultures. Difficult treatment decision if blood culture remain negative. Reculture if temp spikes again. Ren Senior MD Nov 02, 2016 18:11
--- NOTE | 2016-11-02 19:32 | HHI.PR ---
Subjective Remarks Deferred entry patient seen earlier at around 3:15 PM. Patient states had fevers and chills last night with a MAXIMUM TEMPERATURE of 101.6 Hemoglobin dropped from 10.9. WBC trending down Patient states feels lousy Patient denies diarrhea, rash Potassium low Objective Vitals Vital Signs Date Time Temp Pulse Resp B/P Pulse Ox O2 Delivery O2 Flow Rate FiO2 11/02/16 18:04 16 11/02/16 16:00 97.8 70 18 118/66 96 11/02/16 12:00 97.1 78 18 112/63 99 11/02/16 08:00 97.3 76 19 117/63 98 11/02/16 06:20 98.4 70 20 112/60 98 11/02/16 00:00 101.6 89 20 111/60 98 11/01/16 21:00 101.1 97 20 123/57 98 I/O 11/01/16 11/01/16 11/01/16 11/02/16 11/02/16 11/02/16 07:00 15:00 23:00 07:00 15:00 23:00 Intake Total 924 ml 1830 ml 480 ml Output Total 300 ml 500 ml Balance 924 ml 1830 ml -300 ml -20 ml Intake Oral 340 ml 480 ml IV Total 584 ml 1830 ml Output Urine Total 300 ml 500 ml # Bowel Movements 0 0 Result Diagram: 11/02/16 1120 11/02/16 1120 Imaging Last Impressions Thoracic Spine MRI 10/31/16 0000 Signed Impressions: Service Date/Time: Monday, October 31, 2016 22:32 - CONCLUSION: No acute abnormality demonstrated of the thoracic spine. Mild disc centered degenerative changes are again noted at several mid to lower thoracic levels. Fabian Faustin MD Lumbar Spine MRI 10/31/16 0000 Signed Impressions: Service Date/Time: Monday, October 31, 2016 22:32 - CONCLUSION: 1. Persistent and modestly worsening osteomyelitis of L4, L5 and focally of the S1 vertebral bodies. There is worsening endplate destruction of L4 and L5. 2. Increased fluid collection within the central part of the residual L4/L5 disc and with scattered fluid collections anterior and lateral to the disc compatible with abscesses. 3. There is persistent epidural enhancement without abscess in the epidural space at L4/L5, actually improved in the interim. Fabian Faustin MD Chest X-Ray 10/31/16 0000 Signed Impressions: Service Date/Time: Monday, October 31, 2016 20:59 - CONCLUSION: The lungs are clear. Serge Squires MD Objective Remarks GENERAL: Well-nourished, well-developed middle-aged male patient in [facility]. SKIN: Warm and dry. No rash. Multiple healing scabs throughout hands and bilateral lower extremities. HEAD: Normocephalic. Atraumatic. EYES: Pupils equal and round. No scleral icterus. No injection or drainage. ENT: No nasal bleeding or discharge. Mucous membranes pink and moist. NECK: Supple. Trachea midline. CARDIOVASCULAR: Regular rate and rhythm. S1, S2 noted. No murmur appreciated. RESPIRATORY: No accessory muscle use. Clear to auscultation. Breath sounds equal bilaterally. GASTROINTESTINAL: Abdomen soft, non-tender, nondistended. Normoactive bowel sounds x4. MUSCULOSKELETAL: No obvious deformities. Extremities without clubbing, cyanosis , or edema. Diffuse lumbar tenderness to palpation, and low back pain elicited with range of motion of bilateral lower extremities. NEUROLOGICAL: Awake and alert. No obvious cranial nerve deficits. Motor grossly within normal limits. 5/5 muscle strength in bilateral upper extremities , 3/5 strength in bilateral lower extremities. Normal speech. PSYCHIATRIC: Appropriate mood and affect; insight and judgment normal. Medications and IVs Current Medications Medications (Trade) Dose Ordered Sig/Maria Esther Route Start Time Stop Time Status Last Admin Pharmacy Profile Note 0 ml @ 0 mls/hr UNSCH OTHER 11/01/16 01:15 Aztreonam 2000 mg/ Sodium Chloride 100 ml @ 200 mls/hr Q8H IV 11/01/16 08:00 11/02/16 16:10 (NS 1000 ml Inj) 1,000 ml @ 100 mls/hr Q10H IV 11/01/16 01:05 11/02/16 17:58 (NS Flush) 2 ml UNSCH PRN FLUSH 11/01/16 01:15 (NS Flush) 2 ml BID FLUSH 11/01/16 09:00 11/02/16 09:37 (Zofran Inj) 4 mg Q6H PRN IVP 11/01/16 01:15 (Dulcolax Supp) 10 mg DAILY PRN [facility] 11/01/16 01:15 (Tylenol) 650 mg Q6H PRN PO 11/01/16 01:15 11/02/16 00:38 ([place] 5-325 Mg) 1 tab Q4H PRN PO 11/01/16 01:15 11/02/16 00:38 Morphine Sulfate 2 mg 2 mg Q3H PRN IV 11/01/16 01:15 11/02/16 17:59 (Vancomycin Inj/ NS 250 ml Inj) 262.5 ml @ 262.5 mls/ hr Q8H IV 11/02/16 18:00 11/02/16 17:57 Miscellaneous Information SPECIFIC LAB TO BE DRAWN:VANCOMYCIN TROUGH DATE TO... ONCE ONCE XX 11/03/16 09:45 11/03/16 09:46 Urinary Catheter: No Vascular Central Line Catheter: No A/P Problem List: (1) Osteomyelitis of lumbar vertebra ICD Code: M46.26 Status: Acute Assessment and Plan 41-year-old male with history of IVDU, epidural abscess June 2016, anxiety , tobacco use, homelessness, presents with a four-day history of worsening back pain. Patient with history of hospitalization [id number] for epidural abscess/discitis/bacteremia, underwent I&D and discectomy with Dr. Alcantar. Another hospitalization Sep 2016 - 10/20/16 for discitis, no abscess, discharged on po Cipro/Keflex [id number]. Presents with worsening low back pain x4-5 days. 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 -WBC trending down 11.9 - 9.5 with slight left shift, afebrile, ESR mildly elevated at 42 -Blood cultures collected, NGTD -Continue with IV Vanco, IV Azactam -Consult infectious disease, discussed with Dr. Senior -Consult neurosurgery Dr. Alcantar -Pain control with [place] prn, IV morphine prn breakthrough pain Tobacco Use: counseled on cessation. Declined nicotine patch. Polysubstance Abuse/IVDU: patient denies using any drugs since Sep 2016 however UDS +opiates and amphetamines. Counseled again on cessation. Homeless: patient lives out of his truck. Case management consult. DVT Prophylaxis: teds/SCDs, hold off on chemical prophylaxis until evaluated by Bernard Kern MD Nov 02, 2016 19:32
[2016-11-03] MEDS: VANCOMYCIN INJ 1,250 MG in SODIUM CHLOR 0.9% 250 ML INJ 250 ML IV SCH ×3 (02:38→18:39)
[2016-11-03] MEDS: SODIUM CHLOR 0.9% 1000 ML INJ 1,000 ML IV SCH ×2 (02:39→08:58)
[2016-11-03 06:12] VITALS: BP 117/70; PULSE 65; RESP 20; TEMP 97.8; O2SAT 98
[2016-11-03] MEDS: AZTREONAM INJ 2,000 MG in SODIUM CHLORIDE 0.9% INJ 100 ML IV SCH ×3 (08:00→23:54)
[2016-11-03 08:37] LABS: AUTOMATED NEUTROPHIL # 4.3 TH/MM3 (1.8-7.7); BASOPHIL % 0.5 % (0.0-2.0); EOSINOPHIL # 0.3 TH/MM3 (0-0.4); EOSINOPHIL % 3.7 % (0.0-4.0); HEMATOCRIT 28.4 % (39.0-51.0); HEMO FLAGS DIFF FINAL; LYMPH % 24.9 % (9.0-44.0); LYMPHOCYTE # 1.8 TH/MM3 (1.0-4.8); MEAN CORPUSCULAR HEMOGLOBIN 26.9 PG (27.0-34.0); MEAN CORPUSCULAR HGB CONC 33.3 % (32.0-36.0); MONO % 10.7 % (0.0-8.0); NEUT % 60.2 % (16.0-70.0); PLATELET COUNT 215 TH/MM3 (150-450); RED BLOOD COUNT 3.51 MIL/MM3 (4.50-5.90); RED CELL DISTRIBUTION WIDTH 17.7 % (11.6-17.2); WHITE BLOOD COUNT 7.2 TH/MM3 (4.0-11.0)
[2016-11-03 08:59] VITALS: BP 112/67; PULSE 66; RESP 18; TEMP 97.5; O2SAT 98
[2016-11-03 09:02] LABS: ANION GAP 8 MEQ/L (5-15); AST (GOT) 7 U/L (15-37); BICARBONATE 26.1 MEQ/L (21.0-32.0); BLOOD UREA NITROGEN 7 MG/DL (7-18); CHLORIDE 108 MEQ/L (98-107); GLOMERULAR FILTRATION RATE 174 ML/MIN (>89); POTASSIUM 3.4 MEQ/L (3.5-5.1); SODIUM (NA) 142 MEQ/L (136-145)
[2016-11-03 09:05] LABS: ALKALINE PHOSPHATASE 54 U/L (45-117); ALT (GPT) 12 U/L (12-78); TOTAL BILIRUBIN ADULT 0.3 MG/DL (0.2-1.0)
[2016-11-03] MEDS: MORPHINE SULFATE 4 MG/ML INJ IV PRN ×5 (09:09→22:12)
[2016-11-03] MEDS: SODIUM CHLORIDE 0.9% FLUSH 5 ML FLUSH FLUSH SCH ×2 (09:09→21:00)
[2016-11-03 09:36] VITALS: O2SAT 97
[2016-11-03] MEDS ORDERED: PHARMACY ORDERED LAB XX ONE (09:45)
--- NOTE | 2016-11-03 11:18 | HHI.PR ---
Subjective Remarks Patient sleeping in bed Woke up to void Denied acute complain Objective Vitals Vital Signs Date Time Temp Pulse Resp B/P Pulse Ox O2 Delivery O2 Flow Rate FiO2 11/03/16 08:59 97.5 66 18 112/67 98 11/03/16 06:12 97.8 65 20 117/70 98 11/02/16 23:52 98.7 70 20 117/64 97 11/02/16 20:00 99.6 83 20 118/56 98 11/02/16 18:04 16 11/02/16 16:00 97.8 70 18 118/66 96 11/02/16 12:00 97.1 78 18 112/63 99 I/O 11/02/16 11/02/16 11/02/16 11/03/16 11/03/16 11/03/16 07:00 15:00 23:00 07:00 15:00 23:00 Intake Total 480 ml Output Total 300 ml 500 ml 700 ml Balance -300 ml -20 ml -700 ml Intake Oral 480 ml Output Urine Total 300 ml 500 ml 700 ml # Bowel Movements 0 0 0 Result Diagram: 11/03/16 0756 11/03/16 0756 Objective Remarks GENERAL: This is a well-nourished, well-developed patient, in no apparent distress. SKIN: No rashes, warm and dry HEAD: Atraumatic. Normocephalic. EYES: Pupils equal round and reactive. Extraocular motions intact. No scleral icterus. ENT: Nose without bleeding, or drainage, Airway patent. NECK: Trachea midline. Supple CARDIOVASCULAR: Regular rate and rhythm without murmurs, gallops, or rubs. RESPIRATORY: Fair air entry bilaterally. No wheezes, rales, or rhonchi. GASTROINTESTINAL: Abdomen soft, non-tender, nondistended. Positive bowel sounds MUSCULOSKELETAL: Extremities without clubbing, cyanosis, or edema. Pedal pulses appreciated NEUROLOGICAL: Awake and alert. Moves all extremity. Normal speech.no focal neurological deficit A/P Problem List: (1) Osteomyelitis of lumbar vertebra ICD Code: M46.26 Status: Acute Assessment and Plan 41-year-old male with history of IVDU, epidural abscess June 2016, anxiety , tobacco use, homelessness, presents with a four-day history of worsening back pain. Patient with history of hospitalization [id number] for epidural abscess/discitis/bacteremia, underwent I&D and discectomy with Dr. Alcantar. Another hospitalization Sep 2016 - 10/20/16 for discitis, no abscess, discharged on po Cipro/Keflex [id number]. Presents with worsening low back pain x4-5 days. 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 -WBC trending down 11.9 - 9.5 with slight left shift, afebrile, ESR mildly elevated at 42 -Blood cultures collected, NGTD -Continue with IV Vanco, IV Azactam -Appreciate infectious disease consultation >> follow blood culture, continue to be negative repeated with any spiking fever -Consult neurosurgery Dr. Alcantar -Pain control with [place] prn, IV morphine prn breakthrough pain Hypokalemia: Replace by mouth, BMP in a.m. Tobacco Use: counseled on cessation. Declined nicotine patch. Polysubstance Abuse/IVDU: patient denies using any drugs since Sep 2016 however UDS +opiates and amphetamines. Counseled again on cessation. Homeless: patient lives out of his truck. Case management consult. DVT Prophylaxis: teds/SCDs, hold off on chemical prophylaxis until evaluated by Luan Haynes MD Nov 03, 2016 11:18
[2016-11-03] MEDS ORDERED: POTASSIUM CHLORIDE 20 MEQ CONTROLLED RELEASE TAB PO ONE (12:00)
[2016-11-03 13:36] VITALS: BP 109/69; PULSE 67; RESP 18; TEMP 96.5; O2SAT 99
[2016-11-03 17:08] VITALS: BP 127/69; PULSE 68; RESP 18; TEMP 95.8; O2SAT 100
--- NOTE | 2016-11-03 18:04 | HHI.IDPN ---
Note Infectious Disease Note Patient complains of back pain. Still having difficulty getting out of bed because of pain. Temp lower. No chills. PAST MEDICAL HISTORY 1. Epidural abscess and diskitis of the lumbar spine beginning June 2016. Retreated early Oct, 2016. 2. Bacteremia due to MSSA. 3. L4-L5 laminectomy for evacuation of epidural abscess. 4. Chronic low back pain. 5. Thoracotomy for pneumothorax in 1995. 6. Anxiety disorder. ALLERGIES PENICILLIN. ANTIBIOTICS: 1. Vancomycin. 2. Aztreonam. SOCIAL HISTORY The patient is a former IV drug user. He denies IV drug use in 2 months. He smokes half-a-pack of cigarettes a day. No alcohol use. OBJ: Vital Signs Date Time Temp Pulse Resp B/P Pulse Ox O2 Delivery O2 Flow Rate FiO2 11/03/16 17:08 95.8 68 18 127/69 100 11/03/16 13:36 96.5 67 18 109/69 99 11/03/16 09:36 97 11/03/16 08:59 97.5 66 18 112/67 98 11/03/16 06:12 97.8 65 20 117/70 98 11/02/16 23:52 98.7 70 20 117/64 97 11/02/16 20:00 99.6 83 20 118/56 98 11/02/16 18:04 16 Vital Signs Date Time Temp Pulse Resp B/P Pulse Ox O2 Delivery O2 Flow Rate FiO2 11/02/16 16:00 97.8 70 18 118/66 96 11/02/16 13:50 18 11/02/16 12:00 97.1 78 18 112/63 99 11/02/16 08:00 97.3 76 19 117/63 98 11/02/16 06:20 98.4 70 20 112/60 98 11/02/16 00:00 101.6 89 20 111/60 98 11/01/16 21:00 101.1 97 20 123/57 98 11/02/16 11/02/16 11/03/16 15:00 23:00 07:00 Intake Total 480 ml Output Total 500 ml 700 ml Balance -20 ml -700 ml Intake Oral 480 ml Output Urine Total 500 ml 700 ml # Bowel Movements 0 0 Laboratory Tests Test 11/02/16 11/03/16 11:20 07:56 White Blood Count 8.6 TH/MM3 7.2 TH/MM3 Red Blood Count 3.84 MIL/MM3 3.51 MIL/MM3 Hemoglobin 10.3 GM/DL 9.5 GM/DL Hematocrit 31.6 % 28.4 % Mean Corpuscular Volume 82.3 FL 81.0 FL Mean Corpuscular Hemoglobin 26.9 PG 26.9 PG Mean Corpuscular Hemoglobin 32.7 % 33.3 % Concent Red Cell Distribution Width 17.9 % 17.7 % Platelet Count 203 TH/MM3 215 TH/MM3 Mean Platelet Volume 8.3 FL 8.2 FL Neutrophils (%) (Auto) 70.6 % 60.2 % Lymphocytes (%) (Auto) 16.9 % 24.9 % Monocytes (%) (Auto) 10.8 % 10.7 % Eosinophils (%) (Auto) 1.4 % 3.7 % Basophils (%) (Auto) 0.3 % 0.5 % Neutrophils # (Auto) 6.1 TH/MM3 4.3 TH/MM3 Lymphocytes # (Auto) 1.4 TH/MM3 1.8 TH/MM3 Monocytes # (Auto) 0.9 TH/MM3 0.8 TH/MM3 Eosinophils # (Auto) 0.1 TH/MM3 0.3 TH/MM3 Basophils # (Auto) 0.0 TH/MM3 0.0 TH/MM3 CBC Comment DIFF FINAL DIFF FINAL Differential Comment Laboratory Tests Test 11/02/16 11/03/16 11:20 07:56 Sodium Level 140 MEQ/L 142 MEQ/L Potassium Level 3.3 MEQ/L 3.4 MEQ/L Chloride Level 107 MEQ/L 108 MEQ/L Carbon Dioxide Level 27.3 MEQ/L 26.1 MEQ/L Anion Gap 6 MEQ/L 8 MEQ/L Blood Urea Nitrogen 9 MG/DL 7 MG/DL Creatinine 0.70 MG/DL 0.52 MG/DL Estimat Glomerular Filtration 124 ML/MIN 174 ML/MIN Rate Random Glucose 200 MG/DL 102 MG/DL Calcium Level 8.1 MG/DL 8.0 MG/DL Total Bilirubin 0.4 MG/DL 0.3 MG/DL Aspartate Amino Transf 8 U/L 7 U/L (AST/SGOT) Alanine Aminotransferase 13 U/L 12 U/L (ALT/SGPT) Alkaline Phosphatase 58 U/L 54 U/L Total Protein 6.3 GM/DL 6.0 GM/DL Albumin 2.5 GM/DL 2.2 GM/DL Microbiology Date/Time Procedure Status Source Growth 10/31/16 21:00 Aerobic Blood Culture - Preliminary Resulted Blood Peripheral NO GROWTH IN 3 DAYS 10/31/16 21:00 Anaerobic Blood Culture - Preliminary Resulted Blood Peripheral NO GROWTH IN 3 DAYS 10/31/16 21:06 Aerobic Blood Culture - Preliminary Resulted Blood Peripheral NO GROWTH IN 3 DAYS 10/31/16 21:06 Anaerobic Blood Culture - Preliminary Resulted Blood Peripheral NO GROWTH IN 3 DAYS PHYSICAL EXAMINATION GENERAL: No acute distress. He is awake and alert and oriented. Having pain when he moved in bed. HEENT: No icterus. Nose has an excoriated lesion at the tip and redness around the tip of the nose. Oropharynx - no visible lesions. NECK: Supple. No swelling. No adenopathy. LUNGS: Decreased breath sound bilateral. HEART: Regular rate and rhythm. No audible murmurs or rubs or gallops. ABDOMEN: Bowel sounds present, flat, soft. No tenderness appreciated. BACK: Tenderness of the lower back. No areas of induration or swelling or redness. EXTREMITIES: No clubbing, cyanosis or edema. Excoriated dried lesions at the hands and scattered over the right tibia and there is one on the left tibia. No clubbing or cyanosis or edema. SKIN: No diffuse rash. NEURO: Weak in the lower extremities. PSYCH: The patient is calm and cooperative. IMPRESSION 1. Osteomyelitis of the lumbar spine at L4-L5 region with endplate destruction. Elevated sed rate, Fever. 2. Lumbar abscesses suggested by the MRI of the lumbar spine. RECOMMENDATIONS 1. Continue vancomycin. 2. Continue aztreonam. 3. Monitor the blood cultures. Difficult treatment decision if blood culture remain negative. Reculture if temp spikes again. May need biopsy of the back to guide treatment. Given the degree of destruction on MRI he will need senior care antibiotics. Ren Senior MD Nov 03, 2016 18:04
[2016-11-03 20:00] VITALS: BP 126/61; PULSE 76; RESP 20; TEMP 98.7; O2SAT 98
[2016-11-04] VITALS: BP 121/60; PULSE 67; RESP 20; TEMP 97.5; O2SAT 97
[2016-11-04] MEDS: SODIUM CHLOR 0.9% 1000 ML INJ 1,000 ML IV SCH ×3 (00:25→09:16)
[2016-11-04] MEDS: VANCOMYCIN INJ 1,250 MG in SODIUM CHLOR 0.9% 250 ML INJ 250 ML IV SCH ×3 (02:02→18:41)
[2016-11-04 04:00] VITALS: BP 126/66; PULSE 64; RESP 20; TEMP 97.3; O2SAT 98
[2016-11-04] MEDS: MORPHINE SULFATE 4 MG/ML INJ IV PRN ×6 (05:22→21:30)
[2016-11-04 07:25] VITALS: BP 103/58; PULSE 58; RESP 18; TEMP 96.3; O2SAT 96
[2016-11-04] MEDS: SODIUM CHLORIDE 0.9% FLUSH 5 ML FLUSH FLUSH SCH ×2 (09:00→21:00)
[2016-11-04] MEDS: AZTREONAM INJ 2,000 MG in SODIUM CHLORIDE 0.9% INJ 100 ML IV SCH ×2 (09:10→17:08)
[2016-11-04 11:05] VITALS: BP 123/60; PULSE 60; RESP 18; TEMP 96.4; O2SAT 96
[2016-11-04] MEDS: MAGNESIUM SULFATE 1 GM PREMIX 100 ML IV SCH ×2 (12:00→15:00)
[2016-11-04 13:19] LABS: BICARBONATE 27.4 MEQ/L (21.0-32.0); POTASSIUM 3.9 MEQ/L (3.5-5.1)
--- NOTE | 2016-11-04 14:30 | HHI.PR ---
Subjective Remarks No fever or chills, continue to have active pain continue iv antibiotic, ID following Objective Vitals Vital Signs Date Time Temp Pulse Resp B/P Pulse Ox O2 Delivery O2 Flow Rate FiO2 11/04/16 11:05 96.4 60 18 123/60 96 11/04/16 07:25 96.3 58 18 103/58 96 11/04/16 05:27 16 11/04/16 04:00 97.3 64 20 126/66 98 11/04/16 00:00 97.5 67 20 121/60 97 11/03/16 20:00 98.7 76 20 126/61 98 11/03/16 18:13 21 11/03/16 17:08 95.8 68 18 127/69 100 I/O 11/03/16 11/03/16 11/03/16 11/04/16 11/04/16 11/04/16 07:00 15:00 23:00 07:00 15:00 23:00 Intake Total 240 ml 240 ml 120 ml Output Total 700 ml 1000 ml 400 ml Balance -700 ml 240 ml -760 ml -280 ml Intake Oral 240 ml 240 ml 120 ml Output Urine Total 700 ml 1000 ml 400 ml # Voids 2 # Bowel Movements 0 0 0 Result Diagram: 11/03/16 0756 11/04/16 1215 Objective Remarks GENERAL: This is a well-nourished, well-developed patient, in no apparent distress. SKIN: No rashes, warm and dry HEAD: Atraumatic. Normocephalic. EYES: Pupils equal round and reactive. Extraocular motions intact. No scleral icterus. ENT: Nose without bleeding, or drainage, Airway patent. NECK: Trachea midline. Supple CARDIOVASCULAR: Regular rate and rhythm without murmurs, gallops, or rubs. RESPIRATORY: Fair air entry bilaterally. No wheezes, rales, or rhonchi. GASTROINTESTINAL: Abdomen soft, non-tender, nondistended. Positive bowel sounds MUSCULOSKELETAL: Extremities without clubbing, cyanosis, or edema. Pedal pulses appreciated NEUROLOGICAL: Awake and alert. Moves all extremity. Normal speech.no focal neurological deficit A/P Problem List: (1) Osteomyelitis of lumbar vertebra ICD Code: M46.26 Status: Acute Assessment and Plan 41-year-old male with history of IVDU, epidural abscess June 2016, anxiety , tobacco use, homelessness, presents with a four-day history of worsening back pain. Patient with history of hospitalization [id number] for epidural abscess/discitis/bacteremia, underwent I&D and discectomy with Dr. Alcantar. Another hospitalization Sep 2016 - 10/20/16 for discitis, no abscess, discharged on po Cipro/Keflex [id number]. Presents with worsening low back pain x4-5 days. 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 -WBC trending down 11.9 - 9.5 with slight left shift, afebrile, ESR mildly elevated at 42 -Blood cultures collected, NGTD -Continue with IV Vanco, IV Azactam -Appreciate infectious disease consultation >> follow blood culture, continue to be negative repeated with any spiking fever, decision on biopsy per ID -Consulted neurosurgery Dr. Alcantar -Pain control with [place] prn, IV morphine prn breakthrough pain Hypokalemia and hypomagnesemia: Replace, repeat BMP in a.m. Tobacco Use: counseled on cessation. Declined nicotine patch. Polysubstance Abuse/IVDU: patient denies using any drugs since Sep 2016 however UDS +opiates and amphetamines. Counseled again on cessation. Homeless: patient lives out of his truck. Case management consult. DVT Prophylaxis: teds/SCDs, hold off on chemical prophylaxis until evaluated by Luan Haynes MD Nov 04, 2016 14:30
[2016-11-04 16:08] VITALS: BP 117/62; PULSE 59; RESP 18; TEMP 96.5; O2SAT 98
--- NOTE | 2016-11-04 17:41 | HHI.IDPN ---
Note Infectious Disease Note Patient complains of back pain still severe. Afebrile. PAST MEDICAL HISTORY 1. Epidural abscess and diskitis of the lumbar spine beginning June 2016. Retreated early Oct, 2016. 2. Bacteremia due to MSSA. 3. L4-L5 laminectomy for evacuation of epidural abscess. 4. Chronic low back pain. 5. Thoracotomy for pneumothorax in 1995. 6. Anxiety disorder. ALLERGIES PENICILLIN. ANTIBIOTICS: 1. Vancomycin. 2. Aztreonam. SOCIAL HISTORY The patient is a former IV drug user. He denies IV drug use in 2 months. He smokes half-a-pack of cigarettes a day. No alcohol use. OBJ: Vital Signs Date Time Temp Pulse Resp B/P Pulse Ox O2 Delivery O2 Flow Rate FiO2 11/04/16 16:08 96.5 59 18 117/62 98 11/04/16 11:05 96.4 60 18 123/60 96 11/04/16 07:25 96.3 58 18 103/58 96 11/04/16 05:27 16 11/04/16 04:00 97.3 64 20 126/66 98 11/04/16 00:00 97.5 67 20 121/60 97 11/03/16 20:00 98.7 76 20 126/61 98 11/03/16 18:13 21 11/03/16 11/03/16 11/04/16 15:00 23:00 07:00 Intake Total 240 ml 240 ml 120 ml Output Total 1000 ml 400 ml Balance 240 ml -760 ml -280 ml Intake Oral 240 ml 240 ml 120 ml Output Urine Total 1000 ml 400 ml # Voids 2 # Bowel Movements 0 0 Laboratory Tests Test 11/03/16 07:56 White Blood Count 7.2 TH/MM3 Red Blood Count 3.51 MIL/MM3 Hemoglobin 9.5 GM/DL Hematocrit 28.4 % Mean Corpuscular Volume 81.0 FL Mean Corpuscular Hemoglobin 26.9 PG Mean Corpuscular Hemoglobin 33.3 % Concent Red Cell Distribution Width 17.7 % Platelet Count 215 TH/MM3 Mean Platelet Volume 8.2 FL Neutrophils (%) (Auto) 60.2 % Lymphocytes (%) (Auto) 24.9 % Monocytes (%) (Auto) 10.7 % Eosinophils (%) (Auto) 3.7 % Basophils (%) (Auto) 0.5 % Neutrophils # (Auto) 4.3 TH/MM3 Lymphocytes # (Auto) 1.8 TH/MM3 Monocytes # (Auto) 0.8 TH/MM3 Eosinophils # (Auto) 0.3 TH/MM3 Basophils # (Auto) 0.0 TH/MM3 CBC Comment DIFF FINAL Differential Comment Laboratory Tests Test 11/03/16 11/04/16 07:56 12:15 Sodium Level 142 MEQ/L 141 MEQ/L Potassium Level 3.4 MEQ/L 3.9 MEQ/L Chloride Level 108 MEQ/L 106 MEQ/L Carbon Dioxide Level 26.1 MEQ/L 27.4 MEQ/L Anion Gap 8 MEQ/L 8 MEQ/L Blood Urea Nitrogen 7 MG/DL 7 MG/DL Creatinine 0.52 MG/DL 0.65 MG/DL Estimat Glomerular Filtration 174 ML/MIN 135 ML/MIN Rate Random Glucose 102 MG/DL 106 MG/DL Calcium Level 8.0 MG/DL 8.5 MG/DL Total Bilirubin 0.3 MG/DL Aspartate Amino Transf 7 U/L (AST/SGOT) Alanine Aminotransferase 12 U/L (ALT/SGPT) Alkaline Phosphatase 54 U/L Total Protein 6.0 GM/DL Albumin 2.2 GM/DL Magnesium Level 2.0 MG/DL Microbiology Date/Time Procedure Status Source Growth 10/31/16 21:00 Aerobic Blood Culture - Preliminary Resulted Blood Peripheral NO GROWTH IN 3 DAYS 10/31/16 21:00 Anaerobic Blood Culture - Preliminary Resulted Blood Peripheral NO GROWTH IN 3 DAYS 10/31/16 21:06 Aerobic Blood Culture - Preliminary Resulted Blood Peripheral NO GROWTH IN 3 DAYS 10/31/16 21:06 Anaerobic Blood Culture - Preliminary Resulted Blood Peripheral NO GROWTH IN 3 DAYS IMAGING: Thoracic Spine MRI 10/31/16 0000 Signed Impressions: Service Date/Time: Monday, October 31, 2016 22:32 - CONCLUSION: No acute abnormality demonstrated of the thoracic spine. Mild disc centered degenerative changes are again noted at several mid to lower thoracic levels. Fabian Faustin MD Lumbar Spine MRI 10/31/16 0000 Signed Impressions: Service Date/Time: Monday, October 31, 2016 22:32 - CONCLUSION: 1. Persistent and modestly worsening osteomyelitis of L4, L5 and focally of the S1 vertebral bodies. There is worsening endplate destruction of L4 and L5. 2. Increased fluid collection within the central part of the residual L4/L5 disc and with scattered fluid collections anterior and lateral to the disc compatible with abscesses. 3. There is persistent epidural enhancement without abscess in the epidural space at L4/L5, actually improved in the interim. Fabian Faustin MD Chest X-Ray 10/31/16 0000 Signed Impressions: Service Date/Time: Monday, October 31, 2016 20:59 - CONCLUSION: The lungs are clear. Serge Squires MD PHYSICAL EXAMINATION GENERAL: No acute distress. He is awake and alert and oriented. Having pain when he moved in bed. HEENT: No icterus. Nose has an excoriated lesion at the tip and redness around the tip of the nose. Oropharynx - no visible lesions. NECK: Supple. No swelling. No adenopathy. LUNGS: Decreased breath sound bilateral. HEART: Regular rate and rhythm. No audible murmurs or rubs or gallops. ABDOMEN: Bowel sounds present, flat, soft. No tenderness appreciated. BACK: Tenderness of the lower back. No areas of induration or swelling or redness. EXTREMITIES: No clubbing, cyanosis or edema. Excoriated dried lesions at the hands and scattered over the right tibia and there is one on the left tibia. No clubbing or cyanosis or edema. SKIN: No diffuse rash. NEURO: Weak in the lower extremities. PSYCH: The patient is calm and cooperative. IMPRESSION 1. Osteomyelitis of the lumbar spine at L4-L5 region with endplate destruction. Elevated sed rate, Fever. 2. Lumbar abscesses suggested by the MRI of the lumbar spine. RECOMMENDATIONS 1. Continue vancomycin. 2. Continue aztreonam. 3. Monitor the blood cultures. 4. Reconsult neurosurgery. Difficult treatment decision if blood culture remain negative. Reculture if temp spikes again. Consider biopsy of the back to guide treatment. Given the degree of destruction on MRI he will need shelter IV antibiotics since it appears that he failed previous antibiotic treatment. Ren Senior MD Nov 04, 2016 17:41
[2016-11-04 20:01] VITALS: BP 118/64; PULSE 57; RESP 18; TEMP 97.9; O2SAT 98
[2016-11-05] VITALS (7 sets, daily range): BP systolic 110–138; BP diastolic 62–71; PULSE 55–70; RESP 16–20; TEMP 97.1–98.1; O2SAT 96–99
[2016-11-05] MEDS: MORPHINE SULFATE 4 MG/ML INJ IV PRN ×7 (00:37→21:27)
[2016-11-05] MEDS: AZTREONAM INJ 2,000 MG in SODIUM CHLORIDE 0.9% INJ 100 ML IV SCH ×3 (00:37→14:50)
[2016-11-05] MEDS: VANCOMYCIN INJ 1,250 MG in SODIUM CHLOR 0.9% 250 ML INJ 250 ML IV SCH ×3 (02:26→21:31)
[2016-11-05] MEDS: SODIUM CHLOR 0.9% 1000 ML INJ 1,000 ML IV SCH ×2 (06:14→14:50)
[2016-11-05] MEDS: SODIUM CHLORIDE 0.9% FLUSH 5 ML FLUSH FLUSH SCH ×2 (08:35→21:00)
[2016-11-05] MEDS ORDERED: PHARMACY ORDERED LAB XX ONE (09:45)
--- NOTE | 2016-11-05 14:22 | HHI.PR ---
Subjective Remarks Back pain still at 7 out of 10, no fever, blood cultures still negative ID reconsulting neurosurgery possible vertebral biopsy Objective Vitals Vital Signs Date Time Temp Pulse Resp B/P Pulse Ox O2 Delivery O2 Flow Rate FiO2 11/05/16 12:00 97.1 60 20 118/68 99 11/05/16 11:41 16 11/05/16 10:05 96 21 11/05/16 08:00 97.6 59 18 112/64 98 11/05/16 05:09 97.1 57 16 110/64 97 11/05/16 00:05 98.1 63 18 120/62 97 11/04/16 20:01 97.9 57 18 118/64 98 11/04/16 16:08 96.5 59 18 117/62 98 I/O 11/04/16 11/04/16 11/04/16 11/05/16 11/05/16 11/05/16 06:59 14:59 22:59 06:59 14:59 22:59 Intake Total 120 ml 480 ml 240 ml Output Total 400 ml 750 ml 800 ml Balance -280 ml -270 ml -800 ml 240 ml Intake Oral 120 ml 480 ml 240 ml Output Urine Total 400 ml 750 ml 800 ml # Voids 1 # Bowel Movements 0 1 1 Result Diagram: 11/03/16 0756 11/05/16 0610 Objective Remarks GENERAL: This is a well-nourished, well-developed patient, in no apparent distress. SKIN: No rashes, warm and dry HEAD: Atraumatic. Normocephalic. EYES: Pupils equal round and reactive. Extraocular motions intact. No scleral icterus. ENT: Nose without bleeding, or drainage, Airway patent. NECK: Trachea midline. Supple CARDIOVASCULAR: Regular rate and rhythm without murmurs, gallops, or rubs. RESPIRATORY: Fair air entry bilaterally. No wheezes, rales, or rhonchi. GASTROINTESTINAL: Abdomen soft, non-tender, nondistended. Positive bowel sounds MUSCULOSKELETAL: Extremities without clubbing, cyanosis, or edema. Pedal pulses appreciated NEUROLOGICAL: Awake and alert. Moves all extremity. Normal speech.no focal neurological deficit A/P Problem List: (1) Osteomyelitis of lumbar vertebra ICD Code: M46.26 Status: Acute Assessment and Plan 11/05/16: No fever, back pain at 7 out of 10, appreciate ID help, reconsulting neurosurgery, possible need for vertebral biopsy, continue iv antibiotic A/P: 41-year-old male with history of IVDU, epidural abscess June 2016, anxiety , tobacco use, homelessness, presents with a four-day history of worsening back pain. Patient with history of hospitalization [id number] for epidural abscess/discitis/bacteremia, underwent I&D and discectomy with Dr. Alcantar. Another hospitalization Sep 2016 - 10/20/16 for discitis, no abscess, discharged on po Cipro/Keflex [id number]. Presents with worsening low back pain x4-5 days. 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 -WBC trending down 11.9 - 9.5 with slight left shift, afebrile, ESR mildly elevated at 42 -Blood cultures collected, NGTD -Continue with IV Vanco, IV Azactam -Appreciate infectious disease consultation >> follow blood culture, continue to be negative repeated with any spiking fever, decision on biopsy per ID -Consulted neurosurgery Dr. Alcantar -Pain control with [place] prn, IV morphine prn breakthrough pain Hypokalemia and hypomagnesemia: Replace, repeat BMP in a.m. Tobacco Use: counseled on cessation. Declined nicotine patch. Polysubstance Abuse/IVDU: patient denies using any drugs since Sep 2016 however UDS +opiates and amphetamines. Counseled again on cessation. Homeless: patient lives out of his truck. Case management consult. DVT Prophylaxis: teds/SCDs, hold off on chemical prophylaxis until evaluated by Luan Haynes MD Nov 05, 2016 14:22
--- NOTE | 2016-11-05 16:19 | HHI.IDPN ---
Note Infectious Disease Note Patient complains of back pain still severe. No change in character. Afebrile. Denies chills. Reconsulted neurosurgery. PAST MEDICAL HISTORY 1. Epidural abscess and diskitis of the lumbar spine beginning June 2016. Retreated early Oct, 2016. 2. Bacteremia due to MSSA. 3. L4-L5 laminectomy for evacuation of epidural abscess. 4. Chronic low back pain. 5. Thoracotomy for pneumothorax in 1995. 6. Anxiety disorder. ALLERGIES PENICILLIN. ANTIBIOTICS: 1. Vancomycin. 2. Aztreonam. SOCIAL HISTORY The patient is a former IV drug user. He denies IV drug use in 2 months. He smokes half-a-pack of cigarettes a day. No alcohol use. OBJ: Vital Signs Date Time Temp Pulse Resp B/P Pulse Ox O2 Delivery O2 Flow Rate FiO2 11/05/16 14:55 18 11/05/16 12:00 97.1 60 20 118/68 99 11/05/16 10:05 96 21 11/05/16 08:00 97.6 59 18 112/64 98 11/05/16 05:09 97.1 57 16 110/64 97 11/05/16 00:05 98.1 63 18 120/62 97 11/04/16 20:01 97.9 57 18 118/64 98 11/04/16 11/04/16 11/05/16 15:00 23:00 07:00 Intake Total 480 ml 240 ml Output Total 750 ml 800 ml Balance -270 ml -800 ml 240 ml Intake Oral 480 ml 240 ml Output Urine Total 750 ml 800 ml # Voids 1 # Bowel Movements 1 1 Laboratory Tests Test 11/05/16 06:10 Erythrocyte Sedimentation Rate 61 mm/hr IMAGING: Thoracic Spine MRI 10/31/16 0000 Signed Impressions: Service Date/Time: Monday, October 31, 2016 22:32 - CONCLUSION: No acute abnormality demonstrated of the thoracic spine. Mild disc centered degenerative changes are again noted at several mid to lower thoracic levels. Fabian Faustin MD Lumbar Spine MRI 10/31/16 0000 Signed Impressions: Service Date/Time: Monday, October 31, 2016 22:32 - CONCLUSION: 1. Persistent and modestly worsening osteomyelitis of L4, L5 and focally of the S1 vertebral bodies. There is worsening endplate destruction of L4 and L5. 2. Increased fluid collection within the central part of the residual L4/L5 disc and with scattered fluid collections anterior and lateral to the disc compatible with abscesses. 3. There is persistent epidural enhancement without abscess in the epidural space at L4/L5, actually improved in the interim. Fabian Faustin MD Chest X-Ray 10/31/16 0000 Signed Impressions: Service Date/Time: Monday, October 31, 2016 20:59 - CONCLUSION: The lungs are clear. Serge Squires MD PHYSICAL EXAMINATION GENERAL: No acute distress. He is awake and alert and oriented. Having pain when he moved in bed. HEENT: No icterus. Nose has an excoriated lesion at the tip and redness around the tip of the nose. Oropharynx - no visible lesions. NECK: Supple. No swelling. No adenopathy. LUNGS: Decreased breath sound bilateral. HEART: Regular rate and rhythm. No audible murmurs or rubs or gallops. ABDOMEN: Bowel sounds present, flat, soft. No tenderness appreciated. BACK: Tenderness of the lower back. No areas of induration or swelling or redness. Pain on straight leg raising. EXTREMITIES: No clubbing, cyanosis or edema. Excoriated dried lesions at the hands and scattered over the right tibia and there is one on the left tibia. No clubbing or cyanosis or edema. SKIN: No diffuse rash. NEURO: Weakness in the lower extremities. PSYCH: The patient is calm and cooperative. IMPRESSION 1. Osteomyelitis of the lumbar spine at L4-L5 region with endplate destruction. Elevated sed rate, Fever. 2. Lumbar abscesses suggested by the MRI of the lumbar spine. RECOMMENDATIONS 1. Continue vancomycin. 2. Continue aztreonam. 3. Monitor the blood cultures. Difficult treatment decision if blood culture remain negative. Reculture if temp spikes again. Consider biopsy of the back to guide treatment. Given the degree of destruction on MRI he will need assisted IV antibiotics since it appears that he failed previous antibiotic treatment. Ren Senior MD Nov 05, 2016 16:19
[2016-11-06 00:18] VITALS: BP 130/71; PULSE 52; RESP 17; TEMP 97.1; O2SAT 98
[2016-11-06] MEDS: SODIUM CHLORIDE 0.9% FLUSH 5 ML FLUSH FLUSH PRN (01:07)
[2016-11-06] MEDS: AZTREONAM INJ 2,000 MG in SODIUM CHLORIDE 0.9% INJ 100 ML IV SCH ×4 (01:07→23:41)
[2016-11-06] MEDS: MORPHINE SULFATE 4 MG/ML INJ IV PRN ×6 (01:08→23:40)
[2016-11-06] MEDS: SODIUM CHLOR 0.9% 1000 ML INJ 1,000 ML IV SCH ×3 (01:16→21:05)
[2016-11-06 04:33] VITALS: BP 115/73; PULSE 57; RESP 18; TEMP 97.9; O2SAT 98
[2016-11-06 08:00] VITALS: BP 112/68; PULSE 58; RESP 20; TEMP 97.6; O2SAT 99
[2016-11-06] MEDS: SODIUM CHLORIDE 0.9% FLUSH 5 ML FLUSH FLUSH SCH ×2 (09:10→21:00)
[2016-11-06] MEDS: VANCOMYCIN INJ 1,250 MG in SODIUM CHLOR 0.9% 250 ML INJ 250 ML IV SCH ×2 (10:14→21:06)
[2016-11-06 12:00] VITALS: BP 108/68; PULSE 67; RESP 20; TEMP 97.1; O2SAT 94
--- NOTE | 2016-11-06 12:27 | HHI.PR ---
Subjective Remarks Patient looks comfortable sleeping in bed when I entered the room however when I asked him about his pain he said it 7 out of 10 No fever or chills, awaiting neurosurgery reconsult for possible vertebral biopsy Objective Vitals Vital Signs Date Time Temp Pulse Resp B/P Pulse Ox O2 Delivery O2 Flow Rate FiO2 11/06/16 08:00 97.6 58 20 112/68 99 11/06/16 04:33 97.9 57 18 115/73 98 11/06/16 01:35 16 11/06/16 00:18 97.1 52 17 130/71 98 11/05/16 20:23 97.5 70 17 126/68 97 11/05/16 16:00 98.1 55 20 138/71 98 I/O 11/05/16 11/05/16 11/05/16 11/06/16 11/06/16 11/06/16 07:00 15:00 23:00 07:00 15:00 23:00 Intake Total 240 ml Output Total 1250 ml Balance 240 ml -1250 ml Intake Oral 240 ml Output Urine Total 1250 ml # Voids 1 1 # Bowel Movements 1 1 Result Diagram: 11/03/16 0756 11/05/16 0610 Objective Remarks GENERAL: This is a well-nourished, well-developed patient, in no apparent distress. SKIN: No rashes, warm and dry HEAD: Atraumatic. Normocephalic. EYES: Pupils equal round and reactive. Extraocular motions intact. No scleral icterus. ENT: Nose without bleeding, or drainage, Airway patent. NECK: Trachea midline. Supple CARDIOVASCULAR: Regular rate and rhythm without murmurs, gallops, or rubs. RESPIRATORY: Fair air entry bilaterally. No wheezes, rales, or rhonchi. GASTROINTESTINAL: Abdomen soft, non-tender, nondistended. Positive bowel sounds MUSCULOSKELETAL: Extremities without clubbing, cyanosis, or edema. Pedal pulses appreciated NEUROLOGICAL: Awake and alert. Moves all extremity. Normal speech.no focal neurological deficit A/P Problem List: (1) Osteomyelitis of lumbar vertebra ICD Code: M46.26 Status: Acute Assessment and Plan 11/05/16: No fever, back pain at 7 out of 10, appreciate ID help, reconsulting neurosurgery, possible need for vertebral biopsy, continue iv antibiotic 11/06/16: Still complaining of back pain 7 out of 10, continue iv antibiotic per ID, awaiting neurosurgery Eric reconsult A/P: 41-year-old male with history of IVDU, epidural abscess June 2016, anxiety , tobacco use, homelessness, presents with a four-day history of worsening back pain. Patient with history of hospitalization [id number] for epidural abscess/discitis/bacteremia, underwent I&D and discectomy with Dr. Alcantar. Another hospitalization Sep 2016 - 10/20/16 for discitis, no abscess, discharged on po Cipro/Keflex [id number]. Presents with worsening low back pain x4-5 days. 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 -WBC trending down 11.9 - 9.5 with slight left shift, afebrile, ESR mildly elevated at 42 -Blood cultures collected, NGTD -Continue with IV Vanco, IV Azactam -Appreciate infectious disease consultation >> follow blood culture, continue to be negative repeated with any spiking fever, decision on biopsy per ID -Consulted neurosurgery Dr. Alcantar -Pain control with [place] prn, IV morphine prn breakthrough pain Hypokalemia and hypomagnesemia: Replace, repeat BMP in a.m. Tobacco Use: counseled on cessation. Declined nicotine patch. Polysubstance Abuse/IVDU: patient denies using any drugs since Sep 2016 however UDS +opiates and amphetamines. Counseled again on cessation. Homeless: patient lives out of his truck. Case management consult. DVT Prophylaxis: teds/SCDs, hold off on chemical prophylaxis until evaluated by Luan Haynes MD Nov 06, 2016 12:27
[2016-11-06 16:00] VITALS: BP 104/64; PULSE 58; RESP 18; TEMP 97.6; O2SAT 100
[2016-11-06 20:41] VITALS: BP 136/72; PULSE 62; RESP 20; TEMP 98.5; O2SAT 99
[2016-11-06] MEDS: ACETAMINOPHEN/HYDROcodone 325 MG/5 MG TAB PO PRN (21:00)
[2016-11-06] MEDS: ONDANSETRON HCL 4 MG/2 ML VIAL IVP PRN (21:06)
[2016-11-07 00:03] VITALS: BP 117/68; PULSE 55; RESP 18; TEMP 96.9; O2SAT 99
[2016-11-07 03:17] VITALS: BP 117/65; PULSE 55; RESP 18; TEMP 97.7; O2SAT 96
[2016-11-07] MEDS: MORPHINE SULFATE 4 MG/ML INJ IV PRN ×5 (03:17→20:51)
[2016-11-07] MEDS: SODIUM CHLOR 0.9% 1000 ML INJ 1,000 ML IV SCH ×2 (06:18→16:15)
[2016-11-07] MEDS: SODIUM CHLORIDE 0.9% FLUSH 5 ML FLUSH FLUSH SCH ×2 (07:19→20:51)
[2016-11-07] MEDS: AZTREONAM INJ 2,000 MG in SODIUM CHLORIDE 0.9% INJ 100 ML IV SCH ×2 (07:19→16:14)
[2016-11-07 08:00] VITALS: BP 120/63; PULSE 51; RESP 18; TEMP 96; O2SAT 98
[2016-11-07] MEDS ORDERED: PHARMACY ORDERED LAB XX ONE (09:45)
[2016-11-07] MEDS: VANCOMYCIN INJ 1,250 MG in SODIUM CHLOR 0.9% 250 ML INJ 250 ML IV SCH (10:27)
[2016-11-07 12:00] VITALS: BP 125/63; PULSE 53; RESP 18; TEMP 97.5; O2SAT 99
[2016-11-07] MEDS: ACETAMINOPHEN 325 MG TAB PO PRN ×2 (12:20→18:26)
--- NOTE | 2016-11-07 15:13 | HHI.PR ---
Subjective Remarks Sleeping comfortably in bed, denied acute issue, as usual pain is around 6 out of 10 Still awaiting neurosurgery consult will re-place another one Objective Vitals Vital Signs Date Time Temp Pulse Resp B/P Pulse Ox O2 Delivery O2 Flow Rate FiO2 11/07/16 12:00 97.5 53 18 125/63 99 11/07/16 08:00 96.0 51 18 120/63 98 11/07/16 03:22 20 11/07/16 03:17 97.7 55 18 117/65 96 11/07/16 00:03 96.9 55 18 117/68 99 11/06/16 22:00 20 11/06/16 20:41 98.5 62 20 136/72 99 11/06/16 16:00 97.6 58 18 104/64 100 I/O 11/06/16 11/06/16 11/06/16 11/07/16 11/07/16 11/07/16 07:00 15:00 23:00 07:00 15:00 23:00 Intake Total 720 ml 360 ml 1437 ml 720 ml Output Total 1250 ml 1000 ml 450 ml 1000 ml Balance -1250 ml -280 ml -90 ml 1437 ml -280 ml Intake Oral 720 ml 360 ml 720 ml IV Total 1437 ml Output Urine Total 1250 ml 1000 ml 450 ml 1000 ml # Bowel Movements 0 Result Diagram: 11/03/16 0756 11/07/16 0904 Objective Remarks GENERAL: This is a well-nourished, well-developed patient, in no apparent distress. SKIN: No rashes, warm and dry HEAD: Atraumatic. Normocephalic. EYES: Pupils equal round and reactive. Extraocular motions intact. No scleral icterus. ENT: Nose without bleeding, or drainage, Airway patent. NECK: Trachea midline. Supple CARDIOVASCULAR: Regular rate and rhythm without murmurs, gallops, or rubs. RESPIRATORY: Fair air entry bilaterally. No wheezes, rales, or rhonchi. GASTROINTESTINAL: Abdomen soft, non-tender, nondistended. Positive bowel sounds MUSCULOSKELETAL: Extremities without clubbing, cyanosis, or edema. Pedal pulses appreciated NEUROLOGICAL: Awake and alert. Moves all extremity. Normal speech.no focal neurological deficit A/P Problem List: (1) Osteomyelitis of lumbar vertebra ICD Code: M46.26 Status: Acute Assessment and Plan 11/05/16: No fever, back pain at 7 out of 10, appreciate ID help, reconsulting neurosurgery, possible need for vertebral biopsy, continue iv antibiotic 11/06/16: Still complaining of back pain 7 out of 10, continue iv antibiotic per ID, awaiting neurosurgery Eric reconsult 11/07/16 still awaiting neurosurgery consult will place another one A/P: 41-year-old male with history of IVDU, epidural abscess June 2016, anxiety , tobacco use, homelessness, presents with a four-day history of worsening back pain. Patient with history of hospitalization [id number] for epidural abscess/discitis/bacteremia, underwent I&D and discectomy with Dr. Alcantar. Another hospitalization Sep 2016 - 10/20/16 for discitis, no abscess, discharged on po Cipro/Keflex [id number]. Presents with worsening low back pain x4-5 days. 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 -WBC trending down 11.9 - 9.5 with slight left shift, afebrile, ESR mildly elevated at 42 -Blood cultures collected, NGTD -Continue with IV Vanco, IV Azactam -Appreciate infectious disease consultation >> follow blood culture, continue to be negative repeated with any spiking fever, decision on biopsy per ID -Consulted neurosurgery Dr. Alcantar -Pain control with [place] prn, IV morphine prn breakthrough pain Hypokalemia and hypomagnesemia: Replace, repeat BMP in a.m. Tobacco Use: counseled on cessation. Declined nicotine patch. Polysubstance Abuse/IVDU: patient denies using any drugs since Sep 2016 however UDS +opiates and amphetamines. Counseled again on cessation. Homeless: patient lives out of his truck. Case management consult. DVT Prophylaxis: teds/SCDs, hold off on chemical prophylaxis until evaluated by Luan Haynes MD Nov 07, 2016 15:13
[2016-11-07 16:00] VITALS: BP 105/50; PULSE 55; RESP 18; TEMP 97.5; O2SAT 98
[2016-11-07 17:17] LABS: BASOPHIL # 0.1 TH/MM3 (0-0.2); BASOPHIL % 0.7 % (0.0-2.0); EOSINOPHIL # 0.4 TH/MM3 (0-0.4); EOSINOPHIL % 5.5 % (0.0-4.0); HEMATOCRIT 29.4 % (39.0-51.0); HEMO FLAGS DIFF FINAL; LYMPHOCYTE # 1.8 TH/MM3 (1.0-4.8); MEAN CELL VOLUME 80.9 FL (80.0-100.0); MEAN CORPUSCULAR HEMOGLOBIN 27.9 PG (27.0-34.0); MEAN CORPUSCULAR HGB CONC 34.4 % (32.0-36.0); MONO % 8.9 % (0.0-8.0); NEUT % 58.9 % (16.0-70.0); PLATELET COUNT 311 TH/MM3 (150-450); RED BLOOD COUNT 3.64 MIL/MM3 (4.50-5.90); RED CELL DISTRIBUTION WIDTH 17.4 % (11.6-17.2); WHITE BLOOD COUNT 6.8 TH/MM3 (4.0-11.0)
[2016-11-07] MEDS: ONDANSETRON HCL 4 MG/2 ML VIAL IVP PRN ×2 (18:09→23:18)
[2016-11-07 20:40] VITALS: BP 112/59; PULSE 67; RESP 20; TEMP 97.5; O2SAT 98
[2016-11-07] MEDS: VANCOMYCIN INJ 1,500 MG in SODIUM CHLORID 0.9% 500 ML INJ 500 ML IV SCH (22:36)
[2016-11-08] MEDS: AZTREONAM INJ 2,000 MG in SODIUM CHLORIDE 0.9% INJ 100 ML IV SCH ×3 (00:01→17:41)
[2016-11-08] MEDS: MORPHINE SULFATE 4 MG/ML INJ IV PRN ×7 (00:02→22:22)
[2016-11-08 00:33] VITALS: BP 136/64; PULSE 50; RESP 20; TEMP 95.5; O2SAT 98
[2016-11-08] MEDS: ACETAMINOPHEN 325 MG TAB PO PRN ×3 (02:26→17:50)
[2016-11-08] MEDS: SODIUM CHLOR 0.9% 1000 ML INJ 1,000 ML IV SCH ×3 (03:05→22:21)
[2016-11-08 05:15] VITALS: BP 113/63; PULSE 54; RESP 20; TEMP 96.7; O2SAT 99
[2016-11-08 08:06] LABS: AUTOMATED NEUTROPHIL # 3.2 TH/MM3 (1.8-7.7); BASOPHIL # 0.1 TH/MM3 (0-0.2); BASOPHIL % 1.1 % (0.0-2.0); EOSINOPHIL # 0.4 TH/MM3 (0-0.4); EOSINOPHIL % 6.7 % (0.0-4.0); HEMATOCRIT 30.3 % (39.0-51.0); HEMO FLAGS DIFF FINAL; LYMPH % 28.4 % (9.0-44.0); LYMPHOCYTE # 1.6 TH/MM3 (1.0-4.8); MEAN CELL VOLUME 81.2 FL (80.0-100.0); MEAN CORPUSCULAR HEMOGLOBIN 27.2 PG (27.0-34.0); MEAN CORPUSCULAR HGB CONC 33.5 % (32.0-36.0); MONO % 7.8 % (0.0-8.0); PLATELET COUNT 299 TH/MM3 (150-450); RED BLOOD COUNT 3.73 MIL/MM3 (4.50-5.90); RED CELL DISTRIBUTION WIDTH 17.4 % (11.6-17.2); WHITE BLOOD COUNT 5.7 TH/MM3 (4.0-11.0)
[2016-11-08 08:22] VITALS: BP 121/64; PULSE 54; RESP 18; TEMP 97.3; O2SAT 98
[2016-11-08] MEDS: SODIUM CHLORIDE 0.9% FLUSH 5 ML FLUSH FLUSH SCH ×2 (08:33→22:21)
[2016-11-08] MEDS: VANCOMYCIN INJ 1,500 MG in SODIUM CHLORID 0.9% 500 ML INJ 500 ML IV SCH ×2 (08:38→22:21)
[2016-11-08] MEDS ORDERED: PHARMACY ORDERED LAB XX ONE (09:45)
[2016-11-08 12:00] VITALS: BP 129/61; PULSE 62; RESP 18; TEMP 96.2; O2SAT 99
--- NOTE | 2016-11-08 15:57 | HHI.PR ---
Subjective Remarks Patient laying in bed still complaining of pain Hasn't been seen by neurosurgery, I called neurosurgery PA which told me they recommended CT-guided vertebral biopsy by IR I also discussed with ID will place the order Objective Vitals Vital Signs Date Time Temp Pulse Resp B/P Pulse Ox O2 Delivery O2 Flow Rate FiO2 11/08/16 12:00 96.2 62 18 129/61 99 11/08/16 08:22 97.3 54 18 121/64 98 11/08/16 05:15 96.7 54 20 113/63 99 11/08/16 00:33 95.5 50 20 136/64 98 11/07/16 20:40 97.5 67 20 112/59 98 11/07/16 16:00 97.5 55 18 105/50 98 I/O 11/07/16 11/07/16 11/07/16 11/08/16 11/08/16 11/08/16 07:00 15:00 23:00 07:00 15:00 23:00 Intake Total 1437 ml 720 ml 498 ml Output Total 1000 ml 1000 ml 600 ml Balance 1437 ml -280 ml -1000 ml -102 ml Intake Oral 720 ml IV Total 1437 ml 498 ml Output Urine Total 1000 ml 1000 ml 600 ml # Bowel Movements 0 Result Diagram: 11/08/16 0725 11/07/16 0904 Objective Remarks GENERAL: This is a well-nourished, well-developed patient, in no apparent distress. SKIN: No rashes, warm and dry HEAD: Atraumatic. Normocephalic. EYES: Pupils equal round and reactive. Extraocular motions intact. No scleral icterus. ENT: Nose without bleeding, or drainage, Airway patent. NECK: Trachea midline. Supple CARDIOVASCULAR: Regular rate and rhythm without murmurs, gallops, or rubs. RESPIRATORY: Fair air entry bilaterally. No wheezes, rales, or rhonchi. GASTROINTESTINAL: Abdomen soft, non-tender, nondistended. Positive bowel sounds MUSCULOSKELETAL: Extremities without clubbing, cyanosis, or edema. Pedal pulses appreciated NEUROLOGICAL: Awake and alert. Moves all extremity. Normal speech.no focal neurological deficit A/P Problem List: (1) Osteomyelitis of lumbar vertebra ICD Code: M46.26 Status: Acute Assessment and Plan 11/05/16: No fever, back pain at 7 out of 10, appreciate ID help, reconsulting neurosurgery, possible need for vertebral biopsy, continue iv antibiotic 11/06/16: Still complaining of back pain 7 out of 10, continue iv antibiotic per ID, awaiting neurosurgery Eric reconsult 11/07/16 still awaiting neurosurgery consult will place another one 11/08/16: Discussed with ID and with neurosurgery, will place order for vertebral biopsy guided CT by IR A/P: 41-year-old male with history of IVDU, epidural abscess June 2016, anxiety , tobacco use, homelessness, presents with a four-day history of worsening back pain. Patient with history of hospitalization [id number] for epidural abscess/discitis/bacteremia, underwent I&D and discectomy with Dr. Alcantar. Another hospitalization Sep 2016 - 10/20/16 for discitis, no abscess, discharged on po Cipro/Keflex [id number]. Presents with worsening low back pain x4-5 days. 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 -WBC trending down 11.9 - 9.5 with slight left shift, afebrile, ESR mildly elevated at 42 -Blood cultures collected, NGTD -Continue with IV Vanco, IV Azactam -Appreciate infectious disease consultation >> follow blood culture, continue to be negative repeated with any spiking fever, decision on biopsy per ID -Consulted neurosurgery Dr. Alcantar -Pain control with [place] prn, IV morphine prn breakthrough pain Hypokalemia and hypomagnesemia: Replace, repeat BMP in a.m. Tobacco Use: counseled on cessation. Declined nicotine patch. Polysubstance Abuse/IVDU: patient denies using any drugs since Sep 2016 however UDS +opiates and amphetamines. Counseled again on cessation. Homeless: patient lives out of his truck. Case management consult. DVT Prophylaxis: teds/SCDs, hold off on chemical prophylaxis until evaluated by Luan Haynes MD Nov 08, 2016 15:57
[2016-11-08 16:00] VITALS: BP 128/65; PULSE 68; RESP 18; TEMP 98.4; O2SAT 97
[2016-11-08 20:00] VITALS: BP 121/59; PULSE 55; RESP 18; TEMP 98.7; O2SAT 98
[2016-11-09] VITALS (9 sets, daily range): BP systolic 115–153; BP diastolic 62–84; PULSE 53–79; RESP 17–20; TEMP 96.1–98.4; O2SAT 97–100
[2016-11-09] MEDS: MORPHINE SULFATE 4 MG/ML INJ IV PRN ×7 (01:35→23:32)
[2016-11-09] MEDS: SODIUM CHLORIDE 0.9% FLUSH 5 ML FLUSH FLUSH PRN (01:36)
[2016-11-09] MEDS: AZTREONAM INJ 2,000 MG in SODIUM CHLORIDE 0.9% INJ 100 ML IV SCH ×4 (01:53→23:30)
[2016-11-09] MEDS: ACETAMINOPHEN 325 MG TAB PO PRN ×2 (03:32→17:38)
[2016-11-09] MEDS: SODIUM CHLOR 0.9% 1000 ML INJ 1,000 ML IV SCH ×2 (08:49→19:05)
[2016-11-09] MEDS: SODIUM CHLORIDE 0.9% FLUSH 5 ML FLUSH FLUSH SCH ×2 (08:50→20:21)
[2016-11-09] MEDS ORDERED: fentaNYL CITRATE 250 MCG/5 ML AMP ONE (10:53)
[2016-11-09] MEDS ORDERED: MIDAZOLAM HCL 5 MG/5 ML VIAL ONE (10:53)
[2016-11-09] MEDS ORDERED: SODIUM BICARBONATE 8.4% INJ 50 ML ONE (11:02)
[2016-11-09] MEDS: VANCOMYCIN INJ 1,500 MG in SODIUM CHLORID 0.9% 500 ML INJ 500 ML IV SCH ×2 (12:55→23:30)
--- NOTE | 2016-11-09 14:51 | PD.RAD ---
Post Procedure Progress Note Pre Procedure Diagnosis: (1) Discitis of lumbar region (2) Back pain (3) Osteomyelitis of lumbar vertebra Post Procedure Diagnosis: Procedure Date: Nov 09, 2016 Supervising Radiologist: Kranthi Mejía Proceduralist/Assist: Fazal Mendiola, RT(R), Ekaterina Lopez RT(R)() Anesthesia: Local, Analgesia, Conscious Sedation Plan of Activity Patient to Unit: [facility] See PACS Report for procedural detail/treatment Spinal Procedure Disc Aspiration L4-L5 Fluid Removal (CCs): 1 Fluid Description: Bloody Puncture Time: 11:14 Kranthi Mejía MD Nov 09, 2016 14:51
--- NOTE | 2016-11-09 16:56 | RADRPT ---
EXAM DATE/TIME: 11/09/2016 11:06 [place] COMPARISON: No previous studies available for comparison. INDICATIONS : Patient is in need of a disc biopsy of L4/L5 due to discitis. MEDICAL HISTORY : History of IVDU, lumbar osteomyelitis, pneumothorax. SURGICAL HISTORY : History of I and D and discectomy, L4/L5 laminectomy, thoracostomy. ENCOUNTER: Initial ACUITY: 1 week PAIN SCORE: 7/10 LOCATION: lower back FLUORO TIME: 2.4 minutes SEDATION TIME: 20 minutes MEDICATION(S): 1.) 3 mg midazolam (Versed) IV 2.) 100 mcg fentanyl (Sublimaze) IV DEVICE(S): 1.) 22 gauge 5 inch spinal needle Core specimen(s) was obtained and submitted to laboratory for pathologic evaluation. PROCEDURE : 1. Fluoroscopically guided needle biopsy. 2. Conscious sedation with continuous EKG and Oximetry monitoring. The risks, benefits and alternatives to the procedure were explained and verbal and written consent w as obtained. The site was prepped in sterile fashion. Full sterile technique was used, including cap, mask, steri le gloves and gown and a large sterile sheet. Hand hygiene and 2% chlorhexidine and/or betadine/alco hol prep was utilized per protocol for cutaneous antisepsis. The skin and subcutaneous tissues were infiltrated with local anesthetic solution. With fluoroscopic guidance a 5 cm 22 gauge spinal needle was fluoroscopically guided into the L4-5 di sc interspace. Of note, there is partial sacralization of the L5 vertebral body bilaterally, right gr eater than left. Aspirations performed on the access needle and the aspirate was placed in a blacktop test tube for laboratory analysis. Conscious sedation was performed with the prescribed dosages and duration as above. EKG and oximetry remained stable throughout the procedure. CONCLUSION: Uncomplicated needle biopsy of the L4-5 disc as above. Kranthi Mejía MD on November 09, 2016 at 16:52 Board Certified Radiologist. This report was verified electronically.
--- NOTE | 2016-11-09 17:14 | HHI.PR ---
Subjective Remarks Patient complain of dysuria since he came to ED after he had a [place] catheter He had the vertebral CT-guided biopsy yesterday, doing well post procedure He also complain of skin lesion over his nose ridge which he said he was told before its herpes simplex Objective Vitals Vital Signs Date Time Temp Pulse Resp B/P Pulse Ox O2 Delivery O2 Flow Rate FiO2 11/09/16 12:40 96.7 53 18 130/69 100 11/09/16 12:08 74 19 127/72 100 11/09/16 11:38 79 18 130/84 100 11/09/16 11:23 97.0 53 19 126/71 98 11/09/16 08:00 97.0 54 17 127/62 100 11/09/16 04:00 97.4 74 20 115/72 97 11/08/16 20:00 98.7 55 18 121/59 98 I/O 11/08/16 11/08/16 11/08/16 11/09/16 11/09/16 11/09/16 07:00 15:00 23:00 07:00 15:00 23:00 Intake Total 498 ml 933 ml 907 ml Output Total 600 ml 1300 ml Balance -102 ml -1300 ml 933 ml 907 ml IV Total 498 ml 933 ml 907 ml Output Urine Total 600 ml 1300 ml # Bowel Movements 1 Result Diagram: 11/08/16 0725 11/09/16 0601 Objective Remarks - GENERAL: This is a well-nourished, well-developed patient, in no apparent distress. SKIN: Skin dry excoriation with surrounding erythematous skin on then nose HEAD: Atraumatic. Normocephalic. EYES: Pupils equal round and reactive. Extraocular motions intact. No scleral icterus. ENT: Nose without bleeding, or drainage, Airway patent. NECK: Trachea midline. Supple CARDIOVASCULAR: Regular rate and rhythm without murmurs, gallops, or rubs. RESPIRATORY: Fair air entry bilaterally. No wheezes, rales, or rhonchi. GASTROINTESTINAL: Abdomen soft, non-tender, nondistended. Positive bowel sounds MUSCULOSKELETAL: Extremities without clubbing, cyanosis, or edema. Pedal pulses appreciated NEUROLOGICAL: Awake and alert. Moves all extremity. Normal speech.no focal neurological deficit A/P Problem List: (1) Osteomyelitis of lumbar vertebra ICD Code: M46.26 Status: Acute Assessment and Plan 11/05/16: No fever, back pain at 7 out of 10, appreciate ID help, reconsulting neurosurgery, possible need for vertebral biopsy, continue iv antibiotic 11/06/16: Still complaining of back pain 7 out of 10, continue iv antibiotic per ID, awaiting neurosurgery Eric reconsult 11/07/16 still awaiting neurosurgery consult will place another one 11/08/16: Discussed with ID and with neurosurgery, will place order for vertebral biopsy guided CT by IR 11/09/16: Status post CT-guided biopsy on November 08, complain of rest of the skin on the nose 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 Patient with history of hospitalization [id number] for epidural abscess/discitis/bacteremia, underwent I&D and discectomy with Dr. Alcantar. Another hospitalization Sep 2016 - 10/20/16 for discitis, no abscess, discharged on po Cipro/Keflex [id number]. Presents with worsening low back pain x4-5 days. 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 -WBC trending down 11.9 - 9.5 with slight left shift, afebrile, ESR mildly elevated at 42 -Blood cultures collected, NGTD -Continue with IV Vanco, IV Azactam -ID following, status post CT-guided vertebral lumbar biopsy on 11/08/16 -Consulted neurosurgery Dr. 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 Declined nicotine patch. Polysubstance Abuse/IVDU: patient denies using any drugs since Sep 2016 however UDS +opiates and amphetamines. Counseled again on cessation. Homeless: patient lives out of his truck. Case management consult. DVT Prophylaxis: teds/SCDs, hold off on chemical prophylaxis until evaluated by Luan Haynes MD Nov 09, 2016 17:14
--- NOTE | 2016-11-09 17:36 | HHI.IDPN ---
Note Infectious Disease Note Patient complains of back pain still severe. No other complaints. Afebrile. Denies chills. Post biopsy/aspirate of the lumbar spine lesion. 1 cc of bloody fluid obtained - sent for culture. Pending. PAST MEDICAL HISTORY 1. Epidural abscess and diskitis of the lumbar spine beginning June 2016. Retreated early Oct, 2016. 2. Bacteremia due to MSSA. 3. L4-L5 laminectomy for evacuation of epidural abscess. 4. Chronic low back pain. 5. Thoracotomy for pneumothorax in 1995. 6. Anxiety disorder. ALLERGIES PENICILLIN. ANTIBIOTICS: 1. Vancomycin. 2. Aztreonam. SOCIAL HISTORY The patient is a former IV drug user. He denies IV drug use in 2 months. He smokes half-a-pack of cigarettes a day. No alcohol use. OBJ: Vital Signs Date Time Temp Pulse Resp B/P Pulse Ox O2 Delivery O2 Flow Rate FiO2 11/09/16 12:40 96.7 53 18 130/69 100 11/09/16 12:08 74 19 127/72 100 11/09/16 11:38 79 18 130/84 100 11/09/16 11:23 97.0 53 19 126/71 98 11/09/16 08:00 97.0 54 17 127/62 100 11/09/16 04:00 97.4 74 20 115/72 97 11/08/16 20:00 98.7 55 18 121/59 98 11/08/16 11/08/16 11/09/16 15:00 23:00 07:00 Intake Total 933 ml 907 ml Output Total 1300 ml Balance -1300 ml 933 ml 907 ml IV Total 933 ml 907 ml Output Urine Total 1300 ml # Bowel Movements 1 Laboratory Tests Test 11/08/16 07:25 White Blood Count 5.7 TH/MM3 Red Blood Count 3.73 MIL/MM3 Hemoglobin 10.1 GM/DL Hematocrit 30.3 % Mean Corpuscular Volume 81.2 FL Mean Corpuscular Hemoglobin 27.2 PG Mean Corpuscular Hemoglobin 33.5 % Concent Red Cell Distribution Width 17.4 % Platelet Count 299 TH/MM3 Mean Platelet Volume 7.6 FL Neutrophils (%) (Auto) 56.0 % Lymphocytes (%) (Auto) 28.4 % Monocytes (%) (Auto) 7.8 % Eosinophils (%) (Auto) 6.7 % Basophils (%) (Auto) 1.1 % Neutrophils # (Auto) 3.2 TH/MM3 Lymphocytes # (Auto) 1.6 TH/MM3 Monocytes # (Auto) 0.4 TH/MM3 Eosinophils # (Auto) 0.4 TH/MM3 Basophils # (Auto) 0.1 TH/MM3 CBC Comment DIFF FINAL Differential Comment Laboratory Tests Test 11/09/16 06:01 Creatinine 0.67 MG/DL Estimat Glomerular Filtration 130 ML/MIN Rate Laboratory Tests Test 11/05/16 06:10 Erythrocyte Sedimentation Rate 61 mm/hr IMAGING: Thoracic Spine MRI 10/31/16 0000 Signed Impressions: Service Date/Time: Monday, October 31, 2016 22:32 - CONCLUSION: No acute abnormality demonstrated of the thoracic spine. Mild disc centered degenerative changes are again noted at several mid to lower thoracic levels. Fabian Faustin MD Lumbar Spine MRI 10/31/16 0000 Signed Impressions: Service Date/Time: Monday, October 31, 2016 22:32 - CONCLUSION: 1. Persistent and modestly worsening osteomyelitis of L4, L5 and focally of the S1 vertebral bodies. There is worsening endplate destruction of L4 and L5. 2. Increased fluid collection within the central part of the residual L4/L5 disc and with scattered fluid collections anterior and lateral to the disc compatible with abscesses. 3. There is persistent epidural enhancement without abscess in the epidural space at L4/L5, actually improved in the interim. Fabian Faustin MD Chest X-Ray 10/31/16 0000 Signed Impressions: Service Date/Time: Monday, October 31, 2016 20:59 - CONCLUSION: The lungs are clear. Serge Squires MD PHYSICAL EXAMINATION GENERAL: No acute distress. He is awake and alert and oriented. HEENT: No icterus. Oropharynx - no visible lesions. NECK: Supple. No swelling. No adenopathy. LUNGS: Decreased breath sound, clear. HEART: Regular rate and rhythm. No audible murmurs or rubs or gallops. ABDOMEN: Bowel sounds present, flat, soft. No tenderness appreciated. BACK: Mild tenderness of the lower back. No areas of induration or swelling or redness. Pain on straight leg raising. EXTREMITIES: No clubbing, cyanosis or edema. Excoriated dried lesions at the hands and scattered over the right tibia and there is one on the left tibia. No clubbing or cyanosis or edema. SKIN: No diffuse rash. NEURO: Weakness in the lower extremities. PSYCH: The patient is calm and cooperative. IMPRESSION 1. Osteomyelitis of the lumbar spine at L4-L5 region with endplate destruction. Elevated sed rate, Fever. 2. Lumbar abscesses suggested by the MRI of the lumbar spine. RECOMMENDATIONS 1. Continue vancomycin. 2. Continue aztreonam. 3. Monitor the wound culture. 4. Reculture blood if temp spikes again. Ren Senior MD Nov 09, 2016 17:36
[2016-11-10] VITALS: BP 125/74; PULSE 76; RESP 18; TEMP 97.6; O2SAT 98
[2016-11-10] MEDS: MORPHINE SULFATE 4 MG/ML INJ IV PRN ×7 (02:30→21:14)
[2016-11-10 04:00] VITALS: BP 135/74; PULSE 100; RESP 20; TEMP 97; O2SAT 97
[2016-11-10] MEDS: SODIUM CHLOR 0.9% 1000 ML INJ 1,000 ML IV SCH ×2 (05:05→15:05)
[2016-11-10 08:14] VITALS: BP 127/68; PULSE 52; RESP 18; TEMP 96.6; O2SAT 99
[2016-11-10] MEDS: AZTREONAM INJ 2,000 MG in SODIUM CHLORIDE 0.9% INJ 100 ML IV SCH ×2 (08:32→16:00)
[2016-11-10] MEDS: SODIUM CHLORIDE 0.9% FLUSH 5 ML FLUSH FLUSH PRN (08:34)
[2016-11-10] MEDS: SODIUM CHLORIDE 0.9% FLUSH 5 ML FLUSH FLUSH SCH ×2 (09:00→21:13)
[2016-11-10] MEDS: ACETAMINOPHEN 325 MG TAB PO PRN ×2 (11:48→17:54)
[2016-11-10 12:06] VITALS: BP 137/73; PULSE 60; RESP 18; TEMP 97.3; O2SAT 99
[2016-11-10] MEDS ORDERED: PHARMACY ORDERED LAB XX ONE (12:45)
[2016-11-10] MEDS: VANCOMYCIN INJ 1,500 MG in SODIUM CHLORID 0.9% 500 ML INJ 500 ML IV SCH (13:43)
--- NOTE | 2016-11-10 15:52 | HHI.PR ---
Subjective Remarks no acute issues , awaiting vertebral bx cx afebrile Objective Vitals Vital Signs Date Time Temp Pulse Resp B/P Pulse Ox O2 Delivery O2 Flow Rate FiO2 11/10/16 12:06 97.3 60 18 137/73 99 11/10/16 08:14 96.6 52 18 127/68 99 11/10/16 04:00 97.0 100 20 135/74 97 11/10/16 00:00 97.6 76 18 125/74 98 11/09/16 20:00 98.4 65 18 128/65 97 11/09/16 16:00 96.1 61 18 153/81 99 I/O 11/09/16 11/09/16 11/09/16 11/10/16 11/10/16 11/10/16 07:00 15:00 23:00 07:00 15:00 23:00 Intake Total 907 ml 600 ml 1150 ml 1200 ml Output Total 3000 ml Balance 907 ml 600 ml 1150 ml -1800 ml Intake Oral 600 ml IV Total 907 ml 1150 ml 1200 ml Output Urine Total 3000 ml # Voids 3 # Bowel Movements 1 1 Result Diagram: 11/08/16 0725 11/09/16 0601 Objective Remarks - GENERAL: This is a well-nourished, well-developed patient, in no apparent distress. SKIN: Skin dry excoriation with surrounding erythematous skin on then nose HEAD: Atraumatic. Normocephalic. EYES: Pupils equal round and reactive. Extraocular motions intact. No scleral icterus. ENT: Nose without bleeding, or drainage, Airway patent. NECK: Trachea midline. Supple CARDIOVASCULAR: Regular rate and rhythm without murmurs, gallops, or rubs. RESPIRATORY: Fair air entry bilaterally. No wheezes, rales, or rhonchi. GASTROINTESTINAL: Abdomen soft, non-tender, nondistended. Positive bowel sounds MUSCULOSKELETAL: Extremities without clubbing, cyanosis, or edema. Pedal pulses appreciated NEUROLOGICAL: Awake and alert. Moves all extremity. Normal speech.no focal neurological deficit A/P Problem List: (1) Osteomyelitis of lumbar vertebra ICD Code: M46.26 Status: Acute Assessment and Plan /P: 41-year-old male with history of IVDU, epidural abscess June 2016, anxiety , tobacco use, homelessness, presents with a four-day history of worsening back pain. Patient with history of hospitalization [id number] for epidural abscess/discitis/bacteremia, underwent I&D and discectomy with Dr. Alcantar. Another hospitalization Sep 2016 - 10/20/16 for discitis, no abscess, discharged on po Cipro/Keflex [id number]. Presents with worsening low back pain x4-5 days. 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 -WBC trending down 11.9 - 9.5 with slight left shift, afebrile, ESR mildly elevated at 42 -Blood cultures collected, NGTD -Continue with IV Vanco, IV Azactam -ID following, status post CT-guided vertebral lumbar biopsy on 11/08/16 -Consulted neurosurgery Dr. 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 Declined nicotine patch. Polysubstance Abuse/IVDU: patient denies using any drugs since Sep 2016 however UDS +opiates and amphetamines. Counseled again on cessation. Homeless: patient lives out of his truck. Case management consult. DVT Prophylaxis: teds/SCDs, hold off on chemical prophylaxis until evaluated by Luan Haynes MD Nov 10, 2016 15:52
[2016-11-10 16:28] VITALS: BP 129/58; PULSE 57; RESP 18; TEMP 96.4; O2SAT 98
[2016-11-10 20:00] VITALS: BP 126/63; PULSE 59; RESP 20; TEMP 97.7; O2SAT 98
[2016-11-11] VITALS: BP 118/62; PULSE 52; RESP 20; TEMP 98.3; O2SAT 99
[2016-11-11] MEDS ORDERED: VANCOMYCIN INJ 1,500 MG in SODIUM CHLORID 0.9% 500 ML INJ 500 ML IV SCH ×2
[2016-11-11] MEDS: MORPHINE SULFATE 4 MG/ML INJ IV PRN ×5 (01:04→20:31)
[2016-11-11] MEDS: VANCOMYCIN INJ 1,750 MG in SODIUM CHLORID 0.9% 500 ML INJ 500 ML IV SCH ×3 (01:04→23:05)
[2016-11-11] MEDS: AZTREONAM INJ 2,000 MG in SODIUM CHLORIDE 0.9% INJ 100 ML IV SCH ×2 (01:04→08:36)
[2016-11-11] MEDS: SODIUM CHLOR 0.9% 1000 ML INJ 1,000 ML IV SCH ×3 (01:05→20:29)
[2016-11-11 04:00] VITALS: BP 125/64; PULSE 54; RESP 20; TEMP 98.2; O2SAT 98
[2016-11-11] MEDS: SODIUM CHLORIDE 0.9% FLUSH 5 ML FLUSH FLUSH SCH ×2 (08:37→20:29)
[2016-11-11 09:13] VITALS: BP 145/75; PULSE 50; RESP 18; TEMP 96.8; O2SAT 100
--- NOTE | 2016-11-11 10:13 | HHI.PR ---
Subjective Remarks Follow-up lumbar spine osteomyelitis 11/11/16-patient seen and examined, currently afebrile however continue to complaints of low back pain. Objective Vitals Vital Signs Date Time Temp Pulse Resp B/P Pulse Ox O2 Delivery O2 Flow Rate FiO2 11/11/16 09:13 96.8 50 18 145/75 100 11/11/16 04:00 98.2 54 20 125/64 98 11/11/16 00:00 98.3 52 20 118/62 99 11/10/16 20:00 97.7 59 20 126/63 98 11/10/16 16:28 96.4 57 18 129/58 98 11/10/16 12:06 97.3 60 18 137/73 99 I/O 11/10/16 11/10/16 11/10/16 11/11/16 11/11/16 11/11/16 07:00 15:00 23:00 07:00 15:00 23:00 Intake Total 1200 ml 480 ml 240 ml 120 ml Output Total 3000 ml 1100 ml 700 ml 200 ml Balance -1800 ml -620 ml -460 ml -80 ml Intake Oral 480 ml 240 ml 120 ml IV Total 1200 ml Output Urine Total 3000 ml 1100 ml 700 ml 200 ml # Bowel Movements 1 0 0 0 Result Diagram: 11/08/16 0725 11/11/16 0655 Imaging Last Impressions Needle Biopsy/Aspiration X-Ray 11/09/16 0000 Signed Impressions: Service Date/Time: Wednesday, November 09, 2016 11:06 - CONCLUSION: Uncomplicated needle biopsy of the L4-5 disc as above. Kranthi Mejía MD Thoracic Spine MRI 10/31/16 0000 Signed Impressions: Service Date/Time: Monday, October 31, 2016 22:32 - CONCLUSION: No acute abnormality demonstrated of the thoracic spine. Mild disc centered degenerative changes are again noted at several mid to lower thoracic levels. Fabian Faustin MD Lumbar Spine MRI 10/31/16 0000 Signed Impressions: Service Date/Time: Monday, October 31, 2016 22:32 - CONCLUSION: 1. Persistent and modestly worsening osteomyelitis of L4, L5 and focally of the S1 vertebral bodies. There is worsening endplate destruction of L4 and L5. 2. Increased fluid collection within the central part of the residual L4/L5 disc and with scattered fluid collections anterior and lateral to the disc compatible with abscesses. 3. There is persistent epidural enhancement without abscess in the epidural space at L4/L5, actually improved in the interim. Fabian Faustin MD Chest X-Ray 10/31/16 0000 Signed Impressions: Service Date/Time: Monday, October 31, 2016 20:59 - CONCLUSION: The lungs are clear. Serge Squires MD Objective Remarks GENERAL: NAD SKIN: Warm and dry. HEAD: Normocephalic. EYES: No scleral icterus. No injection or drainage. NECK: Supple, trachea midline. No JVD or lymphadenopathy. CARDIOVASCULAR: Regular rate and rhythm without murmurs, gallops, or rubs. RESPIRATORY: Breath sounds equal bilaterally. No accessory muscle use. GASTROINTESTINAL: Abdomen soft, non-tender, nondistended. MUSCULOSKELETAL: No cyanosis, or edema. BACK: tender without obvious deformity. No CVA tenderness. A/P Problem List: (1) Osteomyelitis of lumbar vertebra ICD Code: M46.26 Status: Acute (2) Discitis of lumbar region ICD Code: M46.46 Status: Acute Assessment and Plan 41-year-old male with Lumbar spine osteomyelitis/abscess: Lumbar spine MRI finding noted. Currently on vancomycin and Azactam per infectious disease specialist. Status post CT- guided vertebral lumbar biopsy 11/08/16 pending report. Appreciate input from neurosurgery. Continue current pain medication. PT to evaluate. 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 Tobacco Use: counseled on cessation. Declined nicotine patch. Polysubstance Abuse/IVDU: patient denies using any drugs since Sep 2016 however UDS +opiates and amphetamines. Counseled again on cessation. Homeless: patient lives out of his truck. Case management consult. DVT Prophylaxis: rashaad/Gage Luke MD Nov 11, 2016 10:13
[2016-11-11 12:06] VITALS: BP 128/53; PULSE 66; RESP 18; TEMP 98; O2SAT 100
--- NOTE | 2016-11-11 15:56 | HHI.IDPN ---
Note Infectious Disease Note Patient complains of back pain still severe. Cannot stand up straight because of severe pain. No other complaints. Afebrile. Says he has difficulty sleeping. Post biopsy/aspirate of the lumbar spine lesion. 1 cc of bloody fluid obtained - No growth on culture. PAST MEDICAL HISTORY 1. Epidural abscess and diskitis of the lumbar spine beginning June 2016. Retreated early Oct, 2016. 2. Bacteremia due to MSSA. 3. L4-L5 laminectomy for evacuation of epidural abscess. 4. Chronic low back pain. 5. Thoracotomy for pneumothorax in 1995. 6. Anxiety disorder. ALLERGIES PENICILLIN. ANTIBIOTICS: 1. Vancomycin. 2. Aztreonam. SOCIAL HISTORY The patient is a former IV drug user. He denies IV drug use in 2 months. He smokes half-a-pack of cigarettes a day. No alcohol use. OBJ: Vital Signs Date Time Temp Pulse Resp B/P Pulse Ox O2 Delivery O2 Flow Rate FiO2 11/11/16 12:06 98.0 66 18 128/53 100 11/11/16 09:13 96.8 50 18 145/75 100 11/11/16 04:00 98.2 54 20 125/64 98 11/11/16 00:00 98.3 52 20 118/62 99 11/10/16 20:00 97.7 59 20 126/63 98 11/10/16 16:28 96.4 57 18 129/58 98 11/10/16 11/10/16 11/11/16 15:00 23:00 07:00 Intake Total 480 ml 240 ml 120 ml Output Total 1100 ml 700 ml 200 ml Balance -620 ml -460 ml -80 ml Intake Oral 480 ml 240 ml 120 ml Output Urine Total 1100 ml 700 ml 200 ml # Bowel Movements 0 0 0 Laboratory Tests Test 11/11/16 06:55 Creatinine 0.68 MG/DL Estimat Glomerular Filtration 128 ML/MIN Rate Laboratory Tests Test 11/05/16 06:10 Erythrocyte Sedimentation Rate 61 mm/hr IMAGING: Thoracic Spine MRI 10/31/16 0000 Signed Impressions: Service Date/Time: Monday, October 31, 2016 22:32 - CONCLUSION: No acute abnormality demonstrated of the thoracic spine. Mild disc centered degenerative changes are again noted at several mid to lower thoracic levels. Fabian Faustin MD Lumbar Spine MRI 10/31/16 0000 Signed Impressions: Service Date/Time: Monday, October 31, 2016 22:32 - CONCLUSION: 1. Persistent and modestly worsening osteomyelitis of L4, L5 and focally of the S1 vertebral bodies. There is worsening endplate destruction of L4 and L5. 2. Increased fluid collection within the central part of the residual L4/L5 disc and with scattered fluid collections anterior and lateral to the disc compatible with abscesses. 3. There is persistent epidural enhancement without abscess in the epidural space at L4/L5, actually improved in the interim. Fabian Faustin MD Chest X-Ray 10/31/16 0000 Signed Impressions: Service Date/Time: Monday, October 31, 2016 20:59 - CONCLUSION: The lungs are clear. Serge Squires MD PHYSICAL EXAMINATION GENERAL: No acute distress. He is awake and alert and oriented. HEENT: No icterus. Oropharynx - no visible lesions. Nose has diffuse erythema. NECK: Supple. No swelling. No adenopathy. LUNGS: Clear breath sounds. HEART: Regular rate and rhythm. No audible murmurs or rubs or gallops. ABDOMEN: Bowel sounds present, flat, soft. No tenderness appreciated. BACK: Mild tenderness of the lower back. No areas of induration or swelling or redness. Still has pain on straight leg raising. EXTREMITIES: No clubbing, cyanosis or edema. Excoriated dried lesions at the hands and scattered over the right tibia and there is one on the left tibia. No clubbing or cyanosis or edema. SKIN: No diffuse rash. NEURO: Weakness in the lower extremities. PSYCH: Calm and cooperative. IMPRESSION 1. Osteomyelitis of the lumbar spine at L4-L5 region with endplate destruction. Elevated sed rate, Fever. 2. Lumbar abscesses suggested by the MRI of the lumbar spine. RECOMMENDATIONS 1. Continue vancomycin. 2. Stop aztreonam. 3. Bone biopsy of the lumbar spine area involved. Discussed with radiology and ordered. 4. Monitor the wound culture. 5. Reculture blood if temp spikes again. 6. Acyclovir for nose. Patient notes recurrent outbreak of herpetic lesion at the nose. 7. Ambien for insomnia. If we do not get positive culture may have to treat empirically for a couple of months and monitor the sed rate. Ren Senior MD Nov 11, 2016 15:56
[2016-11-11 16:20] VITALS: BP 154/90; PULSE 61; RESP 18; TEMP 97.9; O2SAT 100
[2016-11-11] MEDS: ACYCLOVIR 200 MG CAP PO SCH ×2 (17:13→20:30)
[2016-11-11 20:00] VITALS: BP 130/70; PULSE 60; RESP 20; TEMP 98.9; O2SAT 99
[2016-11-11] MEDS: ZOLPIDEM TARTRATE 5 MG TAB PO PRN (23:04)
[2016-11-12] VITALS (9 sets, daily range): BP systolic 120–163; BP diastolic 64–87; PULSE 51–60; RESP 17–20; TEMP 96.2–98; O2SAT 93–100
[2016-11-12] MEDS: MORPHINE SULFATE 4 MG/ML INJ IV PRN ×6 (01:19→21:48)
[2016-11-12] MEDS: ACYCLOVIR 200 MG CAP PO SCH ×3 (05:09→21:45)
[2016-11-12] MEDS: SODIUM CHLOR 0.9% 1000 ML INJ 1,000 ML IV SCH ×2 (05:10→17:26)
[2016-11-12] MEDS: SODIUM CHLORIDE 0.9% FLUSH 5 ML FLUSH FLUSH SCH ×2 (08:30→21:46)
--- NOTE | 2016-11-12 10:22 | HHI.PR ---
Subjective Remarks Follow-up lumbar spine osteomyelitis 11/11/16-patient seen and examined, currently afebrile however continue to complaints of low back pain. 11/12/16-patient seen and examined, still complained of low back pain. Currently nothing by mouth and plan for CT-guided bone biopsy L4-L5 Objective Vitals Vital Signs Date Time Temp Pulse Resp B/P Pulse Ox O2 Delivery O2 Flow Rate FiO2 11/12/16 08:00 96.2 53 18 120/64 98 11/12/16 04:00 97.4 54 18 130/64 97 11/12/16 00:00 98.0 53 18 138/75 99 11/11/16 20:00 98.9 60 20 130/70 99 11/11/16 16:20 97.9 61 18 154/90 100 11/11/16 12:06 98.0 66 18 128/53 100 I/O 11/11/16 11/11/16 11/11/16 11/12/16 11/12/16 11/12/16 07:00 15:00 23:00 07:00 15:00 23:00 Intake Total 120 ml 720 ml 480 ml Output Total 200 ml 975 ml 400 ml Balance -80 ml -975 ml 320 ml 480 ml Intake Oral 120 ml 720 ml 480 ml Output Urine Total 200 ml 975 ml 400 ml # Voids 1 3 # Bowel Movements 0 2 0 Result Diagram: 11/08/16 0725 11/11/16 0655 Objective Remarks GENERAL: NAD SKIN: Warm and dry. HEAD: Normocephalic. EYES: No scleral icterus. No injection or drainage. NECK: Supple, trachea midline. No JVD or lymphadenopathy. CARDIOVASCULAR: Regular rate and rhythm without murmurs, gallops, or rubs. RESPIRATORY: Breath sounds equal bilaterally. No accessory muscle use. GASTROINTESTINAL: Abdomen soft, non-tender, nondistended. MUSCULOSKELETAL: No cyanosis, or edema. BACK: tender without obvious deformity. No CVA tenderness. A/P Problem List: (1) Osteomyelitis of lumbar vertebra ICD Code: M46.26 Status: Acute (2) Discitis of lumbar region ICD Code: M46.46 Status: Acute Assessment and Plan 41-year-old male with Lumbar spine osteomyelitis/abscess: Lumbar spine MRI finding noted. Azactam was discontinued yesterday and Currently on vancomycin per infectious disease specialist. Status post CT-guided vertebral lumbar biopsy 11/08/16 showing lumbar spine area involved. plan for CT-guided bone biopsy L4-L5 2-D 11/12/16. Appreciate input from neurosurgery. Continue current pain medication. PT to evaluate. HSV: Continue with acyclovir Hypokalemia and hypomagnesemia: Resolved and continue to monitor electrolytes. Tobacco Use: counseled on cessation. Declined nicotine patch. Polysubstance Abuse/IVDU: patient denies using any drugs since Sep 2016 however UDS +opiates and amphetamines. Counseled again on cessation. Homeless: patient lives out of his truck. Case management consult. DVT Prophylaxis: rashaad/Gage Luke MD Nov 12, 2016 10:22
[2016-11-12] MEDS ORDERED: PHARMACY ORDERED LAB XX ONE (11:45)
[2016-11-12] MEDS: VANCOMYCIN INJ 1,750 MG in SODIUM CHLORID 0.9% 500 ML INJ 500 ML IV SCH (11:51)
[2016-11-12] MEDS ORDERED: MIDAZOLAM HCL 5 MG/5 ML VIAL ONE (15:13)
[2016-11-12] MEDS ORDERED: fentaNYL CITRATE 250 MCG/5 ML AMP ONE (15:14)
[2016-11-12] MEDS ORDERED: BUPIVACAINE HCL PF 0.75% 30 ML VIAL ONE ×2 (15:19→15:21)
[2016-11-12] MEDS ORDERED: HYDROmorphone HCL PF 2 MG/ML VIAL ONE (16:00)
[2016-11-12] MEDS ORDERED: MIDAZOLAM HCL 2 MG/2 ML VIAL ONE (16:00)
--- NOTE | 2016-11-12 16:44 | PD.RAD ---
Post Procedure Progress Note Pre Procedure Diagnosis: (1) Osteomyelitis of lumbar vertebra Post Procedure Diagnosis: (1) Osteomyelitis of lumbar vertebra Procedure Date: Nov 12, 2016 Supervising Radiologist: Mike Haile Proceduralist/Assist: Soo Jones, RT(R), Ekaterina Lopez RT(R)() Anesthesia: Conscious Sedation Plan of Activity Patient to Unit: Nursing Unit Patient Condition: Good See PACS Report for procedural detail/treatment Spinal Procedure Bone Biopsy L4 Mike Haile MD Nov 12, 2016 16:44
--- NOTE | 2016-11-12 17:03 | RADRPT ---
EXAM DATE/TIME: 11/12/2016 15:17 [facility] COMPARISON: No previous studies available for comparison. INDICATIONS : Patient with osteomyelitis in need of L4 bone biopsy. MEDICAL HISTORY : IV drug use, Epidural abscess, Discitis, Chronic low back pain, Pneumothorax, Bacteremia SURGICAL HISTORY : Chest tube placement, L4-5 laminectomy ENCOUNTER: Subsequent ACUITY: 4 - 6 months PAIN SCORE: 6/10 LOCATION: Lower back FLUORO TIME: 5.2 minutes SEDATION TIME: 20 minutes MEDICATION(S): 1.) 7 mg midazolam (Versed) IV 2.) 250 mcg fentanyl (Sublimaze) IV 3.) 2 mg hydromorphone (Dilaudid) IV DEVICE(S): 1.) 11 gauge AVAmax Coaxial bone biopsy needle Core specimen(s) was obtained and submitted to laboratory for pathologic evaluation. PROCEDURE : 1. Fluoroscopically guided needle biopsy. 2. Conscious sedation with continuous EKG and Oximetry monitoring. The risks, benefits and alternatives to the procedure were explained and verbal and written consent w as obtained. The site was prepped in sterile fashion. Full sterile technique was used, including cap, mask, steri le gloves and gown and a large sterile sheet. Hand hygiene and 2% chlorhexidine and/or betadine/alco hol prep was utilized per protocol for cutaneous antisepsis. The skin and subcutaneous tissues were infiltrated with local anesthetic solution. With fluoroscopic guidance the left L4 pedicle was accessed and a bone biopsy needle was passed throu gh this obtaining a 1 cm long core. This was placed in sterile water and sent to the lab for evaluati on. Conscious sedation was performed with the prescribed dosages and duration as above. EKG and oximetry remained stable throughout the procedure. CONCLUSION: 1. Uncomplicated biopsy of the L4 vertebral body. Mike Haile MD on November 12, 2016 at 17:01 Board Certified Radiologist. This report was verified electronically.
[2016-11-12] MEDS: ZOLPIDEM TARTRATE 5 MG TAB PO PRN (21:45)
[2016-11-12] MEDS: ACETAMINOPHEN 325 MG TAB PO PRN (23:38)
[2016-11-13] MEDS: VANCOMYCIN INJ 2,000 MG in SODIUM CHLORID 0.9% 500 ML INJ 500 ML IV SCH ×2 (00:03→12:17)
[2016-11-13 00:27] VITALS: BP 125/70; PULSE 60; RESP 18; TEMP 97.4; O2SAT 100
[2016-11-13] MEDS: MORPHINE SULFATE 4 MG/ML INJ IV PRN ×6 (01:35→21:39)
[2016-11-13] MEDS: SODIUM CHLOR 0.9% 1000 ML INJ 1,000 ML IV SCH ×3 (03:05→23:05)
[2016-11-13 04:00] VITALS: BP 115/63; PULSE 56; RESP 20; TEMP 96.6; O2SAT 100
[2016-11-13] MEDS: ACYCLOVIR 200 MG CAP PO SCH ×3 (06:46→21:38)
[2016-11-13 08:06] VITALS: BP 117/66; PULSE 52; RESP 20; TEMP 96.8; O2SAT 98
[2016-11-13] MEDS: SODIUM CHLORIDE 0.9% FLUSH 5 ML FLUSH FLUSH SCH ×2 (09:59→21:39)
[2016-11-13 12:07] VITALS: BP 127/66; PULSE 66; RESP 20; TEMP 98.1; O2SAT 99
[2016-11-13] MEDS: ONDANSETRON HCL 4 MG/2 ML VIAL IVP PRN (12:17)
--- NOTE | 2016-11-13 13:36 | HHI.PR ---
Subjective Remarks Follow-up lumbar spine osteomyelitis 11/11/16-patient seen and examined, currently afebrile however continue to complaints of low back pain. 11/12/16-patient seen and examined, still complained of low back pain. Currently nothing by mouth and plan for CT-guided bone biopsy L4-L5 11/13/16-patient seen and examined, complains of soreness to his back today. Had CT-guided bone biopsy performed yesterday. Objective Vitals Vital Signs Date Time Temp Pulse Resp B/P Pulse Ox O2 Delivery O2 Flow Rate FiO2 11/13/16 12:07 98.1 66 20 127/66 99 11/13/16 08:06 96.8 52 20 117/66 98 11/13/16 06:52 18 11/13/16 04:00 96.6 56 20 115/63 100 11/13/16 00:39 18 11/13/16 00:27 97.4 60 18 125/70 100 11/12/16 21:05 96.3 59 20 128/64 100 11/12/16 17:05 60 18 163/87 99 11/12/16 16:35 59 18 135/83 97 11/12/16 16:20 98.0 52 18 126/74 93 11/12/16 16:00 96.3 54 17 126/68 99 I/O 11/12/16 11/12/16 11/12/16 11/13/16 11/13/16 11/13/16 07:00 15:00 23:00 07:00 15:00 23:00 Intake Total 480 ml 1510 ml Output Total 880 ml 350 ml Balance 480 ml 630 ml -350 ml Intake Oral 480 ml 960 ml IV Total 550 ml Output Urine Total 880 ml 350 ml # Voids 3 3 3 # Bowel Movements 0 1 Result Diagram: 11/11/16 0655 Objective Remarks GENERAL: NAD SKIN: Warm and dry. HEAD: Normocephalic. EYES: No scleral icterus. No injection or drainage. NECK: Supple, trachea midline. No JVD or lymphadenopathy. CARDIOVASCULAR: Regular rate and rhythm without murmurs, gallops, or rubs. RESPIRATORY: Breath sounds equal bilaterally. No accessory muscle use. GASTROINTESTINAL: Abdomen soft, non-tender, nondistended. MUSCULOSKELETAL: No cyanosis, or edema. BACK: tender without obvious deformity. No CVA tenderness. A/P Problem List: (1) Osteomyelitis of lumbar vertebra ICD Code: M46.26 Status: Acute (2) Discitis of lumbar region ICD Code: M46.46 Status: Acute Assessment and Plan 41-year-old male with Lumbar spine osteomyelitis/abscess: Lumbar spine MRI finding noted. Azactam was discontinued yesterday and Currently on vancomycin per infectious disease specialist. Status post CT-guided vertebral lumbar biopsy 11/08/16 showing lumbar spine area involved. s/p for CT-guided bone biopsy L4-L5 2-D 11/12/16 pending biopsy report. Appreciate input from neurosurgery. Continue current pain medication. PT to evaluate. HSV: Continue with acyclovir Hypokalemia and hypomagnesemia: Resolved and continue to monitor electrolytes. Tobacco Use: counseled on cessation. Declined nicotine patch. Polysubstance Abuse/IVDU: patient denies using any drugs since Sep 2016 however UDS +opiates and amphetamines. Counseled again on cessation. Homeless: patient lives out of his truck. Case management consult. DVT Prophylaxis: rashaad/Gage Luke MD Nov 13, 2016 13:36
[2016-11-13 16:00] VITALS: BP 131/77; PULSE 59; RESP 20; TEMP 96.9; O2SAT 100
[2016-11-13 20:00] VITALS: BP 142/68; PULSE 57; RESP 18; TEMP 98.2; O2SAT 98
[2016-11-13] MEDS: ZOLPIDEM TARTRATE 5 MG TAB PO PRN (21:38)
[2016-11-14] VITALS: BP 136/66; PULSE 54; RESP 18; TEMP 97.6; O2SAT 98
[2016-11-14] MEDS: VANCOMYCIN INJ 2,000 MG in SODIUM CHLORID 0.9% 500 ML INJ 500 ML IV SCH ×2 (00:46→12:59)
[2016-11-14] MEDS: MORPHINE SULFATE 4 MG/ML INJ IV PRN ×7 (00:49→23:53)
[2016-11-14 04:00] VITALS: BP 140/78; PULSE 52; RESP 18; TEMP 97.3; O2SAT 99
[2016-11-14] MEDS: ACYCLOVIR 200 MG CAP PO SCH ×3 (04:28→21:19)
[2016-11-14 08:00] VITALS: BP 116/61; PULSE 51; RESP 18; TEMP 96.5; O2SAT 98
[2016-11-14] MEDS: SODIUM CHLORIDE 0.9% FLUSH 5 ML FLUSH FLUSH SCH ×2 (08:59→20:14)
[2016-11-14] MEDS: SODIUM CHLOR 0.9% 1000 ML INJ 1,000 ML IV SCH ×2 (09:05→18:49)
--- NOTE | 2016-11-14 10:57 | HHI.PR ---
Subjective Remarks Follow-up lumbar spine osteomyelitis 11/11/16-patient seen and examined, currently afebrile however continue to complaints of low back pain. 11/12/16-patient seen and examined, still complained of low back pain. Currently nothing by mouth and plan for CT-guided bone biopsy L4-L5 11/13/16-patient seen and examined, complains of soreness to his back today. Had CT-guided bone biopsy performed yesterday. 11/14/16-patient seen and examined; filled with lower back soreness otherwise no other issues. Afebrile. Objective Vitals Vital Signs Date Time Temp Pulse Resp B/P Pulse Ox O2 Delivery O2 Flow Rate FiO2 11/14/16 08:00 96.5 51 18 116/61 98 11/14/16 04:00 97.3 52 18 140/78 99 11/14/16 00:00 97.6 54 18 136/66 98 11/13/16 20:00 98.2 57 18 142/68 98 11/13/16 16:00 96.9 59 20 131/77 100 11/13/16 12:07 98.1 66 20 127/66 99 I/O 11/13/16 11/13/16 11/13/16 11/14/16 11/14/16 11/14/16 07:00 15:00 23:00 07:00 15:00 23:00 Intake Total 480 ml Output Total 350 ml Balance 130 ml Intake Oral 480 ml Output Urine Total 350 ml # Voids 3 10 5 Result Diagram: 11/14/16 0824 Objective Remarks GENERAL: NAD SKIN: Warm and dry. HEAD: Normocephalic. EYES: No scleral icterus. No injection or drainage. NECK: Supple, trachea midline. No JVD or lymphadenopathy. CARDIOVASCULAR: Regular rate and rhythm without murmurs, gallops, or rubs. RESPIRATORY: Breath sounds equal bilaterally. No accessory muscle use. GASTROINTESTINAL: Abdomen soft, non-tender, nondistended. MUSCULOSKELETAL: No cyanosis, or edema. BACK: tender without obvious deformity. No CVA tenderness. A/P Problem List: (1) Osteomyelitis of lumbar vertebra ICD Code: M46.26 Status: Acute (2) Discitis of lumbar region ICD Code: M46.46 Status: Acute Assessment and Plan 41-year-old male with Lumbar spine osteomyelitis/abscess: Lumbar spine MRI finding noted. Azactam was discontinued yesterday and Currently on vancomycin per infectious disease specialist. Status post CT-guided vertebral lumbar biopsy 11/08/16 showing lumbar spine area involved. s/p for CT-guided bone biopsy L4-L5 2-D 11/12/16 pending biopsy report. Appreciate input from neurosurgery. Continue current pain medication. PT to evaluate. HSV: Continue with acyclovir Hypokalemia and hypomagnesemia: Resolved and continue to monitor electrolytes. Tobacco Use: counseled on cessation. Declined nicotine patch. Polysubstance Abuse/IVDU: patient denies using any drugs since Sep 2016 however UDS +opiates and amphetamines. Counseled again on cessation. Homeless: patient lives out of his truck. Case management consult. DVT Prophylaxis: teds/SCDs Continue current care Gage Li MD Nov 14, 2016 10:57
[2016-11-14] MEDS ORDERED: PHARMACY ORDERED LAB XX ONE (11:45)
[2016-11-14 11:55] VITALS: BP 127/60; PULSE 60; RESP 18; TEMP 97.2; O2SAT 97
[2016-11-14 16:00] VITALS: BP 117/56; PULSE 61; RESP 18; TEMP 97.6; O2SAT 97
[2016-11-14 20:00] VITALS: BP 140/74; PULSE 58; RESP 18; TEMP 98.1; O2SAT 97
[2016-11-14] MEDS: ZOLPIDEM TARTRATE 5 MG TAB PO PRN (20:14)
[2016-11-15] VITALS: BP 138/65; PULSE 56; RESP 18; TEMP 96.5; O2SAT 97
[2016-11-15] MEDS: MORPHINE SULFATE 4 MG/ML INJ IV PRN ×6 (03:53→20:34)
[2016-11-15] MEDS: SODIUM CHLOR 0.9% 1000 ML INJ 1,000 ML IV SCH ×2 (03:55→13:40)
[2016-11-15 04:00] VITALS: BP 125/64; PULSE 55; RESP 18; TEMP 96.5; O2SAT 96
[2016-11-15] MEDS: ACYCLOVIR 200 MG CAP PO SCH ×3 (05:28→20:33)
[2016-11-15] MEDS: SODIUM CHLORIDE 0.9% FLUSH 5 ML FLUSH FLUSH SCH ×2 (08:27→20:33)
[2016-11-15 08:40] VITALS: BP 120/61; PULSE 54; RESP 20; TEMP 97.4; O2SAT 96
[2016-11-15] MEDS: VANCOMYCIN INJ 1,500 MG in SODIUM CHLORID 0.9% 500 ML INJ 500 ML IV SCH (11:12)
[2016-11-15 11:54] VITALS: BP 132/84; PULSE 73; RESP 20; TEMP 98.3; O2SAT 98
--- NOTE | 2016-11-15 12:41 | HHI.PR ---
Subjective Remarks Follow-up lumbar spine osteomyelitis 11/11/16-patient seen and examined, currently afebrile however continue to complaints of low back pain. 11/12/16-patient seen and examined, still complained of low back pain. Currently nothing by mouth and plan for CT-guided bone biopsy L4-L5 11/13/16-patient seen and examined, complains of soreness to his back today. Had CT-guided bone biopsy performed yesterday. 11/14/16-patient seen and examined; filled with lower back soreness otherwise no other issues. Afebrile. 11/15/16-patient seen and examined, states he had some chills overnight however afebrile. Objective Vitals Vital Signs Date Time Temp Pulse Resp B/P Pulse Ox O2 Delivery O2 Flow Rate FiO2 11/15/16 11:54 98.3 73 20 132/84 98 11/15/16 11:29 18 11/15/16 08:40 97.4 54 20 120/61 96 11/15/16 04:00 96.5 55 18 125/64 96 11/15/16 00:00 96.5 56 18 138/65 97 11/14/16 20:00 98.1 58 18 140/74 97 11/14/16 16:00 97.6 61 18 117/56 97 I/O 11/14/16 11/14/16 11/14/16 11/15/16 11/15/16 11/15/16 07:00 15:00 23:00 07:00 15:00 23:00 Intake Total 480 ml Balance 480 ml Intake Oral 480 ml # Voids 10 5 # Bowel Movements 0 Result Diagram: 11/14/16 0824 Objective Remarks GENERAL: NAD SKIN: Warm and dry. HEAD: Normocephalic. EYES: No scleral icterus. No injection or drainage. NECK: Supple, trachea midline. No JVD or lymphadenopathy. CARDIOVASCULAR: Regular rate and rhythm without murmurs, gallops, or rubs. RESPIRATORY: Breath sounds equal bilaterally. No accessory muscle use. GASTROINTESTINAL: Abdomen soft, non-tender, nondistended. MUSCULOSKELETAL: No cyanosis, or edema. BACK: tender without obvious deformity. No CVA tenderness. A/P Problem List: (1) Osteomyelitis of lumbar vertebra ICD Code: M46.26 Status: Acute (2) Discitis of lumbar region ICD Code: M46.46 Status: Acute Assessment and Plan 41-year-old male with Lumbar spine osteomyelitis/abscess: Lumbar spine MRI finding noted. Azactam was discontinued yesterday and Currently on vancomycin per infectious disease specialist. Status post CT-guided vertebral lumbar biopsy 11/08/16 showing lumbar spine area involved. s/p for CT-guided bone biopsy L4-L5 2-D 11/12/16 pending biopsy report. Appreciate input from neurosurgery. Continue current pain medication. PT to evaluate. HSV: Continue with acyclovir Hypokalemia and hypomagnesemia: Resolved and continue to monitor electrolytes. Tobacco Use: counseled on cessation. Declined nicotine patch. Polysubstance Abuse/IVDU: patient denies using any drugs since Sep 2016 however UDS +opiates and amphetamines. Counseled again on cessation. Homeless: patient lives out of his truck. Case management consult. DVT Prophylaxis: teds/SCDs Continue current care as of 11/15/16 Gage Li MD Nov 15, 2016 12:40
[2016-11-15 16:10] VITALS: BP 105/66; PULSE 60; RESP 20; TEMP 97.4; O2SAT 95
--- NOTE | 2016-11-15 16:16 | HHI.IDPN ---
Note Infectious Disease Note Patient complains of back pain still severe but a bit better. [place] warm and had sweats last night. Burning on urination. Pain at r. forearm. Afebrile. Post biopsy and aspirate of the lumbar spine lesion. No growth on culture. PAST MEDICAL HISTORY 1. Epidural abscess and diskitis of the lumbar spine beginning June 2016. Retreated early Oct, 2016. 2. Bacteremia due to MSSA. 3. L4-L5 laminectomy for evacuation of epidural abscess. 4. Chronic low back pain. 5. Thoracotomy for pneumothorax in 1995. 6. Anxiety disorder. ALLERGIES PENICILLIN. ANTIBIOTICS: 1. Vancomycin. SOCIAL HISTORY The patient is a former IV drug user. He denies IV drug use in 2 months. He smokes half-a-pack of cigarettes a day. No alcohol use. OBJ: Vital Signs Date Time Temp Pulse Resp B/P Pulse Ox O2 Delivery O2 Flow Rate FiO2 11/15/16 14:23 18 11/15/16 11:54 98.3 73 20 132/84 98 11/15/16 08:40 97.4 54 20 120/61 96 11/15/16 04:00 96.5 55 18 125/64 96 11/15/16 00:00 96.5 56 18 138/65 97 11/14/16 20:00 98.1 58 18 140/74 97 11/14/16 11/14/16 11/15/16 15:00 23:00 07:00 Intake Total 480 ml Balance 480 ml Intake Oral 480 ml # Voids 10 5 # Bowel Movements 0 Laboratory Tests Test 11/14/16 08:24 Creatinine 0.69 MG/DL Estimat Glomerular Filtration 126 ML/MIN Rate Laboratory Tests Test 11/05/16 06:10 Erythrocyte Sedimentation Rate 61 mm/hr IMAGING: Thoracic Spine MRI 10/31/16 0000 Signed Impressions: Service Date/Time: Monday, October 31, 2016 22:32 - CONCLUSION: No acute abnormality demonstrated of the thoracic spine. Mild disc centered degenerative changes are again noted at several mid to lower thoracic levels. Fabian Faustin MD Lumbar Spine MRI 10/31/16 0000 Signed Impressions: Service Date/Time: Monday, October 31, 2016 22:32 - CONCLUSION: 1. Persistent and modestly worsening osteomyelitis of L4, L5 and focally of the S1 vertebral bodies. There is worsening endplate destruction of L4 and L5. 2. Increased fluid collection within the central part of the residual L4/L5 disc and with scattered fluid collections anterior and lateral to the disc compatible with abscesses. 3. There is persistent epidural enhancement without abscess in the epidural space at L4/L5, actually improved in the interim. Fabian Faustin MD Chest X-Ray 10/31/16 0000 Signed Impressions: Service Date/Time: Monday, October 31, 2016 20:59 - CONCLUSION: The lungs are clear. Serge Squires MD PHYSICAL EXAMINATION GENERAL: No acute distress. awake and alert and oriented. HEENT: No icterus. Oropharynx - no visible lesions. Nose less erythema. LUNGS: Clear breath sounds. HEART: Regular rate and rhythm. No audible murmurs or rubs or gallops. ABDOMEN: Bowel sounds present, flat, soft. No tenderness appreciated. BACK: Mild tenderness of the lower back. No areas of induration or swelling or redness. Still has pain on straight leg raising. EXTREMITIES: No clubbing, cyanosis or edema. Excoriated dried lesions at the hands and scattered over the right tibia and there is one on the left tibia. Cord at R forearm posterior at previous IV site. No clubbing or cyanosis or edema. SKIN: No diffuse rash. NEURO: Weakness in the lower extremities. Slightly improved. PSYCH: Calm and cooperative. Pleasant. IMPRESSION 1. Osteomyelitis of the lumbar spine at L4-L5 region with endplate destruction. Elevated sed rate, Fever. Negative culture. 2. Lumbar abscesses suggested by the MRI of the lumbar spine. 3. Phlebitis at r. forearm. IV site. RECOMMENDATIONS 1. Continue vancomycin. 2. Follow cultures 3. Repeat Sed rate. 4. Send UA culture if indicated. Has burning on urination. 5. Reculture blood if temp spikes again. 6. Acyclovir for nose. Patient notes recurrent outbreak of herpetic lesion at the nose. 7. PIC line for antibiotics. If we do not get positive culture may have to treat empirically for a couple of months and monitor the sed rate. Ren Senior MD Nov 15, 2016 16:16
[2016-11-15 18:32] LABS: BACTERIA, URINE RARE /hpf; BLOOD, URINE NEG (NEG); COMMENT (UR) CULT NOT INDICATED; CULTURE IF INDICATED CULT NOT INDICATED; GLUCOSE,URINE NEG (NEG); KETONE, URINE NEG (NEG); MUCUS URINE FEW /lpf (OCC); NITRITE,URINE NEG (NEG); SQUAMOUS EPITHELIAL CELL URINE <1 /hpf (0-5); URINE COLOR YELLOW (YELLW/STRAW)
--- NOTE | 2016-11-15 20:02 | RADRPT ---
EXAM DATE/TIME: 11/15/2016 19:26 [facility] COMPARISON: CHEST SINGLE AP, October 31, 2016, 20:59. INDICATIONS : Evaluate PICC line placement MEDICAL HISTORY : None. SURGICAL HISTORY : None. ENCOUNTER: Initial ACUITY: 4 - 6 days PAIN SCORE: 0/10 LOCATION: Bilateral chest FINDINGS: A single view of the chest demonstrates the lungs to be symmetrically aerated without evidence of mas s, infiltrate or effusion. There appear to be clyde over the left lung apex. The cardiomediastinal contours are unremarkable. Osseous structures are intact. There is a PICC line in place from the rig ht arm with the tip overlying the SVC. CONCLUSION: PICC line in good position. The lungs are clear. Fabian Sosa MD on November 15, 2016 at 19:59 Board Certified Radiologist. This report was verified electronically.
[2016-11-15] MEDS: ZOLPIDEM TARTRATE 5 MG TAB PO PRN (20:33)
[2016-11-15 20:58] VITALS: BP 149/83; PULSE 80; RESP 20; TEMP 98; O2SAT 96
[2016-11-16] MEDS: MORPHINE SULFATE 4 MG/ML INJ IV PRN ×8 (00:09→22:24)
[2016-11-16] MEDS: VANCOMYCIN INJ 1,500 MG in SODIUM CHLORID 0.9% 500 ML INJ 500 ML IV SCH ×2 (00:09→12:16)
[2016-11-16 00:43] VITALS: BP 132/74; PULSE 58; RESP 22; TEMP 97.5; O2SAT 98
[2016-11-16] MEDS: SODIUM CHLOR 0.9% 1000 ML INJ 1,000 ML IV SCH ×3 (01:05→21:05)
[2016-11-16 05:37] VITALS: BP 139/85; PULSE 58; RESP 20; TEMP 97; O2SAT 100
[2016-11-16] MEDS: ACYCLOVIR 200 MG CAP PO SCH ×3 (06:53→22:23)
[2016-11-16 08:03] VITALS: BP 126/66; PULSE 60; RESP 20; TEMP 96.2; O2SAT 97
--- NOTE | 2016-11-16 09:44 | HHI.PR ---
Subjective Remarks Follow-up lumbar spine osteomyelitis 11/11/16-patient seen and examined, currently afebrile however continue to complaints of low back pain. 11/12/16-patient seen and examined, still complained of low back pain. Currently nothing by mouth and plan for CT-guided bone biopsy L4-L5 11/13/16-patient seen and examined, complains of soreness to his back today. Had CT-guided bone biopsy performed yesterday. 11/14/16-patient seen and examined; filled with lower back soreness otherwise no other issues. Afebrile. 11/15/16-patient seen and examined, states he had some chills overnight however afebrile. 11/16/16-patient seen and examined, complains of pain to PICC line site in right upper arm Objective Vitals Vital Signs Date Time Temp Pulse Resp B/P Pulse Ox O2 Delivery O2 Flow Rate FiO2 11/16/16 08:03 96.2 60 20 126/66 97 11/16/16 05:37 97.0 58 20 139/85 100 11/16/16 00:43 97.5 58 22 132/74 98 11/15/16 20:58 98.0 80 20 149/83 96 11/15/16 16:10 97.4 60 20 105/66 95 11/15/16 14:23 18 11/15/16 11:54 98.3 73 20 132/84 98 I/O 11/15/16 11/15/16 11/15/16 11/16/16 11/16/16 11/16/16 07:00 15:00 23:00 07:00 15:00 23:00 Intake Total 1440 ml Output Total 800 ml Balance 1440 ml -800 ml Intake Oral 1440 ml Output Urine Total 800 ml # Voids 5 6 1 # Bowel Movements 1 0 Result Diagram: 11/16/16 0650 Objective Remarks GENERAL: NAD SKIN: Warm and dry. HEAD: Normocephalic. EYES: No scleral icterus. No injection or drainage. NECK: Supple, trachea midline. No JVD or lymphadenopathy. CARDIOVASCULAR: Regular rate and rhythm without murmurs, gallops, or rubs. RESPIRATORY: Breath sounds equal bilaterally. No accessory muscle use. GASTROINTESTINAL: Abdomen soft, non-tender, nondistended. MUSCULOSKELETAL: No cyanosis, or edema. BACK: tender without obvious deformity. No CVA tenderness. A/P Problem List: (1) Osteomyelitis of lumbar vertebra ICD Code: M46.26 Status: Acute (2) Discitis of lumbar region ICD Code: M46.46 Status: Acute Assessment and Plan 41-year-old male with Lumbar spine osteomyelitis/abscess: Lumbar spine MRI finding noted. Azactam was discontinued yesterday and Currently on vancomycin per infectious disease specialist. Status post CT-guided vertebral lumbar biopsy 11/08/16 showing lumbar spine area involved. s/p for CT-guided bone biopsy L4-L5 2-D 11/12/16 pending biopsy report. Appreciate input from neurosurgery. Continue current pain medication. PT to evaluate. PICC placed right upper arm HSV: Continue with acyclovir Hypokalemia and hypomagnesemia: Resolved and continue to monitor electrolytes. Tobacco Use: counseled on cessation. Declined nicotine patch. Polysubstance Abuse/IVDU: patient denies using any drugs since Sep 2016 however UDS +opiates and amphetamines. Counseled again on cessation. Homeless: patient lives out of his truck. Case management consult. DVT Prophylaxis: teds/SCDs Continue current care as of 11/15/16 Gage Li MD Nov 16, 2016 09:44
[2016-11-16] MEDS: SODIUM CHLORIDE 0.9% FLUSH 5 ML FLUSH FLUSH SCH ×2 (09:59→22:23)
[2016-11-16 12:38] VITALS: BP 107/58; PULSE 70; RESP 20; TEMP 98.1; O2SAT 99
[2016-11-16 17:17] VITALS: BP 130/98; PULSE 66; RESP 20; TEMP 96.7; O2SAT 98
[2016-11-16 20:59] VITALS: BP 133/69; PULSE 58; RESP 19; TEMP 97.3; O2SAT 98
[2016-11-16] MEDS: ZOLPIDEM TARTRATE 5 MG TAB PO PRN (22:23)
[2016-11-16] MEDS ORDERED: PHARMACY ORDERED LAB XX ONE (23:45)
[2016-11-17 00:29] VITALS: BP 119/68; PULSE 61; RESP 20; TEMP 97.8; O2SAT 98
[2016-11-17] MEDS: VANCOMYCIN INJ 1,500 MG in SODIUM CHLORID 0.9% 500 ML INJ 500 ML IV SCH (00:38)
[2016-11-17] MEDS: MORPHINE SULFATE 4 MG/ML INJ IV PRN ×7 (02:29→23:56)
[2016-11-17 05:41] VITALS: BP 124/76; PULSE 59; RESP 19; TEMP 96.7; O2SAT 96
[2016-11-17] MEDS: ACYCLOVIR 200 MG CAP PO SCH ×3 (06:42→20:33)
[2016-11-17] MEDS: SODIUM CHLOR 0.9% 1000 ML INJ 1,000 ML IV SCH ×2 (07:05→17:05)
[2016-11-17 08:00] VITALS: BP 117/61; PULSE 55; RESP 17; TEMP 96.2; O2SAT 98
[2016-11-17] MEDS: SODIUM CHLORIDE 0.9% FLUSH 5 ML FLUSH FLUSH SCH ×2 (08:55→20:33)
[2016-11-17] MEDS: VANCOMYCIN INJ 1,100 MG in SODIUM CHLOR 0.9% 250 ML INJ 250 ML IV SCH ×3 (08:56→23:56)
--- NOTE | 2016-11-17 10:55 | HHI.PR ---
Subjective Remarks Follow-up lumbar spine osteomyelitis 11/11/16-patient seen and examined, currently afebrile however continue to complaints of low back pain. 11/12/16-patient seen and examined, still complained of low back pain. Currently nothing by mouth and plan for CT-guided bone biopsy L4-L5 11/13/16-patient seen and examined, complains of soreness to his back today. Had CT-guided bone biopsy performed yesterday. 11/14/16-patient seen and examined; filled with lower back soreness otherwise no other issues. Afebrile. 11/15/16-patient seen and examined, states he had some chills overnight however afebrile. 11/16/16-patient seen and examined, complains of pain to PICC line site in right upper arm 11/17/16-patient seen and examined, stable, afebrile, no acute event overnight Objective Vitals Vital Signs Date Time Temp Pulse Resp B/P Pulse Ox O2 Delivery O2 Flow Rate FiO2 11/17/16 08:00 96.2 55 17 117/61 98 11/17/16 05:41 96.7 59 19 124/76 96 11/17/16 00:29 97.8 61 20 119/68 98 11/16/16 20:59 97.3 58 19 133/69 98 11/16/16 18:55 16 11/16/16 17:17 96.7 66 20 130/98 98 11/16/16 12:38 98.1 70 20 107/58 99 I/O 11/16/16 11/16/16 11/16/16 11/17/16 11/17/16 11/17/16 07:00 15:00 23:00 07:00 15:00 23:00 Intake Total 1440 ml Output Total 800 ml 700 ml 450 ml Balance -800 ml 740 ml -450 ml Intake Oral 1440 ml Output Urine Total 800 ml 700 ml 450 ml # Voids 1 4 2 # Bowel Movements 0 Result Diagram: 11/16/16 0650 Objective Remarks GENERAL: NAD SKIN: Warm and dry. HEAD: Normocephalic. EYES: No scleral icterus. No injection or drainage. NECK: Supple, trachea midline. No JVD or lymphadenopathy. CARDIOVASCULAR: Regular rate and rhythm without murmurs, gallops, or rubs. RESPIRATORY: Breath sounds equal bilaterally. No accessory muscle use. GASTROINTESTINAL: Abdomen soft, non-tender, nondistended. MUSCULOSKELETAL: No cyanosis, or edema. BACK: tender without obvious deformity. No CVA tenderness. A/P Problem List: (1) Osteomyelitis of lumbar vertebra ICD Code: M46.26 Status: Acute (2) Discitis of lumbar region ICD Code: M46.46 Status: Acute Assessment and Plan 41-year-old male with Lumbar spine osteomyelitis/abscess: Lumbar spine MRI finding noted. Azactam was discontinued yesterday and Currently on vancomycin per infectious disease specialist. Status post CT-guided vertebral lumbar biopsy 11/08/16 showing lumbar spine area involved. s/p for CT-guided bone biopsy L4-L5 2-D 11/12/16 pending biopsy report. Appreciate input from neurosurgery. Continue current pain medication. PT to evaluate. PICC placed right upper arm HSV: Continue with acyclovir Hypokalemia and hypomagnesemia: Resolved and continue to monitor electrolytes. Tobacco Use: counseled on cessation. Declined nicotine patch. Polysubstance Abuse/IVDU: patient denies using any drugs since Sep 2016 however UDS +opiates and amphetamines. Counseled again on cessation. Homeless: patient lives out of his truck. Case management consult. DVT Prophylaxis: teds/SCDs Continue current care as of 11/17/16 Gage Li MD Nov 17, 2016 10:55
[2016-11-17 12:00] VITALS: BP 121/55; PULSE 61; RESP 16; TEMP 96.3; O2SAT 98
[2016-11-17 16:00] VITALS: BP 125/72; PULSE 63; RESP 16; TEMP 96.4; O2SAT 98
[2016-11-17 19:30] VITALS: BP 112/63; PULSE 63; RESP 18; TEMP 98; O2SAT 98
[2016-11-17] MEDS: ZOLPIDEM TARTRATE 5 MG TAB PO PRN (20:33)
[2016-11-18 00:08] VITALS: BP 122/61; PULSE 66; RESP 18; TEMP 97.2; O2SAT 97
[2016-11-18] MEDS: MORPHINE SULFATE 4 MG/ML INJ IV PRN ×7 (02:55→21:36)
[2016-11-18] MEDS: SODIUM CHLOR 0.9% 1000 ML INJ 1,000 ML IV SCH ×3 (03:05→21:36)
[2016-11-18] MEDS: ACETAMINOPHEN 325 MG TAB PO PRN (03:26)
[2016-11-18 04:39] VITALS: BP 142/75; PULSE 51; RESP 18; TEMP 97.6; O2SAT 99
[2016-11-18] MEDS: ACYCLOVIR 200 MG CAP PO SCH ×2 (06:14→14:35)
[2016-11-18 07:35] VITALS: BP 118/66; PULSE 51; RESP 18; TEMP 96.7; O2SAT 98
[2016-11-18] MEDS ORDERED: PHARMACY ORDERED LAB XX ONE ×2 (08:45→16:45)
[2016-11-18] MEDS: SODIUM CHLORIDE 0.9% FLUSH 5 ML FLUSH FLUSH SCH ×2 (09:00→21:35)
[2016-11-18] MEDS: VANCOMYCIN INJ 1,100 MG in SODIUM CHLOR 0.9% 250 ML INJ 250 ML IV SCH ×2 (09:47→18:03)
[2016-11-18 11:15] VITALS: BP 115/62; PULSE 63; RESP 18; TEMP 96; O2SAT 98
--- NOTE | 2016-11-18 12:35 | HHI.PR ---
Subjective Remarks Follow-up lumbar spine osteomyelitis 11/11/16-patient seen and examined, currently afebrile however continue to complaints of low back pain. 11/12/16-patient seen and examined, still complained of low back pain. Currently nothing by mouth and plan for CT-guided bone biopsy L4-L5 11/13/16-patient seen and examined, complains of soreness to his back today. Had CT-guided bone biopsy performed yesterday. 11/14/16-patient seen and examined; filled with lower back soreness otherwise no other issues. Afebrile. 11/15/16-patient seen and examined, states he had some chills overnight however afebrile. 11/16/16-patient seen and examined, complains of pain to PICC line site in right upper arm 11/17/16-patient seen and examined, stable, afebrile, no acute event overnight 11/18/16-patient seen and examined. No complaint, afebrile and no other issues. Objective Vitals Vital Signs Date Time Temp Pulse Resp B/P Pulse Ox O2 Delivery O2 Flow Rate FiO2 11/18/16 11:15 96.0 63 18 115/62 98 11/18/16 07:35 96.7 51 18 118/66 98 11/18/16 04:39 97.6 51 18 142/75 99 11/18/16 00:08 97.2 66 18 122/61 97 11/17/16 19:30 98.0 63 18 112/63 98 11/17/16 16:00 96.4 63 16 125/72 98 I/O 11/17/16 11/17/16 11/17/16 11/18/16 11/18/16 11/18/16 07:00 15:00 23:00 07:00 15:00 23:00 Intake Total 720 ml 480 ml 240 ml Output Total 450 ml 1200 ml Balance -450 ml 720 ml 480 ml -960 ml Intake Oral 720 ml 480 ml 240 ml Output Urine Total 450 ml 1200 ml # Voids 2 4 # Bowel Movements 1 Result Diagram: 11/18/16 0620 Objective Remarks GENERAL: NAD SKIN: Warm and dry. HEAD: Normocephalic. EYES: No scleral icterus. No injection or drainage. NECK: Supple, trachea midline. No JVD or lymphadenopathy. CARDIOVASCULAR: Regular rate and rhythm without murmurs, gallops, or rubs. RESPIRATORY: Breath sounds equal bilaterally. No accessory muscle use. GASTROINTESTINAL: Abdomen soft, non-tender, nondistended. MUSCULOSKELETAL: No cyanosis, or edema. BACK: tender without obvious deformity. No CVA tenderness. A/P Problem List: (1) Osteomyelitis of lumbar vertebra ICD Code: M46.26 Status: Acute (2) Discitis of lumbar region ICD Code: M46.46 Status: Acute Assessment and Plan 41-year-old male with Lumbar spine osteomyelitis/abscess: Lumbar spine MRI finding noted. Azactam was discontinued yesterday and Currently on vancomycin per infectious disease specialist. Status post CT-guided vertebral lumbar biopsy 11/08/16 showing lumbar spine area involved. s/p for CT-guided bone biopsy L4-L5 2-D 11/12/16 pending biopsy report. Appreciate input from neurosurgery. Continue current pain medication. PT to evaluate. PICC placed right upper arm HSV: Continue with acyclovir Hypokalemia and hypomagnesemia: Resolved and continue to monitor electrolytes. Tobacco Use: counseled on cessation. Declined nicotine patch. Polysubstance Abuse/IVDU: patient denies using any drugs since Sep 2016 however UDS +opiates and amphetamines. Counseled again on cessation. Homeless: patient lives out of his truck. Case management consult. DVT Prophylaxis: teds/SCDs Continue current care as of 11/18/16 Gage iL MD Nov 18, 2016 12:35
--- NOTE | 2016-11-18 15:14 | HHI.IDPN ---
Note Infectious Disease Note Patient complains of back pain gradually improving. More pain in the early am and getting out of bed. Afebrile. R. forearm pain improved. Sed rate decreased. Post biopsy and aspirate of the lumbar spine lesion. No growth on culture. PAST MEDICAL HISTORY 1. Epidural abscess and diskitis of the lumbar spine beginning June 2016. Retreated early Oct, 2016. 2. Bacteremia due to MSSA. 3. L4-L5 laminectomy for evacuation of epidural abscess. 4. Chronic low back pain. 5. Thoracotomy for pneumothorax in 1995. 6. Anxiety disorder. ALLERGIES PENICILLIN. ANTIBIOTICS: Vancomycin. SOCIAL HISTORY The patient is a former IV drug user. He denies IV drug use in 2 months. He smokes half-a-pack of cigarettes a day. No alcohol use. OBJ: Vital Signs Date Time Temp Pulse Resp B/P Pulse Ox O2 Delivery O2 Flow Rate FiO2 11/18/16 11:15 96.0 63 18 115/62 98 11/18/16 07:35 96.7 51 18 118/66 98 11/18/16 04:39 97.6 51 18 142/75 99 11/18/16 00:08 97.2 66 18 122/61 97 11/17/16 19:30 98.0 63 18 112/63 98 11/17/16 16:00 96.4 63 16 125/72 98 11/17/16 11/17/16 11/18/16 15:00 23:00 07:00 Intake Total 720 ml 480 ml 240 ml Output Total 1200 ml Balance 720 ml 480 ml -960 ml Intake Oral 720 ml 480 ml 240 ml Output Urine Total 1200 ml # Voids 4 # Bowel Movements 1 Laboratory Tests Test 11/17/16 06:45 Erythrocyte Sedimentation Rate 37 mm/hr Laboratory Tests Test 11/05/16 06:10 Erythrocyte Sedimentation Rate 61 mm/hr IMAGING: Thoracic Spine MRI 10/31/16 0000 Signed Impressions: Service Date/Time: Monday, October 31, 2016 22:32 - CONCLUSION: No acute abnormality demonstrated of the thoracic spine. Mild disc centered degenerative changes are again noted at several mid to lower thoracic levels. Fabian Faustin MD Lumbar Spine MRI 10/31/16 0000 Signed Impressions: Service Date/Time: Monday, October 31, 2016 22:32 - CONCLUSION: 1. Persistent and modestly worsening osteomyelitis of L4, L5 and focally of the S1 vertebral bodies. There is worsening endplate destruction of L4 and L5. 2. Increased fluid collection within the central part of the residual L4/L5 disc and with scattered fluid collections anterior and lateral to the disc compatible with abscesses. 3. There is persistent epidural enhancement without abscess in the epidural space at L4/L5, actually improved in the interim. Fabian Faustin MD Chest X-Ray 10/31/16 0000 Signed Impressions: Service Date/Time: Monday, October 31, 2016 20:59 - CONCLUSION: The lungs are clear. Serge Squires MD PHYSICAL EXAMINATION GENERAL: No acute distress. awake and alert and oriented. HEENT: No icterus. Oropharynx - no visible lesions. Nose erythema has improved. LUNGS: Clear breath sounds. HEART: Regular rate and rhythm. No audible murmurs or rubs or gallops. ABDOMEN: Bowel sounds present, flat, soft. No tenderness appreciated. BACK: Mild tenderness of the lower back. No areas of induration or swelling or redness. Still has pain on straight leg raising. EXTREMITIES: No clubbing, cyanosis or edema. Excoriated dried lesions at the hands and scattered over the right tibia and there is one on the left tibia. Cord at R forearm posterior at previous IV site is improved . No clubbing or cyanosis or edema. SKIN: No diffuse rash. NEURO: Weakness in the lower extremities. improved. PSYCH: Calm and cooperative. Pleasant. IMPRESSION 1. Osteomyelitis of the lumbar spine at L4-L5 region with endplate destruction. Elevated sed rate, Fever. Negative culture. Sed rate decreasing. 2. Lumbar abscesses suggested by the MRI of the lumbar spine. Previous MSSA bacteremia. 3. Phlebitis at r. forearm. IV site. Improved. RECOMMENDATIONS 1. Continue vancomycin until 12/29/16. 2. Can be sent to [facility] for completion of IV antibiotic course. No payor source. 3. Heating pad to lower back. Ren Senior MD Nov 18, 2016 15:14
[2016-11-18 15:30] VITALS: BP 118/59; PULSE 58; RESP 18; TEMP 96.1; O2SAT 98
[2016-11-18 20:00] VITALS: BP 130/66; PULSE 58; RESP 22; TEMP 95.9; O2SAT 98
[2016-11-18] MEDS: ACETAMINOPHEN/HYDROcodone 325 MG/5 MG TAB PO PRN (21:48)
[2016-11-18] MEDS: ZOLPIDEM TARTRATE 5 MG TAB PO PRN (21:48)
[2016-11-19] VITALS: BP 132/60; PULSE 60; RESP 20; TEMP 96.3; O2SAT 98
[2016-11-19] MEDS: MORPHINE SULFATE 4 MG/ML INJ IV PRN ×8 (01:03→21:46)
[2016-11-19] MEDS: VANCOMYCIN INJ 1,100 MG in SODIUM CHLOR 0.9% 250 ML INJ 250 ML IV SCH ×3 (01:04→17:33)
[2016-11-19 04:00] VITALS: BP 121/64; PULSE 56; RESP 20; TEMP 96.4; O2SAT 98
[2016-11-19 08:43] VITALS: BP 115/66; PULSE 55; RESP 18; TEMP 96.8; O2SAT 97
[2016-11-19] MEDS: SODIUM CHLORIDE 0.9% FLUSH 5 ML FLUSH FLUSH SCH ×2 (09:56→20:36)
--- NOTE | 2016-11-19 12:16 | HHI.PR ---
Subjective Remarks Follow-up lumbar spine osteomyelitis 11/11/16-patient seen and examined, currently afebrile however continue to complaints of low back pain. 11/12/16-patient seen and examined, still complained of low back pain. Currently nothing by mouth and plan for CT-guided bone biopsy L4-L5 11/13/16-patient seen and examined, complains of soreness to his back today. Had CT-guided bone biopsy performed yesterday. 11/14/16-patient seen and examined; filled with lower back soreness otherwise no other issues. Afebrile. 11/15/16-patient seen and examined, states he had some chills overnight however afebrile. 11/16/16-patient seen and examined, complains of pain to PICC line site in right upper arm 11/17/16-patient seen and examined, stable, afebrile, no acute event overnight 11/18/16-patient seen and examined. No complaint, afebrile and no other issues. 11/19/16-patient seen and examined, no acute event overnight. Patient is to complete vancomycin 12/29/16 Objective Vitals Vital Signs Date Time Temp Pulse Resp B/P Pulse Ox O2 Delivery O2 Flow Rate FiO2 11/19/16 11:15 20 11/19/16 08:43 96.8 55 18 115/66 97 11/19/16 04:00 96.4 56 20 121/64 98 11/19/16 00:00 96.3 60 20 132/60 98 11/18/16 22:48 20 11/18/16 20:00 95.9 58 22 130/66 98 11/18/16 18:29 11/18/16 15:30 96.1 58 18 118/59 98 I/O 11/18/16 11/18/16 11/18/16 11/19/16 11/19/16 11/19/16 07:00 15:00 23:00 07:00 15:00 23:00 Intake Total 240 ml 730 ml 250 ml Output Total 1200 ml 700 ml 450 ml Balance -960 ml 30 ml 250 ml -450 ml Intake Oral 240 ml 480 ml IV Total 250 ml 250 ml Output Urine Total 1200 ml 700 ml 450 ml # Bowel Movements 0 Result Diagram: 11/18/16 06 Objective Remarks GENERAL: NAD SKIN: Warm and dry. HEAD: Normocephalic. EYES: No scleral icterus. No injection or drainage. NECK: Supple, trachea midline. No JVD or lymphadenopathy. CARDIOVASCULAR: Regular rate and rhythm without murmurs, gallops, or rubs. RESPIRATORY: Breath sounds equal bilaterally. No accessory muscle use. GASTROINTESTINAL: Abdomen soft, non-tender, nondistended. MUSCULOSKELETAL: No cyanosis, or edema. BACK: tender without obvious deformity. No CVA tenderness. A/P Problem List: (1) Osteomyelitis of lumbar vertebra ICD Code: M46.26 Status: Acute (2) Discitis of lumbar region ICD Code: M46.46 Status: Acute Assessment and Plan 41-year-old male with Lumbar spine osteomyelitis/abscess: Lumbar spine MRI finding noted. s/p Azactam and Currently on vancomycin until 12/29/16 per infectious disease specialist. Status post CT-guided vertebral lumbar biopsy 11/08/16 showing lumbar spine area involved. s/p for CT-guided bone biopsy L4-L5 2-D 11/12/16. Appreciate input from neurosurgery. Continue current pain medication. PT to evaluate. PICC placed right upper arm HSV: Completed acyclovir 11/18/16 Hypokalemia and hypomagnesemia: Resolved and continue to monitor electrolytes. Tobacco Use: counseled on cessation. Declined nicotine patch. Polysubstance Abuse/IVDU: patient denies using any drugs since Sep 2016 however UDS +opiates and amphetamines. Counseled again on cessation. Homeless: patient lives out of his truck. Case management consult. DVT Prophylaxis: teds/SCDs Continue current care as of 11/19/16 Discharge Planning Transfer patient to [facility] Gage Li MD Nov 19, 2016 12:16
[2016-11-19 12:41] VITALS: BP 117/70; PULSE 58; RESP 18; TEMP 96.7; O2SAT 97
[2016-11-19 15:58] VITALS: BP 119/65; PULSE 66; RESP 18; TEMP 96.1; O2SAT 97
[2016-11-19] MEDS ORDERED: PHARMACY ORDERED LAB XX ONE (17:45)
[2016-11-19] MEDS: ZOLPIDEM TARTRATE 5 MG TAB PO PRN (20:35)
[2016-11-19 21:00] VITALS: BP 120/67; PULSE 62; RESP 18; TEMP 98.2; O2SAT 100
[2016-11-20] MEDS: MORPHINE SULFATE 4 MG/ML INJ IV PRN ×2 (00:58→05:07)
[2016-11-20] MEDS: VANCOMYCIN INJ 1,100 MG in SODIUM CHLOR 0.9% 250 ML INJ 250 ML IV SCH ×3 (00:58→16:38)
[2016-11-20 08:00] VITALS: BP 132/75; PULSE 54; RESP 16; TEMP 97.4; O2SAT 100
[2016-11-20] MEDS: SODIUM CHLORIDE 0.9% FLUSH 5 ML FLUSH FLUSH SCH ×2 (09:26→20:18)
[2016-11-20] MEDS: GABAPENTIN 300 MG CAP PO SCH ×4 (09:27→20:17)
--- NOTE | 2016-11-20 12:00 | HHI.PR ---
Subjective Remarks 41-year-old male with known history of IV drug use, epidural abscess, chronic back pain, anxiety, homelessness to be presented back to the hospital because of worsening back pain. Patient has had recent hospitalization for osteomyelitis, spinal abscess in which he underwent full antibiotic treatment from June [id number] as well as September 2016 until 10/20/16. At that time patient was discharged home on Cipro/Keflex for one month. It was indicated that patient had been taking his antibiotics and he started developing his back pain 5 days prior to readmission. Patient had MRI study performed which did show worsening of osteomyelitis of L4, L5 and focally of the S1 vertebral body. There is worsening endplate destruction of L4 and L5. Increase fluid collection anterior and lateral to the disc compatible with abscess. Neurosurgery was consulted and it was indicated that the MRI did indicate persistent infection and osteomyelitis with discitis. However no epidural abscess causing any stenosis. Is recommended admission and continuation of antibiotics. Patient did undergo CT-guided aspiration and biopsy of L4-L5 discs on 11/09. Patient underwent needle biopsy of L4 on 11/12. Thus far all cultures have been negative during this hospitalization. Bone culture also negative for 24 hours. No biopsy report available at this time. Because patient is to undergo long-term antibiotics is recommended the patient be transferred to [place] for continued care and management. Objective Vitals Vital Signs Date Time Temp Pulse Resp B/P Pulse Ox O2 Delivery O2 Flow Rate FiO2 11/20/16 08:00 97.4 54 16 132/75 100 11/20/16 05:21 18 11/19/16 21:00 98.2 62 18 120/67 100 11/19/16 15:58 96.1 66 18 119/65 97 11/19/16 12:41 96.7 58 18 117/70 97 I/O 11/19/16 11/19/16 11/19/16 11/20/16 11/20/16 11/20/16 07:00 15:00 23:00 07:00 15:00 23:00 Intake Total 250 ml 240 ml 720 ml Output Total 450 ml 300 ml Balance 250 ml -450 ml -60 ml 720 ml Intake Oral 240 ml 720 ml IV Total 250 ml Output Urine Total 450 ml 300 ml # Voids 3 # Bowel Movements 1 1 Result Diagram: 11/20/16 0540 Objective Remarks GENERAL: Well-developed, well-nourished, in no acute distress. alert and orientated HEENT: Head is normocephalic without any lesions or masses noted. Facial features are symmetric. Eyes: Extraocular muscles are intact. Conjunctivae were clear. NECK: Supple without any masses. Trachea midline no deviation. No JVD, CARDIAC: Regular rhythm, regular rate. S1/S2 are heard. No murmurs gallops or rubs. LUNGS: Clear to auscultation bilaterally. No wheeze, rhonchi or rales. No use of accessory muscles on inspiration or expiration. ABDOMEN: Soft, nontender. Nondistended. Bowel sounds heard in all 4 quadrants. No organomegaly or masses. Negative rebound, negative guarding EXTREMITIES: No edema, pulses are equal bilaterally. No cyanosis or clubbing NEUROLOGY: Mood and affect appear appropriate. Cranial nerves II through XII grossly intact. Moving all extremities, speech is clear Urinary Catheter: No Vascular Central Line Catheter: No A/P Assessment and Plan Lumbar spine osteomyelitis/abscess: Presenting with increased back pain. Lumbar spine MRI finding noted. Neurosurgery evaluated patient and recommended biopsy and aspiration. Thus far cultures have all remained negative. Awaiting CT-guided biopsy results. Infectious disease consulted and recommending vancomycin until 12/29/16. Continue to monitor CBC, CMP, C-reactive protein, sedimentation rate on a weekly basis Pain management: Discontinue morphine IV. Start Lortab 7.5 every 6 hours as needed for pain 6-10, Lortab 5 every 6 hours as needed for pain 3-5. Resume patient's Neurontin 300 mg 3 times daily Herpes simplex infection: Completed acyclovir 11/18/16 Tobacco Use: counseled on cessation. Declined nicotine patch. Polysubstance Abuse/IVDU: patient denied using any drugs since Sep 2016. Urine drug screen was positive for opiates and amphetamines. Patient was counseled on cessation DVT Prophylaxis: Lovenox Discharge Planning Discharge planning per case management, likely after antibiotics completed on Hernando Truong Nov 20, 2016 12:00
[2016-11-20] MEDS: ACETAMINOPHEN/HYDROcodone 325 MG/7.5 MG TAB PO PRN ×2 (12:30→18:27)
[2016-11-20] MEDS: ENOXAPARIN SODIUM 40 MG/0.4 ML SYRINGE SQ SCH (12:30)
[2016-11-20 20:00] VITALS: BP 114/64; PULSE 64; RESP 16; TEMP 97.4; O2SAT 98
[2016-11-21] MEDS: VANCOMYCIN INJ 1,100 MG in SODIUM CHLOR 0.9% 250 ML INJ 250 ML IV SCH ×3 (00:30→17:16)
[2016-11-21] MEDS: ACETAMINOPHEN/HYDROcodone 325 MG/7.5 MG TAB PO PRN (00:30)
[2016-11-21] MEDS: ZOLPIDEM TARTRATE 5 MG TAB PO PRN (00:30)
[2016-11-21 08:00] VITALS: BP 107/65; PULSE 58; RESP 17; TEMP 97.6; O2SAT 99
[2016-11-21] MEDS: GABAPENTIN 300 MG CAP PO SCH ×4 (09:09→20:49)
[2016-11-21] MEDS: ACETAMINOPHEN/HYDROcodone 325 MG/5 MG TAB PO PRN ×4 (09:13→23:08)
[2016-11-21] MEDS: ENOXAPARIN SODIUM 40 MG/0.4 ML SYRINGE SQ SCH (09:14)
[2016-11-21] MEDS: SODIUM CHLORIDE 0.9% FLUSH 5 ML FLUSH FLUSH SCH ×2 (09:29→20:50)
--- NOTE | 2016-11-21 10:57 | HHI.PR ---
Subjective Remarks This record was reviewed, no acute events overnight, no change in present treatment plan. Patient seen and examined today. Patient denies any new complaints. Awaiting case management for discharge planning Objective Vitals Vital Signs Date Time Temp Pulse Resp B/P Pulse Ox O2 Delivery O2 Flow Rate FiO2 11/21/16 10:29 14 11/21/16 08:00 97.6 58 17 107/65 99 11/21/16 01:57 18 11/20/16 20:00 97.4 64 16 114/64 98 I/O 11/20/16 11/20/16 11/20/16 11/21/16 11/21/16 11/21/16 07:00 15:00 23:00 07:00 15:00 23:00 Intake Total 720 ml 840 ml 1100 ml 220 ml Output Total 1000 ml Balance 720 ml -160 ml 1100 ml 220 ml Intake Oral 720 ml 840 ml 600 ml 220 ml IV Total 500 ml Output Urine Total 1000 ml # Voids 3 3 2 # Bowel Movements 1 0 0 0 Result Diagram: 11/20/16 0540 Objective Remarks GENERAL: Well-developed, well-nourished, in no acute distress. alert and orientated HEENT: Head is normocephalic without any lesions or masses noted. Facial features are symmetric. Eyes: Extraocular muscles are intact. Conjunctivae were clear. NECK: Supple without any masses. Trachea midline no deviation. No JVD, CARDIAC: Regular rhythm, regular rate. S1/S2 are heard. No murmurs gallops or rubs. LUNGS: Clear to auscultation bilaterally. No wheeze, rhonchi or rales. No use of accessory muscles on inspiration or expiration. ABDOMEN: Soft, nontender. Nondistended. Bowel sounds heard in all 4 quadrants. No organomegaly or masses. Negative rebound, negative guarding EXTREMITIES: No edema, pulses are equal bilaterally. No cyanosis or clubbing NEUROLOGY: Mood and affect appear appropriate. Cranial nerves II through XII grossly intact. Moving all extremities, speech is clear Urinary Catheter: No Vascular Central Line Catheter: Yes Assessment to: Continue Date of Insertion: Nov 15, 2016 A/P Assessment and Plan Lumbar spine osteomyelitis/abscess: Presenting with increased back pain. Lumbar spine MRI finding noted. Neurosurgery evaluated patient and recommended biopsy and aspiration. Thus far cultures have all remained negative. Awaiting CT-guided biopsy results. Infectious disease consulted and recommending vancomycin until 12/29/16. Continue to monitor CBC, CMP, C-reactive protein, sedimentation rate on a weekly basis Pain management: Discontinue morphine IV. Lortab 7.5 every 6 hours as needed for pain 6-10, Lortab 5 every 6 hours as needed for pain 3-5. Neurontin 300 mg 3 times daily Herpes simplex infection: Completed acyclovir 11/18/16 Tobacco Use: counseled on cessation. Declined nicotine patch. Polysubstance Abuse/IVDU: patient denied using any drugs since Sep 2016. Urine drug screen was positive for opiates and amphetamines. Patient was counseled on cessation DVT Prophylaxis: Lovenox Discharge Planning Discharge planning per case management, likely after antibiotics completed on Hernando Truong Nov 21, 2016 10:57
[2016-11-21 20:00] VITALS: BP 121/72; PULSE 60; RESP 16; TEMP 98.1; O2SAT 99
[2016-11-22] MEDS: VANCOMYCIN INJ 1,100 MG in SODIUM CHLOR 0.9% 250 ML INJ 250 ML IV SCH ×3 (01:24→16:36)
[2016-11-22] MEDS: ACETAMINOPHEN/HYDROcodone 325 MG/5 MG TAB PO PRN ×3 (07:35→21:37)
[2016-11-22] MEDS: GABAPENTIN 300 MG CAP PO SCH ×4 (07:35→21:36)
[2016-11-22 08:00] VITALS: BP 122/77; PULSE 53; RESP 16; TEMP 97.6; O2SAT 100
[2016-11-22] MEDS: SODIUM CHLORIDE 0.9% FLUSH 5 ML FLUSH FLUSH SCH ×2 (10:20→21:37)
[2016-11-22] MEDS: ENOXAPARIN SODIUM 40 MG/0.4 ML SYRINGE SQ SCH (11:32)
--- NOTE | 2016-11-22 11:34 | HHI.PR ---
Subjective Remarks Patient seen and examined today. Patient denies any new complaints. No change in clinical status. Objective Vitals Vital Signs Date Time Temp Pulse Resp B/P Pulse Ox O2 Delivery O2 Flow Rate FiO2 11/22/16 08:00 97.6 53 16 122/77 100 11/21/16 20:00 98.1 60 16 121/72 99 11/21/16 15:55 14 I/O 11/21/16 11/21/16 11/21/16 11/22/16 11/22/16 11/22/16 07:00 15:00 23:00 07:00 15:00 23:00 Intake Total 220 ml 1440 ml 600 ml Balance 220 ml 1440 ml 600 ml Intake Oral 220 ml 1440 ml 600 ml # Voids 2 2 1 # Bowel Movements 0 1 0 Result Diagram: 11/20/16 0540 Objective Remarks GENERAL: Well-developed, well-nourished, in no acute distress. alert and orientated HEENT: Head is normocephalic without any lesions or masses noted. Facial features are symmetric. Eyes: Extraocular muscles are intact. Conjunctivae were clear. NECK: Supple without any masses. Trachea midline no deviation. No JVD, CARDIAC: Regular rhythm, regular rate. S1/S2 are heard. No murmurs gallops or rubs. LUNGS: Clear to auscultation bilaterally. No wheeze, rhonchi or rales. No use of accessory muscles on inspiration or expiration. ABDOMEN: Soft, nontender. Nondistended. Bowel sounds heard in all 4 quadrants. No organomegaly or masses. Negative rebound, negative guarding EXTREMITIES: No edema, pulses are equal bilaterally. No cyanosis or clubbing NEUROLOGY: Mood and affect appear appropriate. Cranial nerves II through XII grossly intact. Moving all extremities, speech is clear Urinary Catheter: No Vascular Central Line Catheter: No Date of Insertion: Nov 15, 2016 A/P Assessment and Plan Lumbar spine osteomyelitis/abscess: Presenting with increased back pain. Lumbar spine MRI finding noted. Neurosurgery evaluated patient and recommended biopsy and aspiration. Thus far cultures have all remained negative. Awaiting CT-guided biopsy results. Infectious disease consulted and recommending vancomycin until 12/29/16. Continue to monitor CBC, CMP, C-reactive protein, sedimentation rate on a weekly basis, ordered for 11/24/16 Pain management: Lortab 7.5 every 6 hours as needed for pain 6-10, Lortab 5 every 6 hours as needed for pain 3-5. Neurontin 300 mg 3 times daily Herpes simplex infection: Completed acyclovir 11/18/16 Tobacco Use: counseled on cessation. Declined nicotine patch. Polysubstance Abuse/IVDU: patient denied using any drugs since Sep 2016. Urine drug screen was positive for opiates and amphetamines. Patient was counseled on cessation DVT Prophylaxis: Lovenox Discharge Planning Discharge planning per case management, likely after antibiotics completed on Hernando Truong Nov 22, 2016 11:34
[2016-11-22] MEDS: ACETAMINOPHEN/HYDROcodone 325 MG/7.5 MG TAB PO PRN (11:35)
[2016-11-22 20:00] VITALS: BP 123/83; PULSE 66; RESP 18; TEMP 99.5; O2SAT 100
[2016-11-22] MEDS: ZOLPIDEM TARTRATE 5 MG TAB PO PRN (21:39)
[2016-11-23] MEDS: VANCOMYCIN INJ 1,100 MG in SODIUM CHLOR 0.9% 250 ML INJ 250 ML IV SCH ×3 (00:57→15:47)
[2016-11-23] MEDS: SODIUM CHLORIDE 0.9% FLUSH 5 ML FLUSH FLUSH PRN (00:57)
[2016-11-23] MEDS: ACETAMINOPHEN/HYDROcodone 325 MG/5 MG TAB PO PRN ×4 (01:34→15:46)
[2016-11-23 08:00] VITALS: BP 118/63; PULSE 56; RESP 20; TEMP 96.3; O2SAT 99
[2016-11-23] MEDS: ENOXAPARIN SODIUM 40 MG/0.4 ML SYRINGE SQ SCH (08:21)
[2016-11-23] MEDS: GABAPENTIN 300 MG CAP PO SCH ×4 (08:21→20:55)
[2016-11-23] MEDS: SODIUM CHLORIDE 0.9% FLUSH 5 ML FLUSH FLUSH SCH ×2 (08:24→21:34)
[2016-11-23] MEDS ORDERED: VANCOMYCIN TROUGH XX ONE (08:45)
--- NOTE | 2016-11-23 12:26 | HHI.PR ---
Subjective Remarks Follow-up for osteomyelitis, discitis. No acute complaints. Denies any fevers or chills. Objective Vitals Vital Signs Date Time Temp Pulse Resp B/P Pulse Ox O2 Delivery O2 Flow Rate FiO2 11/23/16 12:18 16 11/23/16 08:00 96.3 56 20 118/63 99 11/22/16 20:00 99.5 66 18 123/83 100 11/22/16 12:51 12 I/O 11/22/16 11/22/16 11/22/16 11/23/16 11/23/16 11/23/16 07:00 15:00 23:00 07:00 15:00 23:00 Intake Total 600 ml 960 ml 660 ml 520 ml Output Total 460 ml Balance 600 ml 500 ml 660 ml 520 ml Intake Oral 600 ml 960 ml 660 ml 520 ml Output Urine Total 460 ml # Voids 1 2 4 # Bowel Movements 0 1 0 0 Result Diagram: 11/23/16 0845 Objective Remarks GENERAL: Well-nourished, well-developed patient in no apparent distress sleeping when I asked the room. SKIN: Warm and dry. CARDIOVASCULAR: Regular rate and rhythm. RESPIRATORY: No accessory muscle use. Clear to auscultation. Breath sounds equal bilaterally. BACK: No swelling over the lower back. Urinary Catheter: No Vascular Central Line Catheter: No Date of Insertion: Nov 15, 2016 A/P Problem List: (1) Osteomyelitis of lumbar vertebra ICD Code: M46.26 Status: Acute (2) Discitis of lumbar region ICD Code: M46.46 Status: Acute Assessment and Plan Lumbar spine osteomyelitis/abscess: Presenting with increased back pain. Lumbar spine MRI finding noted. Neurosurgery evaluated patient and recommended biopsy and aspiration. Thus far cultures have all remained negative. Awaiting CT-guided biopsy results. Infectious disease consulted and recommending vancomycin until 12/29/16. Continue to monitor CBC, CMP, C-reactive protein, sedimentation rate on a weekly basis, ordered for 11/24/16 Pain management: Lortab 7.5 every 6 hours as needed for pain 6-10, Lortab 5 every 6 hours as needed for pain 3-5. Neurontin 300 mg 3 times daily Herpes simplex infection: Completed acyclovir 11/18/16 Tobacco Use: counseled on cessation. Declined nicotine patch. Polysubstance Abuse/IVDU: patient denied using any drugs since Sep 2016. Urine drug screen was positive for opiates and amphetamines on 10/31. Patient was counseled on cessation DVT Prophylaxis: Vashti Murillo Nov 23, 2016 12:26
[2016-11-23] MEDS: ACETAMINOPHEN/HYDROcodone 325 MG/7.5 MG TAB PO PRN (19:43)
[2016-11-23 20:00] VITALS: BP 121/70; PULSE 70; RESP 18; TEMP 97.9; O2SAT 100
[2016-11-23] MEDS: ZOLPIDEM TARTRATE 5 MG TAB PO PRN (20:57)
[2016-11-24] MEDS: VANCOMYCIN INJ 1,100 MG in SODIUM CHLOR 0.9% 250 ML INJ 250 ML IV SCH ×3 (00:54→16:24)
[2016-11-24] MEDS: SODIUM CHLORIDE 0.9% FLUSH 5 ML FLUSH FLUSH PRN (00:54)
[2016-11-24] MEDS: ONDANSETRON HCL 4 MG/2 ML VIAL IVP PRN (00:54)
[2016-11-24] MEDS: ACETAMINOPHEN/HYDROcodone 325 MG/5 MG TAB PO PRN ×5 (06:27→21:21)
[2016-11-24 06:52] LABS: CHLORIDE 104 MEQ/L (98-107); POTASSIUM 4.1 MEQ/L (3.5-5.1); SODIUM (NA) 140 MEQ/L (136-145)
[2016-11-24 06:54] LABS: HEMATOCRIT 35.7 % (39.0-51.0); MEAN CELL VOLUME 81.7 FL (80.0-100.0); MEAN CORPUSCULAR HEMOGLOBIN 27.3 PG (27.0-34.0); MEAN CORPUSCULAR HGB CONC 33.4 % (32.0-36.0); PLATELET COUNT 232 TH/MM3 (150-450); RED BLOOD COUNT 4.36 MIL/MM3 (4.50-5.90); RED CELL DISTRIBUTION WIDTH 17.4 % (11.6-17.2); WHITE BLOOD COUNT 2.5 TH/MM3 (4.0-11.0)
[2016-11-24 06:56] LABS: ANION GAP 7 MEQ/L (5-15); BICARBONATE 28.9 MEQ/L (21.0-32.0); BLOOD UREA NITROGEN 12 MG/DL (7-18)
[2016-11-24 06:57] LABS: HEMO FLAGS AUTO DIFF
[2016-11-24 06:59] LABS: ALT (GPT) 66 U/L (12-78); AST (GOT) 38 U/L (15-37); GLOMERULAR FILTRATION RATE 108 ML/MIN (>89)
[2016-11-24 07:01] LABS: TOTAL BILIRUBIN ADULT 0.2 MG/DL (0.2-1.0)
[2016-11-24 07:02] LABS: ALKALINE PHOSPHATASE 82 U/L (45-117)
[2016-11-24 07:40] LABS: WESTERGREN SEDIMENTATION RATE 22 mm/hr (0-15)
[2016-11-24] MEDS: ENOXAPARIN SODIUM 40 MG/0.4 ML SYRINGE SQ SCH (07:45)
[2016-11-24] MEDS: GABAPENTIN 300 MG CAP PO SCH ×4 (07:45→20:20)
[2016-11-24 08:02] LABS: EOSINOPHILS 10 % (0-4); NEUTROPHIL # MANUAL DIFF 0.5 TH/MM3 (1.8-7.7); PLATELET ESTIMATE SMEAR NORMAL (NORMAL); PLATELET MORPHOLOGY NORMAL (NORMAL); POLYS (SEG NEUTROPHILS) 21 % (16-70); SCAN/DIFF FINAL DIFF MANUAL; WBC DIFF SAMPLE 100
[2016-11-24 08:40] VITALS: BP 101/61; PULSE 61; RESP 17; TEMP 96.2; O2SAT 99
[2016-11-24] MEDS: SODIUM CHLORIDE 0.9% FLUSH 5 ML FLUSH FLUSH SCH ×2 (09:01→20:20)
[2016-11-24] MEDS ORDERED: Vancomycin Consult Pharmacy 1 EA OTHER SCH (10:45)
--- NOTE | 2016-11-24 13:00 | HHI.PR ---
Subjective Remarks Follow up for osteomyelitis. In regards to back, patient states he is stiff. Admits to not sleeping well overnight and is tired due to gabapentin. Objective Vitals Vital Signs Date Time Temp Pulse Resp B/P Pulse Ox O2 Delivery O2 Flow Rate FiO2 11/24/16 08:40 96.2 61 17 101/61 99 11/24/16 07:48 14 11/23/16 20:00 97.9 70 18 121/70 100 I/O 11/23/16 11/23/16 11/23/16 11/24/16 11/24/16 11/24/16 07:00 15:00 23:00 07:00 15:00 23:00 Intake Total 520 ml 1000 ml 600 ml 620 ml Balance 520 ml 1000 ml 600 ml 620 ml Intake Oral 520 ml 1000 ml 600 ml 620 ml # Voids 4 4 2 2 # Bowel Movements 0 0 0 0 Result Diagram: 11/24/1662911/24/16 0630 Objective Remarks GENERAL: Well-nourished, well-developed patient in no apparent distress sleeping when I enter the room. SKIN: Warm and dry. CARDIOVASCULAR: Regular rate and rhythm. RESPIRATORY: No accessory muscle use. Clear to auscultation. Breath sounds equal bilaterally. GASTROINTESTINAL: Abdomen soft, non-tender, non-distended. Urinary Catheter: No Vascular Central Line Catheter: No Date of Insertion: Nov 15, 2016 A/P Problem List: (1) Osteomyelitis of lumbar vertebra ICD Code: M46.26 Status: Acute (2) Discitis of lumbar region ICD Code: M46.46 Status: Acute Assessment and Plan Lumbar spine osteomyelitis/abscess: Presenting with increased back pain. Lumbar spine MRI finding noted. Neurosurgery evaluated patient and recommended biopsy and aspiration. Thus far cultures have all remained negative. -Awaiting CT-guided biopsy results. -Infectious disease consulted and recommending vancomycin until 12/29/16. -Continue to monitor CBC, CMP, C-reactive protein, and sedimentation rate on a weekly basis. Next labs ordered for 12/01/16. -CBC today reviewed with WBC of 2.5, with manual neutrophil count low at 0.5. Lymphocytes, monocytes, and eosinophils elevated. ESR improved at 22 and CRP normal. Discussed with Dr. Rees. Repeat CBC w/ diff now. Pain management: -Lortab 5 every 6 hours as needed for pain 3-5 -Lortab 7.5 every 6 hours as needed for pain 6-10 -Neurontin 300 mg 3 times daily Herpes simplex infection: Completed acyclovir 11/18/16 Tobacco Use: counseled on cessation. Declined nicotine patch. Polysubstance Abuse/IVDU: patient denied using any drugs since Sep 2016, but urine drug screen was positive for opiates and amphetamines on 10/31. Patient was counseled on cessation DVT Prophylaxis: Vashti Murillo Nov 24, 2016 13:00
[2016-11-24 18:23] LABS: MEAN CELL VOLUME 82.7 FL (80.0-100.0); MEAN CORPUSCULAR HEMOGLOBIN 28.2 PG (27.0-34.0); MEAN CORPUSCULAR HGB CONC 34.1 % (32.0-36.0); PLATELET COUNT 233 TH/MM3 (150-450); RED BLOOD COUNT 4.35 MIL/MM3 (4.50-5.90); WHITE BLOOD COUNT 3.1 TH/MM3 (4.0-11.0)
[2016-11-24 18:30] LABS: HEMO FLAGS AUTO DIFF
[2016-11-24 18:48] LABS: EOSINOPHILS 7 % (0-4); POLYS (SEG NEUTROPHILS) 2 % (16-70); WBC DIFF SAMPLE 100
[2016-11-24 18:49] LABS: PLATELET ESTIMATE SMEAR NORMAL (NORMAL); PLATELET MORPHOLOGY NORMAL (NORMAL); SCAN/DIFF FINAL DIFF MANUAL
[2016-11-24 19:10] LABS: NEUTROPHIL # MANUAL DIFF 0.1 TH/MM3 (1.8-7.7)
[2016-11-24 20:00] VITALS: BP 117/74; PULSE 76; RESP 18; TEMP 97.2; O2SAT 98
[2016-11-24] MEDS: ZOLPIDEM TARTRATE 5 MG TAB PO PRN (22:33)
[2016-11-25] MEDS: VANCOMYCIN INJ 1,100 MG in SODIUM CHLOR 0.9% 250 ML INJ 250 ML IV SCH ×2 (01:00→09:06)
[2016-11-25] MEDS: ACETAMINOPHEN/HYDROcodone 325 MG/7.5 MG TAB PO PRN ×2 (06:26→16:25)
[2016-11-25 08:47] VITALS: BP 108/71; PULSE 60; RESP 18; TEMP 97.8; O2SAT 98
[2016-11-25] MEDS: SODIUM CHLORIDE 0.9% FLUSH 5 ML FLUSH FLUSH SCH ×2 (09:06→21:06)
[2016-11-25] MEDS: ENOXAPARIN SODIUM 40 MG/0.4 ML SYRINGE SQ SCH (09:07)
[2016-11-25] MEDS: GABAPENTIN 300 MG CAP PO SCH ×4 (09:07→21:05)
[2016-11-25] MEDS: ACETAMINOPHEN/HYDROcodone 325 MG/5 MG TAB PO PRN ×2 (12:06→22:46)
--- NOTE | 2016-11-25 13:07 | HHI.PR ---
Subjective Remarks Follow-up for osteomyelitis and discitis. Patient admits to back pain. Found to be neutropenic on labs yesterday. Denies any fevers, cough, chest pain, shortness of breath, abdominal pain, nausea, vomiting, or diarrhea. Objective Vitals Vital Signs Date Time Temp Pulse Resp B/P Pulse Ox O2 Delivery O2 Flow Rate FiO2 11/25/16 08:47 97.8 60 18 108/71 98 11/25/16 07:32 18 11/24/16 22:17 16 11/24/16 20:00 97.2 76 18 117/74 98 I/O 11/24/16 11/24/16 11/24/16 11/25/16 11/25/16 11/25/16 07:00 15:00 23:00 07:00 15:00 23:00 Intake Total 620 ml 720 ml 200 ml Balance 620 ml 720 ml 200 ml Intake Oral 620 ml 240 ml 200 ml Oral Supplement 480 ml # Voids 2 3 1 # Bowel Movements 0 0 0 Result Diagram: 11/24/16 1750 11/24/16 0630 Objective Remarks GENERAL: Well-nourished, well-developed patient in no apparent distress lying on his side. CARDIOVASCULAR: Regular rate and rhythm. RESPIRATORY: No accessory muscle use. Clear to auscultation. Breath sounds equal bilaterally. GASTROINTESTINAL: Normoactive bowel sounds. Abdomen soft, non-tender, non- distended. NEUROLOGICAL: Awake and alert. PSYCHIATRIC: Normal mood and affect. 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 Lumbar spine MRI finding noted. Neurosurgery evaluated patient and recommended biopsy and aspiration. Thus far cultures have all remained negative. -Awaiting CT-guided biopsy results. -Infectious disease consulted and recommending antibiotics until 12/29/16. -Continue to monitor CBC, CMP, C-reactive protein, and sedimentation rate on a weekly basis. Next labs ordered for 12/01/16. -11/24: ESR improved at 22 and CRP normal. CMP is stable. -11/25: CBC 11/24 reviewed with neutropenia, manual count of 0.1; elevated lymphocytes, monocytes, and eosinophils. Patient on neutropenic precautions. Neutropenia is likely attributed to vancomycin. (HIV testing in September negative). I discussed this with Dr. Mitchell, ID, who agrees. She advises discontinuing Vancomycin and starting patient on Cefazolin 2 g IV every 8 hours as previous cultures grew MSSA. Blood cultures and wound cultures from this admission are without growth. Pain management: -Lortab 5 every 6 hours as needed for pain 3-5 -Lortab 7.5 every 6 hours as needed for pain 6-10 -Neurontin 300 mg 3 times daily Herpes simplex infection: Completed acyclovir 11/18/16 Tobacco Use: counseled on cessation. Declined nicotine patch. Polysubstance Abuse/IVDU: patient denied using any drugs since Sep 2016, but urine drug screen was positive for opiates and amphetamines on 10/31. Patient was counseled on cessation DVT Prophylaxis: Lovenox Discharge Planning D/c when antibiotics complete and patient cleared by ID. Vashti Jose Nov 25, 2016 13:07
[2016-11-25] MEDS: ceFAZolin 2 GM PREMIX 50 ML IV SCH ×2 (13:27→21:06)
[2016-11-25 20:00] VITALS: BP 101/53; PULSE 67; RESP 16; TEMP 95.8; O2SAT 99
[2016-11-25] MEDS: ZOLPIDEM TARTRATE 5 MG TAB PO PRN (22:46)
[2016-11-26] MEDS: ceFAZolin 2 GM PREMIX 50 ML IV SCH ×3 (04:11→20:08)
[2016-11-26] MEDS: ACETAMINOPHEN/HYDROcodone 325 MG/7.5 MG TAB PO PRN ×3 (07:50→20:09)
[2016-11-26] MEDS: GABAPENTIN 300 MG CAP PO SCH ×3 (07:51→17:27)
[2016-11-26] MEDS: ENOXAPARIN SODIUM 40 MG/0.4 ML SYRINGE SQ SCH (07:52)
[2016-11-26 08:00] VITALS: BP 120/77; PULSE 67; RESP 18; TEMP 96.9; O2SAT 98
--- NOTE | 2016-11-26 09:17 | HHI.PR ---
Subjective Remarks Follow-up for osteomyelitis, discitis, neutropenia. Patient states he is tired because of the gabapentin and states he no longer has sciatica regularly. Objective Vitals Vital Signs Date Time Temp Pulse Resp B/P Pulse Ox O2 Delivery O2 Flow Rate FiO2 11/26/16 09:02 14 11/26/16 08:00 96.9 67 18 120/77 98 11/25/16 20:00 95.8 67 16 101/53 99 11/25/16 13:13 16 I/O 11/25/16 11/25/16 11/25/16 11/26/16 11/26/16 11/26/16 07:00 15:00 23:00 07:00 15:00 23:00 Intake Total 200 ml 2160 ml 480 ml Balance 200 ml 2160 ml 480 ml Intake Oral 200 ml 1680 ml 480 ml Oral Supplement 480 ml # Voids 1 7 2 # Bowel Movements 0 1 0 Result Diagram: 11/24/16 1750 11/24/16 0630 Objective Remarks GENERAL: Well-nourished, well-developed patient in no apparent distress. CARDIOVASCULAR: Regular rate and rhythm. RESPIRATORY: No accessory muscle use. Clear to auscultation. Breath sounds equal bilaterally. GASTROINTESTINAL: Abdomen soft, non-tender, non-distended. NEUROLOGICAL: Awake and alert. Witnessed to be ambulating. PSYCHIATRIC: Normal mood and affect. Urinary Catheter: No Vascular Central Line Catheter: Yes Assessment to: Continue Date of Insertion: Nov 15, 2016 Line: PICC Side: Right A/P Problem List: (1) Neutropenia ICD Code: D70.9 Status: Acute (2) Osteomyelitis of lumbar vertebra ICD Code: M46.26 Status: Acute (3) Discitis of lumbar region ICD Code: M46.46 Status: Acute Assessment and Plan Lumbar spine osteomyelitis/abscess: Presenting with increased back pain. Lumbar spine MRI finding noted. Neurosurgery evaluated patient and recommended biopsy and aspiration. Thus far cultures have all remained negative. -Awaiting CT-guided biopsy results. -Infectious disease consulted and recommending antibiotics until 12/29/16. -Continue to monitor CBC, CMP, C-reactive protein, and sedimentation rate on a weekly basis. Next labs ordered for 12/01/16. -11/24: ESR improved at 22 and CRP normal. CMP is stable. -11/25: CBC 11/24 reviewed with neutropenia, manual count of 0.1; elevated lymphocytes, monocytes, and eosinophils. Neutropenia is likely attributed to vancomycin. (HIV testing in September negative). I discussed this with NATANAEL Moctezuma, who agrees. She advises discontinuing Vancomycin and starting patient on Cefazolin 2 g IV every 8 hours as previous cultures grew MSSA. Blood cultures and wound cultures from this admission are without growth. -11/26: CBC reviewed with mildly improved neutropenia. Continue to monitor. Continue neutropenic precautions. Pain management: -Lortab 5 every 6 hours as needed for pain 3-5 -Lortab 7.5 every 6 hours as needed for pain 6-10 -Gabapentin 300 mg 4 times daily. Will taper gabapentin to discontinuation as patient indicates he no longer needs it and it makes him tired. Herpes simplex infection: Completed acyclovir 11/18/16 Tobacco Use: counseled on cessation. Declined nicotine patch. Polysubstance Abuse/IVDU: patient denied using any drugs since Sep 2016, but urine drug screen was positive for opiates and amphetamines on 10/31. Patient was counseled on cessation DVT Prophylaxis: Lovenox Discharge Planning D/c when antibiotics complete and patient cleared by ID. Vashti Jose Nov 26, 2016 09:17
[2016-11-26] MEDS: SODIUM CHLORIDE 0.9% FLUSH 5 ML FLUSH FLUSH SCH ×2 (10:21→20:08)
[2016-11-26 10:52] LABS: HEMATOCRIT 38.6 % (39.0-51.0); MEAN CELL VOLUME 84.2 FL (80.0-100.0); MEAN CORPUSCULAR HEMOGLOBIN 27.3 PG (27.0-34.0); MEAN CORPUSCULAR HGB CONC 32.5 % (32.0-36.0); PLATELET COUNT 243 TH/MM3 (150-450); RED BLOOD COUNT 4.58 MIL/MM3 (4.50-5.90); RED CELL DISTRIBUTION WIDTH 17.9 % (11.6-17.2); WHITE BLOOD COUNT 3.4 TH/MM3 (4.0-11.0)
[2016-11-26 10:58] LABS: HEMO FLAGS AUTO DIFF
[2016-11-26 11:27] LABS: EOSINOPHILS 9 % (0-4); PLATELET ESTIMATE SMEAR NORMAL (NORMAL); PLATELET MORPHOLOGY NORMAL (NORMAL); POLYS (SEG NEUTROPHILS) 9 % (16-70); SCAN/DIFF FINAL DIFF MANUAL; WBC DIFF SAMPLE 100
[2016-11-26 11:32] LABS: NEUTROPHIL # MANUAL DIFF 0.3 TH/MM3 (1.8-7.7)
[2016-11-26 20:00] VITALS: BP 112/51; PULSE 68; RESP 18; TEMP 96.5; O2SAT 97
[2016-11-26] MEDS: ZOLPIDEM TARTRATE 5 MG TAB PO PRN (23:15)
[2016-11-27] MEDS: ceFAZolin 2 GM PREMIX 50 ML IV SCH ×3 (05:22→20:20)
[2016-11-27] MEDS: ACETAMINOPHEN/HYDROcodone 325 MG/7.5 MG TAB PO PRN ×3 (05:27→17:21)
[2016-11-27 08:00] VITALS: BP 114/73; PULSE 59; RESP 20; TEMP 98.3; O2SAT 99
[2016-11-27] MEDS: SODIUM CHLORIDE 0.9% FLUSH 5 ML FLUSH FLUSH SCH ×2 (08:38→20:21)
[2016-11-27] MEDS: GABAPENTIN 300 MG CAP PO SCH ×2 (08:39→20:20)
[2016-11-27] MEDS ORDERED: VANCOMYCIN TROUGH XX ONE (08:45)
[2016-11-27] MEDS: ENOXAPARIN SODIUM 40 MG/0.4 ML SYRINGE SQ SCH (11:11)
--- NOTE | 2016-11-27 16:11 | HHI.PR ---
Subjective Remarks Patient evaluated this morning. Follow-up for osteomyelitis, discitis. No acute complaints. Objective Vitals Vital Signs Date Time Temp Pulse Resp B/P Pulse Ox O2 Delivery O2 Flow Rate FiO2 11/27/16 08:00 98.3 59 20 114/73 99 11/26/16 20:00 96.5 68 18 112/51 97 11/26/16 16:14 14 I/O 11/26/16 11/26/16 11/26/16 11/27/16 11/27/16 11/27/16 07:00 15:00 23:00 07:00 15:00 23:00 Intake Total 480 ml 950 ml 960 ml Balance 480 ml 950 ml 960 ml Intake Oral 480 ml 950 ml 960 ml # Voids 2 4 3 6 # Bowel Movements 0 1 Result Diagram: 11/26/16 1040 11/24/16 0630 Objective Remarks GENERAL: Well-nourished, well-developed patient in no apparent distress. CARDIOVASCULAR: Regular rate and rhythm. RESPIRATORY: No accessory muscle use. Clear to auscultation. Breath sounds equal bilaterally. GASTROINTESTINAL: Abdomen soft, non-tender, non-distended. NEUROLOGICAL: Awake and alert. Witnessed to be ambulating. PSYCHIATRIC: Normal mood and affect. Urinary Catheter: No Vascular Central Line Catheter: Yes Assessment to: Continue Date of Insertion: Nov 15, 2016 Line: PICC Side: Right A/P Problem List: (1) Neutropenia ICD Code: D70.9 Status: Acute (2) Osteomyelitis of lumbar vertebra ICD Code: M46.26 Status: Acute (3) Discitis of lumbar region ICD Code: M46.46 Status: Acute Assessment and Plan Lumbar spine osteomyelitis/abscess: Presenting with increased back pain. Lumbar spine MRI finding noted. Neurosurgery evaluated patient and recommended biopsy and aspiration. Thus far cultures have all remained negative. -Awaiting CT-guided biopsy results. -Infectious disease consulted and recommending antibiotics until 12/29/16. -Continue to monitor CBC, CMP, C-reactive protein, and sedimentation rate on a weekly basis. Next labs ordered for 12/01/16. -11/24: ESR improved at 22 and CRP normal. CMP is stable. -11/25: CBC 11/24 reviewed with neutropenia, manual count of 0.1; elevated lymphocytes, monocytes, and eosinophils. Neutropenia is likely attributed to vancomycin. (HIV testing in September negative). I discussed this with Dr. Mitchell , ID, who agrees. She advises discontinuing Vancomycin and starting patient on Cefazolin 2 g IV every 8 hours as previous cultures grew MSSA. Blood cultures and wound cultures from this admission are without growth. -11/26: CBC reviewed with mildly improved neutropenia. Continue neutropenic precautions. Continue to monitor. AM CBC ordered. Pain management: -Lortab 5 every 6 hours as needed for pain 3-5 -Lortab 7.5 every 6 hours as needed for pain 6-10 -Will taper gabapentin to discontinuation as patient indicates he no longer needs it and it makes him tired. Herpes simplex infection: Completed acyclovir 11/18/16 Tobacco Use: counseled on cessation. Declined nicotine patch. Polysubstance Abuse/IVDU: patient denied using any drugs since Sep 2016, but urine drug screen was positive for opiates and amphetamines on 10/31. Patient was counseled on cessation DVT Prophylaxis: Lovenox Discharge Planning D/c when antibiotics complete and patient cleared by NATANAEL. Vashti Jose Nov 27, 2016 16:11
[2016-11-27] MEDS: ZOLPIDEM TARTRATE 5 MG TAB PO PRN (21:14)
[2016-11-27 21:15] VITALS: BP 118/75; PULSE 75; RESP 18; TEMP 98.6; O2SAT 99
[2016-11-28] MEDS: ACETAMINOPHEN/HYDROcodone 325 MG/7.5 MG TAB PO PRN ×4 (01:00→20:57)
[2016-11-28] MEDS: ceFAZolin 2 GM PREMIX 50 ML IV SCH ×3 (05:13→22:00)
[2016-11-28 07:38] LABS: AUTOMATED NEUTROPHIL # 0.8 TH/MM3 (1.8-7.7); BASOPHIL % 0.9 % (0.0-2.0); EOSINOPHIL # 0.4 TH/MM3 (0-0.4); EOSINOPHIL % 9.3 % (0.0-4.0); HEMATOCRIT 37.6 % (39.0-51.0); LYMPH % 51.9 % (9.0-44.0); MEAN CORPUSCULAR HEMOGLOBIN 28.5 PG (27.0-34.0); MEAN CORPUSCULAR HGB CONC 34.4 % (32.0-36.0); MONO % 16.8 % (0.0-8.0); NEUT % 21.1 % (16.0-70.0); PLATELET COUNT 254 TH/MM3 (150-450); RED BLOOD COUNT 4.53 MIL/MM3 (4.50-5.90); RED CELL DISTRIBUTION WIDTH 17.9 % (11.6-17.2); WHITE BLOOD COUNT 3.8 TH/MM3 (4.0-11.0)
[2016-11-28 07:40] LABS: HEMO FLAGS AUTO DIFF
[2016-11-28 08:00] VITALS: BP 116/63; PULSE 65; RESP 20; TEMP 96.5; O2SAT 98
[2016-11-28] MEDS: SODIUM CHLORIDE 0.9% FLUSH 5 ML FLUSH FLUSH SCH ×2 (08:38→22:00)
[2016-11-28] MEDS: GABAPENTIN 300 MG CAP PO SCH ×2 (08:38→22:00)
[2016-11-28 08:39] LABS: BANDS 6 % (0-6); BASOPHILS 1 % (0-2); EOSINOPHILS 9 % (0-4); METAMYELOCYTES 1 % (0-1); PLATELET ESTIMATE SMEAR NORMAL (NORMAL); PLATELET MORPHOLOGY NORMAL (NORMAL); POLYS (SEG NEUTROPHILS) 18 % (16-70); SCAN/DIFF FINAL DIFF MANUAL; WBC DIFF SAMPLE 100
--- NOTE | 2016-11-28 09:14 | HHI.PR ---
Subjective Remarks Follow-up for discitis, osteomyelitis, neutropenia. Patient denies any new symptoms. Objective Vitals Vital Signs Date Time Temp Pulse Resp B/P Pulse Ox O2 Delivery O2 Flow Rate FiO2 11/28/16 08:00 96.5 65 20 116/63 98 11/28/16 02:22 20 11/27/16 21:15 98.6 75 18 118/75 99 I/O 11/27/16 11/27/16 11/27/16 11/28/16 11/28/16 11/28/16 07:00 15:00 23:00 07:00 15:00 23:00 Intake Total 960 ml 200 ml Balance 960 ml 200 ml Intake Oral 960 ml IV Total 200 ml # Voids 6 3 # Bowel Movements 1 Result Diagram: 11/28/16 0620 11/24/16 0630 Objective Remarks GENERAL: Well-nourished, well-developed patient in no apparent distress sleeping on his left side, expresses pain when he moves. CARDIOVASCULAR: Regular rate and rhythm. RESPIRATORY: No accessory muscle use. Clear to auscultation. Breath sounds equal bilaterally. NEUROLOGICAL: Awake and alert. PSYCHIATRIC: Normal mood and affect. Urinary Catheter: No Vascular Central Line Catheter: Yes Assessment to: Continue Date of Insertion: Nov 15, 2016 Line: PICC Side: Right A/P Problem List: (1) Neutropenia ICD Code: D70.9 Status: Acute (2) Osteomyelitis of lumbar vertebra ICD Code: M46.26 Status: Acute (3) Discitis of lumbar region ICD Code: M46.46 Status: Acute Assessment and Plan Lumbar spine osteomyelitis/abscess: Presenting with increased back pain. Lumbar spine MRI finding noted. Neurosurgery evaluated patient and recommended biopsy and aspiration. Thus far cultures have all remained negative. -Awaiting CT-guided biopsy results. -Infectious disease consulted and recommending antibiotics until 12/29/16. -Continue to monitor CBC, CMP, C-reactive protein, and sedimentation rate on a weekly basis. Next labs ordered for 12/01/16. -11/24: ESR improved at 22 and CRP normal. CMP is stable. Neutropenia: -Attributed to Vancomycin. Discussed with Dr. Stephen SANTOYO. Vancomycin discontinued. -Per ID patient started on Cefazolin 2g q8h IV as previous cultures grew MSSA. Blood cultures and wound cultures from this admission are without growth. -11/28: CBC today reviewed with improvement in neutropenia. Continue neutropenic precautions. Monitor CBC periodically. Pain management: -Lortab 5 every 6 hours as needed for pain 3-5 -Lortab 7.5 every 6 hours as needed for pain 6-10 -Will taper gabapentin to discontinuation as patient indicates he no longer needs it and it makes him tired. Herpes simplex infection: Completed acyclovir 11/18/16 Tobacco Use: counseled on cessation. Declined nicotine patch. Polysubstance Abuse/IVDU: patient denied using any drugs since Sep 2016, but urine drug screen was positive for opiates and amphetamines on 10/31. Patient was counseled on cessation DVT Prophylaxis: Lovenox Discharge Planning D/c when antibiotics complete and patient cleared by Vashti Kelly Nov 28, 2016 09:14
[2016-11-28] MEDS: ENOXAPARIN SODIUM 40 MG/0.4 ML SYRINGE SQ SCH (11:55)
[2016-11-28 20:53] VITALS: BP 121/80; PULSE 64; RESP 16; TEMP 98.9; O2SAT 99
[2016-11-29] MEDS: ACETAMINOPHEN/HYDROcodone 325 MG/7.5 MG TAB PO PRN ×3 (05:07→17:39)
[2016-11-29] MEDS: ceFAZolin 2 GM PREMIX 50 ML IV SCH ×3 (05:07→20:14)
--- NOTE | 2016-11-29 08:55 | HHI.PR ---
Subjective Remarks Follow-up for discitis, osteomyelitis, neutropenia. Patient has no new symptoms to report. Objective Vitals Vital Signs Date Time Temp Pulse Resp B/P Pulse Ox O2 Delivery O2 Flow Rate FiO2 11/28/16 20:53 98.9 64 16 121/80 99 I/O 11/28/16 11/28/16 11/28/16 11/29/16 11/29/16 11/29/16 07:00 15:00 23:00 07:00 15:00 23:00 Intake Total 200 ml 2070 ml 720 ml Balance 200 ml 2070 ml 720 ml Intake Oral 2020 ml 720 ml IV Total 200 ml 50 ml # Voids 3 2 1 # Bowel Movements 1 Result Diagram: 11/28/16 0620 Objective Remarks GENERAL: Well-nourished, well-developed patient in no apparent distress. CARDIOVASCULAR: Regular rate and rhythm. RESPIRATORY: No accessory muscle use. Clear to auscultation. Breath sounds equal bilaterally. GASTROINTESTINAL: Abdomen soft, non-tender, non-distended. NEUROLOGICAL: Awake and alert. PSYCHIATRIC: Normal mood and affect. Urinary Catheter: No Vascular Central Line Catheter: Yes Assessment to: Continue Date of Insertion: Nov 15, 2016 Line: PICC Side: Right A/P Problem List: (1) Neutropenia ICD Code: D70.9 Status: Acute (2) Osteomyelitis of lumbar vertebra ICD Code: M46.26 Status: Acute (3) Discitis of lumbar region ICD Code: M46.46 Status: Acute Assessment and Plan Lumbar spine osteomyelitis/abscess: Presenting with increased back pain. Lumbar spine MRI finding noted. Neurosurgery evaluated patient and recommended biopsy and aspiration. Thus far cultures have all remained negative. -Awaiting CT-guided biopsy results. -Infectious disease consulted and recommending antibiotics until 12/29/16. -Continue to monitor CBC, CMP, C-reactive protein, and sedimentation rate on a weekly basis. Next labs ordered for 12/01/16. -11/24: ESR improved at 22 and CRP normal. CMP is stable. Neutropenia: -Attributed to Vancomycin. Discussed with Dr. Stephen SANTOYO. Vancomycin discontinued. -Per ID patient started on Cefazolin 2g q8h IV as previous cultures grew MSSA. Blood cultures and wound cultures from this admission are without growth. -11/28: CBC with improvement in neutropenia, but still present. Continue neutropenic precautions. Pain management: -Lortab 5 every 6 hours as needed for pain 3-5 -Lortab 7.5 every 6 hours as needed for pain 6-10 -Continue to taper gabapentin to discontinuation as patient indicates he no longer needs it and it makes him tired. Herpes simplex infection: Completed acyclovir 11/18/16 Tobacco Use: counseled on cessation. Declined nicotine patch. Polysubstance Abuse/IVDU: patient denied using any drugs since Sep 2016, but urine drug screen was positive for opiates and amphetamines on 10/31. Patient was counseled on cessation DVT Prophylaxis: Lovenox Discharge Planning D/c when antibiotics complete and patient cleared by Vashti Kelly Nov 29, 2016 08:55
[2016-11-29] MEDS: SODIUM CHLORIDE 0.9% FLUSH 5 ML FLUSH FLUSH SCH ×2 (09:00→20:14)
[2016-11-29 09:32] VITALS: BP 118/70; PULSE 60; RESP 15; TEMP 96.4; O2SAT 99
[2016-11-29] MEDS: GABAPENTIN 300 MG CAP PO SCH ×2 (11:37→20:14)
[2016-11-29] MEDS: ENOXAPARIN SODIUM 40 MG/0.4 ML SYRINGE SQ SCH (11:37)
[2016-11-29 20:00] VITALS: BP 102/65; PULSE 61; RESP 20; TEMP 97.1; O2SAT 95
[2016-11-29] MEDS: ZOLPIDEM TARTRATE 5 MG TAB PO PRN (21:34)
[2016-11-30] MEDS: ACETAMINOPHEN/HYDROcodone 325 MG/7.5 MG TAB PO PRN ×3 (00:08→11:50)
[2016-11-30] MEDS: ceFAZolin 2 GM PREMIX 50 ML IV SCH ×3 (05:13→21:44)
[2016-11-30 08:00] VITALS: BP 105/68; PULSE 57; RESP 16; TEMP 96.4; O2SAT 98
[2016-11-30] MEDS: GABAPENTIN 300 MG CAP PO SCH (08:23)
[2016-11-30] MEDS: SODIUM CHLORIDE 0.9% FLUSH 5 ML FLUSH FLUSH SCH ×2 (08:25→21:44)
[2016-11-30] MEDS: ENOXAPARIN SODIUM 40 MG/0.4 ML SYRINGE SQ SCH (11:49)
--- NOTE | 2016-11-30 15:46 | HHI.PR ---
Subjective Remarks Follow-up on patient with epidural abscess/discitis/osteomyelitis and history of IV drug use. Patient denies any radicular leg pain and is in the process of weaning down off the Neurontin due to complaints of tiredness/fatigue as result of use. Patient reports good BM. No new acute complaints at this time. Objective Vitals Vital Signs Date Time Temp Pulse Resp B/P Pulse Ox O2 Delivery O2 Flow Rate FiO2 11/30/16 12:53 14 11/30/16 08:00 96.4 57 16 105/68 98 11/29/16 20:00 97.1 61 20 102/65 95 I/O 11/29/16 11/29/16 11/29/16 11/30/16 11/30/16 11/30/16 07:00 15:00 23:00 07:00 15:00 23:00 Intake Total 800 ml 345 ml 840 ml Balance 800 ml 345 ml 840 ml Intake Oral 220 ml 240 ml 840 ml Oral Supplement 480 ml IV Total 100 ml 105 ml # Voids 1 2 1 4 # Bowel Movements 0 0 1 Result Diagram: 11/28/16 0620 Objective Remarks GENERAL: Well-nourished, well-developed patient in no apparent distress. CARDIOVASCULAR: Regular rate and rhythm. RESPIRATORY: No accessory muscle use. Clear to auscultation. Breath sounds equal bilaterally. GASTROINTESTINAL: Abdomen soft, non-tender, non-distended. NEUROLOGICAL: Awake and alert. PSYCHIATRIC: Normal mood and affect. Urinary Catheter: No Vascular Central Line Catheter: Yes Assessment to: Continue Date of Insertion: Nov 15, 2016 Line: PICC Side: Right Medications and IVs Current Medications Medications (Trade) Dose Ordered Sig/Maria Esther Route Start Time Stop Time Status Last Admin (NS Flush) 2 ml UNSCH PRN FLUSH 11/01/16 01:15 11/24/16 00:54 (NS Flush) 2 ml BID FLUSH 11/01/16 09:00 11/30/16 08:25 (Zofran Inj) 4 mg Q6H PRN IVP 11/01/16 01:15 11/24/16 00:54 (Dulcolax Supp) 10 mg DAILY PRN HI 11/01/16 01:15 (Tylenol) 650 mg Q6H PRN PO 11/01/16 01:15 11/18/16 03:26 (Everly 5-325 Mg) 1 tab Q4H PRN PO 11/01/16 01:15 11/25/16 22:46 (Ambien) 5 mg HS PRN PO 11/11/16 15:45 11/29/16 21:34 (NS Flush) See Protocol DAILY IVF 11/16/16 09:00 11/30/16 08:25 (NS Flush) See Protocol UNSCH PRN IVF 11/15/16 20:00 (Heparin Central Flush) See Protocol DAILY IVF 11/16/16 09:00 11/30/16 08:24 (Heparin Central Flush) See Protocol UNSCH PRN IVF 11/15/16 20:00 11/29/16 21:31 (NS Flush) See Protocol UNSCH PRN IVF 11/15/16 20:00 (Everly 7.5-325 Mg) 1 tab Q6H PRN PO 11/20/16 05:30 11/30/16 11:50 Enoxaparin Sodium 40 mg 40 mg Q24H SQ 11/20/16 12:00 11/30/16 11:49 (Ancef 2 Gm Premix) 50 ml @ 100 mls/hr Q8H IV 11/25/16 13:00 11/30/16 11:49 (Neurontin) 300 mg BID PO 11/27/16 09:00 11/30/16 08:23 Date of Insertion: Nov 15, 2016 Line: PICC Side: Right A/P Problem List: (1) Neutropenia ICD Code: D70.9 Status: Acute (2) Osteomyelitis of lumbar vertebra ICD Code: M46.26 Status: Acute (3) Discitis of lumbar region ICD Code: M46.46 Status: Acute Assessment and Plan Lumbar spine osteomyelitis/abscess: Presenting with increased back pain. Lumbar spine MRI finding noted. Neurosurgery evaluated patient and recommended biopsy and aspiration. Thus far cultures have all remained negative. -Awaiting CT-guided biopsy results - discussed with pathology today, only specimen sent for cultures, none sent for pathology. -Infectious disease consulted and recommending antibiotics until 12/29/16. -Continue to monitor CBC, CMP, C-reactive protein, and sedimentation rate on a weekly basis. Next labs ordered for 12/01/16. -11/24: ESR improved at 22 and CRP normal. CMP is stable. Neutropenia: -Attributed to Vancomycin. Discussed with Dr. Stephen SANTOYO. Vancomycin discontinued. -Per ID patient started on Cefazolin 2g q8h IV as previous cultures grew MSSA. Blood cultures and wound cultures from this admission are without growth. -11/28: CBC with improvement in neutropenia, but still present. Continue neutropenic precautions. Recheck CBC in am. Pain management: -Continue to wean -Lortab 5 every 6 hours as needed for pain 610 -Discontinue Lortab 7.5 every 6 hours as needed for pain 6-10 -Continue to taper gabapentin to discontinuation as patient indicates he no longer needs it and it makes him tired - dose decreased today to 200 mg twice a day Herpes simplex infection: Completed acyclovir 11/18/16 Tobacco Use: counseled on cessation. Declined nicotine patch. Polysubstance Abuse/IVDU: patient denied using any drugs since Sep 2016, but urine drug screen was positive for opiates and amphetamines on 10/31. Patient was counseled on cessation. DVT Prophylaxis: ambulation as tolerated Discharge Planning D/c when antibiotics complete and patient cleared by ID. Kirti Soto Nov 30, 2016 15:46
[2016-11-30] MEDS: ACETAMINOPHEN/HYDROcodone 325 MG/5 MG TAB PO PRN ×2 (17:42→21:45)
[2016-11-30 20:00] VITALS: BP 105/65; PULSE 66; RESP 21; TEMP 96.7; O2SAT 100
[2016-11-30] MEDS: GABAPENTIN 100 MG CAP PO SCH (21:43)
[2016-11-30] MEDS: ZOLPIDEM TARTRATE 5 MG TAB PO PRN (23:07)
[2016-12-01] MEDS: ceFAZolin 2 GM PREMIX 50 ML IV SCH ×3 (06:04→20:28)
[2016-12-01] MEDS: GABAPENTIN 100 MG CAP PO SCH ×2 (07:32→20:29)
[2016-12-01] MEDS: ACETAMINOPHEN/HYDROcodone 325 MG/5 MG TAB PO PRN ×4 (07:32→20:29)
[2016-12-01] MEDS: SODIUM CHLORIDE 0.9% FLUSH 5 ML FLUSH FLUSH SCH ×2 (07:33→20:28)
[2016-12-01 07:34] LABS: AUTOMATED NEUTROPHIL # 3.2 TH/MM3 (1.8-7.7); BASOPHIL # 0.1 TH/MM3 (0-0.2); BASOPHIL % 0.9 % (0.0-2.0); EOSINOPHIL # 0.4 TH/MM3 (0-0.4); EOSINOPHIL % 6.3 % (0.0-4.0); HEMATOCRIT 37.3 % (39.0-51.0); HEMO FLAGS DIFF FINAL; LYMPH % 34.2 % (9.0-44.0); LYMPHOCYTE # 2.3 TH/MM3 (1.0-4.8); MEAN CELL VOLUME 83.5 FL (80.0-100.0); MEAN CORPUSCULAR HEMOGLOBIN 27.3 PG (27.0-34.0); MEAN CORPUSCULAR HGB CONC 32.7 % (32.0-36.0); MONO % 10.8 % (0.0-8.0); NEUT % 47.8 % (16.0-70.0); PLATELET COUNT 214 TH/MM3 (150-450); RED BLOOD COUNT 4.46 MIL/MM3 (4.50-5.90); RED CELL DISTRIBUTION WIDTH 17.6 % (11.6-17.2); WHITE BLOOD COUNT 6.7 TH/MM3 (4.0-11.0)
[2016-12-01 07:35] VITALS: BP 115/70; PULSE 55; RESP 20; TEMP 98.4; O2SAT 99
[2016-12-01 07:41] LABS: CHLORIDE 107 MEQ/L (98-107); POTASSIUM 4.2 MEQ/L (3.5-5.1); SODIUM (NA) 141 MEQ/L (136-145)
[2016-12-01 07:47] LABS: ANION GAP 7 MEQ/L (5-15); BICARBONATE 27.5 MEQ/L (21.0-32.0); BLOOD UREA NITROGEN 15 MG/DL (7-18)
[2016-12-01 07:50] LABS: ALT (GPT) 63 U/L (12-78); AST (GOT) 70 U/L (15-37); GLOMERULAR FILTRATION RATE 102 ML/MIN (>89)
[2016-12-01 07:52] LABS: TOTAL BILIRUBIN ADULT 0.1 MG/DL (0.2-1.0)
[2016-12-01 07:53] LABS: ALKALINE PHOSPHATASE 81 U/L (45-117)
[2016-12-01 08:00] VITALS: BP 115/70; PULSE 55; RESP 20; TEMP 98.4; O2SAT 99
[2016-12-01 09:03] LABS: WESTERGREN SEDIMENTATION RATE 11 mm/hr (0-15)
[2016-12-01] MEDS ORDERED: ALTEPLASE RECOMBINANT 2 MG VIAL INTRACATH ONE (11:00)
--- NOTE | 2016-12-01 15:03 | HHI.PR ---
Subjective Remarks Follow-up on patient with epidural abscess, discitis/osteomyelitis and history of IV drug use. Patient seen and examined. Patient denies any acute medical complaints at this time except for brief episode of shortness of breath early this morning that has since resolved. Patient denies any associated chest pain , nausea/vomiting or diaphoresis. Objective Vitals Vital Signs Date Time Temp Pulse Resp B/P Pulse Ox O2 Delivery O2 Flow Rate FiO2 12/01/16 13:51 12 12/01/16 08:00 98.4 55 20 115/70 99 12/01/16 07:35 98.4 55 20 115/70 99 11/30/16 20:00 96.7 66 21 105/65 100 I/O 11/30/16 11/30/16 11/30/16 12/01/16 12/01/16 12/01/16 07:00 15:00 23:00 07:00 15:00 23:00 Intake Total 345 ml 840 ml 240 ml 480 ml Output Total 0 ml Balance 345 ml 840 ml 240 ml 480 ml Intake Oral 240 ml 840 ml 240 ml 480 ml IV Total 105 ml Stool Total 0 ml # Voids 1 4 2 1 # Bowel Movements 0 1 0 Result Diagram: 12/01/1620 12/01/16 0720 Objective Remarks GENERAL: Well-nourished, well-developed patient in no apparent distress. CARDIOVASCULAR: Regular rate and rhythm. RESPIRATORY: No accessory muscle use. Clear to auscultation. Breath sounds equal bilaterally. GASTROINTESTINAL: Abdomen soft, non-tender, non-distended. NEUROLOGICAL: Awake and alert. PSYCHIATRIC: Normal mood and affect. Urinary Catheter: No Vascular Central Line Catheter: Yes Assessment to: Continue Date of Insertion: Nov 15, 2016 Line: PICC Side: Right Medications and IVs Current Medications Medications (Trade) Dose Ordered Sig/Maria Esther Route Start Time Stop Time Status Last Admin (NS Flush) 2 ml UNSCH PRN FLUSH 11/01/16 01:15 11/24/16 00:54 (NS Flush) 2 ml BID FLUSH 11/01/16 09:00 12/01/16 07:33 (Zofran Inj) 4 mg Q6H PRN IVP 11/01/16 01:15 11/24/16 00:54 (Dulcolax Supp) 10 mg DAILY PRN MD 11/01/16 01:15 (Tylenol) 650 mg Q6H PRN PO 11/01/16 01:15 11/18/16 03:26 ([place] 5-325 Mg) 1 tab Q4H PRN PO 11/01/16 01:15 12/01/16 11:37 (Ambien) 5 mg HS PRN PO 11/11/16 15:45 11/30/16 23:07 (NS Flush) See Protocol DAILY IVF 11/16/16 09:00 12/01/16 07:33 (NS Flush) See Protocol UNSCH PRN IVF 11/15/16 20:00 (Heparin Central Flush) See Protocol DAILY IVF 11/16/16 09:00 12/01/16 07:33 (Heparin Central Flush) See Protocol UNSCH PRN IVF 11/15/16 20:00 12/01/16 06:05 IV Flush See Protocol UNSCH PRN IVF 11/15/16 20:00 12/01/16 06:04 (Ancef 2 Gm Premix) 50 ml @ 100 mls/hr Q8H IV 11/25/16 13:00 12/01/16 11:37 (Neurontin) 200 mg BID PO 11/30/16 21:00 12/01/16 07:32 Date of Insertion: Nov 15, 2016 Line: PICC Side: Right A/P Problem List: (1) Neutropenia ICD Code: D70.9 Status: Acute (2) Osteomyelitis of lumbar vertebra ICD Code: M46.26 Status: Acute (3) Discitis of lumbar region ICD Code: M46.46 Status: Acute Assessment and Plan Lumbar spine osteomyelitis/abscess: Presenting with increased back pain. Lumbar spine MRI finding noted. Neurosurgery evaluated patient and recommended biopsy and aspiration. Thus far cultures have all remained negative. -Awaiting CT-guided biopsy results - discussed with pathology today, only specimen sent for cultures, none sent for pathology. -Infectious disease consulted and recommending antibiotics until 12/29/16. -Continue to monitor CBC, CMP, C-reactive protein, and sedimentation rate on a weekly basis. -Labs obtained today revealed white count 6.7 hemoglobin 12.2 hematocrit 37.3 platelet count 214,000, sedimentation rate 11, CRP less than 0.29 AST 70 ALT 63 alkaline phosphatase 81 Next labs ordered for 12/08/16. Neutropenia: -Resolved -Attributed to Vancomycin. Discussed with Dr. Stephen SANTOYO. Vancomycin discontinued. -Per ID patient started on Cefazolin 2g q8h IV as previous cultures grew MSSA. Blood cultures and wound cultures from this admission are without growth. -11/28: CBC with improvement in neutropenia, but still present. Continue neutropenic precautions. Recheck CBC in am. 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 Herpes simplex infection: Completed acyclovir 11/18/16 Tobacco Use: counseled on cessation. Declined nicotine patch. Polysubstance Abuse/IVDU: patient denied using any drugs since Sep 2016, but urine drug screen was positive for opiates and amphetamines on 10/31. Patient was counseled on cessation. DVT Prophylaxis: ambulation as tolerated Discharge Planning D/c when antibiotics complete and patient cleared by ID. iKrti Soto Dec 01, 2016 15:03
[2016-12-01 20:00] VITALS: BP 118/72; PULSE 60; RESP 18; TEMP 98.4; O2SAT 100
[2016-12-01] MEDS: ZOLPIDEM TARTRATE 5 MG TAB PO PRN (20:29)
[2016-12-02] MEDS: ceFAZolin 2 GM PREMIX 50 ML IV SCH ×3 (04:15→20:27)
[2016-12-02] MEDS: ACETAMINOPHEN/HYDROcodone 325 MG/5 MG TAB PO PRN ×5 (05:47→21:37)
[2016-12-02 08:00] VITALS: BP 99/59; PULSE 54; RESP 16; TEMP 97.1; O2SAT 99
[2016-12-02 08:55] LABS: AUTOMATED NEUTROPHIL # 4.5 TH/MM3 (1.8-7.7); BASOPHIL # 0.1 TH/MM3 (0-0.2); BASOPHIL % 0.9 % (0.0-2.0); EOSINOPHIL # 0.4 TH/MM3 (0-0.4); EOSINOPHIL % 5.3 % (0.0-4.0); HEMATOCRIT 37.5 % (39.0-51.0); LYMPH % 29.9 % (9.0-44.0); LYMPHOCYTE # 2.4 TH/MM3 (1.0-4.8); MEAN CELL VOLUME 83.6 FL (80.0-100.0); MEAN CORPUSCULAR HEMOGLOBIN 28.4 PG (27.0-34.0); MONO % 9.7 % (0.0-8.0); NEUT % 54.2 % (16.0-70.0); PLATELET COUNT 206 TH/MM3 (150-450); RED BLOOD COUNT 4.49 MIL/MM3 (4.50-5.90); RED CELL DISTRIBUTION WIDTH 17.4 % (11.6-17.2); WHITE BLOOD COUNT 8.2 TH/MM3 (4.0-11.0)
[2016-12-02 09:00] LABS: HEMO FLAGS AUTO DIFF
[2016-12-02] MEDS: GABAPENTIN 100 MG CAP PO SCH ×2 (09:05→20:27)
[2016-12-02] MEDS: SODIUM CHLORIDE 0.9% FLUSH 5 ML FLUSH FLUSH SCH ×2 (09:06→20:27)
--- NOTE | 2016-12-02 09:06 | HHI.PR ---
Subjective Remarks Patient seen and examined today. Patient denies any new complaints. No change in clinical status. Awaiting completion of antibiotics for discharge Objective Vitals Vital Signs Date Time Temp Pulse Resp B/P Pulse Ox O2 Delivery O2 Flow Rate FiO2 12/01/16 20:00 98.4 60 18 118/72 100 12/01/16 13:51 12 I/O 12/01/16 12/01/16 12/01/16 12/02/16 12/02/16 12/02/16 07:00 15:00 23:00 07:00 15:00 23:00 Intake Total 480 ml 240 ml 240 ml Balance 480 ml 240 ml 240 ml Intake Oral 480 ml 240 ml 240 ml # Voids 1 5 2 # Bowel Movements 0 Result Diagram: 12/02/16 0845 12/01/16 0720 Objective Remarks GENERAL: Well-developed, well-nourished, in no acute distress. alert and orientated HEENT: Head is normocephalic without any lesions or masses noted. Facial features are symmetric. Eyes: Extraocular muscles are intact. Conjunctivae were clear. NECK: Supple without any masses. Trachea midline no deviation. No JVD, CARDIAC: Regular rhythm, regular rate. S1/S2 are heard. No murmurs gallops or rubs. LUNGS: Clear to auscultation bilaterally. No wheeze, rhonchi or rales. No use of accessory muscles on inspiration or expiration. ABDOMEN: Soft, nontender. Nondistended. Bowel sounds heard in all 4 quadrants. No organomegaly or masses. Negative rebound, negative guarding EXTREMITIES: No edema, pulses are equal bilaterally. No cyanosis or clubbing NEUROLOGY: Mood and affect appear appropriate. Cranial nerves II through XII grossly intact. Moving all extremities, speech is clear Urinary Catheter: No Vascular Central Line Catheter: No Date of Insertion: Nov 15, 2016 Line: PICC Side: Right A/P Assessment and Plan Lumbar spine osteomyelitis/abscess: Presenting with increased back pain. Lumbar spine MRI finding noted. Neurosurgery evaluated patient and recommended biopsy and aspiration. Thus far cultures have all remained negative. Infectious disease consulted and recommending vancomycin until 12/29/16. Continue to monitor CBC, CMP, C-reactive protein, sedimentation rate on a weekly basis, ordered for 12/08 Pain management: Lortab 5 every 6 hours as needed for pain 6-10, Neurontin 200 mg 2 times daily Herpes simplex infection: Completed acyclovir 11/18/16 Tobacco Use: counseled on cessation. Declined nicotine patch. Polysubstance Abuse/IVDU: patient denied using any drugs since Sep 2016. Urine drug screen was positive for opiates and amphetamines. Patient was counseled on cessation DVT Prophylaxis: Lovenox Discharge Planning Discharge planning per case management, likely after antibiotics completed on Hernando Truong Dec 02, 2016 09:06
[2016-12-02 09:20] LABS: BANDS 4 % (0-6); BASOPHILS 1 % (0-2); EOSINOPHILS 7 % (0-4); METAMYELOCYTES 1 % (0-1); MYELOCYTES 1 % (0-0); NEUTROPHIL # MANUAL DIFF 4.6 TH/MM3 (1.8-7.7); POLYS (SEG NEUTROPHILS) 50 % (16-70); WBC DIFF SAMPLE 100
[2016-12-02 09:21] LABS: OVALOCYTES 1+ (NORMAL)
[2016-12-02 09:22] LABS: PLATELET ESTIMATE SMEAR NORMAL (NORMAL); PLATELET MORPHOLOGY NORMAL (NORMAL); SCAN/DIFF FINAL DIFF MANUAL
[2016-12-02 20:00] VITALS: BP 120/70; PULSE 65; RESP 18; TEMP 97.9; O2SAT 98
[2016-12-02] MEDS: ZOLPIDEM TARTRATE 5 MG TAB PO PRN (20:28)
[2016-12-03] MEDS: ACETAMINOPHEN/HYDROcodone 325 MG/5 MG TAB PO PRN ×4 (04:38→21:53)
[2016-12-03] MEDS: ceFAZolin 2 GM PREMIX 50 ML IV SCH ×3 (04:38→21:58)
[2016-12-03 08:00] VITALS: BP 111/70; PULSE 58; RESP 16; TEMP 96.1; O2SAT 99
[2016-12-03] MEDS: SODIUM CHLORIDE 0.9% FLUSH 5 ML FLUSH FLUSH SCH ×2 (08:35→21:59)
[2016-12-03] MEDS: GABAPENTIN 100 MG CAP PO SCH ×2 (08:36→21:54)
--- NOTE | 2016-12-03 10:11 | HHI.PR ---
Subjective Remarks Patient seen and examined today. Patient states that he has some back pain this morning. No change in clinical status. Objective Vitals Vital Signs Date Time Temp Pulse Resp B/P Pulse Ox O2 Delivery O2 Flow Rate FiO2 12/03/16 08:00 96.1 58 16 111/70 99 12/02/16 20:00 97.9 65 18 120/70 98 12/02/16 18:26 14 I/O 12/02/16 12/02/16 12/02/16 12/03/16 12/03/16 12/03/16 07:00 15:00 23:00 07:00 15:00 23:00 Intake Total 240 ml 1280 ml 460 ml Balance 240 ml 1280 ml 460 ml Intake Oral 240 ml 1280 ml 460 ml # Voids 2 6 2 # Bowel Movements 0 0 Result Diagram: 12/02/16 0845 12/01/16 0720 Objective Remarks GENERAL: Well-developed, well-nourished, in no acute distress. alert and orientated HEENT: Head is normocephalic without any lesions or masses noted. Facial features are symmetric. Eyes: Extraocular muscles are intact. Conjunctivae were clear. NECK: Supple without any masses. Trachea midline no deviation. No JVD, CARDIAC: Regular rhythm, regular rate. S1/S2 are heard. No murmurs gallops or rubs. LUNGS: Clear to auscultation bilaterally. No wheeze, rhonchi or rales. No use of accessory muscles on inspiration or expiration. ABDOMEN: Soft, nontender. Nondistended. Bowel sounds heard in all 4 quadrants. No organomegaly or masses. Negative rebound, negative guarding EXTREMITIES: No edema, pulses are equal bilaterally. No cyanosis or clubbing NEUROLOGY: Mood and affect appear appropriate. Cranial nerves II through XII grossly intact. Moving all extremities, speech is clear Urinary Catheter: No Vascular Central Line Catheter: No Date of Insertion: Nov 15, 2016 Line: PICC Side: Right A/P Assessment and Plan Lumbar spine osteomyelitis/abscess: Presenting with increased back pain. Lumbar spine MRI finding noted. Neurosurgery evaluated patient and recommended biopsy and aspiration. Thus far cultures have all remained negative. Infectious disease consulted and recommending vancomycin until 12/29/16. Continue to monitor CBC, CMP, C-reactive protein, sedimentation rate on a weekly basis, ordered for 12/08 Neutropenia secondary to vancomycin: Vancomycin has been discontinued. CBC was monitored with significant improvement in his white count and neutrophil count. Neutropenic Precautions has been discontinued Pain management: Lortab 5 every 6 hours as needed for pain 6-10, Neurontin 200 mg 2 times daily Herpes simplex infection: Completed acyclovir 11/18/16 Tobacco Use: counseled on cessation. Declined nicotine patch. Polysubstance Abuse/IVDU: patient denied using any drugs since Sep 2016. Urine drug screen was positive for opiates and amphetamines. Patient was counseled on cessation DVT Prophylaxis: Lovenox Discharge Planning Discharge planning per case management, likely after antibiotics completed on Hernando Truong Dec 03, 2016 10:11
[2016-12-03 20:25] VITALS: BP 108/83; PULSE 63; RESP 20; TEMP 97.5; O2SAT 100
[2016-12-03] MEDS: ZOLPIDEM TARTRATE 5 MG TAB PO PRN (21:54)
[2016-12-04] MEDS: ACETAMINOPHEN/HYDROcodone 325 MG/5 MG TAB PO PRN ×5 (04:12→22:08)
[2016-12-04] MEDS: ceFAZolin 2 GM PREMIX 50 ML IV SCH ×3 (05:42→20:22)
[2016-12-04] MEDS: SODIUM CHLORIDE 0.9% FLUSH 5 ML FLUSH FLUSH PRN (05:42)
[2016-12-04 08:00] VITALS: BP 124/82; PULSE 51; RESP 18; TEMP 98.3; O2SAT 99
[2016-12-04] MEDS: SODIUM CHLORIDE 0.9% FLUSH 5 ML FLUSH FLUSH SCH ×2 (08:57→20:22)
[2016-12-04] MEDS: GABAPENTIN 100 MG CAP PO SCH ×2 (08:57→20:23)
--- NOTE | 2016-12-04 14:31 | HHI.PR ---
Subjective Remarks Patient seen and examined today. Patient is walking the garcia. Looks like he is doing very well. No new complaints. Objective Vitals Vital Signs Date Time Temp Pulse Resp B/P Pulse Ox O2 Delivery O2 Flow Rate FiO2 12/04/16 14:27 14 12/04/16 08:00 98.3 51 18 124/82 99 12/03/16 20:25 97.5 63 20 108/83 100 I/O 12/03/16 12/03/16 12/03/16 12/04/16 12/04/16 12/04/16 07:00 15:00 23:00 07:00 15:00 23:00 Intake Total 460 ml 960 ml 260 ml Balance 460 ml 960 ml 260 ml Intake Oral 460 ml 960 ml 260 ml # Voids 2 5 2 3 5 # Bowel Movements 0 1 Result Diagram: 12/02/16 0845 12/01/16 0720 Objective Remarks GENERAL: Well-developed, well-nourished, in no acute distress. alert and orientated HEENT: Head is normocephalic without any lesions or masses noted. Facial features are symmetric. Eyes: Extraocular muscles are intact. Conjunctivae were clear. NECK: Supple without any masses. Trachea midline no deviation. No JVD, CARDIAC: Regular rhythm, regular rate. S1/S2 are heard. No murmurs gallops or rubs. LUNGS: Clear to auscultation bilaterally. No wheeze, rhonchi or rales. No use of accessory muscles on inspiration or expiration. ABDOMEN: Soft, nontender. Nondistended. Bowel sounds heard in all 4 quadrants. No organomegaly or masses. Negative rebound, negative guarding EXTREMITIES: No edema, pulses are equal bilaterally. No cyanosis or clubbing NEUROLOGY: Mood and affect appear appropriate. Cranial nerves II through XII grossly intact. Moving all extremities, speech is clear Urinary Catheter: No Vascular Central Line Catheter: Yes Assessment to: Continue Date of Insertion: Nov 15, 2016 Line: PICC Side: Right A/P Assessment and Plan Lumbar spine osteomyelitis/abscess: Presenting with increased back pain. Lumbar spine MRI finding noted. Neurosurgery evaluated patient and recommended biopsy and aspiration. Thus far cultures have all remained negative. Infectious disease consulted and recommending vancomycin until 12/29/16. Continue to monitor CBC, CMP, C-reactive protein, sedimentation rate on a weekly basis, ordered for 12/08 Neutropenia secondary to vancomycin: Vancomycin has been discontinued. CBC was monitored with significant improvement in his white count and neutrophil count. Neutropenic Precautions has been discontinued Pain management: Lortab 5 every 6 hours as needed for pain 6-10, Neurontin 200 mg 2 times daily Herpes simplex infection: Completed acyclovir 11/18/16 Tobacco Use: counseled on cessation. Declined nicotine patch. Polysubstance Abuse/IVDU: patient denied using any drugs since Sep 2016. Urine drug screen was positive for opiates and amphetamines. Patient was counseled on cessation DVT Prophylaxis: Lovenox Discharge Planning Discharge planning per case management, likely after antibiotics completed on Hernando Truong Dec 04, 2016 14:31
[2016-12-04 20:00] VITALS: BP 104/65; PULSE 65; RESP 20; TEMP 95.7; O2SAT 99
[2016-12-04] MEDS: ZOLPIDEM TARTRATE 5 MG TAB PO PRN (20:23)
[2016-12-05] MEDS: ACETAMINOPHEN/HYDROcodone 325 MG/5 MG TAB PO PRN ×5 (04:27→21:10)
[2016-12-05] MEDS: ceFAZolin 2 GM PREMIX 50 ML IV SCH ×3 (04:27→21:11)
[2016-12-05 08:00] VITALS: BP 99/55; PULSE 55; RESP 17; TEMP 97; O2SAT 99
[2016-12-05] MEDS: GABAPENTIN 100 MG CAP PO SCH ×2 (08:00→21:10)
[2016-12-05] MEDS: SODIUM CHLORIDE 0.9% FLUSH 5 ML FLUSH FLUSH SCH ×2 (08:01→21:10)
--- NOTE | 2016-12-05 11:16 | HHI.PR ---
Subjective Remarks Patient seen and examined today. Patient denies any new complaints. No change in clinical status. Objective Vitals Vital Signs Date Time Temp Pulse Resp B/P Pulse Ox O2 Delivery O2 Flow Rate FiO2 12/05/16 09:00 14 12/05/16 08:00 97.0 55 17 99/55 99 12/04/16 20:00 95.7 65 20 104/65 99 I/O 12/04/16 12/04/16 12/04/16 12/05/16 12/05/16 12/05/16 07:00 15:00 23:00 07:00 15:00 23:00 Intake Total 260 ml 1332 ml 480 ml Balance 260 ml 1332 ml 480 ml Intake Oral 260 ml 1332 ml 480 ml # Voids 3 5 3 1 # Bowel Movements 0 0 Result Diagram: 12/02/16 0845 12/01/16 0720 Objective Remarks GENERAL: Well-developed, well-nourished, in no acute distress. alert and orientated HEENT: Head is normocephalic without any lesions or masses noted. Facial features are symmetric. Eyes: Extraocular muscles are intact. Conjunctivae were clear. NECK: Supple without any masses. Trachea midline no deviation. No JVD, CARDIAC: Regular rhythm, regular rate. S1/S2 are heard. No murmurs gallops or rubs. LUNGS: Clear to auscultation bilaterally. No wheeze, rhonchi or rales. No use of accessory muscles on inspiration or expiration. ABDOMEN: Soft, nontender. Nondistended. Bowel sounds heard in all 4 quadrants. No organomegaly or masses. Negative rebound, negative guarding EXTREMITIES: No edema, pulses are equal bilaterally. No cyanosis or clubbing NEUROLOGY: Mood and affect appear appropriate. Cranial nerves II through XII grossly intact. Moving all extremities, speech is clear Urinary Catheter: No Vascular Central Line Catheter: Yes Assessment to: Continue Date of Insertion: Nov 15, 2016 Line: PICC Side: Right A/P Assessment and Plan Lumbar spine osteomyelitis/abscess: Presenting with increased back pain. Lumbar spine MRI finding noted. Neurosurgery evaluated patient and recommended biopsy and aspiration. Thus far cultures have all remained negative. Infectious disease consulted and recommending vancomycin until 12/29/16. Continue to monitor CBC, CMP, C-reactive protein, sedimentation rate on a weekly basis, ordered for 12/08 Neutropenia secondary to vancomycin: Vancomycin has been discontinued. CBC was monitored with significant improvement in his white count and neutrophil count. Neutropenic Precautions has been discontinued Pain management: Lortab 5 every 6 hours as needed for pain 6-10, Neurontin 200 mg 2 times daily Herpes simplex infection: Completed acyclovir 11/18/16 Tobacco Use: counseled on cessation. Declined nicotine patch. Polysubstance Abuse/IVDU: patient denied using any drugs since Sep 2016. Urine drug screen was positive for opiates and amphetamines. Patient was counseled on cessation DVT Prophylaxis: Lovenox No change present treatment plan Discharge Planning Discharge planning per case management, likely after antibiotics completed on Hernando Truong Dec 05, 2016 11:16
[2016-12-05 20:00] VITALS: BP 115/71; PULSE 62; RESP 21; TEMP 97.1; O2SAT 100
[2016-12-05] MEDS: ZOLPIDEM TARTRATE 5 MG TAB PO PRN (21:09)
[2016-12-06] MEDS: ceFAZolin 2 GM PREMIX 50 ML IV SCH ×3 (04:36→20:36)
[2016-12-06] MEDS: SODIUM CHLORIDE 0.9% FLUSH 5 ML FLUSH FLUSH PRN ×2 (04:36→22:46)
[2016-12-06] MEDS: ACETAMINOPHEN/HYDROcodone 325 MG/5 MG TAB PO PRN ×4 (04:37→19:34)
[2016-12-06] MEDS: GABAPENTIN 100 MG CAP PO SCH ×2 (07:19→20:36)
[2016-12-06] MEDS: SODIUM CHLORIDE 0.9% FLUSH 5 ML FLUSH FLUSH SCH ×2 (07:21→20:36)
[2016-12-06 08:00] VITALS: BP 121/67; PULSE 60; RESP 16; TEMP 97.6; O2SAT 99
--- NOTE | 2016-12-06 09:21 | HHI.PR ---
Subjective Remarks Follow-up on patient with epidural abscess, discitis/osteomyelitis and history of IV drug use. Patient seen and examined today. Patient denies any new complaints. No change in clinical status. Objective Vitals Vital Signs Date Time Temp Pulse Resp B/P Pulse Ox O2 Delivery O2 Flow Rate FiO2 12/05/16 20:00 97.1 62 21 115/71 100 I/O 12/05/16 12/05/16 12/05/16 12/06/16 12/06/16 12/06/16 07:00 15:00 23:00 07:00 15:00 23:00 Intake Total 480 ml 240 ml 480 ml Balance 480 ml 240 ml 480 ml Intake Oral 480 ml 240 ml 480 ml # Voids 1 4 2 1 # Bowel Movements 0 1 0 0 Result Diagram: 12/02/16 0845 Imaging Last Impressions Chest X-Ray 11/15/16 0000 Signed Impressions: Service Date/Time: Tuesday, November 15, 2016 19:26 - CONCLUSION: PICC line in good position. The lungs are clear. Fabian Sosa MD Needle Biopsy X-Ray 11/12/16 0000 Signed Impressions: Service Date/Time: Saturday, November 12, 2016 15:17 - CONCLUSION: 1. Uncomplicated biopsy of the L4 vertebral body. Mike Haile MD Needle Biopsy/Aspiration X-Ray 11/09/16 0000 Signed Impressions: Service Date/Time: Wednesday, November 09, 2016 11:06 - CONCLUSION: Uncomplicated needle biopsy of the L4-5 disc as above. Kranthi Mejía MD Thoracic Spine MRI 10/31/16 0000 Signed Impressions: Service Date/Time: Monday, October 31, 2016 22:32 - CONCLUSION: No acute abnormality demonstrated of the thoracic spine. Mild disc centered degenerative changes are again noted at several mid to lower thoracic levels. Fabian Faustin MD Lumbar Spine MRI 10/31/16 0000 Signed Impressions: Service Date/Time: Monday, October 31, 2016 22:32 - CONCLUSION: 1. Persistent and modestly worsening osteomyelitis of L4, L5 and focally of the S1 vertebral bodies. There is worsening endplate destruction of L4 and L5. 2. Increased fluid collection within the central part of the residual L4/L5 disc and with scattered fluid collections anterior and lateral to the disc compatible with abscesses. 3. There is persistent epidural enhancement without abscess in the epidural space at L4/L5, actually improved in the interim. Fabian Faustin MD Objective Remarks GENERAL: Well-nourished, well-developed patient in no apparent distress. CARDIOVASCULAR: Regular rate and rhythm. RESPIRATORY: No accessory muscle use. Clear to auscultation. Breath sounds equal bilaterally. GASTROINTESTINAL: Abdomen soft, non-tender, non-distended. NEUROLOGICAL: Awake and alert. PSYCHIATRIC: Normal mood and affect. Urinary Catheter: No Vascular Central Line Catheter: Yes Assessment to: Continue Date of Insertion: Nov 15, 2016 Line: PICC Side: Right Medications and IVs Current Medications Medications (Trade) Dose Ordered Sig/Maria Esther Route Start Time Stop Time Status Last Admin (NS Flush) 2 ml UNSCH PRN FLUSH 11/01/16 01:15 12/06/16 04:36 (NS Flush) 2 ml BID FLUSH 11/01/16 09:00 12/06/16 07:21 (Zofran Inj) 4 mg Q6H PRN IVP 11/01/16 01:15 11/24/16 00:54 (Dulcolax Supp) 10 mg DAILY PRN [place] 11/01/16 01:15 (Tylenol) 650 mg Q6H PRN PO 11/01/16 01:15 11/18/16 03:26 ([place] 5-325 Mg) 1 tab Q4H PRN PO 11/01/16 01:15 12/06/16 10:51 (Ambien) 5 mg HS PRN PO 11/11/16 15:45 12/05/16 21:09 (NS Flush) See Protocol DAILY IVF 11/16/16 09:00 12/06/16 07:20 (NS Flush) See Protocol UNSCH PRN IVF 11/15/16 20:00 (Heparin Central Flush) See Protocol DAILY IVF 11/16/16 09:00 12/06/16 07:20 (Heparin Central Flush) See Protocol UNSCH PRN IVF 11/15/16 20:00 12/01/16 06:05 IV Flush See Protocol UNSCH PRN IVF 11/15/16 20:00 12/01/16 06:04 (Ancef 2 Gm Premix) 50 ml @ 100 mls/hr Q8H IV 11/25/16 13:00 12/06/16 04:36 (Neurontin) 200 mg BID PO 11/30/16 21:00 12/06/16 07:19 Urinary Catheter: No Date of Insertion: Nov 15, 2016 Line: PICC Side: Right A/P Problem List: (1) Neutropenia ICD Code: D70.9 Status: Acute (2) Osteomyelitis of lumbar vertebra ICD Code: M46.26 Status: Acute (3) Discitis of lumbar region ICD Code: M46.46 Status: Acute Assessment and Plan Lumbar spine osteomyelitis/abscess: Presenting with increased back pain. Lumbar spine MRI finding noted. Neurosurgery evaluated patient and recommended biopsy and aspiration. Thus far cultures have all remained negative. Infectious disease consulted and recommending vancomycin until 12/29/16. Continue to monitor CBC, CMP, C-reactive protein, sedimentation rate on a weekly basis, ordered for 12/08 Neutropenia secondary to vancomycin: Vancomycin has been discontinued. CBC was monitored with significant improvement in his white count and neutrophil count. Neutropenic Precautions has been discontinued. Pain management: Lortab 5 every 6 hours as needed for pain 6-10, Neurontin 200 mg 2 times daily Herpes simplex infection: Completed acyclovir 11/18/16 Tobacco Use: counseled on cessation. Declined nicotine patch. Polysubstance Abuse/IVDU: patient denied using any drugs since Sep 2016. Urine drug screen was positive for opiates and amphetamines. Patient was counseled on cessation DVT Prophylaxis: Lovenox No change present treatment plan Discharge Planning Discharge planning per case management, likely after antibiotics completed on . Kirti Soto Dec 06, 2016 09:21
[2016-12-06] MEDS: ZOLPIDEM TARTRATE 5 MG TAB PO PRN (19:34)
[2016-12-06 20:00] VITALS: BP 135/85; PULSE 77; RESP 20; TEMP 97.8; O2SAT 97
[2016-12-06] MEDS: ONDANSETRON HCL 4 MG/2 ML VIAL IVP PRN (22:46)
[2016-12-07] MEDS: ACETAMINOPHEN/HYDROcodone 325 MG/5 MG TAB PO PRN ×5 (01:50→20:53)
[2016-12-07] MEDS: ceFAZolin 2 GM PREMIX 50 ML IV SCH ×3 (04:50→20:50)
[2016-12-07] MEDS: SODIUM CHLORIDE 0.9% FLUSH 5 ML FLUSH FLUSH PRN ×2 (04:50→20:50)
[2016-12-07] MEDS: GABAPENTIN 100 MG CAP PO SCH (07:30)
[2016-12-07] MEDS: SODIUM CHLORIDE 0.9% FLUSH 5 ML FLUSH FLUSH SCH ×2 (07:32→19:47)
[2016-12-07 08:00] VITALS: BP 98/54; PULSE 54; RESP 18; TEMP 97.1; O2SAT 98
--- NOTE | 2016-12-07 10:36 | HHI.PR ---
Subjective Remarks Follow-up for up for osteomyelitis/discitis, neutropenia. No acute complaints. No change in clinical status. Objective Vitals Vital Signs Date Time Temp Pulse Resp B/P Pulse Ox O2 Delivery O2 Flow Rate FiO2 12/07/16 08:00 97.1 54 18 98/54 98 12/06/16 20:00 97.8 77 20 135/85 97 12/06/16 16:38 14 I/O 12/06/16 12/06/16 12/06/16 12/07/16 12/07/16 12/07/16 07:00 15:00 23:00 07:00 15:00 23:00 Intake Total 480 ml 960 ml 640 ml 560 ml Balance 480 ml 960 ml 640 ml 560 ml Intake Oral 480 ml 960 ml 640 ml 560 ml # Voids 1 4 3 3 # Bowel Movements 0 1 0 0 Objective Remarks GENERAL: Pleasant well-nourished, well-developed patient in no apparent distress. CARDIOVASCULAR: Regular rate and rhythm. RESPIRATORY: No accessory muscle use. Clear to auscultation. Breath sounds equal bilaterally. GASTROINTESTINAL: Abdomen soft, non-tender, non-distended. NEUROLOGICAL: Awake and alert. Ambulatory. PSYCHIATRIC: Normal mood and affect. Urinary Catheter: No Vascular Central Line Catheter: Yes Assessment to: Continue Date of Insertion: Nov 15, 2016 Line: PICC Side: Right A/P Problem List: (1) Neutropenia ICD Code: D70.9 Status: Resolved (2) Osteomyelitis of lumbar vertebra ICD Code: M46.26 Status: Acute (3) Discitis of lumbar region ICD Code: M46.46 Status: Acute Assessment and Plan Lumbar spine osteomyelitis/abscess: Presenting with increased back pain. Lumbar spine MRI finding noted. Neurosurgery evaluated patient and recommended biopsy and aspiration. Thus far cultures have all remained negative. -Awaiting CT-guided biopsy results. -Infectious disease consulted and recommending antibiotics until 12/29/16. -Continue to monitor CBC, CMP, C-reactive protein, and sedimentation rate on a weekly basis. Next labs ordered for 12/08/16. -12/01: ESR and CRP normal. AST increased at 70. Neutropenia: Resolved. -Attributed to Vancomycin. Discussed with Dr. Stephen SANTOYO. Vancomycin discontinued. -Per ID patient started on Cefazolin 2g q8h IV as previous cultures grew MSSA. Blood cultures and wound cultures from this admission are without growth. Pain management: -Lortab 5 every 6 hours as needed for pain 3-5 -Lortab 7.5 every 6 hours as needed for pain 6-10 -Discontinue gabapentin. Herpes simplex infection: Completed acyclovir 11/18/16 Tobacco Use: counseled on cessation. Declined nicotine patch. Polysubstance Abuse/IVDU: patient denied using any drugs since Sep 2016, but urine drug screen was positive for opiates and amphetamines on 10/31. Patient was counseled on cessation DVT Prophylaxis: Lovenox 12/07: Hypotensive this morning but MAP intact. Continue to monitor. Discharge Planning D/c when antibiotics complete and patient cleared by Vashti Kelly Dec 07, 2016 10:36
[2016-12-07] MEDS: ZOLPIDEM TARTRATE 5 MG TAB PO PRN (19:46)
[2016-12-07 20:00] VITALS: BP 113/68; PULSE 67; RESP 18; TEMP 97.3; O2SAT 99
[2016-12-08] MEDS: ACETAMINOPHEN/HYDROcodone 325 MG/5 MG TAB PO PRN ×5 (05:20→22:05)
[2016-12-08] MEDS: ceFAZolin 2 GM PREMIX 50 ML IV SCH ×3 (05:20→20:41)
[2016-12-08] MEDS: SODIUM CHLORIDE 0.9% FLUSH 5 ML FLUSH FLUSH PRN (05:20)
[2016-12-08 05:52] LABS: BASOPHIL % 0.8 % (0.0-2.0); EOSINOPHIL # 0.3 TH/MM3 (0-0.4); EOSINOPHIL % 4.7 % (0.0-4.0); HEMATOCRIT 36.8 % (39.0-51.0); HEMO FLAGS DIFF FINAL; LYMPH % 32.2 % (9.0-44.0); LYMPHOCYTE # 1.8 TH/MM3 (1.0-4.8); MEAN CELL VOLUME 82.9 FL (80.0-100.0); MEAN CORPUSCULAR HGB CONC 32.6 % (32.0-36.0); MONO % 10.7 % (0.0-8.0); NEUT % 51.6 % (16.0-70.0); PLATELET COUNT 184 TH/MM3 (150-450); RED BLOOD COUNT 4.43 MIL/MM3 (4.50-5.90); WHITE BLOOD COUNT 5.7 TH/MM3 (4.0-11.0)
[2016-12-08 06:07] LABS: CHLORIDE 105 MEQ/L (98-107); POTASSIUM 3.9 MEQ/L (3.5-5.1); SODIUM (NA) 141 MEQ/L (136-145)
[2016-12-08 06:10] LABS: ANION GAP 8 MEQ/L (5-15); BICARBONATE 28.2 MEQ/L (21.0-32.0)
[2016-12-08 06:11] LABS: BLOOD UREA NITROGEN 15 MG/DL (7-18)
[2016-12-08 06:13] LABS: ALT (GPT) 31 U/L (12-78)
[2016-12-08 06:14] LABS: AST (GOT) 33 U/L (15-37); GLOMERULAR FILTRATION RATE 98 ML/MIN (>89)
[2016-12-08 06:15] LABS: TOTAL BILIRUBIN ADULT 0.3 MG/DL (0.2-1.0)
[2016-12-08 06:16] LABS: ALKALINE PHOSPHATASE 75 U/L (45-117)
[2016-12-08 06:44] LABS: WESTERGREN SEDIMENTATION RATE 7 mm/hr (0-15)
[2016-12-08 08:00] VITALS: BP 102/64; PULSE 54; RESP 16; TEMP 96.7; O2SAT 97
[2016-12-08] MEDS: SODIUM CHLORIDE 0.9% FLUSH 5 ML FLUSH FLUSH SCH ×2 (08:03→20:41)
--- NOTE | 2016-12-08 10:31 | HHI.PR ---
Subjective Remarks Follow-up for osteomyelitis/discitis. The nurse informed me the patient has a rash from the Tegaderm around his PICC line. The patient denies any pruritus in this area. He does request medication for anxiety. Objective Vitals Vital Signs Date Time Temp Pulse Resp B/P Pulse Ox O2 Delivery O2 Flow Rate FiO2 12/08/16 08:00 96.7 54 16 102/64 97 12/07/16 20:00 97.3 67 18 113/68 99 12/07/16 12:43 14 I/O 12/07/16 12/07/16 12/07/16 12/08/16 12/08/16 12/08/16 07:00 15:00 23:00 07:00 15:00 23:00 Intake Total 560 ml 1070 ml 600 ml 480 ml Output Total 1 ml Balance 560 ml 1069 ml 600 ml 480 ml Intake Oral 560 ml 1070 ml 600 ml 480 ml Stool Total 1 ml # Voids 3 3 2 2 # Bowel Movements 0 0 0 Result Diagram: 12/08/16 0525 12/08/16 0525 Objective Remarks GENERAL: Pleasant well-nourished, well-developed patient in no apparent distress. SKIN: PICC line right arm. There is what appears to be erythematous pieces of adhesive residue over the upper R arm but no macules or papules noted. CARDIOVASCULAR: Regular rate and rhythm. RESPIRATORY: No accessory muscle use. Clear to auscultation. Breath sounds equal bilaterally. GASTROINTESTINAL: Abdomen soft, non-tender, non-distended. NEUROLOGICAL: Awake and alert. PSYCHIATRIC: Normal mood and affect. Urinary Catheter: No Vascular Central Line Catheter: Yes Assessment to: Continue Date of Insertion: Nov 15, 2016 Line: PICC Side: Right A/P Problem List: (1) Neutropenia ICD Code: D70.9 Status: Resolved (2) Osteomyelitis of lumbar vertebra ICD Code: M46.26 Status: Acute (3) Discitis of lumbar region ICD Code: M46.46 Status: Acute Assessment and Plan Lumbar spine osteomyelitis/abscess: Presenting with increased back pain. Lumbar spine MRI finding noted. Neurosurgery evaluated patient and recommended biopsy and aspiration. Thus far cultures have all remained negative. -Awaiting CT-guided biopsy results. -Infectious disease consulted and recommending antibiotics until 12/29/16. -Continue to monitor CBC, CMP, C-reactive protein, and sedimentation rate on a weekly basis. Next labs ordered for 12/15/16. -12/08: Labs reviewed. CBC with normal WBC count. ESR and CRP normal. CMP normal. Neutropenia: Resolved. -Attributed to Vancomycin. Discussed with Dr. Stephen SANTOYO. Vancomycin discontinued. -Per ID patient started on Cefazolin 2g q8h IV as previous cultures grew MSSA. Blood cultures and wound cultures from this admission are without growth. Pain management: -Lortab 5 every 6 hours as needed for pain 3-5 -Lortab 7.5 every 6 hours as needed for pain 6-10 -Gabapentin discontinued. Herpes simplex infection: Completed acyclovir 11/18/16 Tobacco Use: counseled on cessation. Declined nicotine patch. Polysubstance Abuse/IVDU: patient denied using any drugs since Sep 2016, but urine drug screen was positive for opiates and amphetamines on 10/31. Patient was counseled on cessation DVT Prophylaxis: Lovenox Discharge Planning D/c when antibiotics complete and patient cleared by NATANAEL. Vashti Jose Dec 08, 2016 10:31
[2016-12-08 20:00] VITALS: BP 119/67; PULSE 64; RESP 18; TEMP 96.2; O2SAT 99
[2016-12-08] MEDS: ZOLPIDEM TARTRATE 5 MG TAB PO PRN (20:45)
[2016-12-09] MEDS: ceFAZolin 2 GM PREMIX 50 ML IV SCH ×3 (05:23→20:58)
[2016-12-09] MEDS: ACETAMINOPHEN/HYDROcodone 325 MG/5 MG TAB PO PRN ×4 (05:23→22:45)
[2016-12-09] MEDS: SODIUM CHLORIDE 0.9% FLUSH 5 ML FLUSH FLUSH PRN (05:23)
[2016-12-09 08:00] VITALS: BP 110/60; PULSE 72; RESP 20; TEMP 96.6; O2SAT 99
[2016-12-09] MEDS: SODIUM CHLORIDE 0.9% FLUSH 5 ML FLUSH FLUSH SCH ×2 (09:00→20:59)
--- NOTE | 2016-12-09 10:41 | HHI.PR ---
Subjective Remarks No acute complaints. No change in clinical status. Objective Vitals Vital Signs Date Time Temp Pulse Resp B/P Pulse Ox O2 Delivery O2 Flow Rate FiO2 12/08/16 20:00 96.2 64 18 119/67 99 12/08/16 14:29 12 I/O 12/08/16 12/08/16 12/08/16 12/09/16 12/09/16 12/09/16 07:00 15:00 23:00 07:00 15:00 23:00 Intake Total 480 ml 720 ml 700 ml 400 ml Balance 480 ml 720 ml 700 ml 400 ml Intake Oral 480 ml 720 ml 700 ml 400 ml # Voids 2 4 3 2 # Bowel Movements 0 0 Result Diagram: 12/08/1652412/08/16524 Objective Remarks GENERAL: Pleasant well-nourished, well-developed patient in no apparent distress. SKIN: PICC line right arm. There is what appears to be erythematous pieces of adhesive residue over the upper R arm but no macules or papules noted. CARDIOVASCULAR: Regular rate and rhythm. RESPIRATORY: No accessory muscle use. Clear to auscultation. Breath sounds equal bilaterally. GASTROINTESTINAL: Abdomen soft, non-tender, non-distended. NEUROLOGICAL: Awake and alert. PSYCHIATRIC: Normal mood and affect. Urinary Catheter: No Vascular Central Line Catheter: Yes Assessment to: Continue Date of Insertion: Nov 15, 2016 Line: PICC Side: Right A/P Problem List: (1) Neutropenia ICD Code: D70.9 Status: Resolved (2) Osteomyelitis of lumbar vertebra ICD Code: M46.26 Status: Acute (3) Discitis of lumbar region ICD Code: M46.46 Status: Acute Assessment and Plan Lumbar spine osteomyelitis/abscess: Presenting with increased back pain. Lumbar spine MRI finding noted. Neurosurgery evaluated patient and recommended biopsy and aspiration. Thus far cultures have all remained negative. -Awaiting CT-guided biopsy results. -Infectious disease consulted and recommending antibiotics until 12/29/16. -Continue to monitor CBC, CMP, C-reactive protein, and sedimentation rate on a weekly basis. Next labs ordered for 12/15/16. -12/08: CBC with normal WBC count. ESR and CRP normal. CMP normal. Neutropenia: Resolved. -Attributed to Vancomycin. Discussed with Dr. Stephen SANTOYO. Vancomycin discontinued. -Per ID patient started on Cefazolin 2g q8h IV as previous cultures grew MSSA. Blood cultures and wound cultures from this admission are without growth. Pain management: -Lortab 5 every 6 hours as needed for pain 3-5 -Lortab 7.5 every 6 hours as needed for pain 6-10 -Gabapentin discontinued. Anxiety: Patient started on Vistaril 50 mg every 8 hours as needed yesterday. Nurse later called me informing me the patient states it is not working. I informed her I will not be starting benzodiazepines due to his history of drug abuse. I will increase the frequency of Vistaril. Herpes simplex infection: Completed acyclovir 11/18/16 Tobacco Use: counseled on cessation. Declined nicotine patch. Polysubstance Abuse/IVDU: patient denied using any drugs since Sep 2016, but urine drug screen was positive for opiates and amphetamines on 10/31. Patient was counseled on cessation DVT Prophylaxis: Lovenox Discharge Planning D/c when antibiotics complete and patient cleared by N[facility]NAEL. Vashti Jose Dec 09, 2016 10:41
[2016-12-09 20:00] VITALS: BP 116/68; PULSE 70; RESP 16; TEMP 96.9; O2SAT 99
[2016-12-09] MEDS: ZOLPIDEM TARTRATE 5 MG TAB PO PRN (20:59)
[2016-12-10] MEDS: ceFAZolin 2 GM PREMIX 50 ML IV SCH ×3 (05:15→20:40)
[2016-12-10 08:00] VITALS: BP 96/60; PULSE 65; RESP 16; TEMP 97.3; O2SAT 98
[2016-12-10] MEDS: ACETAMINOPHEN/HYDROcodone 325 MG/5 MG TAB PO PRN ×3 (11:41→20:40)
[2016-12-10 11:44] VITALS: BP 117/72; PULSE 63; RESP 18; TEMP 96.5; O2SAT 98
--- NOTE | 2016-12-10 12:13 | HHI.PR ---
Subjective Remarks No acute complaints. No change in clinical status. Objective Vitals Vital Signs Date Time Temp Pulse Resp B/P Pulse Ox O2 Delivery O2 Flow Rate FiO2 12/10/16 11:44 96.5 63 18 117/72 98 12/10/16 08:00 97.3 65 16 96/60 98 12/09/16 23:45 16 12/09/16 20:00 96.9 70 16 116/68 99 I/O 12/09/16 12/09/16 12/09/16 12/10/16 12/10/16 12/10/16 07:00 15:00 23:00 07:00 15:00 23:00 Intake Total 400 ml 1000 ml 720 ml 480 ml Balance 400 ml 1000 ml 720 ml 480 ml Intake Oral 400 ml 1000 ml 240 ml 480 ml Oral Supplement 480 ml # Voids 2 4 2 1 # Bowel Movements 0 0 0 Result Diagram: 12/08/1625 12/08/16524 Objective Remarks GENERAL: Pleasant well-nourished, well-developed patient in no apparent distress. SKIN: PICC line right arm. There is what appears to be erythematous pieces of adhesive residue over the upper R arm but no macules or papules noted. CARDIOVASCULAR: Regular rate and rhythm. RESPIRATORY: No accessory muscle use. Clear to auscultation. Breath sounds equal bilaterally. GASTROINTESTINAL: Abdomen soft, non-tender, non-distended. NEUROLOGICAL: Awake and alert. PSYCHIATRIC: Normal mood and affect. Urinary Catheter: No Vascular Central Line Catheter: Yes Assessment to: Continue Date of Insertion: Nov 15, 2016 Line: PICC Side: Right A/P Problem List: (1) Neutropenia ICD Code: D70.9 Status: Resolved (2) Osteomyelitis of lumbar vertebra ICD Code: M46.26 Status: Acute (3) Discitis of lumbar region ICD Code: M46.46 Status: Acute Assessment and Plan Lumbar spine osteomyelitis/abscess: Presenting with increased back pain. Lumbar spine MRI finding noted. Neurosurgery evaluated patient and recommended biopsy and aspiration. Thus far cultures have all remained negative. -Awaiting CT-guided biopsy results. -Infectious disease consulted and recommending antibiotics until 12/29/16. -Continue to monitor CBC, CMP, C-reactive protein, and sedimentation rate on a weekly basis. Next labs ordered for 12/15/16. -12/08: CBC with normal WBC count. ESR and CRP normal. CMP normal. Neutropenia: Resolved. -Attributed to Vancomycin. Discussed with Dr. Stephen SANTOYO. Vancomycin discontinued. -Per ID patient started on Cefazolin 2g q8h IV as previous cultures grew MSSA. Blood cultures and wound cultures from this admission are without growth. Pain management: -Lortab 5 every 6 hours as needed for pain 3-5 -Lortab 7.5 every 6 hours as needed for pain 6-10 -Gabapentin discontinued. Anxiety: Patient started on Vistaril 50 mg every 6 hours as needed yesterday. I will not be starting benzodiazepines due to his history of drug abuse. Herpes simplex infection: Completed acyclovir 11/18/16 Tobacco Use: counseled on cessation. Declined nicotine patch. Polysubstance Abuse/IVDU: patient denied using any drugs since Sep 2016, but urine drug screen was positive for opiates and amphetamines on 10/31. Patient was counseled on cessation DVT Prophylaxis: Lovenox Discharge Planning D/c when antibiotics complete and patient cleared by ID. Vashti Jose Dec 10, 2016 12:13
[2016-12-10] MEDS: SODIUM CHLORIDE 0.9% FLUSH 5 ML FLUSH FLUSH SCH ×2 (12:39→21:00)
[2016-12-10 20:00] VITALS: BP 116/71; PULSE 72; RESP 16; TEMP 97; O2SAT 100
[2016-12-10] MEDS: ZOLPIDEM TARTRATE 5 MG TAB PO PRN (20:40)
[2016-12-11] MEDS: ceFAZolin 2 GM PREMIX 50 ML IV SCH ×3 (05:07→20:07)
[2016-12-11 08:00] VITALS: BP 114/75; PULSE 61; RESP 17; TEMP 97.7; O2SAT 97
[2016-12-11] MEDS: ACETAMINOPHEN/HYDROcodone 325 MG/5 MG TAB PO PRN ×4 (08:07→21:18)
--- NOTE | 2016-12-11 11:37 | HHI.PR ---
Subjective Remarks Follow-up for osteomyelitis/discitis. No acute complaints. No change in clinical status. Objective Vitals Vital Signs Date Time Temp Pulse Resp B/P Pulse Ox O2 Delivery O2 Flow Rate FiO2 12/11/16 09:07 18 12/11/16 08:00 97.7 61 17 114/75 97 12/10/16 20:00 97.0 72 16 116/71 100 12/10/16 11:44 96.5 63 18 117/72 98 I/O 12/10/16 12/10/16 12/10/16 12/11/16 12/11/16 12/11/16 07:00 15:00 23:00 07:00 15:00 23:00 Intake Total 480 ml 50 ml 700 ml 480 ml Balance 480 ml 50 ml 700 ml 480 ml Intake Oral 480 ml 220 ml 480 ml Oral Supplement 480 ml IV Total 50 ml # Voids 1 4 1 # Bowel Movements 0 0 0 Result Diagram: 12/08/16 0525 12/08/16524 Objective Remarks GENERAL: Pleasant well-nourished, well-developed patient in no apparent distress. CARDIOVASCULAR: Regular rate and rhythm. RESPIRATORY: No accessory muscle use. Clear to auscultation. Breath sounds equal bilaterally. GASTROINTESTINAL: Abdomen soft, non-tender, non-distended. NEUROLOGICAL: Awake and alert. PSYCHIATRIC: Normal mood and affect. Urinary Catheter: No Vascular Central Line Catheter: Yes Assessment to: Continue Date of Insertion: Nov 15, 2016 Line: PICC Side: Right A/P Problem List: (1) Neutropenia ICD Code: D70.9 Status: Resolved (2) Osteomyelitis of lumbar vertebra ICD Code: M46.26 Status: Acute (3) Discitis of lumbar region ICD Code: M46.46 Status: Acute Assessment and Plan Lumbar spine osteomyelitis/abscess: Presenting with increased back pain. Lumbar spine MRI finding noted. Neurosurgery evaluated patient and recommended biopsy and aspiration. Thus far cultures have all remained negative. -Awaiting CT-guided biopsy results. -Infectious disease consulted and recommending antibiotics until 12/29/16. -Continue to monitor CBC, CMP, C-reactive protein, and sedimentation rate on a weekly basis. Next labs ordered for 12/15/16. -12/08: CBC with normal WBC count. ESR and CRP normal. CMP normal. Neutropenia: Resolved. -Attributed to Vancomycin. Discussed with Dr. Stephen ID. Vancomycin discontinued. -Per ID patient started on Cefazolin 2g q8h IV as previous cultures grew MSSA. Blood cultures and wound cultures from this admission are without growth. Pain management: -Lortab 5 every 6 hours as needed for pain 3-5 -Lortab 7.5 every 6 hours as needed for pain 6-10 -Gabapentin discontinued. Anxiety: Patient started on Vistaril 50 mg every 6 hours as needed yesterday. I will not be starting benzodiazepines due to his history of drug abuse. Herpes simplex infection: Completed acyclovir 11/18/16 Tobacco Use: counseled on cessation. Declined nicotine patch. Polysubstance Abuse/IVDU: patient denied using any drugs since Sep 2016, but urine drug screen was positive for opiates and amphetamines on 10/31. Patient was counseled on cessation DVT Prophylaxis: Lovenox Discharge Planning D/c when antibiotics complete and patient cleared by Vashti Kelly Dec 11, 2016 11:37
[2016-12-11] MEDS: SODIUM CHLORIDE 0.9% FLUSH 5 ML FLUSH FLUSH SCH ×2 (12:30→20:07)
[2016-12-11 20:00] VITALS: BP 105/67; PULSE 75; RESP 16; TEMP 97.8; O2SAT 98
[2016-12-11] MEDS: ZOLPIDEM TARTRATE 5 MG TAB PO PRN (20:08)
[2016-12-12] MEDS: ACETAMINOPHEN/HYDROcodone 325 MG/5 MG TAB PO PRN ×4 (05:31→21:31)
[2016-12-12] MEDS: ceFAZolin 2 GM PREMIX 50 ML IV SCH ×3 (05:31→20:28)
[2016-12-12 08:00] VITALS: BP 112/68; PULSE 54; RESP 16; TEMP 97.2; O2SAT 99
[2016-12-12] MEDS: SODIUM CHLORIDE 0.9% FLUSH 5 ML FLUSH FLUSH SCH ×2 (12:11→20:28)
--- NOTE | 2016-12-12 17:19 | HHI.PR ---
Subjective Remarks Patient seen and evaluated also up for discitis and osteomyelitis. Hospital day number 41 patient without complaints Objective Vitals Vital Signs Date Time Temp Pulse Resp B/P Pulse Ox O2 Delivery O2 Flow Rate FiO2 12/12/16 13:11 18 12/12/16 08:00 97.2 54 16 112/68 99 12/11/16 20:00 97.8 75 16 105/67 98 I/O 12/11/16 12/11/16 12/11/16 12/12/16 12/12/16 12/12/16 07:00 15:00 23:00 07:00 15:00 23:00 Intake Total 480 ml 1016 ml 100 ml Balance 480 ml 1016 ml 100 ml Intake Oral 480 ml 960 ml IV Total 56 ml 100 ml # Voids 1 7 # Bowel Movements 0 0 Result Diagram: 12/08/16 0525 12/08/1625 Objective Remarks GENERAL: This is a well-nourished, well-developed patient, in no apparent distress. CARDIOVASCULAR: Regular rate and rhythm without murmurs, gallops, or rubs. RESPIRATORY: Clear to auscultation. Breath sounds equal bilaterally. No wheezes , rales, or rhonchi. GASTROINTESTINAL: Abdomen soft, non-tender, nondistended. Normal active bowel sounds MUSCULOSKELETAL: Extremities without clubbing, cyanosis, or edema. NEURO: Alert & Oriented x4 to person, place, time, situation. Moves all ext x4 Date of Insertion: Nov 15, 2016 Line: PICC Side: Right A/P Assessment and Plan Hospital day 41. Patient continues with daptomycin. Clindamycin listed for adverse drug reaction due to neutropenia Sary Rees MD Dec 12, 2016 17:19
[2016-12-12] MEDS: ZOLPIDEM TARTRATE 5 MG TAB PO PRN (20:27)
[2016-12-12 21:53] VITALS: BP 117/69; PULSE 73; RESP 20; TEMP 98.9; O2SAT 96
[2016-12-13] MEDS: ceFAZolin 2 GM PREMIX 50 ML IV SCH ×3 (05:36→20:46)
[2016-12-13] MEDS: ACETAMINOPHEN/HYDROcodone 325 MG/5 MG TAB PO PRN ×4 (05:36→20:46)
[2016-12-13 08:00] VITALS: BP 100/63; PULSE 56; RESP 16; TEMP 96.7; O2SAT 96
--- NOTE | 2016-12-13 09:34 | HHI.PR ---
Subjective Remarks Follow-up for osteomyelitis/discitis. No acute complaints. No change in clinical status. Objective Vitals Vital Signs Date Time Temp Pulse Resp B/P Pulse Ox O2 Delivery O2 Flow Rate FiO2 12/13/16 08:00 96.7 56 16 100/63 96 12/12/16 23:18 18 12/12/16 21:53 98.9 73 20 117/69 96 I/O 12/12/16 12/12/16 12/12/16 12/13/16 12/13/16 12/13/16 07:00 15:00 23:00 07:00 15:00 23:00 Intake Total 100 ml 736 ml 56 ml Balance 100 ml 736 ml 56 ml Intake Oral 680 ml IV Total 100 ml 56 ml 56 ml # Voids 7 5 4 # Bowel Movements 0 1 0 Objective Remarks GENERAL: Pleasant well-nourished, well-developed patient in no apparent distress. CARDIOVASCULAR: Regular rate and rhythm. RESPIRATORY: No accessory muscle use. Clear to auscultation. Breath sounds equal bilaterally. GASTROINTESTINAL: Abdomen soft, non-tender, non-distended. NEUROLOGICAL: Sleeping but arouses to voice. PSYCHIATRIC: Normal mood and affect. Urinary Catheter: No Vascular Central Line Catheter: Yes Assessment to: Continue Date of Insertion: Nov 15, 2016 Line: PICC Side: Right A/P Problem List: (1) Neutropenia ICD Code: D70.9 Status: Resolved (2) Osteomyelitis of lumbar vertebra ICD Code: M46.26 Status: Acute (3) Discitis of lumbar region ICD Code: M46.46 Status: Acute Assessment and Plan Lumbar spine osteomyelitis/abscess: Presenting with increased back pain. Lumbar spine MRI finding noted. Neurosurgery evaluated patient and recommended biopsy and aspiration. Thus far cultures have all remained negative. -Awaiting CT-guided biopsy results. -Infectious disease consulted and recommending antibiotics until 12/29/16. -Continue to monitor CBC, CMP, C-reactive protein, and sedimentation rate on a weekly basis. Next labs ordered for 12/15/16. -12/08: CBC with normal WBC count. ESR and CRP normal. CMP normal. Neutropenia: Resolved. -Attributed to Vancomycin. Discussed with Dr. Stephen SANTOYO. Vancomycin discontinued. -Per ID patient started on Cefazolin 2g q8h IV as previous cultures grew MSSA. Blood cultures and wound cultures from this admission are without growth. Pain management: -Lortab 5 every 6 hours as needed for pain 3-5 -Lortab 7.5 every 6 hours as needed for pain 6-10 -Gabapentin discontinued. Anxiety: Patient started on Vistaril 50 mg every 6 hours as needed yesterday. I will not be starting benzodiazepines due to his history of drug abuse. Herpes simplex infection: Completed acyclovir 11/18/16 Tobacco Use: counseled on cessation. Declined nicotine patch. Polysubstance Abuse/IVDU: patient denied using any drugs since Sep 2016, but urine drug screen was positive for opiates and amphetamines on 10/31. Patient was counseled on cessation DVT Prophylaxis: Lovenox Discharge Planning D/c when antibiotics complete and patient cleared by Vashti Kelly Dec 13, 2016 09:34
[2016-12-13] MEDS: SODIUM CHLORIDE 0.9% FLUSH 5 ML FLUSH FLUSH SCH ×2 (13:23→20:47)
[2016-12-13 20:00] VITALS: BP 116/59; PULSE 68; RESP 20; TEMP 96.4; O2SAT 99
[2016-12-14] MEDS: ceFAZolin 2 GM PREMIX 50 ML IV SCH ×3 (04:24→20:24)
[2016-12-14] MEDS: ACETAMINOPHEN/HYDROcodone 325 MG/5 MG TAB PO PRN ×3 (05:51→19:27)
[2016-12-14 08:00] VITALS: BP 95/66; PULSE 61; RESP 19; TEMP 96.4; O2SAT 97
[2016-12-14] MEDS: SODIUM CHLORIDE 0.9% FLUSH 5 ML FLUSH FLUSH SCH ×2 (09:00→20:24)
--- NOTE | 2016-12-14 14:07 | HHI.PR ---
Subjective Remarks Patient seen and examined today. Patient denies any new complaints. No change in clinical status. Objective Vitals Vital Signs Date Time Temp Pulse Resp B/P Pulse Ox O2 Delivery O2 Flow Rate FiO2 12/14/16 08:00 96.4 61 19 95/66 97 12/13/16 20:00 96.4 68 20 116/59 99 12/13/16 17:49 18 I/O 12/13/16 12/13/16 12/13/16 12/14/16 12/14/16 12/14/16 07:00 15:00 23:00 07:00 15:00 23:00 Intake Total 360 ml 240 ml 480 ml Balance 360 ml 240 ml 480 ml Intake Oral 360 ml 240 ml 480 ml # Voids 4 2 2 2 # Bowel Movements 0 0 0 0 Objective Remarks GENERAL: Well-developed, well-nourished, in no acute distress. alert and orientated HEENT: Head is normocephalic without any lesions or masses noted. Facial features are symmetric. Eyes: Extraocular muscles are intact. Conjunctivae were clear. NECK: Supple without any masses. Trachea midline no deviation. No JVD, CARDIAC: Regular rhythm, regular rate. S1/S2 are heard. No murmurs gallops or rubs. LUNGS: Clear to auscultation bilaterally. No wheeze, rhonchi or rales. No use of accessory muscles on inspiration or expiration. ABDOMEN: Soft, nontender. Nondistended. Bowel sounds heard in all 4 quadrants. No organomegaly or masses. Negative rebound, negative guarding EXTREMITIES: No edema, pulses are equal bilaterally. No cyanosis or clubbing NEUROLOGY: Mood and affect appear appropriate. Cranial nerves II through XII grossly intact. Moving all extremities, speech is clear Urinary Catheter: No Vascular Central Line Catheter: No Date of Insertion: Nov 15, 2016 Line: PICC Side: Right A/P Assessment and Plan Lumbar spine osteomyelitis/abscess: Presenting with increased back pain. Lumbar spine MRI finding noted. Neurosurgery evaluated patient and recommended biopsy and aspiration. Thus far cultures have all remained negative. I did call pathology who states that they never received a specimen for biopsy. Infectious disease consulted and recommending vancomycin until 12/29/16. Continue to monitor CBC, CMP, C-reactive protein, sedimentation rate on a weekly basis, all results have been normal Neutropenia secondary to vancomycin: Vancomycin has been discontinued. CBC was monitored with significant improvement in his white count and neutrophil count. Neutropenic Precautions has been discontinued Pain management: Tylenol 650 mg every 6 hours as needed for pain 15, Lortab 5 every 6 hours as needed for pain 6-10, Herpes simplex infection: Completed acyclovir 11/18/16 Tobacco Use: counseled on cessation. Declined nicotine patch. Polysubstance Abuse/IVDU: patient denied using any drugs since Sep 2016. Urine drug screen was positive for opiates and amphetamines. Patient was counseled on cessation DVT Prophylaxis: Lovenox No change present treatment plan Discharge Planning Discharge planning per case management, likely after antibiotics completed on Hernando Truong Dec 14, 2016 14:07
[2016-12-14 20:00] VITALS: BP 113/69; PULSE 70; RESP 20; TEMP 98; O2SAT 99
[2016-12-14] MEDS: ZOLPIDEM TARTRATE 5 MG TAB PO PRN (21:15)
[2016-12-15] MEDS: ceFAZolin 2 GM PREMIX 50 ML IV SCH ×3 (04:37→22:15)
[2016-12-15] MEDS ORDERED: ALTEPLASE RECOMBINANT 2 MG VIAL IV PRN (09:00)
[2016-12-15] MEDS: SODIUM CHLORIDE 0.9% FLUSH 5 ML FLUSH FLUSH SCH ×2 (09:00→22:16)
--- NOTE | 2016-12-15 09:24 | HHI.PR ---
Subjective Remarks Patient seen and examined today. Patient denies any new complaints. No change in clinical status. Awaiting antibiotics to be completed Objective Vitals Vital Signs Date Time Temp Pulse Resp B/P Pulse Ox O2 Delivery O2 Flow Rate FiO2 12/14/16 20:00 98.0 70 20 113/69 99 I/O 12/14/16 12/14/16 12/14/16 12/15/16 12/15/16 12/15/16 07:00 15:00 23:00 07:00 15:00 23:00 Intake Total 480 ml 600 ml 360 ml 240 ml Balance 480 ml 600 ml 360 ml 240 ml Intake Oral 480 ml 600 ml 360 ml 240 ml # Voids 2 3 3 # Bowel Movements 0 1 1 Objective Remarks GENERAL: Well-developed, well-nourished, in no acute distress. alert and orientated HEENT: Head is normocephalic without any lesions or masses noted. Facial features are symmetric. Eyes: Extraocular muscles are intact. Conjunctivae were clear. NECK: Supple without any masses. Trachea midline no deviation. No JVD, CARDIAC: Regular rhythm, regular rate. S1/S2 are heard. No murmurs gallops or rubs. LUNGS: Clear to auscultation bilaterally. No wheeze, rhonchi or rales. No use of accessory muscles on inspiration or expiration. ABDOMEN: Soft, nontender. Nondistended. Bowel sounds heard in all 4 quadrants. No organomegaly or masses. Negative rebound, negative guarding EXTREMITIES: No edema, pulses are equal bilaterally. No cyanosis or clubbing NEUROLOGY: Mood and affect appear appropriate. Cranial nerves II through XII grossly intact. Moving all extremities, speech is clear Urinary Catheter: No Vascular Central Line Catheter: No Date of Insertion: Nov 15, 2016 Line: PICC Side: Right A/P Assessment and Plan Lumbar spine osteomyelitis/abscess: Presenting with increased back pain. Lumbar spine MRI finding noted. Neurosurgery evaluated patient and recommended biopsy and aspiration. Thus far cultures have all remained negative. I did call pathology who states that they never received a specimen for biopsy. Infectious disease consulted and recommending vancomycin until 12/29/16. Continue to monitor CBC, CMP, C-reactive protein, sedimentation rate on a weekly basis, all results have been normal Neutropenia secondary to vancomycin: Resolved. Vancomycin has been discontinued. CBC was monitored with significant improvement in his white count and neutrophil count. Neutropenic Precautions has been discontinued Pain management: Tylenol 650 mg every 6 hours as needed for pain 15, Lortab 5 every 6 hours as needed for pain 6-10, Herpes simplex infection: Completed acyclovir 11/18/16 Tobacco Use: counseled on cessation. Declined nicotine patch. Polysubstance Abuse/IVDU: patient denied using any drugs since Sep 2016. Urine drug screen was positive for opiates and amphetamines. Patient was counseled on cessation DVT Prophylaxis: Lovenox No change present treatment plan Discharge Planning Discharge planning per case management, likely after antibiotics completed on Hernando Truong Dec 15, 2016 09:24
[2016-12-15 10:00] VITALS: BP 124/78; PULSE 65; RESP 20; TEMP 97.5; O2SAT 99
[2016-12-15] MEDS: ACETAMINOPHEN/HYDROcodone 325 MG/5 MG TAB PO PRN ×2 (10:56→18:38)
[2016-12-15 13:09] LABS: CHLORIDE 105 MEQ/L (98-107); SODIUM (NA) 143 MEQ/L (136-145)
[2016-12-15 13:14] LABS: ANION GAP 9 MEQ/L (5-15); BICARBONATE 29.3 MEQ/L (21.0-32.0); BLOOD UREA NITROGEN 15 MG/DL (7-18)
[2016-12-15 13:17] LABS: ALT (GPT) 36 U/L (12-78); AST (GOT) 51 U/L (15-37); GLOMERULAR FILTRATION RATE 91 ML/MIN (>89); TOTAL BILIRUBIN ADULT 0.3 MG/DL (0.2-1.0)
[2016-12-15 13:18] LABS: AUTOMATED NEUTROPHIL # 3.8 TH/MM3 (1.8-7.7); BASOPHIL # 0.1 TH/MM3 (0-0.2); BASOPHIL % 0.9 % (0.0-2.0); EOSINOPHIL # 0.2 TH/MM3 (0-0.4); EOSINOPHIL % 3.4 % (0.0-4.0); HEMATOCRIT 35.8 % (39.0-51.0); HEMO FLAGS DIFF FINAL; LYMPH % 26.3 % (9.0-44.0); LYMPHOCYTE # 1.7 TH/MM3 (1.0-4.8); MEAN CELL VOLUME 84.2 FL (80.0-100.0); MEAN CORPUSCULAR HEMOGLOBIN 29.5 PG (27.0-34.0); MONO % 8.9 % (0.0-8.0); NEUT % 60.5 % (16.0-70.0); PLATELET COUNT 206 TH/MM3 (150-450); RED BLOOD COUNT 4.25 MIL/MM3 (4.50-5.90); RED CELL DISTRIBUTION WIDTH 16.5 % (11.6-17.2); WHITE BLOOD COUNT 6.4 TH/MM3 (4.0-11.0)
[2016-12-15 13:19] LABS: ALKALINE PHOSPHATASE 73 U/L (45-117)
[2016-12-15 13:29] LABS: WESTERGREN SEDIMENTATION RATE 10 mm/hr (0-15)
[2016-12-15 20:00] VITALS: BP 110/63; PULSE 71; RESP 16; TEMP 97.2; O2SAT 99
[2016-12-15] MEDS: ZOLPIDEM TARTRATE 5 MG TAB PO PRN (22:15)
[2016-12-16] MEDS: ceFAZolin 2 GM PREMIX 50 ML IV SCH ×3 (04:28→20:06)
[2016-12-16] MEDS: ACETAMINOPHEN/HYDROcodone 325 MG/5 MG TAB PO PRN ×3 (07:30→20:06)
[2016-12-16 08:00] VITALS: BP 120/61; PULSE 61; RESP 20; TEMP 96.6; O2SAT 96
[2016-12-16] MEDS: SODIUM CHLORIDE 0.9% FLUSH 5 ML FLUSH FLUSH SCH ×2 (08:02→20:05)
--- NOTE | 2016-12-16 14:11 | HHI.PR ---
Subjective Remarks Patient seen and examined today. Patient denies any new complaints. No change clinical status. Objective Vitals Vital Signs Date Time Temp Pulse Resp B/P Pulse Ox O2 Delivery O2 Flow Rate FiO2 12/16/16 08:00 96.6 61 20 120/61 96 12/15/16 20:00 97.2 71 16 110/63 99 I/O 12/15/16 12/15/16 12/15/16 12/16/16 12/16/16 12/16/16 07:00 15:00 23:00 07:00 15:00 23:00 Intake Total 240 ml 750 ml 600 ml 480 ml Balance 240 ml 750 ml 600 ml 480 ml Intake Oral 240 ml 700 ml 600 ml 480 ml IV Total 50 ml # Voids 4 3 2 # Bowel Movements 1 0 0 Result Diagram: 12/15/16 1234 12/15/16 1234 Objective Remarks GENERAL: Well-developed, well-nourished, in no acute distress. alert and orientated HEENT: Head is normocephalic without any lesions or masses noted. Facial features are symmetric. Eyes: Extraocular muscles are intact. Conjunctivae were clear. NECK: Supple without any masses. Trachea midline no deviation. No JVD, CARDIAC: Regular rhythm, regular rate. S1/S2 are heard. No murmurs gallops or rubs. LUNGS: Clear to auscultation bilaterally. No wheeze, rhonchi or rales. No use of accessory muscles on inspiration or expiration. ABDOMEN: Soft, nontender. Nondistended. Bowel sounds heard in all 4 quadrants. No organomegaly or masses. Negative rebound, negative guarding EXTREMITIES: No edema, pulses are equal bilaterally. No cyanosis or clubbing NEUROLOGY: Mood and affect appear appropriate. Cranial nerves II through XII grossly intact. Moving all extremities, speech is clear Urinary Catheter: No Vascular Central Line Catheter: Yes Assessment to: Continue Date of Insertion: Nov 15, 2016 Line: PICC Side: Right A/P Assessment and Plan Lumbar spine osteomyelitis/abscess: Presenting with increased back pain. Lumbar spine MRI finding noted. Neurosurgery evaluated patient and recommended biopsy and aspiration. Thus far cultures have all remained negative. I did call pathology who states that they never received a specimen for biopsy. Infectious disease consulted and recommending vancomycin until 12/29/16. Continue to monitor CBC, CMP, C-reactive protein, sedimentation rate on a weekly basis, all results have been normal Neutropenia secondary to vancomycin: Resolved. Vancomycin has been discontinued. CBC was monitored with significant improvement in his white count and neutrophil count. Neutropenic Precautions has been discontinued Pain management: Tylenol 650 mg every 6 hours as needed for pain 15, Lortab 5 every 6 hours as needed for pain 6-10, Herpes simplex infection: Completed acyclovir 11/18/16 Tobacco Use: counseled on cessation. Declined nicotine patch. Polysubstance Abuse/IVDU: patient denied using any drugs since Sep 2016. Urine drug screen was positive for opiates and amphetamines. Patient was counseled on cessation DVT Prophylaxis: Lovenox No change present treatment plan Discharge Planning Discharge planning per case management, likely after antibiotics completed on Hernanod Truong Dec 16, 2016 14:11
[2016-12-16 20:00] VITALS: BP 118/72; PULSE 66; RESP 16; TEMP 97.4; O2SAT 99
[2016-12-16] MEDS: ZOLPIDEM TARTRATE 5 MG TAB PO PRN (20:06)
[2016-12-17] MEDS: ceFAZolin 2 GM PREMIX 50 ML IV SCH ×3 (04:55→20:50)
[2016-12-17] MEDS: ACETAMINOPHEN/HYDROcodone 325 MG/5 MG TAB PO PRN ×3 (04:55→18:33)
[2016-12-17 08:00] VITALS: BP 119/71; PULSE 64; RESP 16; TEMP 97; O2SAT 97
[2016-12-17] MEDS: SODIUM CHLORIDE 0.9% FLUSH 5 ML FLUSH FLUSH SCH ×2 (09:00→20:50)
--- NOTE | 2016-12-17 14:01 | HHI.PR ---
Subjective Remarks Patient seen and examined today. Patient denies any new complaints. No change clinical status. Objective Vitals Vital Signs Date Time Temp Pulse Resp B/P Pulse Ox O2 Delivery O2 Flow Rate FiO2 12/17/16 12:02 18 12/17/16 08:00 97.0 64 16 119/71 97 12/16/16 20:00 97.4 66 16 118/72 99 I/O 12/16/16 12/16/16 12/16/16 12/17/16 12/17/16 12/17/16 07:00 15:00 23:00 07:00 15:00 23:00 Intake Total 480 ml 1050 ml 640 ml 520 ml Balance 480 ml 1050 ml 640 ml 520 ml Intake Oral 480 ml 1000 ml 640 ml 520 ml IV Total 50 ml # Voids 2 5 2 2 # Bowel Movements 0 1 0 0 Result Diagram: 12/15/16 1234 12/15/16 1234 Objective Remarks GENERAL: Well-developed, well-nourished, in no acute distress. alert and orientated HEENT: Head is normocephalic without any lesions or masses noted. Facial features are symmetric. Eyes: Extraocular muscles are intact. Conjunctivae were clear. NECK: Supple without any masses. Trachea midline no deviation. No JVD, CARDIAC: Regular rhythm, regular rate. S1/S2 are heard. No murmurs gallops or rubs. LUNGS: Clear to auscultation bilaterally. No wheeze, rhonchi or rales. No use of accessory muscles on inspiration or expiration. ABDOMEN: Soft, nontender. Nondistended. Bowel sounds heard in all 4 quadrants. No organomegaly or masses. Negative rebound, negative guarding EXTREMITIES: No edema, pulses are equal bilaterally. No cyanosis or clubbing NEUROLOGY: Mood and affect appear appropriate. Cranial nerves II through XII grossly intact. Moving all extremities, speech is clear Urinary Catheter: No Vascular Central Line Catheter: Yes Assessment to: Continue Date of Insertion: Nov 15, 2016 Line: PICC Side: Right A/P Assessment and Plan Lumbar spine osteomyelitis/abscess: Presenting with increased back pain. Lumbar spine MRI finding noted. Neurosurgery evaluated patient and recommended biopsy and aspiration. Thus far cultures have all remained negative. I did call pathology who states that they never received a specimen for biopsy. Infectious disease consulted and recommending vancomycin until 12/29/16. Continue to monitor CBC, CMP, C-reactive protein, sedimentation rate on a weekly basis, all results have been normal Neutropenia secondary to vancomycin: Resolved. Vancomycin has been discontinued. CBC was monitored with significant improvement in his white count and neutrophil count. Neutropenic Precautions has been discontinued Pain management: Tylenol 650 mg every 6 hours as needed for pain 15, Lortab 5 every 6 hours as needed for pain 6-10, Herpes simplex infection: Completed acyclovir 11/18/16 Tobacco Use: counseled on cessation. Declined nicotine patch. Polysubstance Abuse/IVDU: patient denied using any drugs since Sep 2016. Urine drug screen was positive for opiates and amphetamines. Patient was counseled on cessation DVT Prophylaxis: Lovenox No change present treatment plan Discharge Planning Discharge planning per case management, likely after antibiotics completed on Hernando Truong Dec 17, 2016 14:01
[2016-12-17 20:00] VITALS: BP 124/73; PULSE 66; RESP 20; TEMP 96.6; O2SAT 98
[2016-12-17] MEDS: ZOLPIDEM TARTRATE 5 MG TAB PO PRN (20:56)
[2016-12-18] MEDS: ACETAMINOPHEN/HYDROcodone 325 MG/5 MG TAB PO PRN ×4 (00:28→20:40)
[2016-12-18] MEDS: ceFAZolin 2 GM PREMIX 50 ML IV SCH ×3 (05:03→20:34)
[2016-12-18] MEDS: SODIUM CHLORIDE 0.9% FLUSH 5 ML FLUSH FLUSH SCH ×2 (07:59→20:34)
[2016-12-18 08:00] VITALS: BP 130/73; PULSE 59; RESP 18; TEMP 98.7; O2SAT 99
--- NOTE | 2016-12-18 13:37 | HHI.PR ---
Subjective Remarks Patient seen and examined today. Patient denies any new complaints. No change in clinical status. Objective Vitals Vital Signs Date Time Temp Pulse Resp B/P Pulse Ox O2 Delivery O2 Flow Rate FiO2 12/18/16 09:12 14 12/18/16 08:00 98.7 59 18 130/73 99 12/17/16 20:00 96.6 66 20 124/73 98 I/O 12/17/16 12/17/16 12/17/16 12/18/16 12/18/16 12/18/16 07:00 15:00 23:00 07:00 15:00 23:00 Intake Total 520 ml 690 ml 640 ml Balance 520 ml 690 ml 640 ml Intake Oral 520 ml 640 ml 640 ml IV Total 50 ml # Voids 2 1 3 # Bowel Movements 0 0 0 Result Diagram: 12/15/16 1234 12/15/16 1234 Objective Remarks GENERAL: Well-developed, well-nourished, in no acute distress. alert and orientated HEENT: Head is normocephalic without any lesions or masses noted. Facial features are symmetric. Eyes: Extraocular muscles are intact. Conjunctivae were clear. NECK: Supple without any masses. Trachea midline no deviation. No JVD, CARDIAC: Regular rhythm, regular rate. S1/S2 are heard. No murmurs gallops or rubs. LUNGS: Clear to auscultation bilaterally. No wheeze, rhonchi or rales. No use of accessory muscles on inspiration or expiration. ABDOMEN: Soft, nontender. Nondistended. Bowel sounds heard in all 4 quadrants. No organomegaly or masses. Negative rebound, negative guarding EXTREMITIES: No edema, pulses are equal bilaterally. No cyanosis or clubbing NEUROLOGY: Mood and affect appear appropriate. Cranial nerves II through XII grossly intact. Moving all extremities, speech is clear Urinary Catheter: No Vascular Central Line Catheter: No Date of Insertion: Nov 15, 2016 Line: PICC Side: Right A/P Assessment and Plan Lumbar spine osteomyelitis/abscess: Presenting with increased back pain. Lumbar spine MRI finding noted. Neurosurgery evaluated patient and recommended biopsy and aspiration. Thus far cultures have all remained negative. I did call pathology who states that they never received a specimen for biopsy. Infectious disease consulted and recommending vancomycin until 12/29/16. Continue to monitor CBC, CMP, C-reactive protein, sedimentation rate on a weekly basis, all results have been normal Neutropenia secondary to vancomycin: Resolved. Vancomycin has been discontinued. CBC was monitored with significant improvement in his white count and neutrophil count. Neutropenic Precautions has been discontinued Pain management: Tylenol 650 mg every 6 hours as needed for pain 15, Lortab 5 every 6 hours as needed for pain 6-10, Herpes simplex infection: Completed acyclovir 11/18/16 Tobacco Use: counseled on cessation. Declined nicotine patch. Polysubstance Abuse/IVDU: patient denied using any drugs since Sep 2016. Urine drug screen was positive for opiates and amphetamines. Patient was counseled on cessation DVT Prophylaxis: Lovenox No change present treatment plan Discharge Planning Discharge planning per case management, likely after antibiotics completed on Hernando Truong Dec 18, 2016 13:37
[2016-12-18 20:00] VITALS: BP 116/76; PULSE 62; RESP 16; TEMP 96.2; O2SAT 99
[2016-12-18] MEDS: ZOLPIDEM TARTRATE 5 MG TAB PO PRN (20:40)
[2016-12-19] MEDS: ceFAZolin 2 GM PREMIX 50 ML IV SCH ×3 (04:59→21:04)
[2016-12-19 08:00] VITALS: BP 113/68; PULSE 64; RESP 18; TEMP 97; O2SAT 94
[2016-12-19] MEDS: ACETAMINOPHEN/HYDROcodone 325 MG/5 MG TAB PO PRN ×3 (08:39→21:03)
[2016-12-19] MEDS: SODIUM CHLORIDE 0.9% FLUSH 5 ML FLUSH FLUSH SCH ×2 (08:40→21:05)
--- NOTE | 2016-12-19 09:44 | HHI.PR ---
Subjective Remarks Patient examined today. Patient has any new complaints. No change clinical status. Objective Vitals Vital Signs Date Time Temp Pulse Resp B/P Pulse Ox O2 Delivery O2 Flow Rate FiO2 12/19/16 08:00 97.0 64 18 113/68 94 12/18/16 21:40 16 12/18/16 20:00 96.2 62 16 116/76 99 I/O 12/18/16 12/18/16 12/18/16 12/19/16 12/19/16 12/19/16 07:00 15:00 23:00 07:00 15:00 23:00 Intake Total 640 ml 620 ml 480 ml 480 ml Balance 640 ml 620 ml 480 ml 480 ml Intake Oral 640 ml 620 ml 480 ml 480 ml # Voids 3 2 1 1 # Bowel Movements 0 0 0 0 Result Diagram: 12/15/16 1234 12/15/16 1234 Objective Remarks GENERAL: Well-developed, well-nourished, in no acute distress. alert and orientated HEENT: Head is normocephalic without any lesions or masses noted. Facial features are symmetric. Eyes: Extraocular muscles are intact. Conjunctivae were clear. NECK: Supple without any masses. Trachea midline no deviation. No JVD, CARDIAC: Regular rhythm, regular rate. S1/S2 are heard. No murmurs gallops or rubs. LUNGS: Clear to auscultation bilaterally. No wheeze, rhonchi or rales. No use of accessory muscles on inspiration or expiration. ABDOMEN: Soft, nontender. Nondistended. Bowel sounds heard in all 4 quadrants. No organomegaly or masses. Negative rebound, negative guarding EXTREMITIES: No edema, pulses are equal bilaterally. No cyanosis or clubbing NEUROLOGY: Mood and affect appear appropriate. Cranial nerves II through XII grossly intact. Moving all extremities, speech is clear Urinary Catheter: No Vascular Central Line Catheter: Yes Assessment to: Continue Date of Insertion: Nov 15, 2016 Line: PICC Side: Right A/P Assessment and Plan Lumbar spine osteomyelitis/abscess: Presenting with increased back pain. Lumbar spine MRI finding noted. Neurosurgery evaluated patient and recommended biopsy and aspiration. Thus far cultures have all remained negative. I did call pathology who states that they never received a specimen for biopsy. Infectious disease consulted and recommending vancomycin until 12/29/16. Continue to monitor CBC, CMP, C-reactive protein, sedimentation rate on a weekly basis, all results have been normal Neutropenia secondary to vancomycin: Resolved. Vancomycin has been discontinued. CBC was monitored with significant improvement in his white count and neutrophil count. Neutropenic Precautions has been discontinued Pain management: Tylenol 650 mg every 6 hours as needed for pain 15, Lortab 5 every 6 hours as needed for pain 6-10, Herpes simplex infection: Completed acyclovir 11/18/16 Tobacco Use: counseled on cessation. Declined nicotine patch. Polysubstance Abuse/IVDU: patient denied using any drugs since Sep 2016. Urine drug screen was positive for opiates and amphetamines. Patient was counseled on cessation DVT Prophylaxis: Lovenox No change present treatment plan Discharge Planning Discharge planning per case management, likely after antibiotics completed on Hernando Truong Dec 19, 2016 09:44
[2016-12-19 20:00] VITALS: BP 131/82; PULSE 67; RESP 17; TEMP 98; O2SAT 97
[2016-12-19] MEDS: ZOLPIDEM TARTRATE 5 MG TAB PO PRN (21:03)
[2016-12-20] MEDS: ceFAZolin 2 GM PREMIX 50 ML IV SCH ×3 (05:22→20:20)
[2016-12-20] MEDS: ACETAMINOPHEN/HYDROcodone 325 MG/5 MG TAB PO PRN ×3 (05:28→18:15)
[2016-12-20 08:00] VITALS: BP 90/50; PULSE 55; RESP 16; TEMP 98; O2SAT 97
[2016-12-20] MEDS: SODIUM CHLORIDE 0.9% FLUSH 5 ML FLUSH FLUSH SCH ×2 (09:55→20:21)
--- NOTE | 2016-12-20 11:29 | HHI.PR ---
Subjective Remarks Patient seen and examined today. Patient denies any new complaints. No change in clinical status. Objective Vitals Vital Signs Date Time Temp Pulse Resp B/P Pulse Ox O2 Delivery O2 Flow Rate FiO2 12/20/16 06:28 16 12/19/16 20:00 98.0 67 17 131/82 97 I/O 12/19/16 12/19/16 12/19/16 12/20/16 12/20/16 12/20/16 07:00 15:00 23:00 07:00 15:00 23:00 Intake Total 480 ml 620 ml 720 ml 620 ml Balance 480 ml 620 ml 720 ml 620 ml Intake Oral 480 ml 620 ml 720 ml 480 ml IV Total 140 ml # Voids 1 3 3 2 # Bowel Movements 0 0 0 0 Objective Remarks GENERAL: Well-developed, well-nourished, in no acute distress. alert and orientated HEENT: Head is normocephalic without any lesions or masses noted. Facial features are symmetric. Eyes: Extraocular muscles are intact. Conjunctivae were clear. NECK: Supple without any masses. Trachea midline no deviation. No JVD, CARDIAC: Regular rhythm, regular rate. S1/S2 are heard. No murmurs gallops or rubs. LUNGS: Clear to auscultation bilaterally. No wheeze, rhonchi or rales. No use of accessory muscles on inspiration or expiration. ABDOMEN: Soft, nontender. Nondistended. Bowel sounds heard in all 4 quadrants. No organomegaly or masses. Negative rebound, negative guarding EXTREMITIES: No edema, pulses are equal bilaterally. No cyanosis or clubbing NEUROLOGY: Mood and affect appear appropriate. Cranial nerves II through XII grossly intact. Moving all extremities, speech is clear Urinary Catheter: No Vascular Central Line Catheter: No Date of Insertion: Nov 15, 2016 Line: PICC Side: Right A/P Assessment and Plan Lumbar spine osteomyelitis/abscess: Presenting with increased back pain. Lumbar spine MRI finding noted. Neurosurgery evaluated patient and recommended biopsy and aspiration. Thus far cultures have all remained negative. I did call pathology who states that they never received a specimen for biopsy. Infectious disease consulted and recommending vancomycin until 12/29/16. Continue to monitor CBC, CMP, C-reactive protein, sedimentation rate on a weekly basis, all results have been normal Neutropenia secondary to vancomycin: Resolved. Vancomycin has been discontinued. CBC was monitored with significant improvement in his white count and neutrophil count. Neutropenic Precautions has been discontinued Pain management: Tylenol 650 mg every 6 hours as needed for pain 15, Lortab 5 every 6 hours as needed for pain 6-10, Herpes simplex infection: Completed acyclovir 11/18/16 Tobacco Use: counseled on cessation. Declined nicotine patch. Polysubstance Abuse/IVDU: patient denied using any drugs since Sep 2016. Urine drug screen was positive for opiates and amphetamines. Patient was counseled on cessation DVT Prophylaxis: Lovenox No change present treatment plan Discharge Planning Discharge planning per case management, likely after antibiotics completed on Hernando Truong Dec 20, 2016 11:29
[2016-12-20 20:00] VITALS: BP 118/75; PULSE 66; RESP 18; TEMP 97.3; O2SAT 100
[2016-12-20] MEDS: ZOLPIDEM TARTRATE 5 MG TAB PO PRN (20:22)
[2016-12-20] MEDS: ONDANSETRON ODT 4 MG TAB PO PRN (22:48)
[2016-12-21] MEDS: ACETAMINOPHEN/HYDROcodone 325 MG/5 MG TAB PO PRN ×4 (04:05→22:29)
[2016-12-21] MEDS: SODIUM CHLORIDE 0.9% FLUSH 5 ML FLUSH FLUSH PRN (05:50)
[2016-12-21] MEDS: ceFAZolin 2 GM PREMIX 50 ML IV SCH ×3 (05:50→21:04)
[2016-12-21 08:00] VITALS: BP 113/70; PULSE 58; RESP 18; TEMP 97.3; O2SAT 97
[2016-12-21] MEDS: SODIUM CHLORIDE 0.9% FLUSH 5 ML FLUSH FLUSH SCH ×2 (08:03→21:04)
--- NOTE | 2016-12-21 13:08 | HHI.PR ---
Subjective Remarks Follow-up for osteomyelitis, discitis. Patient states back pain is improved from prior admissions. No acute complaints. No change in clinical status. Objective Vitals Vital Signs Date Time Temp Pulse Resp B/P Pulse Ox O2 Delivery O2 Flow Rate FiO2 12/21/16 11:48 14 12/21/16 08:00 97.3 58 18 113/70 97 12/20/16 20:00 97.3 66 18 118/75 100 I/O 12/20/16 12/20/16 12/20/16 12/21/16 12/21/16 12/21/16 07:00 15:00 23:00 07:00 15:00 23:00 Intake Total 620 ml 1200 ml 680 ml Balance 620 ml 1200 ml 680 ml Intake Oral 480 ml 1200 ml 680 ml IV Total 140 ml # Voids 2 5 # Bowel Movements 0 0 Objective Remarks GENERAL: Pleasant well-nourished, well-developed patient in no apparent distress. CARDIOVASCULAR: Regular rate and rhythm. RESPIRATORY: No accessory muscle use. Clear to auscultation. Breath sounds equal bilaterally. GASTROINTESTINAL: Abdomen soft, non-tender, non-distended. NEUROLOGICAL: Awake and alert. PSYCHIATRIC: Normal mood and affect. Urinary Catheter: No Vascular Central Line Catheter: Yes Assessment to: Continue Date of Insertion: Nov 15, 2016 Line: PICC Side: Right A/P Problem List: (1) Neutropenia ICD Code: D70.9 Status: Resolved (2) Osteomyelitis of lumbar vertebra ICD Code: M46.26 Status: Acute (3) Discitis of lumbar region ICD Code: M46.46 Status: Acute Assessment and Plan Lumbar spine osteomyelitis/abscess: Presenting with increased back pain. Lumbar spine MRI finding noted. Neurosurgery evaluated patient and recommended biopsy and aspiration. Thus far cultures have all remained negative. -No biopsy ever received. -Infectious disease consulted and recommending antibiotics until 12/29/16. -Continue to monitor CBC, CMP, C-reactive protein, and sedimentation rate on a weekly basis. -Labs remain normal. Neutropenia: Resolved. -Attributed to Vancomycin. Discussed with Dr. Stephen SANTOYO. Vancomycin discontinued. -Per ID continue Cefazolin 2g q8h IV as previous cultures grew MSSA. Blood cultures and wound cultures from this admission are without growth. Pain management: -Lortab 5 every 6 hours as needed for pain 6-10 -Gabapentin discontinued. Herpes simplex infection: Completed acyclovir 11/18/16 Tobacco Use: counseled on cessation. Declined nicotine patch. Polysubstance Abuse/IVDU: patient denied using any drugs since Sep 2016, but urine drug screen was positive for opiates and amphetamines on 10/31. Patient was counseled on cessation DVT Prophylaxis: Lovenox Discharge Planning D/c when antibiotics complete and patient cleared by Vashti Kelly Dec 21, 2016 13:08
[2016-12-21 20:00] VITALS: BP 121/70; PULSE 73; RESP 18; TEMP 98; O2SAT 97
[2016-12-21] MEDS: ZOLPIDEM TARTRATE 5 MG TAB PO PRN (21:04)
[2016-12-22] MEDS: ceFAZolin 2 GM PREMIX 50 ML IV SCH ×3 (05:54→21:22)
[2016-12-22] MEDS: ACETAMINOPHEN/HYDROcodone 325 MG/5 MG TAB PO PRN ×3 (06:45→18:25)
[2016-12-22 06:58] LABS: AUTOMATED NEUTROPHIL # 3.2 TH/MM3 (1.8-7.7); BASOPHIL % 0.8 % (0.0-2.0); EOSINOPHIL # 0.3 TH/MM3 (0-0.4); EOSINOPHIL % 4.8 % (0.0-4.0); HEMATOCRIT 37.1 % (39.0-51.0); HEMO FLAGS DIFF FINAL; MEAN CELL VOLUME 83.9 FL (80.0-100.0); MEAN CORPUSCULAR HEMOGLOBIN 28.8 PG (27.0-34.0); MEAN CORPUSCULAR HGB CONC 34.3 % (32.0-36.0); MONO % 10.2 % (0.0-8.0); NEUT % 52.2 % (16.0-70.0); PLATELET COUNT 195 TH/MM3 (150-450); RED BLOOD COUNT 4.42 MIL/MM3 (4.50-5.90); RED CELL DISTRIBUTION WIDTH 15.9 % (11.6-17.2); WHITE BLOOD COUNT 6.1 TH/MM3 (4.0-11.0)
[2016-12-22 07:08] LABS: CHLORIDE 106 MEQ/L (98-107); POTASSIUM 4.1 MEQ/L (3.5-5.1); SODIUM (NA) 144 MEQ/L (136-145)
[2016-12-22 07:12] LABS: ANION GAP 10 MEQ/L (5-15); BICARBONATE 28.1 MEQ/L (21.0-32.0); BLOOD UREA NITROGEN 15 MG/DL (7-18)
[2016-12-22 07:15] LABS: ALT (GPT) 17 U/L (12-78); AST (GOT) 19 U/L (15-37); GLOMERULAR FILTRATION RATE 96 ML/MIN (>89)
[2016-12-22 07:16] LABS: TOTAL BILIRUBIN ADULT 0.3 MG/DL (0.2-1.0)
[2016-12-22 07:17] LABS: ALKALINE PHOSPHATASE 69 U/L (45-117)
[2016-12-22 07:57] LABS: WESTERGREN SEDIMENTATION RATE 16 mm/hr (0-15)
[2016-12-22] MEDS: SODIUM CHLORIDE 0.9% FLUSH 5 ML FLUSH FLUSH SCH ×2 (08:25→21:22)
--- NOTE | 2016-12-22 09:24 | HHI.PR ---
Subjective Remarks Follow-up on patient with osteomyelitis, discitis. Continued IV antibiotic treatment. Patient sleeping in hospital bed, easily arousable. Patient is noted complaints today. No chest pain or shortness of breath. Objective Vitals Vital Signs Date Time Temp Pulse Resp B/P Pulse Ox O2 Delivery O2 Flow Rate FiO2 12/21/16 20:00 98.0 73 18 121/70 97 12/21/16 19:04 14 I/O 12/21/16 12/21/16 12/21/16 12/22/16 12/22/16 12/22/16 07:00 15:00 23:00 07:00 15:00 23:00 Intake Total 680 ml 1280 ml Balance 680 ml 1280 ml Intake Oral 680 ml 1280 ml # Voids 5 3 # Bowel Movements 0 0 Result Diagram: 12/22/16 0645 12/22/16 0645 Objective Remarks GENERAL: Well-nourished, well-developed patient in no apparent distress. Sleeping, easily arousable. CARDIOVASCULAR: Regular rate and rhythm. RESPIRATORY: No accessory muscle use. Clear to auscultation. Breath sounds equal bilaterally. GASTROINTESTINAL: Abdomen soft, non-tender, non-distended. NEUROLOGICAL: Awake and alert. PSYCHIATRIC: Normal mood and affect. Urinary Catheter: No Vascular Central Line Catheter: Yes Assessment to: Continue Date of Insertion: Nov 15, 2016 Line: PICC Side: Right Medications and IVs Current Medications Medications (Trade) Dose Ordered Sig/Maria Esther Route Start Time Stop Time Status Last Admin (NS Flush) 2 ml UNSCH PRN FLUSH 11/01/16 01:15 12/21/16 05:50 (NS Flush) 2 ml BID FLUSH 11/01/16 09:00 12/22/16 08:25 (Dulcolax Supp) 10 mg DAILY PRN WI 11/01/16 01:15 (Tylenol) 650 mg Q6H PRN PO 11/01/16 01:15 11/18/16 03:26 (Ambien) 5 mg HS PRN PO 11/11/16 15:45 12/21/16 21:04 (NS Flush) See Protocol DAILY IVF 11/16/16 09:00 12/22/16 08:25 (NS Flush) See Protocol UNSCH PRN IVF 11/15/16 20:00 (Heparin Central Flush) See Protocol DAILY IVF 11/16/16 09:00 12/22/16 08:25 (Heparin Central Flush) See Protocol UNSCH PRN IVF 11/15/16 20:00 12/01/16 06:05 IV Flush See Protocol UNSCH PRN IVF 11/15/16 20:00 12/01/16 06:04 (Ancef 2 Gm Premix) 50 ml @ 100 mls/hr Q8H IV 11/25/16 13:00 12/22/16 05:54 (Phelps 5-325 Mg) 1 tab Q6H PRN PO 12/14/16 12:19 12/22/16 06:45 (Zofran Odt) 4 mg Q6H PRN PO 12/14/16 10:00 12/20/16 22:48 Date of Insertion: Nov 15, 2016 Line: PICC Side: Right A/P Problem List: (1) Neutropenia ICD Code: D70.9 Status: Resolved (2) Osteomyelitis of lumbar vertebra ICD Code: M46.26 Status: Acute (3) Discitis of lumbar region ICD Code: M46.46 Status: Acute Assessment and Plan Lumbar spine osteomyelitis/abscess: Presenting with increased back pain. Lumbar spine MRI finding noted. Neurosurgery evaluated patient and recommended biopsy and aspiration. No biopsy ever received. Thus far cultures have all remained negative. Infectious disease consulted and recommending vancomycin until 12/29/16. Continue to monitor CBC, CMP, C-reactive protein, sedimentation rate on a weekly basis - lab results today: CBC unremarkable except for mild anemia with a hemoglobin of 12.7 and hematocrit 37.1 which appears stable. CMP unremarkable. Slight bump in sedimentation rate to 16, previously 7 on 12/08 and 10 on 12/15. CRP up at 0.50, previously was less than 0.29. Alert[address] Mitchell with ID, and she will reevaluate patient. Neutropenia secondary to vancomycin: Vancomycin has been discontinued. CBC was monitored with significant improvement in his white count and neutrophil count. Neutropenic Precautions has been discontinued. White count 6.1 today. Pain management: Lortab 5 every 6 hours as needed for pain 6-10, Neurontin 200 mg 2 times daily Herpes simplex infection: Completed acyclovir 11/18/16 Tobacco Use: counseled on cessation. Declined nicotine patch. Polysubstance Abuse/IVDU: patient denied using any drugs since Sep 2016. Urine drug screen was positive for opiates and amphetamines. Patient was counseled on cessation DVT Prophylaxis: Lovenox No change present treatment plan Discharge Planning Discharge planning per case management, likely after antibiotics completed on . Kirti Soto Dec 22, 2016 09:24
[2016-12-22 09:46] VITALS: BP 123/80; PULSE 77; RESP 18; TEMP 98; O2SAT 97
[2016-12-22 20:00] VITALS: BP 140/75; PULSE 73; RESP 19; TEMP 97.3; O2SAT 100
[2016-12-22] MEDS: ZOLPIDEM TARTRATE 5 MG TAB PO PRN (21:24)
[2016-12-22] MEDS: ONDANSETRON ODT 4 MG TAB PO PRN (22:11)
[2016-12-22 23:00] VITALS: BP 131/70; PULSE 69; RESP 19; TEMP 96.1; O2SAT 98
[2016-12-23] MEDS: ACETAMINOPHEN 325 MG TAB PO PRN (03:45)
[2016-12-23] MEDS: ceFAZolin 2 GM PREMIX 50 ML IV SCH ×3 (05:05→21:01)
[2016-12-23] MEDS: ACETAMINOPHEN/HYDROcodone 325 MG/5 MG TAB PO PRN ×2 (07:53→14:06)
[2016-12-23] MEDS: SODIUM CHLORIDE 0.9% FLUSH 5 ML FLUSH FLUSH SCH ×2 (07:54→21:01)
[2016-12-23 08:00] VITALS: BP 152/87; PULSE 75; RESP 17; TEMP 97.6; O2SAT 94
[2016-12-23 12:22] LABS: AMPHETAMINE, URINE NEG (NEG)
[2016-12-23 12:23] LABS: BARBITURATES, URINE NEG (NEG); COCAINE, URINE NEG (NEG)
--- NOTE | 2016-12-23 18:18 | HHI.PR ---
Subjective Remarks Follow-up on patient with discitis/osteoarthritis. Patient reports his back is hurting a bit more today. No fever. Nursing staff discussed with me earlier today that they were concerned patient may have used some drugs given to him by a visitor last night. Urine drug screen was obtained and was positive only for opiates. Objective Vitals Vital Signs Date Time Temp Pulse Resp B/P Pulse Ox O2 Delivery O2 Flow Rate FiO2 12/23/16 08:00 97.6 75 17 152/87 94 12/22/16 23:00 96.1 69 19 131/70 98 12/22/16 20:00 97.3 73 19 140/75 100 I/O 12/22/16 12/22/16 12/22/16 12/23/16 12/23/16 12/23/16 07:00 15:00 23:00 07:00 15:00 23:00 Intake Total 480 ml 360 ml 360 ml Balance 480 ml 360 ml 360 ml Intake Oral 480 ml 360 ml 360 ml # Voids 3 4 2 2 4 # Bowel Movements 0 1 0 Result Diagram: 12/22/1645 12/22/16 0645 Objective Remarks GENERAL: Well-nourished, well-developed patient in no apparent distress. Lying in hospital bed. Pleasant and cooperative. CARDIOVASCULAR: Regular rate and rhythm. RESPIRATORY: No accessory muscle use. Clear to auscultation. Breath sounds equal bilaterally. GASTROINTESTINAL: Abdomen soft, non-tender, non-distended. NEUROLOGICAL: Awake and alert. Able to move all 4 extremities. PSYCHIATRIC: Normal mood and affect. Urinary Catheter: No Vascular Central Line Catheter: Yes Assessment to: Continue Date of Insertion: Nov 15, 2016 Line: PICC Side: Right Medications and IVs Current Medications Medications (Trade) Dose Ordered Sig/Maria Esther Route Start Time Stop Time Status Last Admin (NS Flush) 2 ml UNSCH PRN FLUSH 11/01/16 01:15 12/21/16 05:50 (NS Flush) 2 ml BID FLUSH 11/01/16 09:00 12/23/16 07:54 (Dulcolax Supp) 10 mg DAILY PRN [place] 11/01/16 01:15 (Tylenol) 650 mg Q6H PRN PO 11/01/16 01:15 12/23/16 03:45 (Ambien) 5 mg HS PRN PO 11/11/16 15:45 12/22/16 21:24 (NS Flush) See Protocol DAILY IVF 11/16/16 09:00 12/23/16 07:54 (NS Flush) See Protocol UNSCH PRN IVF 11/15/16 20:00 (Heparin Central Flush) See Protocol DAILY IVF 11/16/16 09:00 12/23/16 07:52 (Heparin Central Flush) See Protocol UNSCH PRN IVF 11/15/16 20:00 12/01/16 06:05 IV Flush See Protocol UNSCH PRN IVF 11/15/16 20:00 12/01/16 06:04 (Ancef 2 Gm Premix) 50 ml @ 100 mls/hr Q8H IV 11/25/16 13:00 12/23/16 13:00 ([place] 5-325 Mg) 1 tab Q6H PRN PO 12/14/16 12:19 12/23/16 14:06 (Zofran Odt) 4 mg Q6H PRN PO 12/14/16 10:00 12/22/16 22:11 Date of Insertion: Nov 15, 2016 Line: PICC Side: Right A/P Problem List: (1) Neutropenia ICD Code: D70.9 Status: Resolved (2) Osteomyelitis of lumbar vertebra ICD Code: M46.26 Status: Acute (3) Discitis of lumbar region ICD Code: M46.46 Status: Acute Assessment and Plan Lumbar spine osteomyelitis/abscess: Presenting with increased back pain. Lumbar spine MRI finding noted. Neurosurgery evaluated patient and recommended biopsy and aspiration. No biopsy ever received. Thus far cultures have all remained negative. Infectious disease consulted and recommending vancomycin until 12/29/16. Continue to monitor CBC, CMP, C-reactive protein, sedimentation rate on a weekly basis - lab results today: CBC unremarkable except for mild anemia with a hemoglobin of 12.7 and hematocrit 37.1 which appears stable. CMP unremarkable. Slight bump in sedimentation rate to 16, previously 7 on 12/08 and 10 on 12/15. CRP up at 0.50, previously was less than 0.29. Alerted Dr. Mitchell with ID, and she will reevaluate patient. Today patient has complaints of slightly increased back pain which may correlate with his increased sedimentation rate and CRP. Patient is afebrile. White count 12/22/16 was 6.1. Will await ID evaluation and recommendations. Neutropenia secondary to vancomycin: Vancomycin has been discontinued. CBC was monitored with significant improvement in his white count and neutrophil count. Neutropenic Precautions has been discontinued. White count 6.1 today. Pain management: Lortab 5 every 6 hours as needed for pain 6-10, Neurontin 200 mg 2 times daily Herpes simplex infection: Completed acyclovir 11/18/16 Tobacco Use: counseled on cessation. Declined nicotine patch. Polysubstance Abuse/IVDU: patient denied using any drugs since Sep 2016. Urine drug screen was positive for opiates and amphetamines. Patient was counseled on cessation DVT Prophylaxis: Lovenox No change present treatment plan Discharge Planning Discharge planning per case management, likely after antibiotics completed on . Attending Statement Patient seen. Agree with above. Kirti Soto Dec 23, 2016 18:18 Hernando Brown MD Dec 24, 2016 07:19
[2016-12-23 20:00] VITALS: BP 121/69; PULSE 70; RESP 18; TEMP 97.9; O2SAT 99
[2016-12-24] MEDS: ceFAZolin 2 GM PREMIX 50 ML IV SCH ×3 (05:29→21:07)
[2016-12-24 08:00] VITALS: BP 95/60; PULSE 59; RESP 18; TEMP 96.8; O2SAT 97
[2016-12-24] MEDS: SODIUM CHLORIDE 0.9% FLUSH 5 ML FLUSH FLUSH SCH ×2 (09:00→21:06)
--- NOTE | 2016-12-24 09:25 | HHI.PR ---
Subjective Remarks Follow-up on patient with discitis/osteo-myelitis. Patient reports today that he's been feeling more run down the last couple of days. Slight increase in back pain. Several episodes of diarrhea yesterday. None this morning. Also reports mild nausea but no vomiting. No fever. Objective Vitals Vital Signs Date Time Temp Pulse Resp B/P Pulse Ox O2 Delivery O2 Flow Rate FiO2 12/24/16 08:00 96.8 59 18 95/60 97 12/23/16 20:00 97.9 70 18 121/69 99 I/O 12/23/16 12/23/16 12/23/16 12/24/16 12/24/16 12/24/16 07:00 15:00 23:00 07:00 15:00 23:00 Intake Total 360 ml 360 ml 480 ml 480 ml 100 ml Balance 360 ml 360 ml 480 ml 480 ml 100 ml Intake Oral 360 ml 360 ml 480 ml 480 ml IV Total 100 ml # Voids 2 4 2 1 # Bowel Movements 0 0 0 Result Diagram: 12/22/1645 12/22/16644 Objective Remarks GENERAL: Well-nourished, well-developed patient in no apparent distress. Lying in hospital bed. Pleasant and cooperative. CARDIOVASCULAR: Regular rate and rhythm. RESPIRATORY: No accessory muscle use. Clear to auscultation. Breath sounds equal bilaterally. GASTROINTESTINAL: Abdomen soft, non-tender, non-distended. Positive bowel sounds. NEUROLOGICAL: Awake and alert. Able to move all 4 extremities. PSYCHIATRIC: Normal mood and affect. Urinary Catheter: No Vascular Central Line Catheter: Yes Assessment to: Continue Date of Insertion: Nov 15, 2016 Line: PICC Side: Right Medications and IVs Current Medications Medications (Trade) Dose Ordered Sig/Maria Esther Route Start Time Stop Time Status Last Admin (NS Flush) 2 ml UNSCH PRN FLUSH 11/01/16 01:15 12/21/16 05:50 (NS Flush) 2 ml BID FLUSH 11/01/16 09:00 12/23/16 21:01 (Dulcolax Supp) 10 mg DAILY PRN [place] 11/01/16 01:15 (Tylenol) 650 mg Q6H PRN PO 11/01/16 01:15 12/23/16 03:45 (Ambien) 5 mg HS PRN PO 11/11/16 15:45 12/22/16 21:24 (NS Flush) See Protocol DAILY IVF 11/16/16 09:00 12/24/16 09:09 (NS Flush) See Protocol UNSCH PRN IVF 11/15/16 20:00 (Heparin Central Flush) See Protocol DAILY IVF 11/16/16 09:00 12/24/16 09:09 (Heparin Central Flush) See Protocol UNSCH PRN IVF 11/15/16 20:00 12/01/16 06:05 IV Flush See Protocol UNSCH PRN IVF 11/15/16 20:00 12/01/16 06:04 (Ancef 2 Gm Premix) 50 ml @ 100 mls/hr Q8H IV 11/25/16 13:00 12/24/16 05:29 ([place] 5-325 Mg) 1 tab Q6H PRN PO 12/14/16 12:19 12/23/16 14:06 (Zofran Odt) 4 mg Q6H PRN PO 12/14/16 10:00 12/22/16 22:11 Date of Insertion: Nov 15, 2016 Line: PICC Side: Right A/P Problem List: (1) Neutropenia ICD Code: D70.9 Status: Resolved (2) Osteomyelitis of lumbar vertebra ICD Code: M46.26 Status: Acute (3) Discitis of lumbar region ICD Code: M46.46 Status: Acute Assessment and Plan Lumbar spine osteomyelitis/abscess: Presenting with increased back pain. Lumbar spine MRI finding noted. Neurosurgery evaluated patient and recommended biopsy and aspiration. No biopsy ever received. Thus far cultures have all remained negative. Infectious disease consulted and recommending vancomycin until 12/29/16. Continue to monitor CBC, CMP, C-reactive protein, sedimentation rate on a weekly basis - Slight bump in sedimentation rate to 16, previously 7 on 12/08 and 10 on 12/15. CRP up at 0.50, previously was less than 0.29. Alerted Dr. Mitchell with ID and she is not too concerned with increase at this time. Patient has complaints of slightly increased back pain which may correlate with his increased sedimentation rate and CRP. Patient is afebrile. Patient complaining of generally not feeling well, nausea, poor appetite and several episodes of diarrhea. Also reports burning on urination. Will repeat laboratory studies to include CBC, CMP, ESR, CRP, Mag and phosphorus. As well, will order a UA and C. difficile. Neutropenia secondary to vancomycin: Vancomycin has been discontinued. CBC was monitored with significant improvement in his white count and neutrophil count. Neutropenic Precautions has been discontinued. White count pending for today. Pain management: Lortab 5 every 6 hours as needed for pain 6-10, Neurontin 200 mg 2 times daily Herpes simplex infection: Completed acyclovir 11/18/16 Tobacco Use: counseled on cessation. Declined nicotine patch. Polysubstance Abuse/IVDU: patient denied using any drugs since Sep 2016. Urine drug screen was positive for opiates and amphetamines. Patient was counseled on cessation DVT Prophylaxis: Lovenox No change present treatment plan Discharge Planning Discharge planning per case management, likely after antibiotics completed on . Attending Statement Patient seen. Agree with above. Kirti Soto Dec 24, 2016 09:25 Hernando Brown MD Dec 24, 2016 18:54
[2016-12-24] MEDS: ACETAMINOPHEN/HYDROcodone 325 MG/5 MG TAB PO PRN ×2 (14:07→21:06)
[2016-12-24 14:30] LABS: AUTOMATED NEUTROPHIL # 3.9 TH/MM3 (1.8-7.7); BASOPHIL % 0.5 % (0.0-2.0); EOSINOPHIL # 0.2 TH/MM3 (0-0.4); EOSINOPHIL % 3.5 % (0.0-4.0); HEMATOCRIT 36.2 % (39.0-51.0); HEMO FLAGS DIFF FINAL; LYMPH % 26.3 % (9.0-44.0); LYMPHOCYTE # 1.7 TH/MM3 (1.0-4.8); MEAN CELL VOLUME 85.6 FL (80.0-100.0); MEAN CORPUSCULAR HGB CONC 32.7 % (32.0-36.0); MONO % 7.6 % (0.0-8.0); NEUT % 62.1 % (16.0-70.0); PLATELET COUNT 196 TH/MM3 (150-450); RED BLOOD COUNT 4.23 MIL/MM3 (4.50-5.90); RED CELL DISTRIBUTION WIDTH 16.2 % (11.6-17.2); WHITE BLOOD COUNT 6.3 TH/MM3 (4.0-11.0)
[2016-12-24 14:39] LABS: ALKALINE PHOSPHATASE 58 U/L (45-117); ALT (GPT) 14 U/L (12-78); ANION GAP 9 MEQ/L (5-15); AST (GOT) 15 U/L (15-37); BICARBONATE 24.7 MEQ/L (21.0-32.0); BLOOD UREA NITROGEN 10 MG/DL (7-18); CHLORIDE 113 MEQ/L (98-107); GLOMERULAR FILTRATION RATE 145 ML/MIN (>89); MAGNESIUM 1.7 MG/DL (1.5-2.5); POTASSIUM 3.2 MEQ/L (3.5-5.1); SODIUM (NA) 147 MEQ/L (136-145); TOTAL BILIRUBIN ADULT 0.2 MG/DL (0.2-1.0)
[2016-12-24 20:00] VITALS: BP 115/73; PULSE 64; RESP 16; TEMP 97.5; O2SAT 99
[2016-12-24] MEDS: ZOLPIDEM TARTRATE 5 MG TAB PO PRN (21:06)
[2016-12-24 22:18] LABS: C. DIFF EPI 027 PRESUMPTIVE NEGATIVE (NEGATIVE); C. DIFF TOXIN PCR NEGATIVE (NEGATIVE)
[2016-12-24 22:26] LABS: BLOOD, URINE NEG (NEG); GLUCOSE,URINE NEG (NEG); KETONE, URINE NEG (NEG); NITRITE,URINE NEG (NEG)
[2016-12-24 22:37] LABS: RBC, URINE 0-2 /hpf (0-3); SQUAMOUS EPITHELIAL CELL URINE 0-5 /hpf (0-5); URINE COLOR YELLOW (YELLW/STRAW); WBC, URINE 0-2 /hpf (0-5)
[2016-12-25] MEDS: SODIUM CHLORIDE 0.9% FLUSH 5 ML FLUSH FLUSH PRN (04:30)
[2016-12-25] MEDS: ceFAZolin 2 GM PREMIX 50 ML IV SCH ×3 (04:30→20:26)
[2016-12-25] MEDS: ACETAMINOPHEN/HYDROcodone 325 MG/5 MG TAB PO PRN ×3 (04:36→17:46)
[2016-12-25] MEDS ORDERED: SODIUM CHLOR 0.9% 1000 ML INJ 1,000 ML IV SCH (07:45)
[2016-12-25 08:00] VITALS: BP 114/76; PULSE 54; RESP 20; TEMP 96.4; O2SAT 98
[2016-12-25] MEDS ORDERED: POTASSIUM CHLORIDE 10 MEQ CONTROLLED RELEASE TAB PO ONE (08:15)
[2016-12-25] MEDS: POTASSIUM PHOSPHATE/SODIUM PHOSPHATE 250 MG TAB PO SCH ×2 (09:09→17:45)
[2016-12-25] MEDS: SODIUM CHLORIDE 0.9% FLUSH 5 ML FLUSH FLUSH SCH ×2 (09:13→20:26)
--- NOTE | 2016-12-25 12:12 | HHI.PR ---
Subjective Remarks Follow-up on patient with discitis/osteomyelitis. Patient reports that his back pain continues to worsen. He has decreased his activity level as a result and is staying in bed more. Nausea has improved. No episodes of vomiting. No further episodes of diarrhea. Still states he doesn't feel well. No chest pain or shortness of breath. Objective Vitals Vital Signs Date Time Temp Pulse Resp B/P Pulse Ox O2 Delivery O2 Flow Rate FiO2 12/25/16 08:00 96.4 54 20 114/76 98 12/24/16 20:00 97.5 64 16 115/73 99 I/O 12/24/16 12/24/16 12/24/16 12/25/16 12/25/16 12/25/16 07:00 15:00 23:00 07:00 15:00 23:00 Intake Total 480 ml 770 ml 820 ml 332 ml Balance 480 ml 770 ml 820 ml 332 ml Intake Oral 480 ml 620 ml 480 ml 240 ml Oral Supplement 240 ml IV Total 150 ml 100 ml 92 ml # Voids 1 2 2 2 # Bowel Movements 0 0 1 0 Result Diagram: 12/24/16 1409 12/24/16 1409 Objective Remarks GENERAL: Well-nourished, well-developed patient in no apparent distress. Lying in hospital bed. Asleep but easily arousable. CARDIOVASCULAR: Regular rate and rhythm. RESPIRATORY: No accessory muscle use. Clear to auscultation. Breath sounds equal bilaterally. GASTROINTESTINAL: Abdomen soft, non-tender, non-distended. Positive bowel sounds. NEUROLOGICAL: Awake and alert. Able to move all 4 extremities. No focal neurologic deficit appreciated on exam. EXTREMITIES: PICC line site right upper extremity shows no evidence of infection or inflammation. No appreciable edema, erythema or warmth surrounding the PICC line. PSYCHIATRIC: Normal mood and affect. Urinary Catheter: No Vascular Central Line Catheter: Yes Assessment to: Continue Date of Insertion: Nov 15, 2016 Line: PICC Side: Right Medications and IVs Current Medications Medications (Trade) Dose Ordered Sig/Maria Esther Route Start Time Stop Time Status Last Admin (NS Flush) 2 ml UNSCH PRN FLUSH 11/01/16 01:15 12/25/16 04:30 (NS Flush) 2 ml BID FLUSH 11/01/16 09:00 12/25/16 09:13 (Dulcolax Supp) 10 mg DAILY PRN [place] 11/01/16 01:15 (Tylenol) 650 mg Q6H PRN PO 11/01/16 01:15 12/23/16 03:45 (Ambien) 5 mg HS PRN PO 11/11/16 15:45 12/24/16 21:06 (NS Flush) See Protocol DAILY IVF 11/16/16 09:00 12/25/16 09:10 (NS Flush) See Protocol UNSCH PRN IVF 11/15/16 20:00 (Heparin Central Flush) See Protocol DAILY IVF 11/16/16 09:00 12/25/16 09:10 (Heparin Central Flush) See Protocol UNSCH PRN IVF 11/15/16 20:00 12/01/16 06:05 IV Flush See Protocol UNSCH PRN IVF 11/15/16 20:00 12/01/16 06:04 (Ancef 2 Gm Premix) 50 ml @ 100 mls/hr Q8H IV 11/25/16 13:00 12/25/16 11:57 ([place] 5-325 Mg) 1 tab Q6H PRN PO 12/14/16 12:19 12/25/16 11:46 Ondansetron HCl 4 mg 4 mg Q6H PRN PO 12/14/16 10:00 12/22/16 22:11 (NS 1000 ml Inj) 1,000 ml @ 84 mls/hr [id number] IV 12/25/16 07:45 12/25/16 19:39 12/25/16 09:14 (K-Phos Neutral) 250 mg Q8H PO 12/25/16 09:00 12/26/16 01:01 12/25/16 09:09 Date of Insertion: Nov 15, 2016 Line: PICC Side: Right A/P Problem List: (1) Neutropenia ICD Code: D70.9 Status: Resolved (2) Osteomyelitis of lumbar vertebra ICD Code: M46.26 Status: Acute (3) Discitis of lumbar region ICD Code: M46.46 Status: Acute Assessment and Plan Lumbar spine osteomyelitis/abscess: Presenting with increased back pain. Lumbar spine MRI finding noted. Neurosurgery evaluated patient and recommended biopsy and aspiration. No biopsy ever received. Thus far cultures have all remained negative. Infectious disease consulted and recommending Ancef until . Continue to monitor CBC, CMP, C-reactive protein, sedimentation rate on a weekly basis - Slight bump in sedimentation rate to 16, previously 7 on 12/08 and 10 on 12/15. CRP up at 0.50, previously was less than 0.29. Alerted Dr. Mitchell with ID and she is not too concerned with increase at this time. Patient has complaints of slightly increased back pain which may correlate with his increased sedimentation rate and CRP. Patient is afebrile. Reports he doesn't feel well. Increased back pain. No further episodes of diarrhea. Cdiff negative. UA negative. Sedimentation rate continues to trend upward slightly and is now 18. CRP improved some from 0.50 to 0.37. Hypernatremia suspect due to dehydration NS x 1 bag Repeat lab in the a.m. Electrolyte imbalance Hypokalemia and hypophosphatemia. Will replenish and monitor response with a.m. labs. Neutropenia secondary to vancomycin: Vancomycin has been discontinued. CBC was monitored with significant improvement in his white count and neutrophil count. Neutropenic Precautions has been discontinued. White count pending for today. Pain management: Lortab 5 every 6 hours as needed for pain 6-10, Neurontin 200 mg 2 times daily Herpes simplex infection: Completed acyclovir 11/18/16 Tobacco Use: counseled on cessation. Declined nicotine patch. Polysubstance Abuse/IVDU: patient denied using any drugs since Sep 2016. Urine drug screen was positive for opiates and amphetamines. Patient was counseled on cessation DVT Prophylaxis: Lovenox No change present treatment plan Discharge Planning Discharge planning per case management, likely after antibiotics completed on . Attending Statement Patient seen. Agree with above. Kirti Soto Dec 25, 2016 12:12 Hernando Brown MD Dec 25, 2016 12:41
[2016-12-25] MEDS ORDERED: ALTEPLASE RECOMBINANT 2 MG VIAL INTRACATH ONE (18:00)
[2016-12-25 20:00] VITALS: BP 122/72; PULSE 60; RESP 20; TEMP 97.6; O2SAT 100
[2016-12-25] MEDS: ZOLPIDEM TARTRATE 5 MG TAB PO PRN (20:26)
[2016-12-26] MEDS: POTASSIUM PHOSPHATE/SODIUM PHOSPHATE 250 MG TAB PO SCH (00:44)
[2016-12-26] MEDS: ACETAMINOPHEN/HYDROcodone 325 MG/5 MG TAB PO PRN ×4 (00:44→20:07)
[2016-12-26] MEDS: ceFAZolin 2 GM PREMIX 50 ML IV SCH ×3 (05:21→20:07)
[2016-12-26 07:03] LABS: BICARBONATE 28.2 MEQ/L (21.0-32.0); POTASSIUM 3.9 MEQ/L (3.5-5.1)
[2016-12-26 08:00] VITALS: BP 119/75; PULSE 56; RESP 18; TEMP 97; O2SAT 100
[2016-12-26] MEDS: SODIUM CHLORIDE 0.9% FLUSH 5 ML FLUSH FLUSH SCH ×2 (09:00→20:07)
--- NOTE | 2016-12-26 15:28 | HHI.PR ---
Subjective Remarks Follow-up patient with discitis/osteomyelitis. Patient seen and examined today. Continues to report that he just doesn't feel well in general. Unable to elicit any more specifics from the patient. No longer having any nausea or diarrhea. Persistent back pain. No fever. No chest pain or shortness of breath. Objective Vitals Vital Signs Date Time Temp Pulse Resp B/P Pulse Ox O2 Delivery O2 Flow Rate FiO2 12/26/16 14:41 14 12/26/16 08:00 97.0 56 18 119/75 100 12/25/16 20:00 97.6 60 20 122/72 100 I/O 12/25/16 12/25/16 12/25/16 12/26/16 12/26/16 12/26/16 07:00 15:00 23:00 07:00 15:00 23:00 Intake Total 332 ml 1000 ml 240 ml 120 ml 100 ml Balance 332 ml 1000 ml 240 ml 120 ml 100 ml Intake Oral 240 ml 1000 ml 240 ml 120 ml 100 ml IV Total 92 ml # Voids 2 5 4 2 # Bowel Movements 0 1 1 Result Diagram: 12/24/16 1409 12/26/16 0600 Objective Remarks GENERAL: Well-nourished, well-developed patient in no apparent distress. Lying in hospital bed. Awake. CARDIOVASCULAR: Regular rate and rhythm. RESPIRATORY: No accessory muscle use. Clear to auscultation. Breath sounds equal bilaterally. GASTROINTESTINAL: Abdomen soft, non-tender, non-distended. Positive bowel sounds. NEUROLOGICAL: Awake and alert. Able to move all 4 extremities. No focal neurologic deficit appreciated on exam. EXTREMITIES: PICC line site right upper extremity shows no evidence of infection or inflammation. No appreciable edema, erythema or warmth surrounding the PICC line. PSYCHIATRIC: Normal mood and affect. Urinary Catheter: No Vascular Central Line Catheter: Yes Assessment to: Continue Date of Insertion: Nov 15, 2016 Line: PICC Side: Right Medications and IVs Current Medications Medications (Trade) Dose Ordered Sig/Maria Esther Route Start Time Stop Time Status Last Admin (NS Flush) 2 ml UNSCH PRN FLUSH 11/01/16 01:15 12/25/16 04:30 (NS Flush) 2 ml BID FLUSH 11/01/16 09:00 12/26/16 09:00 (Dulcolax Supp) 10 mg DAILY PRN [place] 11/01/16 01:15 (Tylenol) 650 mg Q6H PRN PO 11/01/16 01:15 12/23/16 03:45 (Ambien) 5 mg HS PRN PO 11/11/16 15:45 12/25/16 20:26 (NS Flush) See Protocol DAILY IVF 11/16/16 09:00 12/26/16 09:00 (NS Flush) See Protocol UNSCH PRN IVF 11/15/16 20:00 (Heparin Central Flush) See Protocol DAILY IVF 11/16/16 09:00 12/26/16 09:00 (Heparin Central Flush) See Protocol UNSCH PRN IVF 11/15/16 20:00 12/01/16 06:05 IV Flush See Protocol UNSCH PRN IVF 11/15/16 20:00 12/01/16 06:04 (Ancef 2 Gm Premix) 50 ml @ 100 mls/hr Q8H IV 11/25/16 13:00 12/26/16 12:38 ([place] 5-325 Mg) 1 tab Q6H PRN PO 12/14/16 12:19 12/26/16 12:37 (Zofran Odt) 4 mg Q6H PRN PO 12/14/16 10:00 12/22/16 22:11 Date of Insertion: Nov 15, 2016 Line: PICC Side: Right A/P Problem List: (1) Neutropenia ICD Code: D70.9 Status: Resolved (2) Osteomyelitis of lumbar vertebra ICD Code: M46.26 Status: Acute (3) Discitis of lumbar region ICD Code: M46.46 Status: Acute Assessment and Plan Lumbar spine osteomyelitis/abscess: Presenting with increased back pain. Lumbar spine MRI finding noted. Neurosurgery evaluated patient and recommended biopsy and aspiration. No biopsy ever received. Thus far cultures have all remained negative. Infectious disease consulted and recommending Ancef until . Continue to monitor CBC, CMP, C-reactive protein, sedimentation rate on a weekly basis - Slight bump in sedimentation rate to 16, previously 7 on 12/08 and 10 on 12/15. CRP up at 0.50, previously was less than 0.29. Alerted Dr. Mitchell with ID and she is not too concerned with increase at this time. Patient has complaints of slightly increased back pain which may correlate with his increased sedimentation rate and CRP. Patient is afebrile. Reports he doesn't feel well. Increased back pain. No further episodes of diarrhea. Cdiff negative. UA negative. Sedimentation rate continues to trend upward slightly and is now 18. CRP improved some from 0.50 to 0.37. Recheck lab on 12/29/16. Hypernatremia Resolved Electrolyte imbalance Resolved Neutropenia secondary to vancomycin: Vancomycin has been discontinued. CBC was monitored with significant improvement in his white count and neutrophil count. Neutropenic Precautions has been discontinued. Pain management: Lortab 5 every 6 hours as needed for pain 6-10, Neurontin 200 mg 2 times daily Herpes simplex infection: Completed acyclovir 11/18/16 Tobacco Use: counseled on cessation. Declined nicotine patch. Polysubstance Abuse/IVDU: patient denied using any drugs since Sep 2016. Urine drug screen was positive for opiates and amphetamines. Patient was counseled on cessation DVT Prophylaxis: Lovenox No change present treatment plan Discharge Planning Discharge planning per case management, likely after antibiotics completed on . Attending Statement Patient seen. Agree with above. Kirti Soto Dec 26, 2016 15:28 Hernando Brown MD Dec 26, 2016 15:54
[2016-12-26 20:00] VITALS: BP 117/75; PULSE 68; RESP 20; TEMP 96.7; O2SAT 99
[2016-12-26] MEDS: ZOLPIDEM TARTRATE 5 MG TAB PO PRN (20:07)
[2016-12-27] MEDS: ACETAMINOPHEN/HYDROcodone 325 MG/5 MG TAB PO PRN ×3 (05:36→20:43)
[2016-12-27] MEDS: ceFAZolin 2 GM PREMIX 50 ML IV SCH ×3 (05:36→20:39)
[2016-12-27] MEDS: SODIUM CHLORIDE 0.9% FLUSH 5 ML FLUSH FLUSH SCH ×2 (07:46→20:39)
[2016-12-27 08:00] VITALS: BP 108/69; PULSE 57; RESP 16; TEMP 96.1; O2SAT 98
--- NOTE | 2016-12-27 11:55 | HHI.PR ---
Subjective Remarks Follow-up on patient with discitis/osteomyelitis. Patient states he "still feels crappy today". Unchanged from yesterday or the day before. Is not able to give specifics just reports that in general he doesn't feel well. No complaints of cough, chest pain, shortness of breath ,abdominal pain, nausea/ vomiting or diarrhea. Back pain is persistent but unchanged. No fevers. Objective Vitals Vital Signs Date Time Temp Pulse Resp B/P Pulse Ox O2 Delivery O2 Flow Rate FiO2 12/27/16 08:00 96.1 57 16 108/69 98 12/26/16 20:00 96.7 68 20 117/75 99 12/26/16 14:41 14 I/O 12/26/16 12/26/16 12/26/16 12/27/16 12/27/16 12/27/16 07:00 15:00 23:00 07:00 15:00 23:00 Intake Total 120 ml 100 ml 480 ml 460 ml 100 ml Balance 120 ml 100 ml 480 ml 460 ml 100 ml Intake Oral 120 ml 100 ml 480 ml 360 ml 100 ml IV Total 100 ml # Voids 2 4 2 Result Diagram: 12/24/16 1409 12/26/16 0600 Objective Remarks GENERAL: Well-nourished, well-developed patient in no apparent distress. Lying in hospital bed. Awake. CARDIOVASCULAR: Regular rate and rhythm. RESPIRATORY: No accessory muscle use. Clear to auscultation. Breath sounds equal bilaterally. GASTROINTESTINAL: Abdomen soft, non-tender, non-distended. Positive bowel sounds. NEUROLOGICAL: Awake and alert. Able to move all 4 extremities. No focal neurologic deficit appreciated on exam. EXTREMITIES: PICC line site right upper extremity shows no evidence of infection or inflammation. No appreciable edema, erythema or warmth surrounding the PICC line. PSYCHIATRIC: Normal mood and affect. Urinary Catheter: No Vascular Central Line Catheter: Yes Assessment to: Continue Date of Insertion: Nov 15, 2016 Line: PICC Side: Right Medications and IVs Current Medications Medications (Trade) Dose Ordered Sig/Maria Esther Route Start Time Stop Time Status Last Admin (NS Flush) 2 ml UNSCH PRN FLUSH 11/01/16 01:15 12/25/16 04:30 (NS Flush) 2 ml BID FLUSH 11/01/16 09:00 12/27/16 07:46 (Dulcolax Supp) 10 mg DAILY PRN [place] 11/01/16 01:15 (Tylenol) 650 mg Q6H PRN PO 11/01/16 01:15 12/23/16 03:45 (Ambien) 5 mg HS PRN PO 11/11/16 15:45 12/26/16 20:07 (NS Flush) See Protocol DAILY IVF 11/16/16 09:00 12/27/16 07:45 (NS Flush) See Protocol UNSCH PRN IVF 11/15/16 20:00 (Heparin Central Flush) See Protocol DAILY IVF 11/16/16 09:00 12/27/16 07:45 (Heparin Central Flush) See Protocol UNSCH PRN IVF 11/15/16 20:00 12/01/16 06:05 IV Flush See Protocol UNSCH PRN IVF 11/15/16 20:00 12/01/16 06:04 (Ancef 2 Gm Premix) 50 ml @ 100 mls/hr Q8H IV 11/25/16 13:00 12/27/16 05:36 ([place] 5-325 Mg) 1 tab Q6H PRN PO 12/14/16 12:19 12/27/16 05:36 (Zofran Odt) 4 mg Q6H PRN PO 12/14/16 10:00 12/22/16 22:11 Date of Insertion: Nov 15, 2016 Line: PICC Side: Right A/P Problem List: (1) Neutropenia ICD Code: D70.9 Status: Resolved (2) Osteomyelitis of lumbar vertebra ICD Code: M46.26 Status: Acute (3) Discitis of lumbar region ICD Code: M46.46 Status: Acute Assessment and Plan Lumbar spine osteomyelitis/abscess: Presenting with increased back pain. Lumbar spine MRI finding noted. Neurosurgery evaluated patient and recommended biopsy and aspiration. No biopsy ever received. Thus far cultures have all remained negative. Infectious disease consulted and recommending Ancef until . Continue to monitor CBC, CMP, C-reactive protein, sedimentation rate on a weekly basis - Slight bump in sedimentation rate to 16, previously 7 on 12/08 and 10 on 12/15. CRP up at 0.50, previously was less than 0.29. Alerted Dr. Mitchell with ID and she is not too concerned with increase at this time. Patient has complaints of slightly increased back pain which may correlate with his increased sedimentation rate and CRP. Patient is afebrile. Reports he doesn't feel well. Increased back pain. No further episodes of diarrhea. Cdiff negative. UA negative. Sedimentation rate continues to trend upward slightly and is now 18. CRP improved some from 0.50 to 0.37. Recheck lab on 12/29/16. Hypernatremia Resolved Electrolyte imbalance Resolved Neutropenia secondary to vancomycin: Vancomycin has been discontinued. CBC was monitored with significant improvement in his white count and neutrophil count. Neutropenic Precautions has been discontinued. Pain management: Lortab 5 every 6 hours as needed for pain 6-10, Neurontin 200 mg 2 times daily Herpes simplex infection: Completed acyclovir 11/18/16 Tobacco Use: counseled on cessation. Declined nicotine patch. Polysubstance Abuse/IVDU: patient denied using any drugs since Sep 2016. Urine drug screen was positive for opiates and amphetamines. Patient was counseled on cessation DVT Prophylaxis: Lovenox No change in present treatment plan. Discharge Planning Discharge planning per case management, likely after antibiotics completed on . Attending Statement Patient seen. Agree with above. Kirti Soto Dec 27, 2016 11:55 Hernando Brown MD Dec 27, 2016 14:05
[2016-12-27] MEDS: hydrOXYzine HCL 25 MG TAB PO PRN ×2 (17:37→23:08)
[2016-12-27 20:00] VITALS: BP 133/87; PULSE 93; RESP 20; TEMP 99.2; O2SAT 97
[2016-12-27] MEDS: ZOLPIDEM TARTRATE 5 MG TAB PO PRN (20:43)
[2016-12-28] MEDS: ceFAZolin 2 GM PREMIX 50 ML IV SCH ×3 (05:36→19:48)
[2016-12-28 08:00] VITALS: BP 112/75; PULSE 64; RESP 18; TEMP 96.4; O2SAT 99
[2016-12-28] MEDS: SODIUM CHLORIDE 0.9% FLUSH 5 ML FLUSH FLUSH SCH ×2 (08:02→19:47)
[2016-12-28] MEDS: ACETAMINOPHEN/HYDROcodone 325 MG/5 MG TAB PO PRN ×3 (08:02→19:47)
--- NOTE | 2016-12-28 13:58 | HHI.PR ---
Subjective Remarks Follow-up on patient with discitis/osteomyelitis. Patient seen and examined today. States he continues to not feel well. Reports nausea and diarrhea. Denies any abdominal pain or vomiting. No fever. No chest pain. Back pain is persistent, unchanged. Objective Vitals Vital Signs Date Time Temp Pulse Resp B/P Pulse Ox O2 Delivery O2 Flow Rate FiO2 12/28/16 08:00 96.4 64 18 112/75 99 12/27/16 20:00 99.2 93 20 133/87 97 I/O 12/27/16 12/27/16 12/27/16 12/28/16 12/28/16 12/28/16 07:00 15:00 23:00 07:00 15:00 23:00 Intake Total 460 ml 730 ml 240 ml 240 ml Balance 460 ml 730 ml 240 ml 240 ml Intake Oral 360 ml 730 ml 240 ml 240 ml IV Total 100 ml # Voids 2 3 2 2 # Bowel Movements 0 0 0 Result Diagram: 12/24/16 1409 12/26/16 0600 Objective Remarks GENERAL: Well-nourished, well-developed patient in no apparent distress. Lying in hospital bed. Awake. CARDIOVASCULAR: Regular rate and rhythm. RESPIRATORY: No accessory muscle use. Clear to auscultation. Breath sounds equal bilaterally. GASTROINTESTINAL: Abdomen soft, non-tender, non-distended. Positive bowel sounds. NEUROLOGICAL: Awake and alert. Able to move all 4 extremities. No focal neurologic deficit appreciated on exam. EXTREMITIES: PICC line site right upper extremity shows no evidence of infection or inflammation. No appreciable edema, erythema or warmth surrounding the PICC line. PSYCHIATRIC: Normal mood and affect. Urinary Catheter: No Vascular Central Line Catheter: Yes Assessment to: Continue Date of Insertion: Nov 15, 2016 Line: PICC Side: Right Medications and IVs Current Medications Medications (Trade) Dose Ordered Sig/Maria Esther Route Start Time Stop Time Status Last Admin (NS Flush) 2 ml UNSCH PRN FLUSH 11/01/16 01:15 12/25/16 04:30 (NS Flush) 2 ml BID FLUSH 11/01/16 09:00 12/28/16 08:02 (Dulcolax Supp) 10 mg DAILY PRN TX 11/01/16 01:15 (Tylenol) 650 mg Q6H PRN PO 11/01/16 01:15 12/23/16 03:45 (Ambien) 5 mg HS PRN PO 11/11/16 15:45 12/27/16 20:43 (NS Flush) See Protocol DAILY IVF 11/16/16 09:00 12/28/16 08:03 (NS Flush) See Protocol UNSCH PRN IVF 11/15/16 20:00 (Heparin Central Flush) See Protocol DAILY IVF 11/16/16 09:00 12/28/16 08:03 (Heparin Central Flush) See Protocol UNSCH PRN IVF 11/15/16 20:00 12/01/16 06:05 IV Flush See Protocol UNSCH PRN IVF 11/15/16 20:00 12/01/16 06:04 (Ancef 2 Gm Premix) 50 ml @ 100 mls/hr Q8H IV 11/25/16 13:00 12/28/16 13:27 ([place] 5-325 Mg) 1 tab Q6H PRN PO 12/14/16 12:19 12/28/16 13:26 (Zofran Odt) 4 mg Q6H PRN PO 12/14/16 10:00 12/22/16 22:11 (Atarax) 25 mg Q6H PRN PO 12/27/16 15:15 12/27/16 23:08 Date of Insertion: Nov 15, 2016 Line: PICC Side: Right A/P Problem List: (1) Neutropenia ICD Code: D70.9 Status: Resolved (2) Osteomyelitis of lumbar vertebra ICD Code: M46.26 Status: Acute (3) Discitis of lumbar region ICD Code: M46.46 Status: Acute Assessment and Plan Lumbar spine osteomyelitis/abscess: Presenting with increased back pain. Lumbar spine MRI finding noted. Neurosurgery evaluated patient and recommended biopsy and aspiration. No biopsy ever received. Thus far cultures have all remained negative. Infectious disease consulted and recommending Ancef until . Continue to monitor CBC, CMP, C-reactive protein, sedimentation rate on a weekly basis - Slight bump in sedimentation rate to 16, previously 7 on 12/08 and 10 on 12/15. CRP up at 0.50, previously was less than 0.29. Alerted Dr. Mitchell with ID and she is not too concerned with increase at this time. Patient has complaints of slightly increased back pain which may correlate with his increased sedimentation rate and CRP. Patient is afebrile. Reports he doesn't feel well. There may be some component of malingering to patient's complaints given his discharge date is soon approaching. Increased back pain. Previous workup a few days ago negative for C. difficile as well as normal UA. Sedimentation rate continues to trend upward slightly and is now 18. CRP improved some from 0.50 to 0.37. Recheck lab on 12/29/16. Hypernatremia Resolved Electrolyte imbalance Resolved Neutropenia secondary to vancomycin: Vancomycin has been discontinued. CBC was monitored with significant improvement in his white count and neutrophil count. Neutropenic Precautions has been discontinued. Pain management: Lortab 5 every 6 hours as needed for pain 6-10, Neurontin 200 mg 2 times daily Herpes simplex infection: Completed acyclovir 11/18/16 Tobacco Use: counseled on cessation. Declined nicotine patch. Polysubstance Abuse/IVDU: patient denied using any drugs since Sep 2016. Urine drug screen was positive for opiates and amphetamines. Patient was counseled on cessation DVT Prophylaxis: Lovenox No change in present treatment plan. Discharge Planning Discharge planning per case management, likely after antibiotics completed on . Attending Statement Patient seen. Agree with above. Kirti Soto Dec 28, 2016 13:58 Hernando Brown MD Dec 28, 2016 14:53
[2016-12-28] MEDS: hydrOXYzine HCL 25 MG TAB PO PRN (19:46)
[2016-12-28] MEDS: ZOLPIDEM TARTRATE 5 MG TAB PO PRN (19:47)
[2016-12-28 20:00] VITALS: BP 150/75; PULSE 76; RESP 17; TEMP 97.6; O2SAT 98
[2016-12-29] MEDS: ceFAZolin 2 GM PREMIX 50 ML IV SCH ×2 (06:14→11:12)
[2016-12-29 08:00] VITALS: BP 125/70; PULSE 78; RESP 17; TEMP 97.5; O2SAT 98
[2016-12-29 08:39] LABS: AUTOMATED NEUTROPHIL # 3.7 TH/MM3 (1.8-7.7); BASOPHIL % 0.6 % (0.0-2.0); EOSINOPHIL # 0.3 TH/MM3 (0-0.4); EOSINOPHIL % 4.9 % (0.0-4.0); HEMATOCRIT 40.1 % (39.0-51.0); HEMO FLAGS DIFF FINAL; LYMPH % 31.9 % (9.0-44.0); LYMPHOCYTE # 2.2 TH/MM3 (1.0-4.8); MEAN CELL VOLUME 85.5 FL (80.0-100.0); MEAN CORPUSCULAR HEMOGLOBIN 28.5 PG (27.0-34.0); MEAN CORPUSCULAR HGB CONC 33.4 % (32.0-36.0); MONO % 11.7 % (0.0-8.0); NEUT % 50.9 % (16.0-70.0); PLATELET COUNT 217 TH/MM3 (150-450); RED BLOOD COUNT 4.69 MIL/MM3 (4.50-5.90); RED CELL DISTRIBUTION WIDTH 15.8 % (11.6-17.2)
[2016-12-29] MEDS: SODIUM CHLORIDE 0.9% FLUSH 5 ML FLUSH FLUSH SCH (08:43)
[2016-12-29] MEDS: ACETAMINOPHEN/HYDROcodone 325 MG/5 MG TAB PO PRN ×2 (08:43→14:50)
[2016-12-29 08:50] LABS: CHLORIDE 106 MEQ/L (98-107); POTASSIUM 4.1 MEQ/L (3.5-5.1); SODIUM (NA) 142 MEQ/L (136-145)
[2016-12-29 08:53] LABS: ANION GAP 9 MEQ/L (5-15); BICARBONATE 27.1 MEQ/L (21.0-32.0); BLOOD UREA NITROGEN 16 MG/DL (7-18)
[2016-12-29 08:56] LABS: ALT (GPT) 18 U/L (12-78); AST (GOT) 25 U/L (15-37)
[2016-12-29 08:57] LABS: GLOMERULAR FILTRATION RATE 94 ML/MIN (>89)
[2016-12-29 08:58] LABS: TOTAL BILIRUBIN ADULT 0.3 MG/DL (0.2-1.0)
[2016-12-29 08:59] LABS: ALKALINE PHOSPHATASE 71 U/L (45-117)
[2016-12-29 09:18] LABS: WESTERGREN SEDIMENTATION RATE 12 mm/hr (0-15)
[2016-12-29] MEDS ORDERED: ALTEPLASE RECOMBINANT 2 MG VIAL INTRACATH ONE (09:30)
[2016-12-29 10:39] VITALS: RESP 14
[2016-12-29] MEDS ORDERED: CIPR-9 PO (13:50)
[2016-12-29] MEDS ORDERED: CEPH-460 PO (13:50)
--- NOTE | 2016-12-29 13:54 | HHI.DS ---
Discharge Summary Admission Date Nov 01, 2016 at 00:20 Discharge Date: Dec 29, 2016 Admitting Diagnosis lumbar osteomyelitis; L4/5 abscess; substance abuse (1) Neutropenia ICD Code: D70.9 (2) Osteomyelitis of lumbar vertebra ICD Code: M46.26 (3) Discitis of lumbar region ICD Code: M46.46 Procedures 11/09/16 disc aspiration L4-L5 11/12/16 bone biopsy L4 Brief History - From Admission 41-year-old male with history of IVDU, epidural abscess June 2016, anxiety , tobacco use, homelessness, presents with a four-day history of worsening back pain. The patient was hospitalized June [id number] for epidural abscess/discitis and bacteremia, underwent I&D and discectomy with Dr. Alcantar, and completed course of IV abx. Hospitalized again September 2016 through for discitis but no abscess, discharged on Cipro/Keflex 1 month. Patient reports he has been taking his antibiotics as prescribed however 5 days ago he started to notice worsening low back pain that radiates into bilateral buttocks/ legs, worse on the left side, rated 10/10. He is able to stand and bear weight with a walker, however has difficulty ambulating. Also having intermittent fevers. He denies any saddle anesthesia, bladder/bowel incontinence however does have some urinary retention and has difficulty initiating urination. He feels the lateral legs are weaker than usual, denies any numbness. Today the pain was unbearable so he drove himself to the hospital. He plans to follow-up as outpatient Dr. Mitchell infectious disease, and is set up with his PCP Dr. Santillan. The patient is homeless, living out of his truck in [place]. CBC/BMP: 12/29/16 0815 12/29/16 0815 Significant Findings Laboratory Tests Test 12/29/16 08:15 Monocytes (%) (Auto) 11.7 % (0.0-8.0) Eosinophils (%) (Auto) 4.9 % (0.0-4.0) Imaging Last Impressions Chest X-Ray 11/15/16 0000 Signed Impressions: Service Date/Time: Tuesday, November 15, 2016 19:26 - CONCLUSION: PICC line in good position. The lungs are clear. Fabian Sosa MD Needle Biopsy X-Ray 11/12/16 0000 Signed Impressions: Service Date/Time: Saturday, November 12, 2016 15:17 - CONCLUSION: 1. Uncomplicated biopsy of the L4 vertebral body. Mike Haile MD Needle Biopsy/Aspiration X-Ray 11/09/16 0000 Signed Impressions: Service Date/Time: Wednesday, November 09, 2016 11:06 - CONCLUSION: Uncomplicated needle biopsy of the L4-5 disc as above. Kranthi Mejía MD Thoracic Spine MRI 10/31/16 0000 Signed Impressions: Service Date/Time: Monday, October 31, 2016 22:32 - CONCLUSION: No acute abnormality demonstrated of the thoracic spine. Mild disc centered degenerative changes are again noted at several mid to lower thoracic levels. Fabian Faustin MD Lumbar Spine MRI 10/31/16 0000 Signed Impressions: Service Date/Time: Monday, October 31, 2016 22:32 - CONCLUSION: 1. Persistent and modestly worsening osteomyelitis of L4, L5 and focally of the S1 vertebral bodies. There is worsening endplate destruction of L4 and L5. 2. Increased fluid collection within the central part of the residual L4/L5 disc and with scattered fluid collections anterior and lateral to the disc compatible with abscesses. 3. There is persistent epidural enhancement without abscess in the epidural space at L4/L5, actually improved in the interim. Fabian Faustin MD PE at Discharge GENERAL: Well-nourished, well-developed patient in no apparent distress. Lying in hospital bed. Awake. CARDIOVASCULAR: Regular rate and rhythm. RESPIRATORY: No accessory muscle use. Clear to auscultation. Breath sounds equal bilaterally. GASTROINTESTINAL: Abdomen soft, non-tender, non-distended. Positive bowel sounds. NEUROLOGICAL: Awake and alert. Able to move all 4 extremities. No focal neurologic deficit appreciated on exam. EXTREMITIES: PICC line site right upper extremity shows no evidence of infection or inflammation. No appreciable edema, erythema or warmth surrounding the PICC line. PSYCHIATRIC: Normal mood and affect. Urinary Catheter: No Vascular Central Line Catheter: Yes Assessment to: Continue Date of Insertion: Nov 15, 2016 Line: PICC Side: Right Hospital Course 41-year-old male with known history of IV drug use, epidural abscess, chronic back pain, anxiety, homelessness to be presented back to the hospital because of worsening back pain. Patient has had recent hospitalization for osteomyelitis, spinal abscess in which he underwent full antibiotic treatment from June [id number] as well as September 2016 until 10/20/16. At that time patient was discharged home on Cipro/Keflex for one month. It was indicated that patient had been taking his antibiotics and he started developing his back pain 5 days prior to readmission. Patient had MRI study performed which did show worsening of osteomyelitis of L4, L5 and focally of the S1 vertebral body. There is worsening endplate destruction of L4 and L5. Increase fluid collection anterior and lateral to the disc compatible with abscess. Neurosurgery was consulted and it was indicated that the MRI did indicate persistent infection and osteomyelitis with discitis. However no epidural abscess causing any stenosis. Is recommended admission and continuation of antibiotics. Patient did undergo CT-guided aspiration and biopsy of L4-L5 discs on 11/09. Patient underwent needle biopsy of L4 on 11/12. Thus far all cultures have been negative during this hospitalization. Bone culture also negative for 24 hours. No biopsy report available at this time. Because patient is to undergo long-term antibiotics is recommended the patient be transferred to [place] for continued care and management. Patient completed antibiotics. Discussed with infectious disease who indicated patient is stable for discharge with continuation of previous antibiotics to include Cipro 500 mg twice daily, Keflex 500 mg every 8 hours for 30 days. Follow-up in outpatient setting. Pt Condition on Discharge: Stable Discharge Disposition: Discharge Home Discharge Time: > 30 minutes Discharge Instructions DIET: Follow Instructions for: As Tolerated, No Restrictions Activities you can perform: Regular-No Restrictions Follow up Referrals: Infectious Disease - [address] Miller PCP Follow-up - 1 Week Continued Medications: Cephalexin (Keflex) 500 Mg Cap 500 MG PO Q8H Infection Days 30 Ref 0 CAP (This prescription has been renewed) Ciprofloxacin (Cipro) 500 Mg Tab 500 MG PO BID Infection Days 30 Ref 0 TAB (This prescription has been renewed) Discontinued Medications: Gabapentin (Neurontin) 300 Mg Cap 300 MG PO QID Pain Management Days 30 CAP Naproxen Sodium (Aleve) 220 Mg Tab 440 MG PO BID PRN Pain Management Ref 0 TAB Additional Information Written by Hernando Truong, acting as scribe for Dr. Brown on 12/29/16 at 13:52. All or portions of this note were transcribed by scribe Hernando Truong. I, Dr. Hernando Brown personally performed the history, physical exam, and medical decision making; and confirmed the accuracy of the information in the transcribed note. Authenticated by Dr. Hernando Brown on 12/29/16 at 14:44. Hernando Truong Dec 29, 2016 13:54 Hernando Brown MD Dec 29, 2016 14:44
== END 2016-12-29 14:58 | disposition home or self-care (01) | DRG 478 ==
LOC: PHED 19:44 → PHEDA 11-01 00:20 → N05A 11-01 03:13 → PH5A 11-19 19:39
PROVIDERS: ADMIT Family Medicine; ATTEND Family Medicine
PROC: 0S923ZX Drainage of Lumbar Vertebral Disc, Percutaneous Approach, Diagnostic (ICD-10-PCS; 2016-11-09)
PROC: 0QB03ZX Excision of Lumbar Vertebra, Percutaneous Approach, Diagnostic (ICD-10-PCS; principal; 2016-11-12)
PROC: 02HV33Z Insertion of Infusion Device into Superior Vena Cava, Percutaneous Approach (ICD-10-PCS; 2016-11-15)
DX: M46.46 Discitis, unspecified, lumbar region (principal); M46.26 Osteomyelitis of vertebra, lumbar region; E87.0 Hyperosmolality and hypernatremia; I95.9 Hypotension, unspecified; D70.2 Other drug-induced agranulocytosis; I80.8 Phlebitis and thrombophlebitis of other sites; B00.9 Herpesviral infection, unspecified; E83.42 Hypomagnesemia; E87.6 Hypokalemia; R33.9 Retention of urine, unspecified; G89.29 Other chronic pain; J34.0 Abscess, furuncle and carbuncle of nose; G47.00 Insomnia, unspecified; L25.8 Unspecified contact dermatitis due to other agents; D64.9 Anemia, unspecified; E83.39 Other disorders of phosphorus metabolism; R19.7 Diarrhea, unspecified; R11.0 Nausea; E86.0 Dehydration; F19.10 Other psychoactive substance abuse, uncomplicated; F17.210 Nicotine dependence, cigarettes, uncomplicated; F41.9 Anxiety disorder, unspecified; T36.8X5A Adverse effect of other systemic antibiotics, initial encounter; Y92.239 Unspecified place in hospital as the place of occurrence of the external cause; Z59.0 Homelessness; Z86.61 Personal history of infections of the central nervous system; Z88.0 Allergy status to penicillin
CPT/HCPCS: 20225; 36569; 71010; 72146; 72158; 76937; 77002; 80048; 80053; 80202; 80307; 81001; 82565; 83605; 83735; 84100; 85007; 85025; 85027; 85610; 85652; 85730; 86140; 87015; 87040; 87070; 87102; 87116; 87176; 87205; 87206; 87493; 96365; 96366; 96375; 99152; 99153; A9579; C1751; J0690; J1170; J1642; J1650; J1885; J2250; J2270; J2405; J2997; J3010; J3370; J7030; J7040; J7050

== ENCOUNTER 2017-03-13 16:15 | Emergency (ER) | payer OTHER ==
[~2017-03-13] VITALS: Ht 177.8 cm; Wt 75.0 kg
[~2017-03-13 16:15] MED LIST changes: -NEUR300C PO
[2017-03-13 16:18] VITALS: BP 129/74; PULSE 78; RESP 16; TEMP 97.4; O2SAT 97
[2017-03-13] MEDS ORDERED: SODIUM CHLOR 0.9% 1000 ML INJ 1,000 ML IV SCH (17:07)
--- NOTE | 2017-03-13 17:15 | PD ---
HPI Chief Complaint: Musculoskeletal Complaint Time Seen by Provider: 17:00 Travel History International Travel<30 days: No Contact w/Intl Traveler<30days: No Traveled to known affect area: No History of Present Illness HPI 41-year-old male with history of IV drug abuse, epidural abscess, osteomyelitis of the spine presents for evaluation of lower back pain. The patient was most recently discharged from here on December 29 after being admitted for osteomyelitis and epidural abscess. He denies any IV drug abuse since discharge. He reports over the past 3 days he has been developing worsening lower back pain. He reports that the pain radiates into the posterior thighs bilaterally. The pain is an aching/shooting pain that is worse with movement. He had some subjective fevers 2 days ago but did not check his temperature. He denies any nausea, vomiting, abdominal pain, chest pain or shortness of breath, bowel or bladder incontinence, saddle anesthesia. He has no other complaints at this time. PFSH Past Medical History Hx Anticoagulant Therapy: No Arthritis: No Asthma: No Blood Disorders: No Anxiety: Yes Depression: No Heart Rhythm Problems: No Cancer: No Cardiovascular Problems: No High Cholesterol: No Chemotherapy: No Chest Pain: No Congestive Heart Failure: No COPD: No Cerebrovascular Accident: No Diabetes: No Diminished Hearing: No Endocrine: No Genitourinary: No Headaches: No Hypertension: No Immune Disorder: No Musculoskeletal: Yes (CHRONIC LOWER BACK PAIN) Neurologic: No Psychiatric: Yes Reproductive: No Respiratory: No Immunizations Current: Yes Migraines: No Myocardial Infarction: No Radiation Therapy: No Seizures: No Sickle Cell Disease: No Sleep Apnea: No Thyroid Disease: No Tetanus Vaccination: Unknown Influenza Vaccination: No Past Surgical History Abdominal Surgery: No AICD: No Arteriovenous Shunt: No Cardiac Surgery: No Ear Surgery: No Endocrine Surgery: No Eye Surgery: No Genitourinary Surgery: No Insulin Pump: No Joint Replacement: No Oral Surgery: No Pacemaker: No Thoracic Surgery: Yes (CHEST TUBE RIGHT LUNG 1996) Other Surgery: Yes (LUNG COLLAPSED) Social History Alcohol Use: No Tobacco Use: Yes (1/2 PPD) Substance Use: Yes (IV DRUG USE) Allergies-Medications (Allergen,Severity, Reaction): Coded Allergies: Penicillin (Verified Allergy, Mild, UNKNOWN, 03/13/17) Vancomycin (Verified Adverse Reaction, Unknown, 03/13/17) neutropenia Reported Meds & Prescriptions Reported Meds & Active Scripts Active No Active Prescriptions or Reported Medications Review of Systems Except as stated in HPI: all other systems reviewed are Neg Physical Exam Narrative GENERAL: Well-developed well-nourished male in no acute distress SKIN: Warm and dry. Some excoriated skin lesions noted to the forearms, lower legs bilaterally. HEAD: Atraumatic. Normocephalic. EYES: Pupils equal and round. No scleral icterus. No injection or drainage. ENT: No nasal bleeding or discharge. Mucous membranes pink and moist. NECK: Trachea midline. No JVD. CARDIOVASCULAR: Regular rate and rhythm. No murmur appreciated. RESPIRATORY: No accessory muscle use. Clear to auscultation. Breath sounds equal bilaterally. GASTROINTESTINAL: Abdomen soft, non-tender, nondistended. Hepatic and splenic margins not palpable. MUSCULOSKELETAL: No obvious deformities. 5 out of 5 muscle strength in the upper and lower extremities. Some tenderness to palpation to the lumbar spine. No CVA tenderness. NEUROLOGICAL: Awake and alert. No obvious cranial nerve deficits. Motor grossly within normal limits. Normal speech. Data Data Last Documented VS Vital Signs Date Time Temp Pulse Resp B/P Pulse Ox O2 Delivery O2 Flow Rate FiO2 03/13/17 17:41 65 18 137/80 99 Room Air 03/13/17 16:18 97.4 Orders Complete Blood Count With Diff (03/13/17 17:07) Comprehensive Metabolic Panel (03/13/17 17:07) Lactic Acid Sepsis Protocol (03/13/17 17:07) Blood Culture (03/13/17 17:07) Westergren Sedimentation Rate (03/13/17 17:07) Iv Access Insert/Monitor (03/13/17 17:07) Sodium Chlor 0.9% 1000 Ml Inj (Ns 1000 M (03/13/17 17:07) Mri C Spine W&W/O Contrast (03/13/17 17:31) Mri L Spine W&W/O Contrast (03/13/17 17:31) Mri T Spine W & W/O Contrast (03/13/17 17:31) Lorazepam Inj (Ativan Inj) (03/13/17 18:15) Gadodiamide Pf Inj (Omniscan Pf Inj) (03/13/17 19:20) Labs Laboratory Tests Test 03/13/17 03/13/17 18:10 18:16 White Blood Count 7.9 TH/MM3 Red Blood Count 4.75 MIL/MM3 Hemoglobin 13.9 GM/DL Hematocrit 42.0 % Mean Corpuscular Volume 88.5 FL Mean Corpuscular Hemoglobin 29.3 PG Mean Corpuscular Hemoglobin 33.1 % Concent Red Cell Distribution Width 13.5 % Platelet Count 208 TH/MM3 Mean Platelet Volume 8.9 FL Neutrophils (%) (Auto) 57.6 % Lymphocytes (%) (Auto) 27.3 % Monocytes (%) (Auto) 10.2 % Eosinophils (%) (Auto) 4.3 % Basophils (%) (Auto) 0.6 % Neutrophils # (Auto) 4.6 TH/MM3 Lymphocytes # (Auto) 2.2 TH/MM3 Monocytes # (Auto) 0.8 TH/MM3 Eosinophils # (Auto) 0.3 TH/MM3 Basophils # (Auto) 0.0 TH/MM3 CBC Comment DIFF FINAL Differential Comment Erythrocyte Sedimentation Rate 19 mm/hr Sodium Level 135 MEQ/L Potassium Level 3.4 MEQ/L Chloride Level 101 MEQ/L Carbon Dioxide Level 27.6 MEQ/L Anion Gap 6 MEQ/L Blood Urea Nitrogen 18 MG/DL Creatinine 0.95 MG/DL Estimat Glomerular Filtration 87 ML/MIN Rate Random Glucose 91 MG/DL Calcium Level 8.6 MG/DL Total Bilirubin 0.5 MG/DL Aspartate Amino Transf 26 U/L (AST/SGOT) Alanine Aminotransferase 24 U/L (ALT/SGPT) Alkaline Phosphatase 87 U/L Total Protein 7.4 GM/DL Albumin 3.7 GM/DL Lactic Acid Level 0.9 mmol/L MDM Medical Decision Making Medical Screen Exam Complete: Yes Emergency Medical Condition: Yes Medical Record Reviewed: Yes Interpretation(s) CBC unremarkable CMP potassium 3.4 otherwise unremarkable ESR 19 Lactic acid within normal limits MRI cervical spine CONCLUSION: 1. No abnormal signal in the cervical vertebral bodies. 2. Small left paracentral disc protrusion at C5-6 unchanged from June 2016. MRI thoracic spine: Appearance is very similar to prior MRI performed in June 2016. Small epidural impressions suggestive of disc bulging seen at several levels. MRI of the lumbar spine Differential Diagnosis Epidural abscess, osteomyelitis, herniated nucleus pulposus, spinal stenosis, chronic lower back pain Narrative Course 41-year-old male with history of IV drug abuse, epidural abscess osteomyelitis in the past presents now with 3 days worsening lower back pain that radiated to the posterior thighs, some subjective fevers 2 days ago. Plan is for basic lab work, blood cultures, MRI of the thoracic and lumbar spine with and without contrast. Laboratory is been reviewed. ESR is 19 which is improved from previous. Normal white count. Potassium slightly low at 3.4. MRI of the lumbar spine reveals some mild enhancement within the periphery of the L4 to L5 disc but no abnormal enhancement seen in the marrow of the L4 or L5 vertebral bodies. Discussed with on-call neurosurgeon Dr. Ge who recommended outpatient follow -up with Dr. Alcantar who treated the patient in the past. I discussed signs and symptoms that would warrant returning to the emergency room for this patient. He is stable for discharge. Diagnosis Primary Impression: Back pain Qualified Code: M54.5 - Midline low back pain, unspecified chronicity, with sciatica presence unspecified Referrals: Adam Alcantar MD Additional Instructions: Follow-up with neurosurgeon Dr. Alcantar in the next week, call to make an appointment. As discussed, if you develop acutely worsening pain into her lower back, fevers, incontinence of urine, numbness around her rectum, return to the emergency room. Med/Other Pt SpecificInfo: No Change to Meds Scripts No Active Prescriptions or Reported Meds Disposition: 01 DISCHARGE HOME Condition: Stable Marin Johns Mar 13, 2017 17:15
[2017-03-13 17:41] VITALS: BP 137/80; PULSE 65; RESP 18; O2SAT 99
[2017-03-13] MEDS ORDERED: LORazepam 2 MG/ML VIAL IV PUSH ONE (18:15)
[2017-03-13 18:26] LABS: AUTOMATED NEUTROPHIL # 4.6 TH/MM3 (1.8-7.7); BASOPHIL % 0.6 % (0.0-2.0); EOSINOPHIL # 0.3 TH/MM3 (0-0.4); EOSINOPHIL % 4.3 % (0.0-4.0); HEMO FLAGS DIFF FINAL; LYMPH % 27.3 % (9.0-44.0); LYMPHOCYTE # 2.2 TH/MM3 (1.0-4.8); MEAN CELL VOLUME 88.5 FL (80.0-100.0); MEAN CORPUSCULAR HEMOGLOBIN 29.3 PG (27.0-34.0); MEAN CORPUSCULAR HGB CONC 33.1 % (32.0-36.0); MONO % 10.2 % (0.0-8.0); NEUT % 57.6 % (16.0-70.0); PLATELET COUNT 208 TH/MM3 (150-450); RED BLOOD COUNT 4.75 MIL/MM3 (4.50-5.90); RED CELL DISTRIBUTION WIDTH 13.5 % (11.6-17.2); WHITE BLOOD COUNT 7.9 TH/MM3 (4.0-11.0)
[2017-03-13 18:40] LABS: ANION GAP 6 MEQ/L (5-15); AST (GOT) 26 U/L (15-37); BICARBONATE 27.6 MEQ/L (21.0-32.0); BLOOD UREA NITROGEN 18 MG/DL (7-18); CHLORIDE 101 MEQ/L (98-107); GLOMERULAR FILTRATION RATE 87 ML/MIN (>89); POTASSIUM 3.4 MEQ/L (3.5-5.1); SODIUM (NA) 135 MEQ/L (136-145)
[2017-03-13 18:41] LABS: ALT (GPT) 24 U/L (12-78)
[2017-03-13 18:43] LABS: ALKALINE PHOSPHATASE 87 U/L (45-117); TOTAL BILIRUBIN ADULT 0.5 MG/DL (0.2-1.0)
[2017-03-13] MEDS ORDERED: GADODIAMIDE PF 287 MG/ML 20 ML VIAL (for RAD MRI) IV ONE (19:20)
--- NOTE | 2017-03-13 19:44 | RADRPT ---
EXAM DATE/TIME: 03/13/2017 18:33 [facility] COMPARISON: MRI THORACIC SPINE W & W/O CONTRAST, June 08, 2016, 21:07. INDICATIONS : Osteomyelitis. CONTRAST: 15 cc Omniscan (gadodiamide) IV MEDICAL HISTORY : None. SURGICAL HISTORY : Discectomy, lumbar. ENCOUNTER: Initial ACUITY: 1 day PAIN SCORE: 5/10 LOCATION: [facility] TECHNIQUE: Multiplanar multisequence MRI of the thoracic spine was performed. FINDINGS: VERTEBRA: Normal vertebral body height. Homogeneous marrow signal. ALIGNMENT: Normal. CORD: Normal position and configuration. POST CONTRAST: No abnormal areas of contrast enhancement seen. T1-T2: Normal. T2-T3: Small epidural impression left parasagittal only seen on sagittal images, similar to prior. T3-T4: The thecal sac has a normal diameter. No evidence of disc bulge or protrusion. T4-T5: The thecal sac has a normal diameter. No evidence of disc bulge or protrusion. T5-T6: Small central epidural impression only seen on sagittal images, similar to prior. T6-T7: Minimal epidural impression Central only seen on sagittal images, similar to prior. T7-T8: Minimal epidural impression Central only seen on sagittal images, similar to prior. T8-T9: The thecal sac has a normal diameter. No evidence of disc bulge or protrusion. T9-T10: The thecal sac has a normal diameter. No evidence of disc bulge or protrusion. T10-T11: The thecal sac has a normal diameter. No evidence of disc bulge or protrusion. T11-T12: The thecal sac has a normal diameter. No evidence of disc bulge or protrusion. T12-L1: The thecal sac has a normal diameter. No evidence of disc bulge or protrusion. CONCLUSION: Overall, the appearance of the thoracic spine is very similar to prior MRI performed in June. Small epidural impressions, suggestive of disc bulging is seen at T2-3, T5-6, T6-7, and T7-8, but is only discernible on the sagittal images. No significant deformity of the thecal sac or epidural impression is seen on the axial images. Serge Squires MD on March 13, 2017 at 19:36 Board Certified Radiologist. This report was verified electronically.
--- NOTE | 2017-03-13 19:49 | RADRPT ---
EXAM DATE/TIME: 03/13/2017 18:33 [facility] COMPARISON: MRI CERVICAL SPINE W & W/O CONTRAST, June 10, 2016, 16:11. INDICATIONS : Osteomyelitis. CONTRAST: 15 cc Omniscan (gadodiamide) IV MEDICAL HISTORY : None. SURGICAL HISTORY : Discectomy, lumbar. ENCOUNTER: Initial ACUITY: 1 day PAIN SCORE: 5/10 LOCATION: Paraspinal TECHNIQUE: Multiplanar, multisequence MRI examination of the cervical spine was performed. FINDINGS: VERTEBRAE: Normal vertebral body height. Homogeneous marrow signal. ALIGNMENT: Straightening of the cervical or doses. No evidence of subluxation. CORD: Normal configuration and signal. POST FOSSA: The cerebellar tonsils are normal in position. POST-CONTRAST: No abnormal areas of enhancement are seen. C2-C3: The thecal sac has a normal configuration. There is no evidence of disc herniation or spinal canal stenosis. The neural foramina are patent bilaterally. C3-C4: There is mild flattening of the ventral margin of the thecal sac and asymmetric uncovertebral joint h ypertrophy on the right side which causes some moderate bony neural foraminal stenosis. No evidence of disc bulge or protrusion. C4-C5: The thecal sac has a normal configuration. There is no evidence of disc herniation or spinal canal s tenosis. The neural foramina are patent bilaterally. C5-C6: Left paracentral protrusion of the disc causing flattening of the left ventral margin of the thecal s ac. The size and appearance is very similar to prior MRI June 2016. CSF is still seen about th e cervical cord. C6-C7: The thecal sac has a normal configuration. There is no evidence of disc herniation or spinal canal s tenosis. The neural foramina are patent bilaterally. C7-T1: The thecal sac has a normal configuration. There is no evidence of disc herniation or spinal canal s tenosis. The neural foramina are patent bilaterally. CONCLUSION: 1. No abnormal signal in the cervical vertebral bodies. 2. Small left paracentral disc protrusion at C5-6 unchanged from June 2016. Serge Squires MD on March 13, 2017 at 19:43 Board Certified Radiologist. This report was verified electronically.
--- NOTE | 2017-03-13 20:00 | RADRPT ---
EXAM DATE/TIME: 03/13/2017 18:33 [facility] COMPARISON: MRI LUMBAR SPINE W & W/O CONTRAST, October 31, 2016, 22:32. INDICATIONS : Osteomyelitis. CONTRAST: 15 cc Omniscan (gadodiamide) IV MEDICAL HISTORY : None. SURGICAL HISTORY : Discectomy, lumbar. ENCOUNTER: Initial ACUITY: 1 day PAIN SCORE: 5/10 LOCATION: [facility] TECHNIQUE: Multiplanar multisequence MRI of the lumbar spine was performed with and without contrast. FINDINGS: The most caudal appearing lumbar vertebra is numbered as L5. Prior MRI in October 2016 had demonstra nae findings about the L4-5 vertebral bodies and interspaces suggestive of either discitis or osteomy elitis. On today's examination, there is no significant enhancement in the marrow of L4-L5, but ther e is some diffuse peripheral enhancement within the narrowed L4-5 disc. Laminectomy at L4-5 on the l eft has a stable appearance. The conus is at the level of T12. No evidence of epidural abscess. T12-L1: The thecal sac has a normal diameter. No evidence of disc bulge or protrusion. The neural foramina are patent bilaterally. L1-L2: The thecal sac has a normal diameter. No evidence of disc bulge or protrusion. The neural foramina are patent bilaterally. L2-L3: Minimal bulging of the disc was ventral margin thecal sac, stable from prior. No evidence of focal d isc protrusion. The neural foramen remain patent. L3-L4: The thecal sac has a normal diameter. No evidence of disc bulge or protrusion. The neural foramina are patent bilaterally. L4-L5: Left laminectomy with stable configuration of the thecal sac. No significant epidural impression is seen. There is some enhancement with in the neural foramen on the left side surrounding the nerve ro ot characteristic of granulation tissue. L5-S1: The thecal sac has a normal diameter. No evidence of disc bulge or protrusion. The neural foramina are patent bilaterally. CONCLUSION: 1. Prior laminectomy at L4-5, stable in configuration. There is some persistent enhancement within t he neural foramen on the left side suggestive of granulation tissue which appears to surround the ner ve. 2. No evidence of epidural abscess. 3. There is some mild enhancement with in the periphery of the L4-5 disc, but no abnormal enhancement seen in the marrow of the L4 or L5 vertebral bodies. Serge Squires MD on March 13, 2017 at 19:52 Board Certified Radiologist. This report was verified electronically.
[2017-03-13] MEDS ORDERED: POTASSIUM CHLORIDE 20 MEQ CONTROLLED RELEASE TAB PO ONE (20:30)
[2017-03-13] MEDS ORDERED: KETOROLAC TROMETHAMINE 30 MG/ML (IVP) VIAL IV PUSH ONE (20:30)
[2017-03-13 22:09] VITALS: BP 114/68; PULSE 51; RESP 18; O2SAT 100
== END 2017-03-13 23:03 | disposition home or self-care (01) ==
LOC: NEPD 16:15
DX: M54.40 Lumbago with sciatica, unspecified side (principal); F17.210 Nicotine dependence, cigarettes, uncomplicated
CPT/HCPCS: 72156; 72157; 72158; 80053; 83605; 85025; 85652; 87040; 96374; 96375; 99285; A9579; J1885; J2060; J7030

== ENCOUNTER 2017-08-05 20:04 | Emergency (ER) | payer SELFPAY ==
[2017-08-05 20:09] VITALS: BP 143/80; PULSE 68; RESP 20; TEMP 98.7; O2SAT 100
--- NOTE | 2017-08-05 21:00 | PD ---
HPI Chief Complaint: Musculoskeletal Complaint Time Seen by Provider: 20:21 Travel History International Travel<30 days: No Contact w/Intl Traveler<30days: No Traveled to known affect area: No History of Present Illness HPI PATIENT DENIES TRAUMA OR FALL, BUT C/O NECK PAIN, WORSE WITH MOVING, (PATIENT HAD A COLLAR PLACED AT ER WHILE WAITING EVALUATION). PATIENT DENIES N/V/D/ ABDPAIN/CP PFSH Past Medical History Hx Anticoagulant Therapy: No Arthritis: No Asthma: No Blood Disorders: No Anxiety: Yes Depression: No Heart Rhythm Problems: No Cancer: No Cardiovascular Problems: No High Cholesterol: No Chemotherapy: No Chest Pain: No Congestive Heart Failure: No COPD: No Cerebrovascular Accident: No Diabetes: No Diminished Hearing: No Endocrine: No Genitourinary: No Headaches: No Hypertension: No Immune Disorder: No Musculoskeletal: Yes (CHRONIC LOWER BACK PAIN) Neurologic: No Psychiatric: Yes Reproductive: No Respiratory: No Immunizations Current: Yes Migraines: No Myocardial Infarction: No Radiation Therapy: No Seizures: No Sickle Cell Disease: No Sleep Apnea: No Thyroid Disease: No Influenza Vaccination: No ?: Not Past Surgical History Abdominal Surgery: No AICD: No Arteriovenous Shunt: No Cardiac Surgery: No Ear Surgery: No Endocrine Surgery: No Eye Surgery: No Genitourinary Surgery: No Insulin Pump: No Joint Replacement: No Oral Surgery: No Pacemaker: No Thoracic Surgery: Yes (CHEST TUBE RIGHT LUNG 1996) Other Surgery: Yes (LUNG COLLAPSED) Social History Alcohol Use: No Tobacco Use: Yes (1/2 PPD) Substance Use: Yes (IV DRUG USE) Allergies-Medications (Allergen,Severity, Reaction): Coded Allergies: penicillin G (Unverified Allergy, Mild, UNKNOWN, 08/05/17) vancomycin (Unverified Adverse Reaction, Unknown, 08/05/17) neutropenia Reported Meds & Prescriptions Reported Meds & Active Scripts Active No Active Prescriptions or Reported Medications Review of Systems Except as stated in HPI: all other systems reviewed are Neg General / Constitutional: No: Fever Eyes: No: Visual changes HENT: No: Headaches Cardiovascular: No: Chest Pain or Discomfort Respiratory: No: Shortness of Breath Gastrointestinal: No: Abdominal Pain Genitourinary: No: Dysuria Musculoskeletal: Positive: Pain Skin: No Rash Neurologic: No: Weakness Psychiatric: No: Depression Endocrine: No: Polydipsia Hematologic/Lymphatic: No: Easy Bruising Physical Exam Narrative GENERAL: SKIN: Warm and dry. HEAD: Atraumatic. Normocephalic. EYES: Pupils equal and round. No scleral icterus. No injection or drainage. ENT: No nasal bleeding or discharge. Mucous membranes pink and moist. NECK: Trachea midline. No JVD. C COLLAR IN PLACE CARDIOVASCULAR: Regular rate and rhythm. RESPIRATORY: No accessory muscle use. Clear to auscultation. Breath sounds equal bilaterally. GASTROINTESTINAL: Abdomen soft, non-tender, nondistended. MUSCULOSKELETAL: Extremities without clubbing, cyanosis, or edema. No obvious deformities. NEUROLOGICAL: Awake and alert. No obvious cranial nerve deficits. Motor grossly within normal limits. Five out of 5 muscle strength in the arms and legs. Normal speech. PSYCHIATRIC: Appropriate mood and affect; insight and judgment normal. Data Data Last Documented VS Vital Signs Date Time Temp Pulse Resp B/P (MAP) Pulse Ox O2 Delivery O2 Flow Rate FiO2 08/05/17 20:09 98.7 68 20 143/80 (101) [address] Cerv Spine W/O Contrast (08/05/17 20:56) [facility] Medical Decision Making Medical Screen Exam Complete: Yes Emergency Medical Condition: Yes Medical Record Reviewed: Yes Differential Diagnosis FX V DISLOCATION V SUBLUXATION Narrative Course ONCE REVIEWED MRI CERVICAL/THORACIC AND LUMBAR NONE OF WHICH SHOWED ANY ACTIVE OSTEOMYELITIS NOR ANY EPIDURAL ABSCESS...CT SHOWED DEGENERATIVE FINDINGS WHICH ARE NOT DIFFERENT FROM PREVIOUS MRI. Diagnosis Primary Impression: Neck pain Patient Instructions: Chronic Neck Pain (DC), General Instructions Scripts Naproxen DR (Naproxen EC) 375 Mg Tabdr 375 MG PO BID, #20 TAB 0 Refills Prov: Brooks Stroud MD 08/05/17 Disposition: 01 DISCHARGE HOME Condition: Stable Brooks Stroud MD Aug 05, 2017 21:00
--- NOTE | 2017-08-05 21:46 | RADRPT ---
EXAM DATE/TIME: 08/05/2017 21:08 [facility] COMPARISON: MRI CERVICAL SPINE W & W/O CONTRAST, March 13, 2017, 18:33. INDICATIONS : Neck pain for 3 days. No known injury. Patient states he has history of abscess in spine. RADIATION DOSE: 26.17 CTDIvol (mGy) MEDICAL HISTORY : None SURGICAL HISTORY : None. ENCOUNTER: Initial ACUITY: 3 days PAIN SCALE: 8/10 LOCATION: neck TECHNIQUE: Volumetric scanning of the cervical spine was performed. Multiplanar reconstructions in the sagittal, coronal and oblique axial planes were performed. Using automated exposure control and adjustment o f the mA and/or kV according to patient size, radiation dose was kept as low as reasonably achievable to obtain optimal diagnostic quality images. DICOM format image data is available electronically f or review and comparison. FINDINGS: VERTEBRAE: Normal vertebral body height. ALIGNMENT: No evidence of subluxation. C2-C3: The bony spinal canal is normal in size. No evidence of disc bulge or herniation. The neural forami na are bilaterally patent. C3-C4: The bony spinal canal is normal in size. Small diffuse annular bulge, stable. No evidence of disc her niation. The neural foramina are bilaterally patent. C4-C5: The bony spinal canal is normal in size. No evidence of disc bulge or herniation. The neural forami na are bilaterally patent. C5-C6: The bony spinal canal is normal in size. Small ridge of disc osteophyte complex left greater than rig ht unchanged. No evidence of disc herniation. The neural foramina are bilaterally patent. C6-C7: The bony spinal canal is normal in size. No evidence of disc bulge or herniation. The neural forami na are bilaterally patent. C7-T1: The bony spinal canal is normal in size. No evidence of disc bulge or herniation. The neural forami na are bilaterally patent. CONCLUSION: Degenerative disease at the C3-4 level and the C5-6 level. No evidence of an acute fracture. Stable since previous MRI Cristopher Eagle MD on August 05, 2017 at 21:43 Board Certified Radiologist. This report was verified electronically.
[2017-08-05] MEDS ORDERED: NAPR375T4 PO (21:52)
== END 2017-08-05 22:09 | disposition home or self-care (01) ==
LOC: PHEFT 20:04
DX: M54.2 Cervicalgia (principal); F17.200 Nicotine dependence, unspecified, uncomplicated
CPT/HCPCS: 72125